=== PATIENT | male | born 1970 | race Caucasian/White ===

== ENCOUNTER 2017-08-11 11:25 | Day surgery (SDC) | payer MEDICAID, SELFPAY ==
--- NOTE | 2017-08-06 11:22 | EKG12_ITS ---
Test Reason : PREOP Blood Pressure : / mmHG Vent. Rate : 093 BPM Atrial Rate : 093 BPM P-R Int : 136 ms QRS Dur : 090 ms QT Int : 386 ms P-R-T Axes : 061 017 018 degrees QTc Int : 479 ms Normal sinus rhythm Nonspecific T wave abnormality Prolonged QT Abnormal ECG Confirmed by SHANNAN STALLWORTH, STEPHEN ([id number]), editor managing newspaper TRISTAN HERRERA ([id number]) on 08/10/2017 3:32:50 PM Referred By: Bahman May Confirmed By:STEPHEN CAMPBELL MD
[2017-08-06 12:19] LABS: Anion Gap 7 (5-15); BUN 8 mg/dL (7-18); BUN/Creat Ratio 7.5 RATIO (10-20); Calcium,Total 9.2 mg/dL (8.5-10.1); Chloride 97 mmol/L (98-107); Creatinine, Serum 1.06 mg/dL (0.70-1.30); EST Glomerular Filtration Rate 80 mL/min (>60); Est Glom Filt Rate - Afr Amer 97 mL/min (>60); Glucose 88 mg/dL (70-110); Sodium Level 137 mmol/L (136-145)
[2017-08-11] VITALS (15 sets, daily range): BP systolic 116–164; BP diastolic 65–94; PULSE 97–111; RESP 12–18; TEMP 36.7–37.6; O2SAT 80–99; BMI 39.4
[2017-08-11 12:12] LABS: Hematocrit 41.2 % (40-54); Hemoglobin 13.4 g/dl (13.0-16.5); Mean Corp Hgb Conc 32.5 g/gl (32-36); Mean Corpuscular Hgb 31.8 pg (27.0-32.0); Mean Corpuscular Volume 97.6 fL (80-94); Mean Platelet Vol. 10.1 fl (6.2-12.0); Platelet Count 241 K/mm3 (150-450); RBC Distribution Width CV 12.3 % (11.6-14.6); RBC Distribution Width SD 43.6 fl (35.1-43.9); Red Blood Count 4.22 M/mm3 (4.6-6.2); White Blood Count 7.3 K/mm3 (4.4-11.0)
[2017-08-11 12:16] LABS: Scan Indicated on CBC? Y/N NO
[2017-08-11 12:24] LABS: Prothrombin Time (Protime)PT. 12.9 SECONDS (11.7-14.9)
[2017-08-11] MEDS: Clindamycin 900 MG/50 ML BAG 75 MG IV (13:30)
[2017-08-11] MEDS: Mupirocin Ointment 22gm Tube 1 APPLIC (14:15)
--- NOTE | 2017-08-11 16:45 | DCINST_ITS ---
You will use the following diet at home:: No restrictions Discharge Activity: May not drive while taking narcotic pain medications. Return to work on:: 08/17/17 Additional Activity Instructions:: keep the bridge of your nose dry until next thursday morning. that day, get it very wet in the shower so it comes off easily in the office Call your doctor if your incision/area has: Increased Pain/ Swelling Additional Dressing/Incision Instructions:: mupirocin to nasal incisions twice daily. ice to under-eye area 20 mins on / 20 mins off for the first 48 hrs ( when awake). nasal saline spray to both nostrils 4 times daily. Allergies/Adverse Reactions: Allergies No Known Allergies Allergy (Verified 08/04/17 08:50) Medications to take at Discharge Benztropine [Cogentin] 0.5 mg PO BID 05/24/17 Cetirizine HCl [Allergy] 10 mg PO DAILY 05/24/17 Cyclobenzaprine [Flexeril] 10 mg PO PRN PRN 05/24/17 Divalproex Sodium [Depakote ER] 500 mg PO BID 05/24/17 Ibuprofen 800 mg PO TID 05/24/17 Omeprazole 20 mg PO DAILY 05/24/17 Pravastatin Sodium [Pravachol] 10 mg PO DAILY 05/24/17 Risperidone [Risperdal M-Tab] 0.5 mg PO BID 05/24/17 Sucralfate 1 gm PO TID 05/24/17 Sumatriptan Succinate [Imitrex] 50 mg PO PRN PRN 05/24/17 Ergocalciferol [Vitamin D] 50,000 unit PO TU 08/04/17 Iron Carbonyl [Feosol] 45 mg PO DAILYCM 08/04/17 Methylcellulose [Fiber Therapy] 1,000 mg PO BID 08/04/17 Multivitamin [Multiple Vitamins] 1 each PO DAILY 08/04/17 Hydrocodone/Acetaminophen [[place] 5-325 Tablet] 1 ea PO Q6H PRN #20 tab 08/11/17 Smz/Tmp Ds [Bactrim Ds] 1 tab PO BID #14 tab 08/11/17 The following prescriptions were given: Smz/Tmp Ds [Bactrim Ds] 1 tab PO BID #14 tab Hydrocodone/Acetaminophen [[place] 5-325 Tablet] 1 ea PO Q6H PRN #20 tab PRN Reason: Pain Primary Care Physician: Mari Loya,Ita James [Primary Care Provider] - Please Follow Up With: Bahman May MD When: next thursday - call to make appt
--- NOTE | 2017-08-11 17:03 | PCM.OPRPT ---
Problem List (1) Nasal congestion Status: Chronic Report of Operation Date of Procedure: 08/11/17 Pre-Operative Diagnosis: 1. nasal congestion. 2. nasal septal deviation. 3. nasal bone and septal fracture. 4. inferior turbinate hypertrophy, right and left. 5. internal nasal valve dysfunction, right and left Post-Operative Diagnosis: 1. nasal congestion. 2. nasal septal deviation. 3. nasal bone and septal fracture. 4. inferior turbinate hypertrophy, right and left. 5. internal nasal valve dysfunction, right and left Surgery/Procedure Performed:: 1. open septorhinoplasty. 2. open correction nasal bone and septal fractures. 3. correction internal nasal valve stenosis, right and left. 4. submucous resection inferior turbinates, right and left Type of Anesthesia:: General Description of Procedure: on the day of the procedure, after appropriate informed consent was obtained, the patient was brought to the operating room and placed in supine position on the operating room table. he was placed under general endotracheal anesthesia by the anesthesiologist. tegaderm was placed over the eyes. the bilateral nasal cavities were decongested with oxymetazoline soaked pledgets. an inverted v columellar incision was made with a tribal blade. this traversed into marginal incisions on the right and left with three point retraction and iris scizzors. the lower lateral cartilages were skeletonized. the scroll region was found and the left and right upper lateral cartilages were skeletonized with iris scizzors. the medial crura were lateralized with stephy brown forceps and the anterior septal angle was found. the patient had an incredibly deviated bony/cartilaginous junction to the left. his septum was in contact with his left nasal sidewall. his left upper lateral cartilage and keystone area were crushed to the left. sub mucoperichondrial planes were developed on the right then left using a almaz elevator. due to the fragmented cartilage of his septum, the entire septum was removed in fragments along previous fracture lines. severely deviated areas of the perpendicular plate of the ethmoid and vomer were removed with a vivien nolen. the left upper lateral cartilage was disarticulated with the nasal septum and keystone area with a almaz elevator. the head of the right and left inferior turbinates were injected with lidocaine/epinephrine. an incision was made in the head of the right inferior turbinate. this was dissected submucosally with a almaz elevator, reduced using suction electrocautery, and outfractured using a boies elevator. an incision was made in the head of the left inferior turbinate. this was dissected submucosally with a almaz elevator, reduced using suction electrocautery, and outfractured using a boies elevator. the junction of the nasal dorsum and bilateral lateral nasal sidewalls was injected with lidocaine/epinephrine. a 2mm incision in this area on the right and left was made with a tribal blade. a subperiosteal plane was developed endonasally with a almaz, the periosteum from the nasal bones. medial and lateral osteotomies on the patients right were made with a 2mm osteotome. the right nasal bone and piriform was lateralized to the right. medial and lateral osteotomies on the patients left were made with a 2mm osteotome. the left nasal bone and piriform was completely medialized, bringing the keystone area back to near midline. the fragmented septum was sutured in piecemeal fashion to a PDS plate and an anterior septal reconstruction was performed with this conglomerate placed as an internal liquified natural gas technician graft on the patient's left side. this was sutured into place using 4-0 PDS to the maxillary crest periosteum. bilateral flaring sutures were placed to stabilize his internal nasal valve collapse using 4/0 PDS. numerous quilting sutures were used to reapproximate the septum with 4-0 chromic; several incorporating the anterior septal reconstruction. the columellar incision was closed with 7-0 vicryl and the marginal incisions with 4-0 chromic. benson splints were sutured into place and a dorsal nasal splint was placed. the patient was awoken from anesthesia by the anesthesiologist and transferred to the PACU in stable condition. - Admit VTE Documentation VTE Present on Admission: No VTE Mechan Device Prophylaxis: SCD's Reason prophylaxis not ordered:: Treatment Not Indicated
[2017-08-11] MEDS: HYDROcodone Bitartrate/Apap 5/325 Tablet PO (18:35)
[2017-08-11] MEDS: Ipratropium/Albuterol Sulfate 3 ML AMPUL.NEB INHALATION (19:02)
== END 2017-08-11 19:58 | disposition home or self-care (01) ==
LOC: SDC 11:25 → AC 15:23
PROVIDERS: Visit Provider Otolaryngology
PROC: (CPT 30140; principal; 2017-08-11 13:30)
DX: J34.2 Deviated nasal septum (principal); R09.81 Nasal congestion; J34.3 Hypertrophy of nasal turbinates; H04.553 Acquired stenosis of bilateral nasolacrimal duct; F17.210 Nicotine dependence, cigarettes, uncomplicated; M95.0 Acquired deformity of nose
CPT/HCPCS: 00160; 30140; 30420; 68811; 36415; 80048; 85027; 85610; 85730; 93005; 94640; J7120; J2405

== ENCOUNTER 2017-11-12 18:53 | Observation (INO) | payer MEDICAID, SELFPAY ==
[2017-11-12 18:54] VITALS: BP 133/84; PULSE 137; RESP 16; TEMP 38.7; O2SAT 94; BMI 39.3
[2017-11-12 19:26] VITALS: BP 172/82; PULSE 133; RESP 24; O2SAT 90
--- NOTE | 2017-11-12 19:59 | RAD_ITS ---
STUDY: X-RAY CHEST REASON FOR EXAM: Male, 47 years old. Dizziness. TECHNIQUE: Frontal and lateral views of the chest. COMPARISON: 05/24/2017. FINDINGS: The lungs are clear and expanded. There is no demonstrated pleural abnormality. Normal size heart. Normal mediastinum and lake. Normal visualized pulmonary arteries. Normal visualized aortic arch and descending thoracic aorta. Normal visualized thoracic spine. Normal visualized ribs, clavicles, and shoulders. There is no demonstrated abnormality of the visualized soft tissue structures of the upper abdomen. RAD/Chest PA and Lateral IMPRESSION: Normal x-ray examination of the chest. Electronically Signed: Conrad Sky MD at 20:36 EDT , Service support ,
[2017-11-12] MEDS: 0.9% Normal Saline 1,000 ML 1000 ML IV (20:05)
[2017-11-12] MEDS: Acetaminophen 500 MG Tablet 1000 MG PO (20:08)
[2017-11-12 20:15] LABS: Absolute Neutrophil Count 12.1 X10^3/uL (2.0-7.7); Basophil# 0.02 X10^3/uL; Basophil% 0.1 % (0-1); Eosinophil# 0.03 X10^3/uL; Eosinophils% 0.2 % (0-5); Hematocrit 41.2 % (40-54); Hemoglobin 13.7 g/dl (13.0-16.5); Lymphocyte % 8.2 % (19-41); Mean Corp Hgb Conc 33.3 g/gl (32-36); Mean Corpuscular Hgb 32.2 pg (27.0-32.0); Mean Corpuscular Volume 96.7 fL (80-94); Mean Platelet Vol. 9.9 fl (6.2-12.0); Monocyte# 1.25 X10^3/uL; Monocyte% 8.5 % (0-10); Neutrophil % 82.7 % (47-70); Platelet Count 179 K/mm3 (150-450); RBC Distribution Width CV 12.8 % (11.6-14.6); RBC Distribution Width SD 44.7 fl (35.1-43.9); Red Blood Count 4.26 M/mm3 (4.6-6.2); White Blood Count 14.6 K/mm3 (4.4-11.0)
[2017-11-12 20:16] LABS: POSITIVE COUNT NO; POSITIVE DIFFERENTIAL NO; POSITIVE MORPHOLOGY NO
[2017-11-12 20:41] LABS: Anion Gap 7 (5-15); BUN 17 mg/dL (7-18); BUN/Creat Ratio 14.7 RATIO (10-20); Calcium,Total 9.1 mg/dL (8.5-10.1); Chloride 99 mmol/L (98-107); Creatinine, Serum 1.16 mg/dL (0.70-1.30); EST Glomerular Filtration Rate 72 mL/min (>60); Est Glom Filt Rate - Afr Amer 87 mL/min (>60); Estimated Creatinine Clearance 87.34 ml/min; Glucose 106 mg/dL (74-106); Potassium 4.1 mmol/L (3.5-5.1); Sodium Level 133 mmol/L (136-145)
--- NOTE | 2017-11-12 20:49 | EKG12_ITS ---
Test Reason : DIZZINESS Blood Pressure : / mmHG Vent. Rate : 130 BPM Atrial Rate : 357 BPM P-R Int : 000 ms QRS Dur : 086 ms QT Int : 408 ms P-R-T Axes : 000 003 -77 degrees QTc Int : [address] & T wave abnormality, consider inferior ischemia Abnormal ECG Confirmed by KRISTOPHER PETERS ([id number]), science editor TRISTAN HERRERA ([id number]) on 11/17/2017 2:41:10 PM Referred By: CEDRIC
[2017-11-12 22:11] VITALS: BP 154/72; PULSE 108; RESP 19; O2SAT 93
[2017-11-12 23:20] VITALS: TEMP 37.1
[2017-11-12] MEDS: MethylPREDNISolone 125 MG/2 ML Vial IV (23:44)
[2017-11-13] VITALS (12 sets, daily range): BP systolic 130–165; BP diastolic 55–95; PULSE 94–109; RESP 18–20; TEMP 36.6–37.4; O2SAT 91–96; BMI 39.4
--- NOTE | 2017-11-13 00:03 | ED.VISSUMM ---
- ER Visit Summary Date of Service: 11/13/17 Chief Complaint: Cough, fever and shortness of breath. History of Present Illness: The patient is a 47 M history of schizophrenia PTSD. States that he has had a cough for approximately 1 week with brown phlegm. Associated shortness of breath. Fever and chills. Denies vomiting or diarrhea no hemoptysis. No history of DVT or PE and no chest pain except with coughing. Physical Examination: Middle-aged male clinically looks ill. His vital signs he has a fever 1016 with a heart rate of 133. 90% on room air consistent with hypoxia. H EENT exam dry mucous membranes. Neck nontender no lymphadenopathy. No meningismus. Lungs wet cough. No wheezing. Coarse in the left base. Heart tachycardic rate of 130s no murmurs. Chest wall nontender. Abdomen soft nontender. Moving all 4 extremities. Calves nontender without edema or cords. Neurologically is awake and alert with no focal motor deficits. Back exam normal. Skin is diaphoretic. Test Results: CBC shows a white count of 14.7. H&H of 13 and 41. No bands electrolytes unremarkable sodium 133. Normal gap and creatinine. Lactic acid is 2.0. Blood culture sent. EKG sinus tachycardia rate of 130 no ischemia. Emergency Department Course and Treatment: Clinically the patient has a pneumonia. Chest x-ray is questionable in the left lower lung field but the radiologist read it is negative. Patient remains hypoxic he is being treated with Solu-Medrol and aerosols. His pulse ox drops into the high 80s while in bed off of O2. He will be started on Rocephin and Zithromax and treated as a community-acquired pneumonia. Treatment Plan: I have spoken to the hospitalist who is down to evaluate for admission. Disposition: Admission Impression: Clinical pneumonia Leukocytosis Hypoxia This note was generated with [employer]icky[employer] dictation software. It may contain incorrect words, spelling, and punctuation that were not noted in review of the chart prior to signing ED Disposition - Plan for ED Patient: Chief Complaint: Dizziness Referrals: Ita Agudelo [Primary Care Provider] -
[2017-11-13] MEDS: Ipratropium/Albuterol Sulfate 3 ML AMPUL.NEB INHALATION (00:04)
[2017-11-13] MEDS: Albuterol 2.5 MG/3 ML VIAL.NEB. INHALATION ×2 (00:04)
[2017-11-13 00:11] LABS: Reflex Lactate? Y
[2017-11-13] MEDS: Ceftriaxone 1 GM/50 ML BAG IV (00:22)
[2017-11-13 01:02] LABS: Lactic Acid 1.9 mmol/L (0.4-2.0)
--- NOTE | 2017-11-13 01:12 | HP.PCM_ITS ---
Problem List (1) Left lower lobe CAP Status: Acute (2) Morbid obesity Status: Chronic (3) Schizophrenia Status: Chronic (4) Dyslipidemia Status: Chronic History of Present Illness Date of Admission: 11/13/17 Chief Complaint: Cough with fever on and off for about 1 week The patient is a 47 year old M with history of schizophrenia, morbid obesity came to ER with cough along with brown phlegm, intermittent fever for about 1 week. In the ER he was found to have 101.6?F and 90% on room air. He denies chest pain, shortness of breath at rest or on exertion. Denies any chronic lung disease. Was scheduled for sleep study test. Chest x-ray shows infiltrate in the left lung base although reported normal. Laboratory Results 11/12/17 20:00: WBC 14.6 H, RBC 4.26 L, Hgb 13.7, Hct 41.2, MCV 96.7 H, MCH 32.2 H, MCHC 33.3, RDW 12.8, RDW Differential 44.7 H, Plt Count 179, MPV 9.9, Immature Gran % (Auto) 0.300, Neut % (Auto) 82.7 H, Lymph % (Auto) 8.2 L, Keith % (Auto) 8.5, Eos % (Auto) 0.2, Baso % (Auto) 0.1, Absolute Neuts (auto) 12.1 H , Absolute Lymphs (auto) 1.20, Total Counted Not Reportable 11/12/17 20:00: Sodium 133 L, Potassium 4.1, Chloride 99, Carbon Dioxide 27.0, Anion Gap 7, BUN 17, Creatinine 1.16, Estim Creat Clear Calc 87.34, Est GFR ( MDRD) Af Amer 87, Est GFR (MDRD) Non-Af 72, BUN/Creatinine Ratio 14.7, Glucose 106, Calcium 9.1 11/12/17 20:00: Lactic Acid 2.0 11/13/17 00:27: Lactic Acid 1.9 Past Medical History Past Medical History (Chronic Problems): Chronic Problems Morbid obesity (Chronic) Schizophrenia (Chronic) Dyslipidemia (Chronic) Nasal congestion (Chronic) Allergies No Known Allergies Allergy (Verified 08/04/17 08:50) Home Medications: Ambulatory Orders Medication Instructions Recorded Benztropine [Cogentin] 0.5 mg PO BID 05/24/17 Cetirizine HCl [Allergy] 10 mg PO DAILY 05/24/17 Divalproex Sodium [Depakote ER] 500 mg PO BID 05/24/17 Ibuprofen 800 mg PO TID 05/24/17 Omeprazole 20 mg PO DAILY 05/24/17 Pravastatin Sodium [Pravachol] 10 mg PO DAILY 05/24/17 Risperidone [Risperdal M-Tab] 0.5 mg PO BID 05/24/17 Sucralfate 1 gm PO TID 05/24/17 Sumatriptan Succinate [Imitrex] 50 mg PO PRN PRN 05/24/17 Ergocalciferol [Vitamin D] 50,000 unit PO TU 08/04/17 Smoking Status: Current every day smoker - *Family History Paternal History Items: No pertinent history Review of Systems Constitutional: Reports: Chills, Fever, Malaise. Denies: Weight Change HEENT: Denies: Head Aches, Sinus Congestion, Sinus Drainage Cardiovascular: Denies: Chest Pain, Palpitations Respiratory: Reports: Cough, Sputum production. Denies: Shortness of breath at rest Gastrointestinal: Denies: Abdominal Pain, Nausea, Vomiting Genitourinary: Denies: Dysuria Musculoskeletal: Denies: Joint Pain, Joint Tenderness Skin: Denies: Rash, Wounds Neurological: Reports: Tremor - Neurological problem including schizophrenia and possible due to antipsychotic medication. Denies: Focal weakness, Numbness , Tingling Psychiatric: Denies: Anxiety, Depression, Homicidal Ideations, Suicidal Ideations Hematologic/ Lymphatic: Denies: Easy Bruising, Easy Bleeding VTE Information - Inpt Only VTE Present on Admission: No VTE Mechan Device Prophylaxis: SCD's VTE Pharm Prophylaxis ordered?: Yes Patient Problems: Active and Suspected Problems Left lower lobe CAP (Acute) - Physical Exam General: Alert, Oriented x3, Cooperative HEENT: Atraumatic, PERRLA, EOMI, Normocephalic Neck: Supple, No JVD, Negative Carotid Bruits Lungs: Diminished, Rales - Coarse rales present in bilateral lung bases Cardiovascular: Regular rate, Regular Rhythm, Normal S1, Normal S2, No murmurs Abdomen: Bowel Sounds Present, Soft, Non Tender, Non-Distended Extremities: No edema, Capillary Refill Less than 3 Seconds Skin: No rashes, No breakdown Musculoskeletal: No Tenderness to Palpation of Joints or Extremities Neurological: Cranial nerves II-XII grossly intact, - - Tremor present on the left thumb Psych/Mental Status: Normal Affect, Appropriate Vital Signs Temp Pulse Resp BP Pulse Ox 98.7 F 102 H 20 H 165/74 H 94 11/13/17 00:12 11/13/17 01:00 11/13/17 01:00 11/13/17 01:00 11/13/17 01:00 Oxygen Flow Rate (L/min) 3 Oxygen Delivery Method Nasal Cannula Weight: 290 lb Body Mass Index (BMI) 39.3 Laboratory Tests Past 24 Hrs 11/12/17 11/12/17 11/12/17 20:00 20:00 20:00 WBC 14.6 H RBC 4.26 L Hgb 13.7 Hct 41.2 MCV 96.7 H MCH 32.2 H MCHC 33.3 RDW 12.8 RDW Differential 44.7 H Plt Count 179 MPV 9.9 Immature Gran % (Auto) 0.300 Neut % (Auto) 82.7 H Lymph % (Auto) 8.2 L Keith % (Auto) 8.5 Eos % (Auto) 0.2 Baso % (Auto) 0.1 Absolute Neuts (auto) 12.1 H Absolute Lymphs (auto) 1.20 Total Counted Not Reportable Sodium 133 L Potassium 4.1 Chloride 99 Carbon Dioxide 27.0 Anion Gap 7 BUN 17 Creatinine 1.16 Estim Creat Clear Calc 87.34 Est GFR (MDRD) Af Amer 87 Est GFR (MDRD) Non-Af 72 BUN/Creatinine Ratio 14.7 Glucose 106 Lactic Acid 2.0 Calcium 9.1 11/13/17 00:27 WBC RBC Hgb Hct MCV MCH MCHC RDW RDW Differential Plt Count MPV Immature Gran % (Auto) Neut % (Auto) Lymph % (Auto) Keith % (Auto) Eos % (Auto) Baso % (Auto) Absolute Neuts (auto) Absolute Lymphs (auto) Total Counted Sodium Potassium Chloride Carbon Dioxide Anion Gap BUN Creatinine Estim Creat Clear Calc Est GFR (MDRD) Af Amer Est GFR (MDRD) Non-Af BUN/Creatinine Ratio Glucose Lactic Acid 1.9 Calcium Assessment/Plan Active and Suspected Problems Left lower lobe CAP (Acute) The patient is a 47 year old M with history of schizophrenia, morbid obesity came to ER with cough along with brown phlegm, intermittent fever for about 1 week. In the ER he was found to have 101.6?F and 90% on room air. He denies chest pain, shortness of breath at rest or on exertion. Denies any chronic lung disease. Was scheduled for sleep study test. Chest x-ray shows infiltrate in the left lung base although reported normal. 1. Left lung base community-acquired pneumonia: Patient is being admitted on the regular [facility] floor. Started on IV ceftriaxone and Zithromax. Blood cultures ?2, sputum culture, influenza and urinary antigens ordered. Bronchodilator as needed for shortness of breath. 2. Dyslipidemia: On pravastatin. Fasting profile tomorrow a.m. 3. Other comorbidities include GERD, Schizophrenia, possible obstructive sleep apnea and morbid obesity: Home medication reconciliation done. Patient has a scheduled sleep study test as an outpatient. On multiple antipsychotic medications including Depakote, risperidone. Due to prophylaxis: Moderate risk: On Lovenox and bilateral SCDs. Laboratory Results 11/12/17 20:00: WBC 14.6 H, RBC 4.26 L, Hgb 13.7, Hct 41.2, MCV 96.7 H, MCH 32.2 H, MCHC 33.3, RDW 12.8, RDW Differential 44.7 H, Plt Count 179, MPV 9.9, Immature Gran % (Auto) 0.300, Neut % (Auto) 82.7 H, Lymph % (Auto) 8.2 L, Keith % (Auto) 8.5, Eos % (Auto) 0.2, Baso % (Auto) 0.1, Absolute Neuts (auto) 12.1 H , Absolute Lymphs (auto) 1.20, Total Counted Not Reportable 11/12/17 20:00: Sodium 133 L, Potassium 4.1, Chloride 99, Carbon Dioxide 27.0, Anion Gap 7, BUN 17, Creatinine 1.16, Estim Creat Clear Calc 87.34, Est GFR ( MDRD) Af Amer 87, Est GFR (MDRD) Non-Af 72, BUN/Creatinine Ratio 14.7, Glucose 106, Calcium 9.1 11/12/17 20:00: Lactic Acid 2.0 11/13/17 00:27: Lactic Acid 1.9 Clinical Impression(s) from Imaging Studies Chest X-Ray 11/12/17 19:59 IMPRESSION: Normal x-ray examination of the chest. Electronically Signed: Conrad Sky MD at 20:36 EDT , Service support , Code Visit Inpatient E&M: 12442 Init Hosp L3
[2017-11-13 02:51] LABS: Color, Urine Yellow (Yellow); Glucose, Dipstick Normal (Normal); Ketone-Dipstick 5 mg/dl (Negative); Leukocyte Esterase-Dipstick Negative /ul (Negative); Nitrite-Dipstick Negative (Negative); Occult Blood-Urine 150 /ul (Negative); Protein-Dipstick 15 mg/dl (Negative); Urine Bilirubin Dipstick Negative (Negative); Urine Clarity Clear (Clear); Urine Urobilinogen 1 mg/dl (Normal); Urine pH 6.5 (5.0 - 8.0)
[2017-11-13] MEDS: Enoxaparin 40 MG/0.4 ML Syringe SC (03:09)
[2017-11-13] MEDS: 0.9% Normal Saline 1,000 ML 100 ML IV (03:10)
[2017-11-13] MEDS: Acetaminophen 325 MG Tablet 650 MG PO (03:15)
[2017-11-13 06:16] LABS: Absolute Lymphocyte Count 0.78 X10^3/ul (0.83-4.51); Absolute Neutrophil Count 13.9 X10^3/uL (2.0-7.7); Basophil# 0.01 X10^3/uL; Basophil% 0.1 % (0-1); Hematocrit 38.3 % (40-54); Hemoglobin 12.7 g/dl (13.0-16.5); Lymphocyte # 0.78 X10^3/ul (4.0); Lymphocyte % 5.2 % (19-41); Mean Corp Hgb Conc 33.2 g/gl (32-36); Mean Corpuscular Hgb 32.5 pg (27.0-32.0); Mean Platelet Vol. 10.3 fl (6.2-12.0); Monocyte# 0.41 X10^3/uL; Monocyte% 2.7 % (0-10); Neutrophil # 13.85 X10^3/uL (2.7-7.7); Neutrophil % 91.9 % (47-70); Platelet Count 189 K/mm3 (150-450); RBC Distribution Width CV 12.8 % (11.6-14.6); RBC Distribution Width SD 44.9 fl (35.1-43.9); Red Blood Count 3.91 M/mm3 (4.6-6.2); White Blood Count 15.1 K/mm3 (4.4-11.0)
[2017-11-13 06:21] LABS: POSITIVE COUNT NO; POSITIVE DIFFERENTIAL NO; POSITIVE MORPHOLOGY NO
[2017-11-13] MEDS: Sucralfate 1 GM Tablet PO (06:21)
[2017-11-13] MEDS: oxyCODONE 5 MG Tablet PO (06:24)
[2017-11-13 06:45] LABS: Anion Gap 8 (5-15); BUN 15 mg/dL (7-18); BUN/Creat Ratio 12.4 RATIO (10-20); Calcium,Total 8.5 mg/dL (8.5-10.1); Chloride 100 mmol/L (98-107); Cholesterol 148 mg/dL (200); Creatinine, Serum 1.21 mg/dL (0.70-1.30); EST Glomerular Filtration Rate 68 mL/min (>60); Est Glom Filt Rate - Afr Amer 83 mL/min (>60); Estimated Creatinine Clearance 83.73 ml/min; Glucose 218 mg/dL (74-106); High Density Lipoprotein 41 mg/dL; Potassium 3.8 mmol/L (3.5-5.1); Sodium Level 136 mmol/L (136-145); Triglycerides 142 mg/dL; Very Low Density Lipoprotein 28 mg/dL (5-40)
--- NOTE | 2017-11-13 08:32 | RAD_ITS ---
STUDY: X-RAY CHEST REASON FOR EXAM: Male, 47 years old. Fever TECHNIQUE: Frontal and lateral views of the chest. COMPARISON: 11/12/2017. FINDINGS: The lungs are clear and expanded. There is no demonstrated pleural abnormality. Normal size heart. Normal mediastinum and lake. Normal visualized pulmonary arteries. Normal visualized aortic arch and descending thoracic aorta. Normal visualized thoracic spine. Normal visualized ribs, clavicles, and shoulders. There is no demonstrated abnormality of the visualized soft tissue structures of the upper abdomen. RAD/Chest PA and Lateral IMPRESSION: Normal x-ray examination of the chest. Electronically Signed: Conrad Sky MD at 14:45 EDT , Service support ,
[2017-11-13] MEDS: Polyethylene Glycol 3350 17 GM PACKET PO (12:17)
[2017-11-13] MEDS: Famotidine 20 MG Tablet PO (12:17)
[2017-11-13] MEDS: Pantoprazole Sodium 20 MG Tablet PO (12:17)
[2017-11-13] MEDS: Pramipexole Di-HCl 0.25 MG Tablet PO (12:17)
[2017-11-13] MEDS: Loratadine 10 MG Tablet PO (12:18)
[2017-11-13] MEDS: Divalproex (ER) 500 MG Tablet PO (12:18)
[2017-11-13] MEDS: guaiFENesin 1,200 MG Tablet 1200 MG PO (12:18)
[2017-11-13] MEDS: Benztropine 2 MG Tablet 0.5 MG PO (12:33)
--- NOTE | 2017-11-13 12:58 | CASEMGMT ---
See RN CM Assessment Link. DC PLAN: HOME -No DME use -Goes to [facility]-plans to f/u here on dc. -[facility] (does not use [facility]) Junior CHRISTINEN RN ACM
--- NOTE | 2017-11-13 14:49 | PN_ITS ---
Patient Problems: Active and Suspected Problems Left lower lobe CAP (Acute) Subjective: Seen and examined. He feels very tired. Been up the whole night. Remains on 2 L of oxygen. Not on oxygen at home. Denies any fever or chills. Admitting chest x-ray was negative for any infiltrate. Vitals have been stable. Vitals/I&O's: Vital Signs Temp Pulse Resp BP Pulse Ox 97.9 F 94 18 130/67 H 94 11/13/17 08:05 11/13/17 08:05 11/13/17 08:05 11/13/17 08:05 11/13/17 08:05 Oxygen Flow Rate (L/min) 3 Oxygen Delivery Method Nasal Cannula Weight: 131.7 kg Body Mass Index (BMI) 39.4 Intake and Output for Last 24 Hours 11/11/17 11/12/17 11/13/17 23:59 23:59 23:59 Intake Total 1509 / 1509 Balance 1509 / 1509 General: Alert, Oriented x3, Cooperative, No apparent distress, - HEENT: Atraumatic, PERRLA, EOMI, Normocephalic Oral: Moist Mucosa - 2 L of oxygen Neck: Supple Lungs: Clear to auscultation, Normal air movement Cardiovascular: Regular rate, Regular Rhythm, Normal S1, Normal S2, No murmurs Abdomen: Bowel Sounds Present, Soft, Non Tender, Non-Distended, No Hepato- splenomegaly Extremities: No edema Skin: No rashes, No breakdown Musculoskeletal: No Tenderness to Palpation of Joints or Extremities Lymphatic: No Cervical, Supraclavicular, or Inguinal Adenopathy Neurological: Cranial nerves II-XII grossly intact Psych/Mental Status: Normal Affect, Appropriate Microbiology Past 72 Hours 11/13/17 02:55 Sputum, Expectorated/Coughed Gram Stain - Final 11/13/17 04:05 Mucosa - Nose Influenza Types A,B Direct FA (JOSE CARLOS) - Final 11/13/17 02:42 Urine, Clean Catch Streptococcus pneumoniae Antigen (M - Final Streptococcus pneumonia Ag 11/13/17 02:42 Urine, Clean Catch Legionella Antigen - Final Laboratory Results 11/13/17 02:42: Urine Color Yellow, Urine Clarity Clear, Urine pH 6.5, Ur Specific [place] 1.010, Urine Protein 15 H, Urine Glucose (UA) Normal, Urine Ketones 5 H, Urine Occult Blood 150 H, Urine Nitrite Negative, Urine Bilirubin Negative, Urine Urobilinogen 1 H, Ur Leukocyte Esterase Negative 11/13/17 05:48: WBC 15.1 H, RBC 3.91 L, Hgb 12.7 L, Hct 38.3 L, MCV 98.0 H, MCH 32.5 H, MCHC 33.2, RDW 12.8, RDW Differential 44.9 H, Plt Count 189, MPV 10.3, Immature Gran % (Auto) 0.100, Neut % (Auto) 91.9 H, Lymph % (Auto) 5.2 L, [place] % (Auto) 2.7, Eos % (Auto) 0.0, Baso % (Auto) 0.1, Absolute Neuts (auto) 13.9 H , Absolute Lymphs (auto) 0.78 L, Total Counted Not Reportable 11/13/17 05:48: Sodium 136, Potassium 3.8, Chloride 100, Carbon Dioxide 28.0, Anion Gap 8, BUN 15, Creatinine 1.21, Estim Creat Clear Calc 83.73, Est GFR ( MDRD) Af Amer 83, Est GFR (MDRD) Non-Af 68, BUN/Creatinine Ratio 12.4, Glucose 218 H, Calcium 8.5, Triglycerides 142, Cholesterol 148, LDL Cholesterol 79, VLDL Cholesterol 28, HDL Cholesterol 41 Current Medications Acetaminophen (Tylenol) 650 mg PO Q4H PRN PRN PRN Reason: FEVER Last Admin: 11/13/17 03:15 Dose: 650 mg Al Hydroxide/Mg Hydroxide (Mylanta Ii) 30 ml PO Q6H PRN PRN PRN Reason: Gastric Burning Albuterol/Ipratropium (Duoneb) 3 ml INHALATION Q4H.RT PRN PRN Reason: sob Benztropine Mesylate (Cogentin) 0.5 mg PO BID [facility] Last Admin: 11/13/17 12:33 Dose: 0.5 mg Bisacodyl (Dulcolax) 10 mg RECTAL DAILY PRN PRN PRN Reason: Constipation Cyclobenzaprine HCl (Flexeril) 10 mg PO QHS [facility] Divalproex Sodium (Depakote Er) 500 mg PO BID [facility] Last Admin: 11/13/17 12:18 Dose: 500 mg Docusate Sodium (Colace) 200 mg PO BID PRN PRN PRN Reason: Constipation Enoxaparin Sodium (Lovenox) 40 mg SC DAILY@1000 [facility] Last Admin: 11/13/17 12:33 Dose: Not Given Ergocalciferol (Vitamin D) 50,000 unit PO Tu@1000 [facility] Famotidine (Pepcid) 20 mg PO BID [facility] Last Admin: 11/13/17 12:17 Dose: 20 mg Guaifenesin (Mucinex) 1,200 mg PO BID [facility] Last Admin: 11/13/17 12:18 Dose: 1,200 mg Azithromycin 500 mg/ Dextrose 255 mls @ 250 mls/hr IV Q24 [facility] Stop: 11/15/17 11:02 Last Admin: 11/13/17 07:53 Dose: Not Given Ceftriaxone Sodium (Rocephin) 1 gm in 50 mls @ 100 mls/hr IV Q24 [facility] Last Admin: 11/13/17 07:53 Dose: Not Given Loratadine (Claritin) 10 mg PO DAILY [facility] Last Admin: 11/13/17 12:18 Dose: 10 mg Magnesium Hydroxide (Milk Of Magnesia) 30 ml PO DAILY PRN PRN PRN Reason: Constipation Ondansetron HCl (Zofran) 4 mg IV Q8H PRN PRN PRN Reason: NAUSEA Oxycodone HCl (Oxyir) 5 mg PO Q4H PRN PRN PRN Reason: Moderate Pain (pain scale 4-5) Last Admin: 11/13/17 06:24 Dose: 5 mg Pantoprazole Sodium (Protonix) 20 mg PO DAILY [facility] Last Admin: 11/13/17 12:17 Dose: 20 mg Polyethylene Glycol (Miralax) 17 gm PO DAILY [facility] Last Admin: 11/13/17 12:17 Dose: 17 gm Pramipexole Dihydrochloride (Mirapex) 0.25 mg PO BID [facility] Last Admin: 11/13/17 12:17 Dose: 0.25 mg Pravastatin Sodium (Pravachol) 10 mg PO QHS [facility] Rizatriptan Benzoate (Maxalt) 10 mg PO PRN PRN PRN Reason: MIGRAINE SYMPTOMS Sodium Chloride () 5 - 30 ml IV UD PRN PRN Reason: SALINE FLUSH Sucralfate (Carafate) 1 gm PO TID@0700,1100,1600 [facility] Last Admin: 11/13/17 12:27 Dose: Not Given Zolpidem Tartrate (Ambien (Generic)) 5 mg PO QHS PRN PRN PRN Reason: SLEEP Medical Necessity - Tobacco Use Smoking Status: Former smoker Assessment/Plan Active and Suspected Problems Left lower lobe CAP (Acute) 47-year-old male with past medical history of schizophrenia admitted with cough and fever ongoing for about 1 week. Patient is being managed as pneumonia and is on IV antibiotics. 1. Acute streptococcal community-acquired pneumonia, in a patient with clinical pneumonia but radiologically chest x-ray ?2 have been negative. Urine streptococcal antigen has been positive. Leukocytosis slightly worse, on IV ceftriaxone and azithromycin, will continue with the same. 2. Hyperlipidemia, fasting lipid profile shows triglycerides 142, total cholesterol 148, LDL 79, HDL 41, pravastatin, will continue the same 3. GERD, on PPI 4. Schizo affective disorder, on valproic acid, risperidone 5. Morbid obesity, possible OMAR will need to follow-up in the outpatient 6. DVT PPx - Lovenox and bilateral SCDs. Code Visit Procedures: Other Procedure - See Report - Non-billable round
--- NOTE | 2017-11-13 15:55 | NURSING ---
This nurse was with Claudette [employer] [place] sales marketing coordinator when she did the walking oxygen qualification trial. Intervention documented in the computer by Claudette, and this nurse agrees with the results. Will page Dr. Mccray.
--- NOTE | 2017-11-13 16:09 | PCM.DC ---
- Discharge Diagnoses Current Active Problems: Current Active and Chronic Problems Left lower lobe CAP (Acute) Morbid obesity (Chronic) Schizophrenia (Chronic) Dyslipidemia (Chronic) Reason(s) for Visit for Discharge Instructions: Fever, SOB You will use the following diet at home:: Regular Your food should be the consistency of: Regular Your liquids should be the consistency of: Regular/Thin Discharge Activity: Return to Normal Activity Additional Instructions: You are advised to complete all your medications. Continue to use your incentive spirometer. Continue to hydrate yourself. Follow-up with your [facility] care doctor within 2 weeks Allergies/Adverse Reactions: Allergies No Known Allergies Allergy (Verified 08/04/17 08:50) Medications to take at Discharge Benztropine [Cogentin] 0.5 mg PO TID 05/24/17 Cetirizine HCl [Allergy] 10 mg PO DAILY 05/24/17 Divalproex Sodium [Depakote ER] 500 mg PO BID 05/24/17 Ibuprofen 800 mg PO TID 05/24/17 Omeprazole 40 mg PO DAILY 05/24/17 Pravastatin Sodium [Pravachol] 10 mg PO DAILY 05/24/17 Risperidone [Risperdal M-Tab] 0.5 mg PO BID 05/24/17 Sucralfate 1 gm PO TID 05/24/17 Sumatriptan Succinate [Imitrex] 50 mg PO PRN PRN 05/24/17 Ergocalciferol [Vitamin D] 50,000 unit PO TU 08/04/17 Amox/Clavulanate Tablet [Augmentin Tablet] 875 mg PO Q12H #14 tab 11/13/17 Cyclobenzaprine 10 mg PO QHS 11/13/17 Guaifenesin [Mucinex] 1,200 mg PO BID #14 tab 11/13/17 The following prescriptions were given: Amox/Clavulanate Tablet [Augmentin Tablet] 875 mg PO Q12H #14 tab Guaifenesin [Mucinex] 1,200 mg PO BID #14 tab Primary Care Physician: Ita Agudelo [Primary Care Provider] - Please follow up with your Primary Care Physician in: within 2 weeks Proposed Discharge Date: 11/13/17
--- NOTE | 2017-11-13 16:11 | PCM.DC.SUM ---
Discharge Date and Diagnosis - Problem List Patient Problems: Active and Suspected Problems Left lower lobe CAP (Acute) Date of Admission: 11/13/17 Date of Discharge: 11/13/17 - Primary Discharge Diagnosis Active and Suspected Problems Left lower lobe CAP (Acute) - Secondary Discharge Diagnosis Chronic Problems Morbid obesity (Chronic) Schizophrenia (Chronic) Dyslipidemia (Chronic) Nasal congestion (Chronic) Hospital Course and Treatment Imaging Results: 11/13/17 08:32 Chest PA and Lateral [RAD] Routine None Operations: None Summary of Care Provided: 47-year-old male with past medical history of schizophrenia admitted with cough and fever ongoing for about 1 week. Patient is being managed as pneumonia and is on IV antibiotics. 1. Acute streptococcal community-acquired pneumonia, in a patient with clinical pneumonia but radiologically chest x-ray ?2 have been negative. Urine streptococcal antigen has been positive. Leukocytosis slightly worse, on IV ceftriaxone and azithromycin, will discharge on augmentin. 2. Hyperlipidemia, fasting lipid profile shows triglycerides 142, total cholesterol 148, LDL 79, HDL 41, on pravastatin. 3. GERD, on PPI 4. Schizo affective disorder, on valproic acid, risperidone 5. Morbid obesity, possible OMAR will need to follow-up in the outpatient, will need a sleep study. Discharge Diet: No Restrictions Discharge Activity: Return to Normal Activity Home Medications: Medications to take at Discharge Benztropine [Cogentin] 0.5 mg PO TID 05/24/17 Cetirizine HCl [Allergy] 10 mg PO DAILY 05/24/17 Divalproex Sodium [Depakote ER] 500 mg PO BID 05/24/17 Ibuprofen 800 mg PO TID 05/24/17 Omeprazole 40 mg PO DAILY 05/24/17 Pravastatin Sodium [Pravachol] 10 mg PO DAILY 05/24/17 Risperidone [Risperdal M-Tab] 0.5 mg PO BID 05/24/17 Sucralfate 1 gm PO TID 05/24/17 Sumatriptan Succinate [Imitrex] 50 mg PO PRN PRN 05/24/17 Ergocalciferol [Vitamin D] 50,000 unit PO TU 08/04/17 Amox/Clavulanate Tablet [Augmentin Tablet] 875 mg PO Q12H #14 tab 11/13/17 Cyclobenzaprine 10 mg PO QHS 11/13/17 Guaifenesin [Mucinex] 1,200 mg PO BID #14 tab 11/13/17 Following Prescrptions Were Given to Patient: Amox/Clavulanate Tablet [Augmentin Tablet] 875 mg PO Q12H #14 tab Guaifenesin [Mucinex] 1,200 mg PO BID #14 tab Primary Care Physician: Ita Agudelo [Primary Care Provider] - Please follow up with your Primary Care Physician in: within 2 weeks Disposition: Home Minutes spent on discharge:: 45 Patient Condition:: Stable Medical Necessity - Tobacco Use Smoking Status: Former smoker Meaningful Use Info Meaningful Use Diagnoses (Choose all that apply): None applicable Code Visit Inpatient E&M: 44488 Disch Hosp
== END 2017-11-13 16:39 | disposition home or self-care (01) ==
LOC: ED 20:57 → MS3 11-13 01:26
PROVIDERS: Admitting Provider Internal Medicine; Emergency Provider Emergency Medicine; Visit Provider Internal Medicine
DX: J15.4 Pneumonia due to other streptococci (principal); E78.5 Hyperlipidemia, unspecified; K21.9 Gastro-esophageal reflux disease without esophagitis; F25.9 Schizoaffective disorder, unspecified; E66.01 Morbid (severe) obesity due to excess calories; Z68.39 Body mass index [BMI] 39.0-39.9, adult; Z71.3 Dietary counseling and surveillance; Z87.891 Personal history of nicotine dependence; F43.10 Post-traumatic stress disorder, unspecified; R09.02 Hypoxemia; Z79.899 Other long term (current) drug therapy
CPT/HCPCS: 36415; 71046; 80048; 80061; 81002; 83605; 85025; 87040; 87070; 87077; 87186; 87205; 87449; 87804; 93005; 94640; 94667; 96361; 96365; 96367; 96372; 96375; 97802; 99218; 99282; J7030; J7050; A4216; G0378

== ENCOUNTER 2017-12-01 18:47 | Emergency (ER) | payer MEDICAID, SELFPAY ==
[2017-12-01 18:48] VITALS: BP 148/86; PULSE 109; RESP 14; TEMP 36.9; O2SAT 95; BMI 39.3
--- NOTE | 2017-12-01 19:22 | ED.VISSUMM ---
- ER Visit Summary Date of Service: 12/01/17 Chief Complaint: Back pain History of Present Illness: The patient is a 47 M with low back pain. This started about 6 days ago. He thinks it started after bending and lifting but he is not sure. It has gradually gotten worse. It does not radiate. He denies any weakness or numbness. Denies any loss of bowel or bladder. Denies abdominal pain or GI complaints. Denies fevers or rashes. No history of back surgery, bony pathology, or IV drug abuse. Physical Examination: Vital signs unremarkable. Patient is alert and oriented. No acute distress. Moving without too much difficulty. Abdomen soft and nontender. Back is tender to palpation in the bilateral upper lumbar paraspinal muscles. No spinal tenderness. No CVA tenderness. Straight leg raise negative. Good strength and sensation. Test Results: None indicated Emergency Department Course and Treatment: Patient was treated for myofascial back pain with Toradol and Norflex. Patient had significant improvement on reevaluation. Will discharge. Will prescribe naproxen and Flexeril. Follow-up with primary care or return if worse. Treatment Plan: As above Disposition: Discharged Impression: 1. Acute lumbar back pain This note was generated with [employer] dictation software. It may contain incorrect words, spelling, and punctuation that were not noted in review of the chart prior to signing ED Disposition - Plan for ED Patient: Chief Complaint: Back Referrals: Ita Agudelo [NON-STAFF] -
[2017-12-01] MEDS: Orphenadrine 60 MG/2 ML Ampul IM (19:30)
[2017-12-01] MEDS: Ketorolac 60 MG/2 ML Vial IM (19:30)
--- NOTE | 2017-12-01 20:35 | ED.DEP ---
ED Disposition - Plan for ED Patient: Chief Complaint: Back Instructions: ED Low Back Pain Injury Prescriptions: Naproxen [Naprosyn] 500 mg PO BID PRN #20 tab Cyclobenzaprine [Flexeril] 10 mg PO TID PRN #20 tab PRN Reason: Muscle Spasm Referrals: [facility] [NON-STAFF] -
[2017-12-01 20:39] VITALS: BP 137/86; PULSE 78; RESP 18; O2SAT 96
== END 2017-12-01 20:40 | disposition home or self-care (01) ==
LOC: ED 19:36
PROVIDERS: Emergency Provider Emergency Medicine; Family Provider Nurse Practitioner Family; PCP Nurse Practitioner Family
DX: M54.5 Low back pain (principal); Z87.01 Personal history of pneumonia (recurrent); Z79.899 Other long term (current) drug therapy
CPT/HCPCS: 96372; 99282

== ENCOUNTER → 2017-12-07 11:53 | Outpatient (CLI) | payer MEDICAID, SELFPAY ==
--- NOTE | 2017-12-07 12:00 | RAD_ITS ---
STUDY: X-RAY CHEST REASON FOR EXAM: Male, 47 years old. Cough TECHNIQUE: Frontal and lateral views of the chest were obtained. COMPARISON: November 13, 2017 FINDINGS: The lungs are adequately aerated. There are no focal airspace opacities. There is no demonstrated pleural abnormality. The cardiac silhouette is normal in size. The mediastinum and hilar regions are unremarkable. Normal visualized pulmonary arteries. Normal visualized aortic arch and descending thoracic aorta. There are diffuse degenerative changes of the visualized spine. The visualized ribs, clavicles, and shoulders are unremarkable. There is no demonstrated abnormality of the visualized upper abdomen. RAD/Chest PA and Lateral IMPRESSION: There is no evidence of focal consolidation or pleural effusion. Electronically Signed: Hollie Merida MD at 2:01 EDT Tel Direct: [phone], Service support ,
== END ==
PROVIDERS: Family Provider Nurse Practitioner Family; PCP Nurse Practitioner Family
DX: J18.9 Pneumonia, unspecified organism (principal)
CPT/HCPCS: 71046

== ENCOUNTER 2017-12-21 12:10 | Emergency (ER) | payer MEDICAID, SELFPAY ==
--- NOTE | 2017-12-21 12:10 | DT_ITS ---
This patient was seen during an EMR downtime December 21, 2017 - December 28, 2017. This patient may have a combination of paper and electronic documentation or all paper documentation. All documentation is viewable within the e-chart portion of [employer] for each patient visit.
--- NOTE | 2017-12-21 13:30 | RAD_ITS ---
STUDY: X-RAY CHEST REASON FOR EXAM: Male, 47 years old. Chest pain. TECHNIQUE: PA and lateral views of the chest. COMPARISON: December 07, 2017. FINDINGS: The lungs are clear and expanded. There is no demonstrated pleural abnormality. Normal size heart. Normal mediastinum and lake. Normal visualized pulmonary arteries. Normal visualized aortic arch and descending thoracic aorta. There are diffuse degenerative changes of the visualized thoracic spine. Normal visualized ribs, clavicles, and shoulders. There is no demonstrated abnormality of the visualized soft tissue structures of the upper abdomen. RAD/Chest PA and Lateral IMPRESSION: No acute cardiopulmonary disease or interval change. Electronically Signed: Roldan Mathews DO at 15:00 EDT Tel [phone], Service support ,
[2017-12-24 11:03] LABS: Anion Gap 8 (5-15); BUN 12 mg/dL (7-18); BUN/Creat Ratio 11.4 RATIO (10-20); Calcium,Total 8.6 mg/dL (8.5-10.1); Chloride 104 mmol/L (98-107); Creatinine, Serum 1.05 mg/dL (0.70-1.30); EST Glomerular Filtration Rate 81 mL/min (>60); Est Glom Filt Rate - Afr Amer 98 mL/min (>60); Glucose 79 mg/dL (74-106); Potassium 3.6 mmol/L (3.5-5.1); Sodium Level 143 mmol/L (136-145)
[2017-12-24 15:52] LABS: Hematocrit 40.5 % (40-54); Hemoglobin 13.2 g/dl (13.0-16.5); Mean Corp Hgb Conc 32.6 g/gl (32-36); Mean Corpuscular Volume 98.1 fL (80-94); Platelet Count 214 K/mm3 (150-450); RBC Distribution Width CV 44.2 % (11.6-14.6); RBC Distribution Width SD 12.6 fl (35.1-43.9); White Blood Count 7.2 K/mm3 (4.4-11.0)
[2017-12-24 15:53] LABS: Absolute Lymphocyte Count 2.25 X10^3/ul (0.83-4.51); Absolute Neutrophil Count 4.2 X10^3/uL (2.0-7.7); Basophil# 0.01 X10^3/uL; Basophil% 0.1 % (0-1); Eosinophil# 0.14 X10^3/uL; Lymphocyte # 2.25 X10^3/ul (4.0); Lymphocyte % 31.4 % (19-41); Mean Platelet Vol. 10.7 fl (6.2-12.0); Monocyte# 0.62 X10^3/uL; Monocyte% 8.6 % (0-10); Neutrophil # 4.15 X10^3/uL (2.7-7.7); Neutrophil % 57.9 % (47-70); POSITIVE COUNT NO; POSITIVE DIFFERENTIAL NO; POSITIVE MORPHOLOGY NO
== END 2017-12-21 16:52 | disposition home or self-care (01) ==
PROVIDERS: Emergency Provider Emergency Medicine; Family Provider Nurse Practitioner Family; PCP Nurse Practitioner Family
DX: R07.89 Other chest pain (principal); F43.10 Post-traumatic stress disorder, unspecified; F20.9 Schizophrenia, unspecified; E78.00 Pure hypercholesterolemia, unspecified; Z87.891 Personal history of nicotine dependence; Z79.899 Other long term (current) drug therapy
CPT/HCPCS: 36415; 71046; 80048; 84484; 85025; 93005; 99285

== ENCOUNTER → 2018-03-31 17:35 | Outpatient (CLI) | payer MEDICAID, SELFPAY | DX: G47.10 Hypersomnia, unspecified (principal) | CPT/HCPCS: 95810; 95811 ==

== ENCOUNTER 2018-04-30 02:33 | Emergency (ER) | payer MEDICAID, SELFPAY ==
[2018-04-30 02:35] VITALS: BP 177/100; PULSE 98; RESP 17; TEMP 36.7; O2SAT 95; BMI 39.3
[2018-04-30 03:06] VITALS: BP 165/98; PULSE 92; RESP 19; O2SAT 98
--- NOTE | 2018-04-30 03:07 | ED.VISSUMM ---
- ER Visit Summary Date of Service: 04/30/18 Chief Complaint: Back pain History of Present Illness: The patient is a 48 M presenting for evaluation secondary to back pain. Patient reports that he works at [employer], and states that he frequently is lifting and twisting. He reports that over the course of the last 4 days he has had an onset of lower back pain. He states that this predominantly is on the left side, and is associated with a sharp burning pain that is better with sitting worse with movement and palpation. He reports that this radiates down his thigh, and occasionally he gets zingers the go all the way to his toes. Denies any numbness or weakness. He denies any bowel or bladder incontinence fevers or unintended weight loss. He denies any history of IV drug abuse, surgery, or recent injections. Patient states that he has been taking ibuprofen for this but has not really alleviated the symptoms. Physical Examination: Vitals: Within normal limits General: Well-nourished well-developed no acute distress Head: Normocephalic atraumatic ENT: Moist mucous membranes Neck: Supple no JVD Cardiovascular: Heart regular rate and rhythm no murmurs Respiratory: Respirations nondistressed, lung sounds clear to auscultation bilaterally Abdominal: Soft, nontender, nondistended, normal bowel sounds, no evidence of abdominal masses or pulsatile mass Back: Normal to inspection, no midline tenderness to palpation, straight leg raise negative bilaterally, left paraspinal tenderness noted Extremities: Nontender, nonedematous, 2+ radial and PT pulses bilaterally symmetric Skin: Normal color no rash Neuro: 5/5 strength hip flexion, knee flexion, knee extension, dorsiflexion, plantarflexion, EHL. Sensation intact over all dermatomes of the lower extremities bilaterally, 2+ patellar and Achilles reflexes bilaterally symmetric, negative clonus bilaterally Test Results: None indicated Emergency Department Course and Treatment: Patient presented with back pain. There is no red flag signs or symptoms that would indicate an necessity for neuroimaging. No indications for infection or abscess or hematoma. Patient likely has an element of musculoskeletal back pain with a slight element of sciatica. Patient will be treated with lidocaine patches and a Medrol pack. Disposition: Discharge Impression: 1. Lumbar radiculopathy This note was generated with [employer] software. It may contain incorrect words, spelling, and punctuation that were not noted in review of the chart prior to signing ED Disposition - Plan for ED Patient: Disposition: Home or Assisted Living Chief Complaint: Back Diagnosis: Lumbar radiculopathy, acute Instructions: ED Sciatica Prescriptions: Methyl Salicylate/Menthol [Salonpas Patch] 1 ea TP DAILY #14 adh..patch MethylPREDNISolone DosePak [Medrol DosePak] 4 mg PO UD #1 box Referrals: [facility] [Primary Care Provider] -
[2018-04-30] MEDS: Naproxen 500 MG Tablet PO (03:13)
--- NOTE | 2018-04-30 03:13 | ED.DCSUM_ITS ---
- ER Visit Summary Date of Service: 04/30/18 Chief Complaint: Back pain History of Present Illness: The patient is a 48 M presenting for evaluation secondary to back pain. Patient reports that he works at [employer], and states that he frequently is lifting and twisting. He reports that over the course of the last 4 days he has had an onset of lower back pain. He states that this predominantly is on the left side, and is associated with a sharp burning pain that is better with sitting worse with movement and palpation. He reports that this radiates down his thigh, and occasionally he gets zingers the go all the way to his toes. Denies any numbness or weakness. He denies any bowel or bladder incontinence fevers or unintended weight loss. He denies any history of IV drug abuse, surgery, or recent injections. Patient states that he has been taking ibuprofen for this but has not really alleviated the symptoms. Physical Examination: Vitals: Within normal limits General: Well-nourished well-developed no acute distress Head: Normocephalic atraumatic ENT: Moist mucous membranes Neck: Supple no JVD Cardiovascular: Heart regular rate and rhythm no murmurs Respiratory: Respirations nondistressed, lung sounds clear to auscultation bilaterally Abdominal: Soft, nontender, nondistended, normal bowel sounds, no evidence of abdominal masses or pulsatile mass Back: Normal to inspection, no midline tenderness to palpation, straight leg raise negative bilaterally, left paraspinal tenderness noted Extremities: Nontender, nonedematous, 2+ radial and PT pulses bilaterally symmetric Skin: Normal color no rash Neuro: 5/5 strength hip flexion, knee flexion, knee extension, dorsiflexion, plantarflexion, EHL. Sensation intact over all dermatomes of the lower extremities bilaterally, 2+ patellar and Achilles reflexes bilaterally symmetric, negative clonus bilaterally Test Results: None indicated Emergency Department Course and Treatment: Patient presented with back pain. There is no red flag signs or symptoms that would indicate an necessity for neuroimaging. No indications for infection or abscess or hematoma. Patient likely has an element of musculoskeletal back pain with a slight element of sci atica. Patient will be treated with lidocaine patches and a Medrol pack. Disposition: Discharge Impression: 1. Lumbar radiculopathy This note was generated with [employer] software. It may contain incorrect words, spelling, and punctuation that were not noted in review of the chart prior to signing ED Disposition - Plan for ED Patient: Disposition: Home or Assisted Living Chief Complaint: Back Diagnosis: Lumbar radiculopathy, acute Instructions: ED Sciatica Prescriptions: Methyl Salicylate/Menthol [Salonpas Patch] 1 ea TP DAILY #14 adh..patch MethylPREDNISolone DosePak [Medrol DosePak] 4 mg PO UD #1 box [facility]errals: [facility]ta James [Primary Care Provider] -
[2018-04-30] MEDS: Lidocaine 5% Patch 1 PATCH TOPICAL (03:15)
== END 2018-04-30 03:26 | disposition home or self-care (01) ==
LOC: ED 03:23
PROVIDERS: Emergency Provider Emergency Medicine
DX: M54.16 Radiculopathy, lumbar region (principal); E66.9 Obesity, unspecified; F20.9 Schizophrenia, unspecified; Z79.899 Other long term (current) drug therapy
CPT/HCPCS: 99285

== ENCOUNTER → 2018-05-07 19:47 | Outpatient (CLI) | payer MEDICAID, SELFPAY | PROVIDERS: Referring Provider Nurse Practitioner Family | DX: G47.33 Obstructive sleep apnea (adult) (pediatric) (principal) | CPT/HCPCS: 95811 ==

== ENCOUNTER → 2018-05-25 14:11 | Outpatient (CLI) | payer MEDICAID, SELFPAY ==
--- NOTE | 2018-05-25 14:13 | RAD_ITS ---
STUDY: X-RAY - LUMBAR SPINE REASON FOR EXAM: Male, 48 years old. Low back pain. TECHNIQUE: 3 view(s) of the lumbar spine were obtained. COMPARISON: None FINDINGS: Normal lumbar lordosis. There is no substantial scoliosis. There is a normal alignment of the vertebrae. Normal vertebral bodies and endplates. Normal disc space heights. There is no demonstrated fracture. The soft tissue structures are unremarkable. RAD/Lumbar Spine 2 or 3 Views IMPRESSION: Normal x-ray examination of the lumbar spine. Electronically Signed: Conrad Sky MD at 17:27 EST , Service support ,
--- NOTE | 2018-05-25 14:45 | RAD_ITS ---
STUDY: X-RAY - SACRUM/COCCYX REASON FOR EXAM: Male, 48 years old. Low back pain. TECHNIQUE: 5 view(s) of the sacrum and coccyx were obtained. COMPARISON: None. FINDINGS: Normal bilateral sacroiliac joints. Normal visualized sacral ala and fused sacral bodies. Normal sacrococcygeal junction with a normal angulation. Normal coccygeal segments. The presacral soft tissue structures are unremarkable. Minimal degenerative changes of the left hip. RAD/Sacrum-Coccyx min 2 Views IMPRESSION: Normal x-rays of the sacrum and coccyx. Electronically Signed: Oziel Crow MD at 0:46 EST , Service support ,
== END ==
DX: M54.5 Low back pain (principal)
CPT/HCPCS: 72100; 72220

== ENCOUNTER 2018-10-09 16:47 | Emergency (ER) | payer OTHER, MEDICAID, SELFPAY ==
[2018-10-09 16:47] VITALS: BP 156/91; PULSE 92; RESP 18; TEMP 36.9; O2SAT 98; BMI 40.6
--- NOTE | 2018-10-09 17:11 | RAD_ITS ---
STUDY: X-RAY - LEFT FOOT CLINICAL: Male, 48 years old. Fall. Left ankle and foot pain. TECHNIQUE: 3 view(s) of the foot. COMPARISON: None. FINDINGS: There is generalized osteopenia. There are post traumatic changes of the calcaneus with marked degenerative change and fusion at the subtalar joint. Normal visualized subtalar, talonavicular, calcaneocuboid, tarsal and tarsometatarsal articulations. Normal metatarsi. Normal metatarsophalangeal joint of the great toe. Normal tibial and fibular sesamoid bones. Normal interphalangeal joint of the great toe. Normal phalanges of the great toe. Normal second through fifth metatarsophalangeal joints. Normal interphalangeal joints and phalanges of the lesser toes. There are multiple metallic foreign bodies projected into the calcaneus. RAD/Foot min 3 Views IMPRESSION: Osteopenia with posttraumatic changes to the calcaneus, fusion of the subtalar joint and multiple metallic fragments within the calcaneus. Electronically Signed: Jeff Can MD at 17:39 EDT , Service support ,
--- NOTE | 2018-10-09 17:11 | RAD_ITS ---
STUDY: X-RAY - LEFT ANKLE CLINICAL: Male, 48 years old. Fall. Left ankle and foot pain. TECHNIQUE: 3 view(s) of the foot. COMPARISON: None. FINDINGS: There is generalized osteopenia. There are post traumatic changes of the calcaneus with marked degenerative change and fusion at the subtalar joint. Normal visualized subtalar, talonavicular, calcaneocuboid, tarsal and tarsometatarsal articulations. Normal metatarsi. Normal metatarsophalangeal joint of the great toe. Normal tibial and fibular sesamoid bones. Normal interphalangeal joint of the great toe. Normal phalanges of the great toe. Normal second through fifth metatarsophalangeal joints. Normal interphalangeal joints and phalanges of the lesser toes. There are multiple metallic foreign bodies projected into the calcaneus. RAD/Ankle min 3 Views IMPRESSION: Osteopenia with posttraumatic changes to the calcaneus, fusion of the subtalar joint and multiple metallic fragments within the calcaneus. No acute finding. Electronically Signed: Jeff Can MD at 17:40 EDT , Service support ,
--- NOTE | 2018-10-09 17:13 | ED.VISSUMM ---
- ER Visit Summary Date of Service: 10/09/18 Chief Complaint: Left foot and ankle injury History of Present Illness: The patient is a 48 M who tripped over an ice bucket at work injuring his left foot and ankle. He has been able to walk on it. Physical Examination: Vital signs significant for blood pressure of 156/91, otherwise unremarkable. Patient sitting in a bedside chair no acute distress. Left lower extremity examination reveals tenderness of the proximal lateral left foot and the lateral malleolus of the left foot. There is minimal edema at the ankle. Strong distal pulses are noted. He has good range of motion. No pain at the knee. Test Results: Left foot and left ankle x-rays are obtained. He has evidence of osteopenia and multiple metallic fragments in the calculus from prior injury. There is no acute findings noted. Emergency Department Course and Treatment: Test results discussed with patient. He already has a Velcro ankle wrap that he is using. He will continue to use this and is encouraged to take Tylenol or ibuprofen for pain. Treatment Plan: [] Disposition: Discharge Impression: Left ankle sprain This note was generated with [employer] dictation software. It may contain incorrect words, spelling, and punctuation that were not noted in review of the chart prior to signing ED Disposition - Plan for ED Patient: Referrals: Ita Agudelo [Primary Care Provider] -
--- NOTE | 2018-10-09 18:58 | ED.RN ---
SPOKE WITH [employer]DE[employer], [employer] [facility], NO DRUG TESTING REQUIRED.
--- NOTE | 2018-10-09 18:58 | ED.DEP ---
ED Disposition - Plan for ED Patient: Disposition: Home or Assisted Living Instructions: ED Sprain Ankle W X Ray Referrals: [facility] [GROUP OF PHYSICIANS] - 5-7 Days
== END 2018-10-09 19:05 | disposition home or self-care (01) ==
PROVIDERS: Emergency Provider Emergency Medicine
DX: S93.402A Sprain of unspecified ligament of left ankle, initial encounter (principal); F20.9 Schizophrenia, unspecified; Z72.0 Tobacco use; Z79.899 Other long term (current) drug therapy; W18.40XA Slipping, tripping and stumbling without falling, unspecified, initial encounter; Y93.01 Activity, walking, marching and hiking; Y92.89 Other specified places as the place of occurrence of the external cause; Y99.0 Civilian activity done for income or pay
CPT/HCPCS: 73610; 73630; 99282

== ENCOUNTER → 2019-01-12 | Outpatient (CLI) | payer MEDICAID, SELFPAY ==
[2018-12-28 13:45] VITALS: BMI 40.6
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
== END | disposition home or self-care (01) ==
PROVIDERS: Referring Provider Podiatrist; Visit Provider Podiatrist
DX: M72.2 Plantar fascial fibromatosis (principal); M19.072 Primary osteoarthritis, left ankle and foot
CPT/HCPCS: 73718

== ENCOUNTER 2019-06-08 13:49 | Emergency (ER) | payer OTHER, MEDICAID, SELFPAY ==
[2018-12-28 13:45] VITALS: BMI 40.6
[2019-06-08 13:51] VITALS: BP 197/88; PULSE 92; RESP 17; TEMP 36.5; O2SAT 96; BMI 40.2
--- NOTE | 2019-06-08 15:07 | RAD_ITS ---
STUDY: X-RAY - LEFT ELBOW REASON FOR EXAM: Male, 49 years old. Pain following a fall. TECHNIQUE: 3 view(s) of the elbow. COMPARISON: None. FINDINGS: Normal visualized humerus, radius and ulna. Normal radiocapitellar and ulnotrochlear articulations. The soft tissue structures are unremarkable. RAD/Elbow min 3 Views IMPRESSION: Normal x-ray examination of the elbow. Electronically Signed: Lalo Collins, at 15:45 EST , Service support ,
--- NOTE | 2019-06-08 15:07 | RAD_ITS ---
STUDY: X-RAY - LUMBAR SPINE REASON FOR EXAM: Male, 49 years old. Pain following a fall. TECHNIQUE: 3 view(s) of the lumbar spine were obtained. COMPARISON: Comparison is made with prior study dated May 25, 2018. FINDINGS: Normal lumbar lordosis. There is a minimal levoscoliosis of the lumbar spine. There is a normal alignment of the vertebrae. Minimal anterior spondylolisthesis at the L2-L3 and L3-L4 levels. Normal disc space heights. The soft tissue structures are unremarkable. RAD/Lumbar Spine 2 or 3 Views IMPRESSION: Degenerative changes of the spine, as detailed above. Electronically Signed: Lalo Collins, at 15:47 EST , Service support ,
--- NOTE | 2019-06-08 15:08 | ED.DCSUM_ITS ---
- ER Visit Summary Date of Service: 06/08/19 Chief Complaint: Fall History of Present Illness: The patient is a 49 M who fell at work. He was carrying something when he tripped over another object. He did not hit his head or neck. He did not lose consciousness. He complains of right lower back pain and left elbow pain. Denies associated symptoms like weakness or numbness. He does not take blood thinners. Physical Examination: Afebrile and vital signs unremarkable except for h ypertension. Patient is alert and oriented. No acute distress. Head and neck atraumatic. Heart regular. Lungs clear. Abdomen soft. Back shows right lower lumbar spine tenderness to palpation. Good strength and sensation. Left elbow is tender with an overlying abrasion distal to the elbow. There are also abrasions to his left wrist. Good range of motion. Neurovascular intact distally. Test Results: X-rays of the lumbar spine and left elbow were obtained. Emergency Department Course and Treatment: Patient declined pain medicine. He completed his [employer] paperwork and is undergoing urine testing. We will check x-rays. X-rays were unremarkable. Patient was treated with Motrin and Flexeril. F ollow-up with [facility]. Treatment Plan: As above Disposition: Discharge Impression: 1. Right lumbar strain 2. Left elbow contusion 3. Left wrist abrasion This note was generated with [employer] dictation software. It may contain incorrect words, spelling, and punctuation that were not noted in review of the chart prior to signing ED Disposition - Plan for ED Patient: Referrals: [facility] Shalini,Ita James [Primary Care Provider] -
--- NOTE | 2019-06-08 16:27 | ED.DEP ---
ED Disposition - Plan for ED Patient: Instructions: FALL, Mechanical Prescriptions: cycloBENZAPRine HCl [Flexeril] 10 mg PO TID PRN #20 tab PRN Reason: Muscle Spasm Prescription Printed Ibuprofen [Motrin] 800 mg PO TID PRN PRN #20 tab PRN Reason: Pain Or Fever Prescription Printed Referrals: [facility] [GROUP OF PHYSICIANS] -
== END 2019-06-08 17:01 | disposition home or self-care (01) ==
LOC: ED 15:58
PROVIDERS: Emergency Provider Emergency Medicine
DX: S39.012A Strain of muscle, fascia and tendon of lower back, initial encounter (principal); S50.02XA Contusion of left elbow, initial encounter; S60.812A Abrasion of left wrist, initial encounter; W18.09XA Striking against other object with subsequent fall, initial encounter; Y93.9 Activity, unspecified; Y92.9 Unspecified place or not applicable; K21.9 Gastro-esophageal reflux disease without esophagitis; E78.00 Pure hypercholesterolemia, unspecified; F43.10 Post-traumatic stress disorder, unspecified; F20.9 Schizophrenia, unspecified; Z79.899 Other long term (current) drug therapy; Z72.0 Tobacco use
CPT/HCPCS: 72100; 73080; 99282

== ENCOUNTER 2019-08-31 10:00 | Outpatient (RCR) | payer OTHER, SELFPAY ==
[2019-07-08 12:53] VITALS: BMI 40.2
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
--- NOTE | 2019-08-31 10:27 | HP.PTDCSUM_ITS ---
HP - PT D/C Summary It has been my pleasure to treat MARGRET LESTER under orders from ALYSA Rebollar, for the diagnosis of LUMBAR BACK STRAIN for a total of 12 visit(s). Discharge Date: 08/31/19 Please see the following information for a summary of their discharge status. - Subjective Subjective: I'M BETTER THAN I WAS WHEN I FIRST STARTED. I DON'T HAVE THE SPASMS. I CAN ACTUALLY TWIST AND TURN NOW. INTERMITTENT RIGHT TOE TINGLING. NOT DOING HEP BECAUSE BED IS TOO SOFT. FOLLOWED UP IN NOW CLINIC Aug AND THEY RELEASED HIM. - Pain right shoulder Pain Intensity (Out of 10): 0 Low back Pain Intensity (Out of 10): 0 - Overall Improvement % Improvement: 75 - Objective Objective/Function: PATIENT WAS SEEN TODAY FOR RE-ASSESSMENT OF PROGRESS TOWARD THE SET PT GOALS AND THE NEED FOR FURTHER PHYSICAL THERAPY VS READINESS FOR DISCHARGE. PATIENT IS INDEP WITH TB EX'S BELOW. PATIENT HAS RESPONDED VERY WELL TO PT AND IS APPROPRIATE FOR DISCHARGE TO [facility] AT THIS TIME. UPON EXAM TODAY: KINA LE LIGHT TOUCH SENSATION IS INTACT AND SYMMETRICAL (FEET NT). ROM deficit: MILDLY TIGHT KINA HS'S AND GASTROC SOLEUS COMPLEX'S. Reflexes: NT. Dural Signs: NEGATIVE KINA LE'S. Lumbar mvmt loss: flex - NIL - NE. ext - MOD - INCREASES LBP. R SG - MOD - NE. L SG - MOD - NE. Core strength: POOR - Goals Goal 1:: DECREASE C/O LBP Goal Progress: Goal Met Goal 2:: IMPROVE PERSONAL CARE, BENDING, LIFTING, STANDING AND WORK FUNCTION. Goal Progress: Goal Met Goal 3:: INSTRUCT IN PROPHYLAXIS Goal Progress: Goal Met - Plan Plan: D/C. PATIENT AGREEABLE. - D/C Information If there are questions or concerns regarding this patient's physical therapy, please feel free to call me at [phone]. Thank you for the referral of this patient. Sincerely, Sandie Garcia, PT, Cert MDT
== END 2019-08-31 19:00 | disposition home or self-care (01) ==
LOC: PT 10:00
PROVIDERS: Referring Provider Physician Assistant Surgical; Visit Provider Physician Assistant Surgical
DX: S39.012D Strain of muscle, fascia and tendon of lower back, subsequent encounter (principal)
CPT/HCPCS: 97110; 97162; 97164; 97530

== ENCOUNTER → 2019-09-30 08:54 | Outpatient (CLI) | payer MEDICAID, SELFPAY ==
[2019-08-29 10:24] VITALS: BMI 40.2
[2019-09-30 11:06] LABS: Cholesterol 159 mg/dL (200); High Density Lipoprotein 40 mg/dL; Triglycerides 197 mg/dL; Very Low Density Lipoprotein 39 mg/dL (5-40)
== END ==
PROVIDERS: Referring Provider Nurse Practitioner Family; Visit Provider Nurse Practitioner Family
DX: E78.2 Mixed hyperlipidemia (principal)
CPT/HCPCS: 36415; 80061

== ENCOUNTER 2020-02-17 11:14 | Emergency (ER) | payer MEDICAID, SELFPAY ==
[2019-08-29 10:24] VITALS: BMI 40.2
[2020-02-17 11:15] VITALS: BP 178/93; PULSE 96; RESP 18; TEMP 36.6; O2SAT 97; BMI 39.2
[2020-02-17 11:38] VITALS: RESP 16
[2020-02-17 12:06] LABS: Absolute Lymphocyte Count 1.86 X10^3/uL (0.83-4.51); Basophil# 0.02 X10^3/uL; Basophil% 0.3 % (0-1); Eosinophil# 0.09 X10^3/uL; Eosinophils% 1.4 % (0-5); Hematocrit 43.3 % (40-54); Hemoglobin 14.2 g/dL (13.0-16.5); Lymphocyte # 1.86 X10^3/ul (4.0); Lymphocyte % 28.7 % (19-41); Mean Corp Hgb Conc 32.8 g/dL (32-36); Mean Corpuscular Hgb 32.8 pg (27.0-32.0); Mean Platelet Vol. 10.6 fl (6.2-12.0); Monocyte# 0.45 X10^3/uL; Monocyte% 6.9 % (0-10); NRBC Flagged by Analyzer 0 % (0-5); Neutrophil # 4.04 X10^3/uL (2.7-7.7); Neutrophil % 62.4 % (47-70); Platelet Count 192 K/mm3 (150-450); RBC Distribution Width CV 11.8 % (11.6-14.6); RBC Distribution Width SD 43.1 fl (35.1-43.9); Red Blood Count 4.33 M/mm3 (4.6-6.2); White Blood Count 6.5 K/mm3 (4.4-11.0)
[2020-02-17 12:20] LABS: Anion Gap 2 (5-15); BUN 21 mg/dL (7-18); BUN/Creat Ratio 19.1 RATIO (10-20); Calcium,Total 8.6 mg/dL (8.5-10.1); Chloride 107 mmol/L (98-107); EST Glomerular Filtration Rate 76 mL/min (>60); Est Glom Filt Rate - Afr Amer 92 mL/min (>60); Estimated Creatinine Clearance 89.16 ml/min; Glucose 149 mg/dL (74-106); Sodium Level 140 mmol/L (136-145)
--- NOTE | 2020-02-17 12:34 | RAD_ITS ---
STUDY: X-RAY - ABDOMEN/PELVIS REASON FOR EXAM: Male, 50 years old. CONSTIPATION x1 WEEK, ABDOMINAL PAIN - WORSE TO LOWER RIGHT QUADRANT TECHNIQUE: Single AP view of the abdomen / pelvis. COMPARISON: None. FINDINGS: Normal visualized lung bases. There is an abundance of fecal material throughout the colon. There appears to be a thickening of the haustral pattern of the distal transverse colon. The visualized liver, spleen and kidneys are grossly normal in size and morphology. Normal soft tissue structures. Normal visualized osseous structures. RAD/Abdomen Single View IMPRESSION: Large amount of fecal material is seen in the colon. There is evidence of thickening of the haustral pattern of the transverse colon. Electronically Signed: Lalo Collins, at 12:49 EDT , Service support ,
--- NOTE | 2020-02-17 12:55 | ED.DCSUM_ITS ---
History of Present Illness Chief Complaint: Constipation Informant: Patient Narrative: Patient presents the emergency department with abdominal pain and constipation. Patient states that for the past week he has been unable to have a bowel movement. He has been passing gas. No vomiting or fevers. He states that yesterday he developed a right-sided abdominal pain. He states he contacted his primary care physician who brought him to the emergency department. He has a history of constipation and takes fiber regularly. Past Medical History - Allergies and Home Meds Allergies/Adverse Reactions: Allergies No Known Allergies Allergy (Verified 02/17/20 11:17) Primary Care Physician: Ita Agudelo [Primary Care Provider] - Smoking Status: Current some day smoker - Family History Paternal Family History: Family History (Last Reviewed 08/29/19 @ 10:24 by Mora Duval) Mother CVA (cerebral vascular accident) Malignant hyperthermia due to anesthesia Grandmother Cancer Myocardial infarction Family History: Reports: No pertinent history Review of Systems General: Denies: Chills, Fever, Sweats Eyes: Denies: Visual changes - bilaterally, Diplopia ENT: Denies: Rhinorrhea, Sore throat Cardiovascular: Denies: Chest pain, Palpitations Respiratory: Denies: Dyspnea, Cough, Dyspnea on exertion Gastrointestinal: Reports: Abdominal pain, Constipation. Denies: Nausea, Vomiting, Diarrhea, Melena, Hematochezia Genitourinary: Denies: Dysuria, Hematuria, Frequency Musculoskeletal: Denies: Back pain, Extremity Pain Skin: Denies: Rash, Wounds Neurological: Denies: Headache, Weakness, Numbness Physical Exam Vital Signs/Narrative: Vital Signs Temp Pulse Resp BP Pulse Ox 02/17/20 11:38 16 02/17/20 11:15 98 F 96 18 178/93 H 97 Inital Vital Signs reviewed: Yes General: Well nourished, Well developed, No Acute Distress Head: Normocephalic, Atraumatic Eyes: Perrl, EOMI ENT: Moist mucous membranes, No rhinorrhea Neck: Supple, Nontender Cardiovascular: Regular rate, Regular rhythm, No murmurs Respiratory: No distress, CTA bilaterally, Chest nontender Abdomen: Soft, Nondistended, Normal bowel sounds, Tender. Negative for: Guarding, Rebound tenderness Back: Nontender, Normal Inspection Extremities: Nontender, No edema Skin: Normal color, No rash Neurological: Alert, Oriented x3, Cranial nerves II-XII grossly intact, Normal S trength, Normal Sensation Psychological: Normal affect, Normal Mood Diagnostic/Tx/Re-eval Clinical Impression(s) from Imaging Studies KUB X-Ray 02/17/20 12:34 IMPRESSION: Large amount of fecal material is seen in the colon. There is evidence of thickening of the haustral pattern of the transverse colon. Electronically Signed: Lalo Collins, at 12:49 EDT , Service support , Laboratory Last Values WBC 6.5 K/mm3 (4.4-11.0) 02/17/20 11:55 RBC 4.33 M/mm3 (4.6-6.2) L 02/17/20 11:55 Hgb 14.2 g/dL (13.0-16.5) 02/17/20 11:55 Hct 43.3 % (40-54) 02/17/20 11:55 MCV 100.0 fL (80-94) H 02/17/20 11:55 MCH 32.8 pg (27.0-32.0) H 02/17/20 11:55 MCHC 32.8 g/dL (32-36) 02/17/20 11:55 RDW Std Deviation 43.1 fl (35.1-43.9) 02/17/20 11:55 RDW Coeff of Rigo 11.8 % (11.6-14.6) 02/17/20 11:55 Plt Count 192 K/mm3 (150-450) 02/17/20 11:55 MPV 10.6 fl (6.2-12.0) 02/17/20 11:55 Immature Gran % (Auto) 0.300 % (0.0-0.9) 02/17/20 11:55 Neut % (Auto) 62.4 % (47-70) 02/17/20 11:55 Lymph % (Auto) 28.7 % (19-41) 02/17/20 11:55 Karnes % (Auto) 6.9 % (0-10) 02/17/20 11:55 Eos % (Auto) 1.4 % (0-5) 02/17/20 11:55 Baso % (Auto) 0.3 % (0-1) 02/17/20 11:55 Absolute Neuts (auto) 4.0 X10^3/uL (2.0-7.7) 02/17/20 11:55 Absolute Lymphs (auto) 1.86 X10^3/uL (0.83-4.51) 02/17/20 11:55 Nucleated RBC % 0 % (0-5) 02/17/20 11:55 Sodium 140 mmol/L (136-145) 02/17/20 11:55 Potassium 4.0 mmol/L (3.5-5.1) 02/17/20 11:55 Chloride 107 mmol/L (98-107) 02/17/20 11:55 Carbon Dioxide 31.0 mmol/L (21.0-32.0) 02/17/20 11:55 Anion Gap 2 (5-15) L 02/17/20 11:55 BUN 21 mg/dL (7-18) H 02/17/20 11:55 Creatinine 1.10 mg/dL (0.70-1.30) 02/17/20 11:55 Estim Creat Clear Calc 89.16 ml/min 02/17/20 11:55 Est GFR (MDRD) Af Amer 92 mL/min (>60) 02/17/20 11:55 Est GFR (MDRD) Non-Af 76 mL/min (>60) 02/17/20 11:55 BUN/Creatinine Ratio 19.1 RATIO (10-20) 02/17/20 11:55 Glucose 149 mg/dL (74-106) H 02/17/20 11:55 Calcium 8.6 mg/dL (8.5-10.1) 02/17/20 11:55 - Medical Decision Making Patient's white count is normal with a normal differential. I think this makes appendicitis less likely. He has a large amount of stool in the colon I think that his pain is most likely due to constipation. Will use magnesium citrate. This point in the abdomen while tender it has no guarding or rebound. He has n ormal bowel sounds. I would not classify it as a surgical abdomen. He is to return if worsening or concerns ED Disposition - Plan for ED Patient: Disposition: Home or Assisted Living Diagnosis: Acute abdominal pain, Constipation Instructions: ED Constipation Prescriptions: Magnesium Citrate [Citrate Of Magnesia] 300 ml PO X1 #2 bottle Transmission Status: Pending to [facility] Referrals: [facility] Shalini,Ita James [Primary Care Provider] - 3-5 Days if not improving
== END 2020-02-17 13:14 | disposition home or self-care (01) ==
PROVIDERS: Emergency Provider Emergency Medicine
DX: K59.00 Constipation, unspecified (principal); F17.200 Nicotine dependence, unspecified, uncomplicated
CPT/HCPCS: 74018; 80048; 85025; 99283; A4216

== ENCOUNTER → 2020-03-10 10:18 | Outpatient (CLI) | payer MEDICAID, SELFPAY ==
[2020-02-17 11:15] VITALS: BMI 39.2
[2020-03-10 11:08] LABS: Absolute Lymphocyte Count 2.57 X10^3/uL (0.83-4.51); Basophil# 0.01 X10^3/uL; Basophil% 0.2 % (0-1); Eosinophil# 0.14 X10^3/uL; Eosinophils% 2.3 % (0-5); Hematocrit 40.5 % (40-54); Hemoglobin 13.3 g/dL (13.0-16.5); Lymphocyte # 2.57 X10^3/ul (4.0); Lymphocyte % 41.6 % (19-41); Mean Corp Hgb Conc 32.8 g/dL (32-36); Mean Corpuscular Hgb 32.8 pg (27.0-32.0); Mean Corpuscular Volume 99.8 fL (80-94); Mean Platelet Vol. 10.8 fl (6.2-12.0); Monocyte# 0.43 X10^3/uL; NRBC Flagged by Analyzer 0 % (0-5); Neutrophil # 3.02 X10^3/uL (2.7-7.7); Neutrophil % 48.7 % (47-70); Platelet Count 188 K/mm3 (150-450); RBC Distribution Width CV 11.9 % (11.6-14.6); RBC Distribution Width SD 43.4 fl (35.1-43.9); Red Blood Count 4.06 M/mm3 (4.6-6.2); White Blood Count 6.2 K/mm3 (4.4-11.0)
[2020-03-10 11:43] LABS: AST(SGOT) 17 U/L (15-37); Alanine Aminotransfer ALT/SGPT 32 U/L (16-61); Albumin, Serum 3.8 g/dL (3.2-5.0); Alkaline Phosphatase 85 U/L (45-117); Anion Gap 3 (5-15); BUN 24 mg/dL (7-18); BUN/Creat Ratio 24.4 RATIO (10-20); Calcium,Total 8.2 mg/dL (8.5-10.1); Chloride 108 mmol/L (98-107); Cholesterol 152 mg/dL (200); Creatinine, Serum 0.98 mg/dL (0.70-1.30); EST Glomerular Filtration Rate 86 mL/min (>60); Est Glom Filt Rate - Afr Amer 104 mL/min (>60); Globulin 3.7 g/dL (2.2-4.2); Glucose 92 mg/dL (74-106); High Density Lipoprotein 44 mg/dL; Protein, Total 7.5 g/dL (6.4-8.2); Sodium Level 140 mmol/L (136-145); Triglycerides 158 mg/dL; Very Low Density Lipoprotein 32 mg/dL (5-40)
[2020-03-10 11:46] LABS: Hemoglobin A1c 5.7 % (3.8-5.6)
== END ==
DX: E11.9 Type 2 diabetes mellitus without complications (principal); E78.2 Mixed hyperlipidemia
CPT/HCPCS: 36415; 80053; 80061; 83036; 85025

== ENCOUNTER 2020-04-10 11:10 | Emergency (ER) | payer MEDICAID, SELFPAY ==
[2020-04-10 11:11] VITALS: BP 171/95; PULSE 87; RESP 17; TEMP 36.1; O2SAT 98; BMI 38.0
--- NOTE | 2020-04-10 11:48 | ED.DCSUM_ITS ---
History of Present Illness Chief Complaint: Back Informant: Patient Narrative: Patient states that for the past month he has had pain of the right knee particular with ambulation. He denies any injuries. He denies any prior issue with the knee. He states he mentioned this to his doctor was felt that it was a knee strain. He states they did not do x-rays. He states that he decided to come to emergency today for follow-up from that doctors office visit. He states that while is here he would like to have his back looked at. He states that yesterday he twisted at work wrong and has pain on the right side of the back. He denies any radicular symptoms. He states that he has had herniated disc in the past. He denies any bowel or bladder dysfunction. No IV drug use. No prolonged steroids. No red flag symptoms or history. - Past Medical History (1) GERD (gastroesophageal reflux disease) Status: Acute (2) Dyslipidemia Status: Chronic (3) Morbid obesity Status: Chronic (4) Schizophrenia Status: Chronic Past Medical History - Allergies and Home Meds Allergies/Adverse Reactions: Allergies No Known Allergies Allergy (Verified 04/10/20 11:11) [facility] - 1 Week if not improving Smoking Status: Current some day smoker - Family History Paternal Family History: Family History (Last Reviewed 08/29/19 @ 10:24 by Mora Duval) Mother CVA (cerebral vascular accident) Malignant hyperthermia due to anesthesia Grandmother Cancer Myocardial infarction Family History: Reports: No pertinent history Review of Systems General: Denies: Chills, Fever, Sweats Eyes: Denies: Visual changes - bilaterally, Diplopia ENT: Denies: Rhinorrhea, Sore throat Cardiovascular: Denies: Chest pain, Palpitations Respiratory: Denies: Dyspnea, Cough, Dyspnea on exertion Gastrointestinal: Denies: Abdominal pain, Nausea, Vomiting, Diarrhea, Melena, Hematochezia Genitourinary: Denies: Dysuria, Hematuria, Frequency Musculoskeletal: Reports: Back pain, Extremity Pain Skin: Denies: Rash, Wounds Neurological: Denies: Headache, Weakness, Numbness Physical Exam Vital Signs/Narrative: Vital Signs Temp Pulse Resp BP Pulse Ox 04/10/20 11:11 97 F L 87 17 171/95 H 98 Inital Vital Signs reviewed: Yes General: Well nourished, Well developed, No Acute Distress Head: Normocephalic, Atraumatic Eyes: Perrl, EOMI ENT: Moist mucous membranes, No rhinorrhea Neck: Supple, Nontender Cardiovascular: Regular rate, Regular rhythm, No murmurs Respiratory: No distress, CTA bilaterally, Chest nontender Abdomen: Soft, Nontender, Nondistended, Normal bowel sounds Back: Normal Inspection, - - Patient complains of tenderness palpation over the right lumbar paraspinal musculature. Extremities: No edema, - - Patient complains of generalized knee tenderness. Ligaments appear stable. There is no effusion. There is no erythema. Extensor mechanism is intact. Skin: Normal color, No rash Neurological: Alert, Oriented x3, Cranial nerves II-XII grossly intact, Normal Strength, Normal Sensation Psychological: Normal affect, Normal Mood Diagnostic/Tx/Re-eval Clinical Impression(s) from Imaging Studies Knee X-Ray 04/10/20 11:55 IMPRESSION: Normal x-ray examination of the knee. Electronically Signed: Lalo Collins, at 12:12 EDT , Service support , - Medical Decision Making Series not reveal any fracture or significant joint effusion. I will place him on anti-inflammatories have him use an Don wrap. If he continues to have pain and recommend follow-up with primary care may require referral to orthopedics. However at this time I do not see any obvious cause to why his knee has been hurting for the past month. As far as his back we will treat this as a strain. Would recommend anti-inflammatories and I can write for some Flexeril. He has done well with this in the past. ED Disposition - Plan for ED Patient: Disposition: Home or Assisted Living Diagnosis: Lumbar strain, Right knee pain Instructions: ED LUMBAR SPRAIN/STRAIN, ED Knee Pain [facility] Prescriptions: cycloBENZAPRine HCl [Flexeril] 10 mg PO TID PRN #15 tab PRN Reason: Muscle Spasm Prescription Printed Naproxen 500 mg PO BID #14 tab Prescription Printed [facility]errals: [facility],Ita James [Primary Care Provider] - 1 Week if not improving
--- NOTE | 2020-04-10 11:55 | RAD_ITS ---
STUDY: X-RAY - RIGHT KNEE REASON FOR EXAM: Male, 50 years old. Right knee pain x 1 month, NKI TECHNIQUE: 4 view(s) of the knee. COMPARISON: None. FINDINGS: Normal visualized distal femur. Normal visualized proximal tibia and fibula. Normal proximal tibiofibular articulation. Normal medial femorotibial compartment. Normal lateral femorotibial compartment. Normal patellofemoral articulation. The soft tissue structures are unremarkable. RAD/Knee 4 or More Views IMPRESSION: Normal x-ray examination of the knee. Electronically Signed: Lalo Collins, at 12:12 EDT , Service support ,
== END 2020-04-10 13:11 | disposition home or self-care (01) ==
PROVIDERS: Emergency Provider Emergency Medicine
DX: M25.561 Pain in right knee (principal); S39.012A Strain of muscle, fascia and tendon of lower back, initial encounter; X50.1XXA Overexertion from prolonged static or awkward postures, initial encounter; Y93.9 Activity, unspecified; Y92.9 Unspecified place or not applicable; K21.9 Gastro-esophageal reflux disease without esophagitis; E78.5 Hyperlipidemia, unspecified; E66.01 Morbid (severe) obesity due to excess calories; F20.9 Schizophrenia, unspecified; Z79.899 Other long term (current) drug therapy; F17.200 Nicotine dependence, unspecified, uncomplicated
CPT/HCPCS: 73564; 99283

== ENCOUNTER → 2020-06-08 11:12 | Outpatient (CLI) | payer MEDICAID, SELFPAY ==
[2020-06-08 13:17] LABS: Absolute Lymphocyte Count 2.59 X10^3/uL (0.83-4.51); Absolute Neutrophil Count 4.1 X10^3/uL (2.0-7.7); Basophil# 0.03 X10^3/uL; Basophil% 0.4 % (0-1); Eosinophil# 0.11 X10^3/uL; Eosinophils% 1.5 % (0-5); Hematocrit 45.1 % (40-54); Hemoglobin 14.6 g/dL (13.0-16.5); Lymphocyte # 2.59 X10^3/ul (4.0); Lymphocyte % 35.7 % (19-41); Mean Corp Hgb Conc 32.4 g/dL (32-36); Mean Corpuscular Hgb 32.4 pg (27.0-32.0); Mean Platelet Vol. 11.3 fl (6.2-12.0); Monocyte# 0.44 X10^3/uL; Monocyte% 6.1 % (0-10); NRBC Flagged by Analyzer 0 % (0-5); Neutrophil # 4.08 X10^3/uL (2.7-7.7); Neutrophil % 56.2 % (47-70); Platelet Count 247 K/mm3 (150-450); RBC Distribution Width CV 11.6 % (11.6-14.6); RBC Distribution Width SD 42.3 fl (35.1-43.9); Red Blood Count 4.51 M/mm3 (4.6-6.2); White Blood Count 7.3 K/mm3 (4.4-11.0)
[2020-06-08 13:34] LABS: AST(SGOT) 14 U/L (15-37); Alanine Aminotransfer ALT/SGPT 33 U/L (16-61); Albumin, Serum 3.9 g/dL (3.2-5.0); Alkaline Phosphatase 98 U/L (45-117); Anion Gap 7 (5-15); BUN 13 mg/dL (7-18); BUN/Creat Ratio 12.7 RATIO (10-20); Chloride 103 mmol/L (98-107); Cholesterol 157 mg/dL (200); Creatinine, Serum 1.02 mg/dL (0.70-1.30); EST Glomerular Filtration Rate 82 mL/min (>60); Est Glom Filt Rate - Afr Amer 100 mL/min (>60); Glucose 89 mg/dL (74-106); High Density Lipoprotein 52 mg/dL; Protein, Total 7.9 g/dL (6.4-8.2); Sodium Level 139 mmol/L (136-145); Triglycerides 230 mg/dL; Very Low Density Lipoprotein 46 mg/dL (5-40)
[2020-06-08 13:38] LABS: Hemoglobin A1c 5.7 % (3.8-5.6); Vitamin D,25 Hydroxy 60.5 ng/mL
== END ==
DX: E11.9 Type 2 diabetes mellitus without complications (principal); F31.9 Bipolar disorder, unspecified; E55.9 Vitamin D deficiency, unspecified
CPT/HCPCS: 36415; 80053; 80061; 82306; 83036; 85025

== ENCOUNTER 2020-10-02 03:36 | Emergency (ER) | payer MEDICAID, SELFPAY ==
[2020-08-14 15:49] VITALS: BMI 37.8
[2020-10-02] VITALS (7 sets, daily range): BP systolic 130–154; BP diastolic 85–87; PULSE 73–89; RESP 13–15; TEMP 37.1; O2SAT 95–97; BMI 39.9
--- NOTE | 2020-10-02 03:44 | EKG12_ITS ---
Test Reason : CP Blood Pressure : / mmHG Vent. Rate : 083 BPM Atrial Rate : 083 BPM P-R Int : 144 ms QRS Dur : 096 ms QT Int : 416 ms P-R-T Axes : 037 006 018 degrees QTc Int : 488 ms Normal sinus rhythm Nonspecific T wave abnormality Prolonged QT Abnormal ECG Confirmed by CAROLYN STALLWORTH, CAITLIN ([id number]), fashion editor SHAINA WILLIAMSON ([id number]) on 10/03/2020 9:34:46 AM Referred By: Confirmed By:CAITLIN LEON MD
--- NOTE | 2020-10-02 03:44 | RAD_ITS ---
STUDY: X-RAY CHEST REASON FOR EXAM: Male, 50 years old. chest pain TECHNIQUE: Single AP portable view of the chest. COMPARISON: None. FINDINGS: The lungs are clear and expanded. There is no demonstrated pleural abnormality. Normal size heart. Normal mediastinum and lake. Normal visualized pulmonary arteries. Normal visualized aortic arch and descending thoracic aorta. Normal visualized thoracic spine. There is degenerative osteoarthritis of the bilateral shoulders. There is no demonstrated abnormality of the visualized soft tissue structures of the upper abdomen. RAD/Chest 1 View (Portable) IMPRESSION: Degenerative changes, as described above. No demonstrated acute cardiopulmonary process. Electronically Signed: Lucinda Brock MD at 4:14 EDT Tel , Service support ,
[2020-10-02 03:56] LABS: Absolute Lymphocyte Count 3.14 X10^3/uL (0.83-4.51); Absolute Neutrophil Count 4.3 X10^3/uL (2.0-7.7); Basophil# 0.05 X10^3/uL; Basophil% 0.6 % (0-1); Eosinophil# 0.47 X10^3/uL; Eosinophils% 5.5 % (0-5); Hematocrit 41.9 % (40-54); Lymphocyte # 3.14 X10^3/ul (4.0); Lymphocyte % 36.8 % (19-41); Mean Corp Hgb Conc 33.4 g/dL (32-36); Mean Corpuscular Hgb 33.6 pg (27.0-32.0); Mean Corpuscular Volume 100.5 fL (80-94); Mean Platelet Vol. 10.1 fl (6.2-12.0); Monocyte# 0.57 X10^3/uL; Monocyte% 6.7 % (0-10); NRBC Flagged by Analyzer 0 % (0-5); Neutrophil # 4.28 X10^3/uL (2.7-7.7); Neutrophil % 50.2 % (47-70); Platelet Count 204 K/mm3 (150-450); RBC Distribution Width CV 11.9 % (11.6-14.6); RBC Distribution Width SD 44.6 fl (35.1-43.9); Red Blood Count 4.17 M/mm3 (4.6-6.2); White Blood Count 8.5 K/mm3 (4.4-11.0)
[2020-10-02 04:07] LABS: Anion Gap 4 (5-15); BUN 17 mg/dL (7-18); BUN/Creat Ratio 15.9 RATIO (10-20); Calcium,Total 8.9 mg/dL (8.5-10.1); Chloride 103 mmol/L (98-107); Creatinine, Serum 1.07 mg/dL (0.70-1.30); EST Glomerular Filtration Rate 78 mL/min (>60); Est Glom Filt Rate - Afr Amer 94 mL/min (>60); Estimated Creatinine Clearance 91.66 ml/min; Glucose 116 mg/dL (74-106); Potassium 3.9 mmol/L (3.5-5.1); Sodium Level 139 mmol/L (136-145)
--- NOTE | 2020-10-02 04:26 | ED.DCSUM_ITS ---
History of Present Illness Chief Complaint: Chest Pain Informant: Patient Narrative: 50-year-old male presenting to the emergency department with midsternal chest pain. He describes it as a hand on his chest. He tells me that at 230 this morning his alarm clock went off. He got up and noticed the heaviness. He typically gets up this time to go to work. He is never had the symptoms before. No nausea vomiting diaphoresis or shortness of breath. Pain does not radiate. He has a history of hypertension, dyslipidemia, tobacco abuse, morbid obesity and schizophrenia. He has never had a stress test. No known familial early heart disease. - Past Medical History (1) GERD (gastroesophageal reflux disease) Status: Acute (2) Dyslipidemia Status: Chronic (3) Morbid obesity Status: Chronic (4) Schizophrenia Status: Chronic Past Medical History - Allergies and Home Meds Allergies/Adverse Reactions: Allergies No Known Allergies Allergy (Verified 08/14/20 15:53) [facility] - As soon as possible (to discuss stress testing) Past Medical History: - - Hypertension Surgical History: noncontributory Smoking Status: Current every day smoker Drugs: None - Family History Paternal Family History: Family History (Last Reviewed 08/14/20 @ 15:54 by Ang Aparicio) Mother CVA (cerebral vascular accident) Malignant hyperthermia due to anesthesia Grandmother Cancer Myocardial infarction Family History: Reports: No pertinent history Review of Systems General: Denies: Chills, Fever, Sweats Eyes: Denies: Visual changes - bilaterally, Diplopia ENT: Denies: Rhinorrhea, Sore throat Cardiovascular: Reports: Chest pain. Denies: Palpitations Respiratory: Denies: Dyspnea, Cough, Dyspnea on exertion Gastrointestinal: Denies: Abdominal pain, Nausea, Vomiting, Diarrhea, Melena, Hematochezia Genitourinary: Denies: Dysuria, Hematuria, Frequency Musculoskeletal: Denies: Back pain, Extremity Pain Skin: Denies: Rash, Wounds Neurological: Denies: Headache, Weakness, Numbness Physical Exam Vital Signs/Narrative: Vital Signs Temp Pulse Resp BP Pulse Ox 10/02/20 03:44 96 10/02/20 03:37 98.7 F 89 15 154/87 H 95 Inital Vital Signs reviewed: Yes General: Well nourished, Well developed, No Acute Distress Head: Normocephalic, Atraumatic Eyes: Perrl, EOMI ENT: Moist mucous membranes, No rhinorrhea Neck: Supple, Nontender Cardiovascular: Regular rate, Regular rhythm, No murmurs Respiratory: No distress, CTA bilaterally, Chest nontender Abdomen: Soft, Nontender, Nondistended, Normal bowel sounds Back: Nontender, Normal Inspection Extremities: Nontender, No edema Skin: Normal color, No rash Neurological: Alert, Oriented x3, Cranial nerves II-XII grossly intact, Normal Strength, Normal Sensation Psychological: - - Blunted affect Diagnostic/Tx/Re-eval Clinical Impression(s) from Imaging Studies Chest X-Ray 10/02/20 03:44 IMPRESSION: Degenerative changes, as described above. No demonstrated acute cardiopulmonary process. Electronically Signed: Lucinda Brock MD at 4:14 EDT Tel , Service support , Laboratory Last Values WBC 8.5 K/mm3 (4.4-11.0) 10/02/20 03:30 RBC 4.17 M/mm3 (4.6-6.2) L 10/02/20 03:30 Hgb 14.0 g/dL (13.0-16.5) 10/02/20 03:30 Hct 41.9 % (40-54) 10/02/20 03:30 MCV 100.5 fL (80-94) H 10/02/20 03:30 MCH 33.6 pg (27.0-32.0) H 10/02/20 03:30 MCHC 33.4 g/dL (32-36) 10/02/20 03:30 RDW Std Deviation 44.6 fl (35.1-43.9) H 10/02/20 03:30 RDW Coeff of Rigo 11.9 % (11.6-14.6) 10/02/20 03:30 Plt Count 204 K/mm3 (150-450) 10/02/20 03:30 MPV 10.1 fl (6.2-12.0) 10/02/20 03:30 Immature Gran % (Auto) 0.200 % (0.0-0.9) 10/02/20 03:30 Neut % (Auto) 50.2 % (47-70) 10/02/20 03:30 Lymph % (Auto) 36.8 % (19-41) 10/02/20 03:30 Early % (Auto) 6.7 % (0-10) 10/02/20 03:30 Eos % (Auto) 5.5 % (0-5) H 10/02/20 03:30 Baso % (Auto) 0.6 % (0-1) 10/02/20 03:30 Absolute Neuts (auto) 4.3 X10^3/uL (2.0-7.7) 10/02/20 03:30 Absolute Lymphs (auto) 3.14 X10^3/uL (0.83-4.51) 10/02/20 03:30 Nucleated RBC % 0 % (0-5) 10/02/20 03:30 Sodium 139 mmol/L (136-145) 10/02/20 03:30 Potassium 3.9 mmol/L (3.5-5.1) 10/02/20 03:30 Chloride 103 mmol/L (98-107) 10/02/20 03:30 Carbon Dioxide 32.0 mmol/L (21.0-32.0) 10/02/20 03:30 Anion Gap 4 (5-15) L 10/02/20 03:30 BUN 17 mg/dL (7-18) 10/02/20 03:30 Creatinine 1.07 mg/dL (0.70-1.30) 10/02/20 03:30 Estim Creat Clear Calc 91.66 ml/min 10/02/20 03:30 Est GFR (MDRD) Af Amer 94 mL/min (>60) 10/02/20 03:30 Est GFR (MDRD) Non-Af 78 mL/min (>60) 10/02/20 03:30 BUN/Creatinine Ratio 15.9 RATIO (10-20) 10/02/20 03:30 Glucose 116 mg/dL (74-106) H 10/02/20 03:30 Calcium 8.9 mg/dL (8.5-10.1) 10/02/20 03:30 Troponin I < 0.015 ng/mL (<0.045) 10/02/20 03:30 - EKG Initial EKG Interpretation: Sinus Rhythm - EKG demonstrates a normal sinus rhythm at a rate of 83 without ectopy or concerning features of ACS. - Medical Decision Making My interpretation of the portable chest radiograph is no acute process Patient received a GI cocktail. His pain is improved. Initial troponin is negative. His heart score at the end of the initial work-up is 3. Are going to do a delta troponin. If negative the patient will be discharged home with instructions to follow-up with primary care to arrange stress testing. ED Disposition - Plan for ED Patient: Disposition: Home or Assisted Living Diagnosis: Chest pain Instructions: ED Chest Pain, Uncertain Cause Referrals: [facility] [Primary Care Provider] - As soon as possible (to discuss stress testing)
[2020-10-02] MEDS: Mag Hydrox/Al Hydrox/Simeth 30 ML UDC PO (04:39)
--- NOTE | 2020-10-02 05:03 | EKG12_ITS ---
Test Reason : REPEAT FOR CP Blood Pressure : / mmHG Vent. Rate : 073 BPM Atrial Rate : 073 BPM P-R Int : 144 ms QRS Dur : 096 ms QT Int : 438 ms P-R-T Axes : 027 -01 001 degrees QTc Int : 482 ms Normal sinus rhythm Nonspecific T wave abnormality Prolonged QT Abnormal ECG Confirmed by CAROLYN STALLWORTH, CAITLIN ([id number]), advertising editor SHAINA WILLIAMSON ([id number]) on 10/04/2020 12:52:23 PM Referred By: Confirmed By:CAITLIN LEON MD
== END 2020-10-02 07:50 | disposition home or self-care (01) ==
PROVIDERS: Emergency Provider Emergency Medicine
DX: R07.89 Other chest pain (principal); I10 Essential (primary) hypertension; K21.9 Gastro-esophageal reflux disease without esophagitis; E78.5 Hyperlipidemia, unspecified; E66.01 Morbid (severe) obesity due to excess calories; F20.9 Schizophrenia, unspecified; Z79.899 Other long term (current) drug therapy; F17.200 Nicotine dependence, unspecified, uncomplicated
CPT/HCPCS: 71045; 80048; 84484; 85025; 93005; 99285; A4216

== ENCOUNTER → 2020-11-28 16:01 | Outpatient (CLI) | payer MEDICAID, SELFPAY ==
[2020-10-02 03:37] VITALS: BMI 39.9
[2020-11-28 17:15] LABS: Absolute Lymphocyte Count 3.07 X10^3/uL (0.83-4.51); Basophil# 0.03 X10^3/uL; Basophil% 0.4 % (0-1); Eosinophil# 0.11 X10^3/uL; Eosinophils% 1.4 % (0-5); Hematocrit 42.6 % (40-54); Hemoglobin 14.2 g/dL (13.0-16.5); Lymphocyte # 3.07 X10^3/ul (0.83-4.51); Lymphocyte % 38.9 % (19-41); Mean Corp Hgb Conc 33.3 g/dL (32-36); Mean Corpuscular Hgb 32.7 pg (27.0-32.0); Mean Corpuscular Volume 98.2 fL (80-94); Mean Platelet Vol. 11.3 fl (6.2-12.0); Monocyte# 0.63 X10^3/uL; NRBC Flagged by Analyzer 0 % (0-5); Neutrophil # 4.02 X10^3/uL (2.7-7.7); Neutrophil % 50.9 % (47-70); Platelet Count 233 K/mm3 (150-450); RBC Distribution Width CV 11.8 % (11.6-14.6); RBC Distribution Width SD 42.6 fl (35.1-43.9); Red Blood Count 4.34 M/mm3 (4.6-6.2); White Blood Count 7.9 K/mm3 (4.4-11.0)
[2020-11-28 17:30] LABS: Hemoglobin A1c 5.5 % (3.8-5.6)
[2020-11-28 18:18] LABS: AST(SGOT) 23 U/L (15-37); Alanine Aminotransfer ALT/SGPT 31 U/L (16-61); Albumin, Serum 3.8 g/dL (3.2-5.0); Alkaline Phosphatase 94 U/L (45-117); Anion Gap 7 (5-15); BUN 16 mg/dL (7-18); BUN/Creat Ratio 15.8 RATIO (10-20); Calcium,Total 8.7 mg/dL (8.5-10.1); Chloride 105 mmol/L (98-107); Creatinine, Serum 1.01 mg/dL (0.70-1.30); EST Glomerular Filtration Rate 83 mL/min (>60); Est Glom Filt Rate - Afr Amer 101 mL/min (>60); Globulin 3.8 g/dL (2.2-4.2); Glucose 88 mg/dL (74-106); Protein, Total 7.6 g/dL (6.4-8.2); Sodium Level 140 mmol/L (136-145)
== END ==
PROVIDERS: Referring Provider Nurse Practitioner Adult Health; Visit Provider Nurse Practitioner Adult Health
DX: I10 Essential (primary) hypertension (principal); R73.03 Prediabetes
CPT/HCPCS: 36415; 80053; 83036; 85025

== ENCOUNTER 2020-12-10 11:42 | Observation (INO) | payer MEDICAID, SELFPAY ==
[2020-10-02 03:37] VITALS: BMI 39.9
[2020-12-10] VITALS (14 sets, daily range): BP systolic 106–167; BP diastolic 65–90; PULSE 69–114; RESP 12–16; TEMP 36.3–36.7; O2SAT 91–98; BMI 38.6; BMI 37.5
--- NOTE | 2020-12-10 11:53 | CT_ITS ---
STUDY: CT ABDOMEN AND PELVIS WITHOUT CONTRAST REASON FOR EXAM: Male, 50 years old. Right lower quadrant pain. RADIATION DOSAGE (If Supplied By Facility): CTDIvol = ( 22.24 ) mGy, DLP = ( 1177.94 ) mGycm TECHNIQUE: Transaxial images were obtained from the dome of the diaphragm to the symphysis pubis without oral contrast, and without intravenous contrast. Sagittal and coronal images were reconstructed. Individualized dose optimization techniques were used for this CT. COMPARISON: None. FINDINGS: There is a 3.1 mm noncalcified nodule in the peripheral aspect of the right lower lobe. A 12 month follow-up CT scan is recommended. The visualized portions of the heart are within normal limits. Normal liver. Normal gallbladder and extrahepatic biliary system. Normal spleen. Normal pancreas. Normal bilateral adrenal glands. There is a 1.1 cm fat-containing nodule in the lateral peripheral aspect of the right kidney suggestive of a small angiomyolipoma. There is also evidence of a 2.6 cm x 3.6 cm hypodensity in the anterior medial portion of the mid right kidney suggestive of a cyst. Normal left kidney. There is a small hiatal hernia. Normal small intestine. Normal colon. There is a tubular, thick-walled appendix (>7mm), consistent with acute appendicitis. Small lymph nodes are seen in the periappendiceal mesenteric fat. There is scattered atherosclerotic calcification of the abdominal aorta, without a demonstrated aneurysm. Normal inferior vena cava. There is borderline retroperitoneal lymphadenopathy with enlarged nodes no greater than 10mm in the short axis diameter. Normal urinary bladder. There is a small umbilical hernia containing fat. There are mild degenerative changes of the visualized lumbar spine. CT/Abdomen/Pelvis without Cont IMPRESSION: Findings in keeping with noncomplicated acute appendicitis with increased markings in the right lower quadrant. Small incidental lymph nodes. 3 mm noncalcified nodule in the peripheral lateral aspect of the right lower lobe. A 12 month follow-up examination is recommended. Electronically Signed: Lalo Collins MD at 12:54 EDT , Service support ,
--- NOTE | 2020-12-10 11:53 | ED.VIS.GI ---
HPI HPI - GI History of Present Illness Chief Complaint: Abd Pain Informant: patient Narrative Narrative: Patient presents with right lower quadrant abdominal pain. Started last night. He describes a sharp pain in this area that does not radiate. He felt a little bit nauseous last night but not today. He denies any diarrhea or constipation. No dysuria or hematuria. He denies any history of abdominal surgeries in the past. He took nothing for this pain at home. He does have a history of GERD. He has not had any back pain. [facility] Medical History (Updated 12/10/20 @ 13:[address] Jesús Hamm MD) Arthritis Asthma Dyslipidemia GERD (gastroesophageal reflux disease) Hypercholesteremia Left lower lobe CAP Morbid obesity Nasal congestion Schizophrenia Severe headache Home Medications benztropine 0.5 mg PO TID 05/24/17 [History Last Taken 11/12/17 10:00] cetirizine 10 mg PO DAILY 05/24/17 [History Last Taken 11/12/17 10:00] divalproex 500 mg PO BID 05/24/17 [History Last Taken 11/12/17 10:00] omeprazole 20 mg PO DAILY 05/24/17 [History Last Taken 11/12/17 10:00] risperidone 0.5 mg PO BID 05/24/17 [History Last Taken 11/12/17 10:00] rosuvastatin 5 mg PO QHS 10/09/18 [History Last Taken Unknown] cyclobenzaprine 10 mg PO TID PRN #20 tab 06/08/19 [Rx Last Taken Unknown] gabapentin 300 mg PO BID 06/08/19 [History Last Taken Unknown] sumatriptan succinate 50 mg PO PRN PRN 02/17/20 [History Last Taken Unknown] Cholecalciferol (Vitamin D3) [Vitamin D3] 1 cap DAILY 10/02/20 [History Last Taken Unknown] lisinopril 10 mg PO DAILY 10/02/20 [History Last Taken Unknown] methylcellulose (laxative) 4 tab DAILY 10/02/20 [History Last Taken Unknown] multivitamin with minerals 1 tablet DAILY 10/02/20 [History Last Taken Unknown] naproxen 1 tab DAILY 10/02/20 [History Last Taken Unknown] Allergy/AdvReac Type Severity Reaction Status Date / Time No Known Allergies Allergy Verified 12/10/20 11:44 Family History Mother CVA (cerebral vascular accident) Malignant hyperthermia due to anesthesia Grandmother Cancer Myocardial infarction Surgical History History of nasal septoplasty Social History Smoking Status: Current every day smoker ROS ROS ED Constitutional Constitutional ED: Denies chills or fever(s) Eyes Eyes: Denies blurry vision, change in vision or diplopia ENT ENT ED: Denies ear pain, rhinorrhea or sore throat Cardiovascular Cardiovascular: Denies chest pain or palpitations Respiratory/Chest Respiratory/Chest: Denies cough, dyspnea or sputum Gastrointestinal Gastrointestinal: Reports abdominal pain and nausea Genitourinary Genitourinary ED: Denies dysuria, hematuria or urinary frequency Musculoskeletal Musculoskeletal: Denies back pain or neck pain Integumentary Denies change in pigmentation or rash Neurologic Neurologic: Denies headache(s), numbness or weakness Psychiatric Psychiatric: Denies anxiety or depression Endocrine Endocrinology: Denies polydipsia or polyuria EXAM Physical Exam Const Vital Signs: 12/10/20 11:42 Temperature 98.1 F Temperature Source Temporal Pulse Rate 114 H Respiratory Rate 16 Blood Pressure 167/90 H Blood Pressure Mean 115 Pulse Ox 95 Oxygen Delivery Method Room Air Positive well nourished and well developed General Appearance ED: well developed and NAD HEENT Reports moist mucous membranes normocephalic and atraumatic; Negative for tenderness Eyes PERRL and EOMs intact bilaterally Neck supple and no JVD Chest Wall Chest: Negative for tenderness Resp normal respiratory effort and clear to auscultation bilaterally Effort and Inspection: Negative for respiratory distress Cardio regular rate, regular rhythm and no murmurs Rate: regular rate Rhythm: regular rhythm GI soft to palpation and non-distended Palpation: soft and tender RLQ; Negative for guarding or rebound tenderness present Back/Spine no CVA tenderness and no thoracic nor lumbar tenderness Cervical Spine: Negative for cervical spine tenderness Extremity normal to inspection and full ROM General Extremety ED: Negative for tenderness Neuro oriented x3, CN's II-XII intact bilaterally and no sensory deficits noted Sensorium / Orientation: awake and alert Motor Exam: strength 5/5 throughout Psych mental status grossly normal Skin no rashes or lesions noted MDM MDM MDM Narrative Medical decision making narrative: The patient had laboratory studies which are fairly unremarkable except for slightly elevated glucose. CAT scan reveals acute appendicitis with increased markings in the right lower quadrant. Patient was made n.p.o. He was started on maintenance fluids and given a dose of Zosyn. His last oral intake was at 9 AM this morning. Patient was discussed with Dr. Ye and he will take the patient to the OR for appendectomy Lab Data Labs: Laboratory Results - last 24 hr 12/10/20 12/10/20 12:07 12:07 WBC 9.9 RBC 4.27 L Hgb 14.0 Hct 41.7 MCV 97.7 H MCH 32.8 H MCHC 33.6 RDW Std Deviation 42.0 RDW Coeff of Rigo 11.8 Plt Count 201 MPV 10.9 Immature Gran % (Auto) 0.300 Neut % (Auto) 68.3 Lymph % (Auto) 23.9 [place] % (Auto) 6.2 Eos % (Auto) 1.0 Baso % (Auto) 0.3 Absolute Neuts (auto) 6.8 Absolute Lymphs (auto) 2.37 Nucleated RBC % 0 Sodium 139 Potassium 4.0 Chloride 101 Carbon Dioxide 29.0 Anion Gap 9 BUN 19 H Creatinine 0.99 Estim Creat Clear Calc 99.07 Est GFR (MDRD) Af Amer 103 Est GFR (MDRD) Non-Af 85 BUN/Creatinine Ratio 19.1 Glucose 134 H Calcium 8.8 Total Bilirubin 0.60 AST 18 ALT 30 Alkaline Phosphatase 82 Total Protein 7.5 Albumin 3.8 Globulin 3.7 Albumin/Globulin Ratio 1.0 Radiography Diagnostic Testing: Radiology Impression Abdomen/Pelvis CT 12/10/20 11:53 IMPRESSION: Findings in keeping with noncomplicated acute appendicitis with increased markings in the right lower quadrant. Small incidental lymph nodes. 3 mm noncalcified nodule in the peripheral lateral aspect of the right lower lobe. A 12 month follow-up examination is recommended. Electronically Signed: Lalo Collins MD at 12:54 EDT , Service support , Discharge Plan Triage Chief Complaint: Abd Pain ED Provider: Jesús Hamm Dx/Rx/DC Orders Clinical Impression: Acute appendicitis Prescriptions: No Action divalproex 500 MG tablet extended release 24 hr 500 mg PO BID RF: 0 risperidone 0.5 MG tablet,disintegrating 0.5 mg PO BID RF: 0 cetirizine 10 MG tablet 10 mg PO DAILY RF: 0 benztropine 2 MG tablet 0.5 mg PO TID RF: 0 omeprazole 20 MG capsule,delayed release(DR/EC) 20 mg PO DAILY RF: 0 rosuvastatin 5 MG tablet 5 mg PO QHS RF: 0 gabapentin 300 MG capsule 300 mg PO BID RF: 0 cyclobenzaprine 10 MG tablet 10 mg PO TID PRN (Reason: Muscle Spasm) Qty: 20 RF: 0 sumatriptan succinate 50 MG tablet 50 mg PO PRN PRN (Reason: Migraine Symptoms) RF: 0 naproxen 500 MG tablet 1 tab DAILY RF: 0 Cholecalciferol (Vitamin D3) [Vitamin D3] 5,000 UNIT capsule 1 cap DAILY RF: 0 multivitamin with minerals 1 EACH tablet 1 tablet DAILY RF: 0 methylcellulose (laxative) 500 MG tablet 4 tab DAILY RF: 0 lisinopril 10 MG tablet 10 mg PO DAILY RF: 0 Primary Care Provider: [facility] Ita Resendiz [facility] - Disposition Disposition: Acute Care Hospital [facility]
[2020-12-10] MEDS: Morphine 4 MG/ML Syringe IV (12:17)
[2020-12-10 12:24] LABS: Absolute Lymphocyte Count 2.37 X10^3/uL (0.83-4.51); Absolute Neutrophil Count 6.8 X10^3/uL (2.0-7.7); Basophil# 0.03 X10^3/uL; Basophil% 0.3 % (0-1); Hematocrit 41.7 % (40-54); Lymphocyte # 2.37 X10^3/ul (0.83-4.51); Lymphocyte % 23.9 % (19-41); Mean Corp Hgb Conc 33.6 g/dL (32-36); Mean Corpuscular Hgb 32.8 pg (27.0-32.0); Mean Corpuscular Volume 97.7 fL (80-94); Mean Platelet Vol. 10.9 fl (6.2-12.0); Monocyte# 0.62 X10^3/uL; Monocyte% 6.2 % (0-10); NRBC Flagged by Analyzer 0 % (0-5); Neutrophil # 6.78 X10^3/uL (2.7-7.7); Neutrophil % 68.3 % (47-70); Platelet Count 201 K/mm3 (150-450); RBC Distribution Width CV 11.8 % (11.6-14.6); Red Blood Count 4.27 M/mm3 (4.6-6.2); White Blood Count 9.9 K/mm3 (4.4-11.0)
[2020-12-10 12:43] LABS: AST(SGOT) 18 U/L (15-37); Alanine Aminotransfer ALT/SGPT 30 U/L (16-61); Albumin, Serum 3.8 g/dL (3.2-5.0); Alkaline Phosphatase 82 U/L (45-117); Anion Gap 9 (5-15); BUN 19 mg/dL (7-18); BUN/Creat Ratio 19.1 RATIO (10-20); Calcium,Total 8.8 mg/dL (8.5-10.1); Chloride 101 mmol/L (98-107); Creatinine, Serum 0.99 mg/dL (0.70-1.30); EST Glomerular Filtration Rate 85 mL/min (>60); Est Glom Filt Rate - Afr Amer 103 mL/min (>60); Estimated Creatinine Clearance 99.07 ml/min; Globulin 3.7 g/dL (2.2-4.2); Glucose 134 mg/dL (74-106); Protein, Total 7.5 g/dL (6.4-8.2); Sodium Level 139 mmol/L (136-145)
[2020-12-10] MEDS: 0.9% Normal Saline 1,000 ML 150 ML IV (14:57)
--- NOTE | 2020-12-10 15:30 | APP_PTH ---
PATIENT: MARGRET LESTER LOC: MS3 U#:[id number] AGE/SX: 50/M ROOM: MI316 RE12/10/[address]: Dr. Erik Ye MD : 1970 BED: 1 DIS: 12/11/2020 SPEC #: [id number] RECD: 12/11/20 07:43 STATUS: DORIS REQ #: [id number] KAMERON: 12/10/20 15:[address]: Erik Ye DEPT: SURGICAL PATHOLOGY RECD BY: Kizzy Mcelroy ENTERED: 12/11/20 08:32 SP TYPE: APPENDIX OTHR DR: Ita [facility] Tissues: Appendix, NOS Procedures: Surgery Specimen Level III HEADER OPERATION: Laparoscopic appendectomy PRE-OP DIAGNOSIS: Acute appendicitis TISSUE SUBMITTED: Appendix MICROSCOPIC DIAGNOSIS Appendix, appendectomy: Acute necrotizing appendicitis. Acute serositis. AM:handy 12/12/2020 MICROSCOPIC DESCRIPTION Slides are reviewed. GROSS DESCRIPTION Received in fixative is one container labeled with the patient's name and designated appendix. The specimen consists of a small appendix measuring 2.5 cm in length and up to 0.7 cm in diameter. The attached periappendiceal adipose tissue measures 3 cm in width. Also present in the container are two detached pieces of adipose tissue measuring in aggregate 4 x 4 x 1 cm. No obvious perforation is identified. The appendix appears to be twisted upon itself. The serosal surface is covered with davis, purulent exudate. No obvious perforation is identified. The entire appendix is submitted in two cassettes. Cassette 1 contains the tip of the appendix. / MITCHEL:handy 12/11/20 TC:3 CPT: 82814
--- NOTE | 2020-12-10 15:57 | EX.PCM.CON.S ---
Assessment & Plan Assessment/Plan (1) Acute appendicitis: QUALIFIERS: Acute appendicitis type: with localized peritonitis Appendicitis gangrene presence: unspecified whether gangrene present Appendicitis perforation presence: unspecified whether perforation present Appendicitis abscess presence: unspecified whether abscess present Qualified Code(s): K35.30 - Acute appendicitis with localized peritonitis, without perforation or gangrene PLAN: Plan will be to perform a laparoscopic appendectomy. Risk benefits of the procedure were reviewed in great detail with the patient to include bleeding infection possible delayed infections he also understands blood clots heart attacks pneumonia strokes up to and including are a possibility. All questions asked were answered and he is willing to proceed. HPI Consult Data Date of Consult: 12/10/20 HPI Narrative HPI Narrative: MARGRET LESTER, is a 50 M who presents Patient presents with right lower quadrant abdominal pain.? Started last night.? He describes a sharp pain in this area that does not radiate.? He felt a little bit nauseous last night but not today.? He denies any diarrhea or constipation.? No dysuria or hematuria.? He denies any history of abdominal surgeries in the past.? He took nothing for this pain at home.? He does have a history of GERD.? He has not had any back pain. [facility] Medical History (Updated 12/10/20 @ 15:[address] Erik Ye MD) Arthritis Asthma Dyslipidemia GERD (gastroesophageal reflux disease) Hypercholesteremia Left lower lobe CAP Morbid obesity Nasal congestion Schizophrenia Severe headache Home Medications benztropine 0.5 mg PO DAILY 05/24/17 [History Last Taken 11/12/17 10:00] cetirizine 10 mg PO DAILY 05/24/17 [History Last Taken 11/12/17 10:00] divalproex 500 mg PO BID 05/24/17 [History Last Taken 11/12/17 10:00] omeprazole 5 mg PO DAILY 05/24/17 [History Last Taken 11/12/17 10:00] risperidone 0.5 mg PO BID 05/24/17 [History Last Taken 11/12/17 10:00] rosuvastatin 5 mg PO QHS 10/09/18 [History Last Taken Unknown] cyclobenzaprine 10 mg PO TID PRN #20 tab 06/08/19 [Rx Last Taken Unknown] gabapentin 300 mg PO DAILY 11/20/19 [History Last Taken Unknown] sumatriptan succinate 50 mg PO PRN PRN 02/17/20 [History Last Taken Unknown] Cholecalciferol (Vitamin D3) [Vitamin D3] 1 cap PO/SL DAILY 10/02/20 [History Last Taken Unknown] lisinopril 20 mg PO DAILY 10/02/20 [History Last Taken Unknown] methylcellulose (laxative) 6 tab PO BID 10/02/20 [History Last Taken Unknown] multivitamin with minerals 1 tablet DAILY 10/02/20 [History Last Taken Unknown] naproxen 1 tab PO DAILY 10/02/20 [History Last Taken Unknown] benztropine 1 mg PO QHS 12/10/20 [History Last Taken Unknown] gabapentin 600 mg PO QHS 12/10/20 [History Last Taken Unknown] Allergy/AdvReac Type Severity Reaction Status Date / Time No Known Allergies Allergy Verified 12/10/20 11:44 Family History Mother CVA (cerebral vascular accident) Malignant hyperthermia due to anesthesia Grandmother Cancer Myocardial infarction Surgical History History of nasal septoplasty Social History Smoking Status: Current every day smoker ROS ENT HEENT: Reports systems reviewed and no addt'l complaints, except as documented Cardiovascular Cardiovascular: Reports systems reviewed and no addt'l complaints, except as documented Respiratory/Chest Respiratory/Chest: Reports systems reviewed and no addt'l complaints, except as documented Gastrointestinal Gastrointestinal: Reports abdominal pain Physical Exam Const alert and oriented x3 General Appearance: cooperative HEENT normocephalic Eyes PERRL and EOMs intact bilaterally Resp normal respiratory effort and clear to auscultation bilaterally Cardio Rate: regular rate Rhythm: regular rhythm GI Inspection: abdominal distention Palpation: tender RLQ and McBurney's point and guarding Lab / Micro Data Result Diagrams: 12/10/20 12:07 12/10/20 12:07 Labs: Laboratory Results - last 24 hr 12/10/20 12/10/20 12:07 12:07 WBC 9.9 RBC 4.27 L Hgb 14.0 Hct 41.7 MCV 97.7 H MCH 32.8 H MCHC 33.6 RDW Std Deviation 42.0 RDW Coeff of Rigo 11.8 Plt Count 201 MPV 10.9 Immature Gran % (Auto) 0.300 Neut % (Auto) 68.3 Lymph % (Auto) 23.9 [place] % (Auto) 6.2 Eos % (Auto) 1.0 Baso % (Auto) 0.3 Absolute Neuts (auto) 6.8 Absolute Lymphs (auto) 2.37 Nucleated RBC % 0 Sodium 139 Potassium 4.0 Chloride 101 Carbon Dioxide 29.0 Anion Gap 9 BUN 19 H Creatinine 0.99 Estim Creat Clear Calc 99.07 Est GFR (MDRD) Af Amer 103 Est GFR (MDRD) Non-Af 85 BUN/Creatinine Ratio 19.1 Glucose 134 H Calcium 8.8 Total Bilirubin 0.60 AST 18 ALT 30 Alkaline Phosphatase 82 Total Protein 7.5 Albumin 3.8 Globulin 3.7 Albumin/Globulin Ratio 1.0 Micro: Microbiology 12/10/20 14:44 SARS-CoV-2 Antigen (Rapid) - Final Mucosa - Nose Radiology Impression Abdomen/Pelvis CT 12/10/20 11:53 IMPRESSION: Findings in keeping with noncomplicated acute appendicitis with increased markings in the right lower quadrant. Small incidental lymph nodes. 3 mm noncalcified nodule in the peripheral lateral aspect of the right lower lobe. A 12 month follow-up examination is recommended. Electronically Signed: Lalo Collins MD at 12:54 EDT , Service support ,
[2020-12-10] MEDS: Bupivacaine Mpf 0.5% 30 ML VIAL (16:42)
--- NOTE | 2020-12-10 16:43 | OP.PCM_ITS ---
Problems Associated Problem List Diagnoses (1) Acute appendicitis: Report of Operation Date of Procedure: 12/10/20 Pre-Operative Diagnosis: Acute appendicitis Post-Operative Diagnosis: Acute appendicitis retrocecal Surgery/Procedure Performed:: Laparoscopic appendectomy Surgeon: Erik Ye manager personal: Randy Herrera Type of Anesthesia: General Anesthesiologist: Tripp Zazueta Specimen's removed: Appendix Drains: None Estimated Blood Loss (mL): < 25 cc Description of Procedure: Patient was brought in the operating room. Placed in the supine position. Under excellent general endotracheal ovation Lopez cat heter was placed which drained almost a liter of urine. The abdomen was sterilely prepped and draped in usual fashion. Local was injected infraumbilically dissection was carried down to the fascia the fascia grasped with a [place] varies needle was placed inside the abdomen the abdomen was insufflated to 15 torr a 10/12 trocar was placed without difficulty. Suprapubic #5 trochars placed a left lower quadrant #5 trochars placed over these under direct visualization without injury to underlying structures. Patient was placed in the headdown and rotated to the left position. Patient was noted to have an acute retrocecal appendix it had not ruptured. I used the Enseal came all around the mesoappendix and it was plastered to the cecum it took quite a bit of dissecting but I had good epistasis and I was able to get around it completely. I transected the base of the appendix with a 45 linear cutter. I placed the specimen in a specimen bag and delivered through the umbilical port without difficulty. I had excellent hemostasis I irrigated the right lower quadrant. There was no pus identified. The base of the appendix looked viable and no bleeding was identified. Around the small bowel no Meckel's diverticulum was identified. Trochars were removed under direct visualization. Osborn stasis was noted. Fascia the umbilical port was closed with [id number] stitch of 0 Vicryl. Skin incisions were closed with subcuticular stitches of 4- 0 Monocryl. Steri-Strips were applied sterile dressings were applied and the patient tolerated the procedure well. Admit VTE Documentation VTE Present on Admission: No VTE Mechan Device Prophylaxis: SCD's VTE Pharm Prophylaxis ordered?: No Reason prophylaxis not ordered:: Treatment Not Indicated
[2020-12-10] MEDS: 0.9% Normal Saline 1,000 ML 75 ML IV (18:02)
--- NOTE | 2020-12-10 21:05 | CPS ---
Patient reported from sleep study 3 years ago to wear BiPAP /15 at home. When C[employer] GRAIN [employer]OWER tried to place patient on these pressures here he got very agitated. Since unable to tolerate higher BiPAP pressure here, CASH GRAIN GROWER will place patient on 02/03 for comfort. Will monitor patient overnight for increased symptoms of sleep apnea or pulse ox desaturations.
[2020-12-10] MEDS: RisperiDONE 0.5 MG Tablet PO (23:42)
[2020-12-10] MEDS: Divalproex (ER) 500 MG Tablet PO (23:43)
[2020-12-10] MEDS: Atorvastatin Calcium 10 MG Tablet PO (23:43)
[2020-12-10] MEDS: Benztropine Mesylate 0.5 MG TABLET 1 MG PO (23:44)
[2020-12-10] MEDS: Gabapentin 600 MG Tablet PO (23:45)
[2020-12-10] MEDS: oxyCODONE 5 MG Tablet 10 MG PO (23:52)
[2020-12-11 05:30] VITALS: BP 128/81; PULSE 73; RESP 18; TEMP 36.4; O2SAT 97
[2020-12-11 07:23] VITALS: BP 130/83; PULSE 78; RESP 16; TEMP 36.6; O2SAT 96
[2020-12-11] MEDS: oxyCODONE 5 MG Tablet 10 MG PO ×2 (07:31→14:29)
[2020-12-11 07:43] VITALS: O2SAT 92
[2020-12-11] MEDS: Loratadine 10 MG Tablet PO (09:42)
[2020-12-11] MEDS: RisperiDONE 0.5 MG Tablet PO (09:42)
[2020-12-11] MEDS: Divalproex (ER) 500 MG Tablet PO (09:42)
[2020-12-11] MEDS: Gabapentin 300 MG Capsule PO (09:42)
[2020-12-11] MEDS: Lisinopril 20 MG Tablet PO (09:42)
[2020-12-11] MEDS: Pantoprazole Sodium 20 MG Tablet PO (09:42)
[2020-12-11] MEDS: Benztropine Mesylate 0.5 MG TABLET PO (09:46)
--- NOTE | 2020-12-11 10:12 | DCINST_ITS ---
Discharge Instructions Procedure Appendectomy Diet Discharge Diet: Light diet - advance as tolerated (if you have questions about your diet instructions, please talk to you doctor.) Activity Discharge Activity: May Not Drive (for 3-5 days or while taking narcotic pain meds.) May shower in (days): 1 Dressing / Incision Call your doctor if your incision/area has: Continuous Slow Oozing, Sudden Increased Bleeding, Increased Pain/ Swelling, Increased Redness and Foul Smelling Discharge Call your doctor if you observe: Fever of 101 or Higher Suture Line Care: Avoid Pulling/Pushing and Avoid Pinching/Bending Additional Dressing/Incision Instructions:: Keep dressing clean and dry. Change or remove dressing in 2 days. Leave steri strips for 1 week. May protect with a gauze bandaid. Follow Up Care Please Follow Up With: Lili Robert PA-C When: Call office to schedule an appointment to be seen in 1 week. Test Results: Test results from this visit will be discussed in further detail at your follow-up appointment, if applicable. Discharge Plan Admission Admit Date/Time: 12/10/20 16:57 Attending Provider: Erik Ye [facility]/Prescriptions Prescriptions: New oxycodone-acetaminophen [Endocet] 5-325 mg tablet 1 tab PO Q6H PRN (Reason: pain) 5 Days Qty: 20 RF: 0 Continued divalproex 500 MG tablet extended release 24 hr 500 mg PO BID RF: 0 risperidone 0.5 MG tablet,disintegrating 0.5 mg PO BID RF: 0 cetirizine 10 MG tablet 10 mg PO QHS RF: 0 benztropine 2 MG tablet 0.5 mg PO DAILY RF: 0 omeprazole 20 MG capsule,delayed release(DR/EC) 5 mg PO DAILY RF: 0 rosuvastatin 5 MG tablet 5 mg PO QHS RF: 0 gabapentin 300 MG capsule 300 mg PO DAILY RF: 0 cyclobenzaprine 10 MG tablet 10 mg PO TID PRN (Reason: Muscle Spasm) Qty: 20 RF: 0 sumatriptan succinate 50 MG tablet 50 mg PO PRN PRN (Reason: Migraine Symptoms) RF: 0 naproxen 500 MG tablet 1 tab PO DAILY RF: 0 Cholecalciferol (Vitamin D3) [Vitamin D3] 5,000 UNIT capsule 1 cap PO/SL DAILY RF: 0 multivitamin with minerals 1 EACH tablet 1 tablet DAILY RF: 0 methylcellulose (laxative) 500 MG tablet 6 tab PO BID RF: 0 lisinopril 10 MG tablet 20 mg PO DAILY RF: 0 benztropine 0.5 mg Tablet 1 mg PO QHS RF: 0 gabapentin 300 mg Tablet 600 mg PO QHS RF: 0 [facility]errals / [facility]: [facility] [Primary [facility] Provider] -
[2020-12-11 14:14] VITALS: BP 144/84; PULSE 93; RESP 18; TEMP 36.8; O2SAT 94
== END 2020-12-11 14:41 | disposition home or self-care (01) ==
LOC: ED 13:17 → SDC 13:58 → MS3 18:10 → SDC 18:17 → MS3 18:17
PROVIDERS: Admitting Provider Surgery; Emergency Provider Emergency Medicine; Visit Provider Surgery
PROC: 0DTJ4ZZ Resection of Appendix, Percutaneous Endoscopic Approach (ICD-10-PCS; CPT 44970; principal; 2020-12-10 15:10)
DX: K35.30 Acute appendicitis with localized peritonitis, without perforation or gangrene (principal); K21.9 Gastro-esophageal reflux disease without esophagitis; E78.5 Hyperlipidemia, unspecified; M19.90 Unspecified osteoarthritis, unspecified site; J45.909 Unspecified asthma, uncomplicated; E66.01 Morbid (severe) obesity due to excess calories; Z68.37 Body mass index [BMI] 37.0-37.9, adult; F20.9 Schizophrenia, unspecified; G47.33 Obstructive sleep apnea (adult) (pediatric); Z79.899 Other long term (current) drug therapy; F17.210 Nicotine dependence, cigarettes, uncomplicated
CPT/HCPCS: 00840; 44970; 74176; 80053; 85025; 87426; 88304; 94002; 96361; 96365; 96366; 96375; 99218; 99251; 99282; J7030; A4216; C1760; G0378; G0463; J2405

== ENCOUNTER 2021-03-14 12:00 | Outpatient (RCR) | payer MEDICAID, SELFPAY ==
[2020-12-10 18:36] VITALS: BMI 37.5
--- NOTE | 2021-01-29 08:29 | HP.PTEVAL_ITS ---
Patient's Visit Information MARGRET LESTER is a 50 year old M referred to Physical Therapy by LUAREN Monaco with a diagnosis of Lumbago, L sided sciatica, lumbar DDD. Date of Evaluation: 01/28/21 Physical Therapist: Rober Dixon DPT - Visit Plan Frequency: 2x /Week Duration: 4 Weeks Plan: Start with core strengthening, deep water hand, gentle lumbar extension (if tolerating better). Complete in aquatic setting. - Subjective Pt. is here today for his initial evaluation with diagnosis of lumbago, DDD, with L sided sciatica. Pt. reports having chronic low back pain, he reports not remembering when it all started. He is also having L knee that started ~4 days ago. He did have PT previous with core stability exercises helping for a bit. He reports that is episode of care starting ~6-8 weeks ago. He reports no mechanism of injury. i woke up one morning and back back was bad. L sided back pain, It feels so tight in there. Denies N/T. He has reported increased LLE weakness, it has given out on me. Increases pain: rolling in bed, any quick movements, walking. Decreases pain: Nothing, steriod?? . He reports no relief with ice, heat, or massage pad. Sleeping is difficult due to pain. 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 Pt. reports mornings are rough as well. its very stiff. He is hopeful to reduce his symptoms in order to get back to work and recreational activities without limitations. - Pain Lumbar spine Pain Intensity (Out of 10): 5 Pain Intensity Range: 5, 10 Comment: L side L LE Pain Intensity (Out of 10): 6 Comment: achy, throbbing - Objective POSTURE: Pt. has general flexed posture, with difficulty getting more erect posture. Pt. has increased lumbar lordossis. No lateral wt. shift noted. PALAPTION: Pt. is tender at L PSIS and L lumbar erector spinea. Pt. had mild increase with PA testing to L4 and L5. Pt. also c/o increased L knee pain with palpation generally throughout knee. He reports marked edema in L knee, but not noticeable today. NEURO: Pt. has normal sensation throughout BLEs. Pt. has 2+ B achilles and patellar DTR. Pt. is able to rise on heels and toes without issues. ROM: LUMBAR SPINE: flexion- min loss increase NW (worse with return), extension- mod/max loss increase NW, SB R mod loss increase NW, SB L min loss increase NW, rotation R mod loss increase NW, rot L- min loss increase NW. Pt. has mild increase in pain with passive hip flexion, no pain with B hip ER or IR motions. He did have hypomobility at L4/L5 segments as well. MMT: Pt. has 5/5 strength throughout BLEs except with hip abd 4/5, hip ext 4/5, core strength- poor. GAIT: Pt. ambulates with methodical pattern. He has minimal trunk rotation or arm swing with gait. Pt. has B hip ER as well. Pt. has vaulting on her L side as well. He reports increased pain with increased ambulation as well. - Special Tests L/S Slump test left side: Negative L/S Slump test right side: Negative L/S Left Straight Leg Raise: Negative L/S Right Straight Leg Raise: Negative L/S Left Femoral Nerve Tension: Negative L/S Right Femoral Nerve Tension: Negative L/S Instability PA Test: Negative Lumbar Standing: Flexion - Mechanical Response: No effect Lumbar Standing: Flexion - Symptoms During Testing: Increases Lumbar Standing: Flexion - Symptoms After Testing: No worse Lumbar Standing: Extension - Mechanical Response: No effect Lumbar Standing: Extension - Symptoms During Testing: Increases Lumbar Standing: Extension - Symptoms After Testing: No worse Lumbar Standing: Right Side Glides - Mechanical Response: No effect Lumbar Standing: Right Side [place] - Symptoms During Testing: Increases Lumbar Standing: Right Side [place] - Symptoms After Testing: No worse Lumbar Standing: Left Side [place] - Mechanical Response: No effect Lumbar Standing: Left Side [place] - Symptoms During Testing: Increases Lumbar Standing: Left Side [place] - Symptoms After Testing: No worse Lumbar Lying: Flexion - Mechanical Response: No effect Lumbar Lying: Flexion - Symptoms During Testing: Increases Lumbar Lying: Flexion - Symptoms After Testing: No worse Lumbar Lying: Extension - Mechanical Response: No effect Lumbar Lying: Extension - Symptoms During Testing: Increases Lumbar Lying: Extension - Symptoms After Testing: Worse Lumbar Static: Slouched Sit - Mechanical Response: No effect Lumbar Static: Slouched Sit - Symptoms During Testing: No effect Lumbar Static: Slouched Sit - Symptoms After Testing: No effect Lumbar Static: Sitting Erect - Mechanical Response: No effect Lumbar Static: Sitting Erect - Symptoms During Testing: No effect Lumbar Static: Sitting Erect - Symptoms After Testing: No effect - Goals Goal 1:: LTG: pt. to be I with HEP. Goal Time Frame: 4-6 Weeks Goal 2:: STG: pt. to be able to sleep throughout the night without increase in symptoms. Goal Time Frame: 2 Weeks Goal 3:: LTG: Pt. to be able to walk unlimited distances with 0-2/10 pain in L side of Lumbar spine. Goal Time Frame: 4-6 Weeks Goal 4:: LTG: pt. to have increased lumbar ROM by 25% in all directions with 0- 2/10 pain in lumbar spine. Goal Time Frame: 4-6 Weeks Goal 5:: LTG: Pt. to have increased core strength to fair- in order to reduce stress applied to lumbar spine with all activities. Goal Time Frame: 4-6 Weeks Goal 6:: LTG: Pt. to complete all work related activities with 0-2/10 pain in lumbar spine. Goal Time Frame: 4-6 Weeks - Rehabilitation Potential Physical Therapy Diagnosis: Pt. has signs and symptoms consistent with lumbago. He has signs of acute on chronic LBP. Pt has some L knee pain which appears to be separate from his back injury. He did not have radicular signs today, but he reports that he often does. He has difficulty with any movements of his lumbar spine and has difficulty lying on his back. I would like him to slowly progress core stability and light back extension. Due to his irritability of his symptoms I would like him to start in the aquatic setting. Rehabilitation Potential: Good - Anticipated Interventions Patient/Client Instruction: Educate patient on: Condition, Plan of Care, Risk Factors, Benefits of Fitness Program For the Purpose of:: To foster healthy habits, To improve decision making, To facilitate caregiver knowledge, To improve self management, To prevent re- injury, To improve ability to perform tasks related to life management Therapeutic Exercise to Include: Strength training, Coordination, Postural training, Flexibilty training, Gait and locomotor training, In an aquatic setting, Passive ROM, Active ROM, Dynamic Lumbar Stabilization, Kaelyn Exercises For the Purpose of:: To decrease pain, To decrease swelling/inflammation, To increase ROM, To improve nutrient delivery to tissue, To increase oxygenation perfusion, To improve muscle performance and motor function, To improve ability to perform ADL's, To increase tolerance to activity/condition/position, To improve health of tissue, To decrease soft tissue restriction, To increase flexibility/ROM Thank you for the opportunity to evaluate your patient. For Medicare and Medicare HMO plans, please review the plan of care and approve it. It will need to be FAXED BACK to us at [phone] for Medicare purposes. For Medicare only, by signing this I certify the plan of care. Please let me know if there are questions or concerns regarding this plan of care. Physician Leo mckee: Date:
--- NOTE | 2021-03-14 12:30 | HP.PTDCSUM_ITS ---
It has been my pleasure to treat MARGRET LESTER referred by LAUREN Monaco, with the diagnosis of Lumbago, L sided sciatica, lumbar DDD for a total of 7 visit(s). Discharge Date: 03/14/21 Please see the following information for a summary of their discharge status. Subjective: Pt. reports overall having increased pain. He reports feeling like the pool therapy loosened him up but, is having more pain. He reported having increased pain since yesterday. it feels like it seized up again. Lumbar spine Pain Intensity (Out of 10): 8 L LE Pain Intensity (Out of 10): 0 Thoracic spine Pain Intensity (Out of 10): 8 % Improvement: 20 Objective/Function: Pt. reports sleeping a bit better after starting melatonin. Pt. is taking aleve, but not much change in symptoms. Pt. reports no tingling and reports that his LLE is doing better. ROM: Flexion mod loss increase NW, ext max loss increase NW, SB mod loss increase NW, rotation mod loss increase NW. Pt. has tight HS throughout BLEs. MMT: pt. has good 5/5 strength throughout distal LEs, 4+/5 in B hips. No sensation loss in BLEs, normal DTR bilaterally. No LE issues noted. It just feels like my back is locked up, spasming.. Pt. very guarded in his ROM of lumbar spine secondary to increased pain. Pt. reports overall doing about the same as previous. Goal 1:: LTG: pt. to be I with HEP. Goal Progress: Progressing Goal 2:: STG: pt. to be able to sleep throughout the night without increase in symptoms. Goal Progress: Progressing Goal 3:: LTG: Pt. to be able to walk unlimited distances with 0-2/10 pain in L side of Lumbar spine. Goal Progress: Not Progressing Goal 4:: LTG: pt. to have increased lumbar ROM by 25% in all directions with 0- 2/10 pain in lumbar spine. Goal Progress: Not Progressing Goal 5:: LTG: Pt. to have increased core strength to fair- in order to reduce stress applied to lumbar spine with all activities. Goal Progress: Not Progressing Goal 6:: LTG: Pt. to complete all work related activities with 0-2/10 pain in lumbar spine. Goal Progress: Not Progressing Plan: Pt. has not made huge changes with his symptoms. He reported initial changes for the better, but is not having increased overall pain throughout lumbar and thoracic musculature. Pt. to be DC from PT at this point in time and back to physician. Discharge Comments: Pt. reports overall feeling pain over a larger area now. He does not think the PT is helping at this point in time. I will DC him back to physician at this point in time for further evaluation. He was seen in aquatic setting working on flexibility and core stability. He is now reporting increased spasming in his back. If there are questions or concerns regarding this patient's physical therapy, please feel free to call me at [phone]. Thank you for the referral of this patient. Sincerely, Rober Dixon, DPT Balance/Gait/Functional tests - Balance/Special Test Scores Oswestry Low Back Score: 12
== END 2021-03-14 14:09 | disposition home or self-care (01) ==
LOC: PT 12:00
PROVIDERS: Referring Provider Nurse Practitioner Adult Health; Visit Provider Nurse Practitioner Adult Health
DX: M54.42 Lumbago with sciatica, left side (principal); M51.36 Other intervertebral disc degeneration, lumbar region
CPT/HCPCS: 97113; 97161; 97164

== ENCOUNTER 2021-05-28 10:00 | Outpatient (RCR) | payer MEDICAID, SELFPAY ==
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
--- NOTE | 2021-05-22 09:28 | HP.PTREVAL ---
Dr. Owen Burciaga MD, It has been my pleasure to treat MARGRET LESTER over the last 9 visits for LUMBAR STENOSIS, SPONDYLOSIS AND RADICULOPATHY. Please see the progress note below for an update on the physical therapy plan of care! Subjective: PATIENT REPORTS HE ISN'T HAVING ANY PAIN RIGHT NOW BUT HAD SOME PAIN GETTING OUT OF BED. PATIENT REPORTS HE IS GETTING BETTER AND THERAPY IS HELPING. WOULD LIKE TO CONTINUE. PATIENT REPORTS HE HAS FIGURED OUT HOW TO USE THE STRETCHY CORD AT HOME TO EX AND CAN DO SOME OF THE EX'S IN HIS BED EVEN THOUGH IT IS SOFT. HE STATES HE IS STARTING TO FEEL MORE READY TO GET BACK TO WORK. Objective/Function: PATIENT WAS SEEN TODAY FOR RE-ASSESSMENT OF PROGRESS TOWARD THE SET PT GOALS AND THE NEED FOR FURTHER PHYSICAL THERAPY VS READINESS FOR DISCHARGE. PATIENT IS MAKING GOOD PROGRESS TOWARD ALL PT GOALS AND IS A GOOD CANDIDATE TO CONTINUE PT BASED ON PROGRESS MADE AND ROOM FOR FURTHER IMPROVEMENT. UPON EXAM TODAY: Lumbar mvmt loss: flex - NIL. ext - MOD. R SG - MOD. L SG - MEKA. PATIENT DENIES INCREASED MID AND LOW BACK PAIN WITH LUMBAR ROM TESTING ALL PLANES BUT REPORTS SOME RIGHT LAT AREA SORENESS WITH REACHING DURING TESTING. STATES HE SLEPT ON IT WRONG A FEW DAYS AGO. Core strength: POOR Plan Plan: CONT PT 2X'S A WK X 3-4 MORE VISITS. FOCUS ON HEP. DLS STARTING WITH A NEUTRAL SPINE PROGRESSING ROM TOLERATED. KINA LE ROM, STRETCHING AND STRENGTHENING. HEP INSTRUCTION. Balance/Gait/Functional tests - Balance/Special Test Scores Oswestry Low Back Score: 7 Goals Goal 1:: DECREASE C/O BACK PAIN. Goal Time Frame: 4-6 Weeks Goal Progress: Progressing Goal 2:: IMPROVE PERSONAL CARE, LIFTING, WALKING, SITTING, STANDING, SLEEP, SOCIAL LIFE, TRAVEL AND HOMEMAKING FUNCTION. Goal Time Frame: 4-6 Weeks Goal Progress: Progressing Goal 3:: INSTRUCT IN PROPHYLAXIS Goal Time Frame: 4-6 Weeks Goal Progress: Progressing Anticipated Interventions Patient/Client Instruction: Educate patient on: Condition, Plan of Care, Risk Factors For the Purpose of:: To improve self management Therapeutic Exercise to Include: Strength training, Body mechanics, Postural training, Flexibilty training, Neuromotor development, In an aquatic setting, Dynamic Lumbar Stabilization For the Purpose of:: To decrease pain, To improve muscle performance and motor function, To increase tolerance to activity/condition/position, To improve ability of physical actions for home/community/work/leisure TENS: Yes IF ES: Yes Cryotherapy (ice pack, ice massage): Yes Thermo therapy (hot pack): Yes Ultrasound (thermal/non thermal): Yes For the Purpose of:: To decrease pain, To improve nutrient delivery to tissue Other: *CHECK INSURANCE COVERAGE* Please do not hesitate to contact me at [phone] by phone or if you have questions or concerns regarding this new plan of care! Sincerely, Sandie Garcia, PT, Cert MDT
--- NOTE | 2021-05-28 10:24 | HP.PTDCSUM ---
It has been my pleasure to treat MARGRET LESTER referred by Dr. Owen Burciaga MD, with the diagnosis of LUMBAR STENOSIS, SPONDYLOSIS AND RADICULOPATHY for a total of 10 visit(s). Discharge Date: 05/28/21 Please see the following information for a summary of their discharge status. Subjective: PATIENT PRESENTS TO PT REPORTING TODAY HAS TO BE HIS LAST SESSION BECAUSE HE IS PLANNING TO START WORK TOMORROW. 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 PATIENT REPORTS HIS BACK IS STILL A LITTLE TIGHT OFF AND ON BUT HE NEEDS TO GET BACK TO WORK. STATES HE IS DOING HIS HOME EX'S. HE REPORTS SOME OF THE EX'S FEEL BETTER THAN OTHERS. PATIENT REPORTS HIS BACK HAS CONTINUED TO GET BETTER OVER THE PAST WEEK. STATES SOME OF HIS HOME EX'S ARE PRETTY CHALLENGING BUT HE IS WORKING THROUGH IT. 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 low/mid back Pain Intensity (Out of 10): 0 % Improvement: 79 Objective/Function: PATIENT JUST HAD A RE-ASSESS LAST VISIT AND UNEXPECTEDLY HAS TO STOP PT NOW SO THIS SESSION FOCUSED ON HOME INSTRUCTIONS PER PATIENT REQUEST AND THIS PT AGREEABLE. ABLE TO ADD PTB LAE'S, HORIZONTAL SHLD ABD AND KINA MULTIFIDUS PUSH OUTS TO HEP. ALSO ADDED STANDING KINA HIP ABD, HEEL RAISES AND CHAIR SQUATS WITH WRITTEN INSTRUCTIONS GIVEN. PATIENT DEMONSTRATED AND COMMUNICATED A GOOD UNDERSTANDING OF ALL INSTRUCITONS AFTER GIVEN. PATIENT TOLERATED ALL ROWAN EX'S WELL. Goal 1:: DECREASE C/O BACK PAIN. Goal Progress: Goal Met Goal 2:: IMPROVE PERSONAL CARE, LIFTING, WALKING, SITTING, STANDING, SLEEP, SOCIAL LIFE, TRAVEL AND HOMEMAKING FUNCTION. Goal Progress: Goal Met Goal 3:: INSTRUCT IN PROPHYLAXIS Goal Progress: Goal Met Plan: D/C TO HEP. PATIENT AGREEABLE. If there are questions or concerns regarding this patient's physical therapy, please feel free to call me at [phone]. Thank you for the referral of this patient. Sincerely, Sandie Garcia, PT, Cert MDT Balance/Gait/Functional tests - Balance/Special Test Scores Oswestry Low Back Score: 1
== END 2021-05-28 19:00 | disposition home or self-care (01) ==
LOC: PT 10:00
PROVIDERS: Referring Provider Anesthesiology Pain Medicine; Visit Provider Anesthesiology Pain Medicine
DX: M48.061 Spinal stenosis, lumbar region without neurogenic claudication (principal); M54.16 Radiculopathy, lumbar region; M54.6 Pain in thoracic spine; G89.29 Other chronic pain
CPT/HCPCS: 97110; 97162; 97164; 97530

== ENCOUNTER → 2021-06-07 11:15 | Outpatient (CLI) | payer MEDICAID, SELFPAY ==
[2021-06-07 11:57] LABS: Absolute Lymphocyte Count 1.89 X10^3/uL (0.83-4.51); Absolute Neutrophil Count 3.2 X10^3/uL (2.0-7.7); Basophil# 0.02 X10^3/uL; Basophil% 0.4 % (0-1); Eosinophil# 0.06 X10^3/uL; Eosinophils% 1.1 % (0-5); Hematocrit 37.7 % (40-54); Hemoglobin 12.9 g/dL (13.0-16.5); Lymphocyte # 1.89 X10^3/ul (0.83-4.51); Lymphocyte % 33.2 % (19-41); Mean Corp Hgb Conc 34.2 g/dL (32-36); Mean Corpuscular Hgb 33.4 pg (27.0-32.0); Mean Corpuscular Volume 97.7 fL (80-94); Mean Platelet Vol. 10.5 fl (6.2-12.0); Monocyte# 0.48 X10^3/uL; Monocyte% 8.4 % (0-10); NRBC Flagged by Analyzer 0 % (0-5); Neutrophil # 3.23 X10^3/uL (2.7-7.7); Neutrophil % 56.7 % (47-70); Platelet Count 177 K/mm3 (150-450); RBC Distribution Width CV 12.2 % (11.6-14.6); RBC Distribution Width SD 42.7 fl (35.1-43.9); Red Blood Count 3.86 M/mm3 (4.6-6.2); White Blood Count 5.7 K/mm3 (4.4-11.0)
[2021-06-07 12:43] LABS: Valproic Acid (Depakene) Level 31 ug/mL (50-100)
[2021-06-07 12:47] LABS: AST(SGOT) 24 U/L (15-37); Alanine Aminotransfer ALT/SGPT 49 U/L (16-61); PSA,Total - Annual Screen 0.57 ng/mL (0.00-4.00); Prolactin 16.9 ng/mL
== END ==
PROVIDERS: Visit Provider Nurse Practitioner Adult Health
DX: I10 Essential (primary) hypertension (principal); Z79.899 Other long term (current) drug therapy; Z12.5 Encounter for screening for malignant neoplasm of prostate
CPT/HCPCS: 36415; 80164; 84146; 84153; 84450; 84460; 85025; G0103

== ENCOUNTER 2021-06-28 07:43 | Day surgery (SDC) | payer MEDICAID, SELFPAY ==
[2021-06-28 08:05] VITALS: BP 137/79; PULSE 89; RESP 16; TEMP 36.6; O2SAT 95; BMI 38.7
[2021-06-28] MEDS: Lactated Ringers 1,000 ML 15 ML IV (08:08)
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
[2021-06-28 08:35] VITALS: BP 137/79; BP 96/61; PULSE 69; RESP 14; TEMP 36.4; O2SAT 96
--- NOTE | 2021-06-28 08:35 | OP.CCLET_ITS ---
06/28/2021 Ita James [facility] Re : Colon[facility] This procedure was performed on Monday, June 28, 2021. My impressions and recommendations are as follows: Impressions : - Preparation of the colon was inadequate. - The entire examined colon is normal. - No specimens collected. Recommendations : - Discharge patient to home. - Resume previous diet. - Continue present medications. - Repeat colonoscopy at appointment to be scheduled because the bowel preparation was poor. My findings are described in the full procedure note, which is enclosed. If I can be of further assistance, please feel free to contact me at Doctor phone number(s): , Work: . Sincerely, Sunday Dugan MD 06/28/2021 8:35:09 AM This report has been signed electronically.
--- NOTE | 2021-06-28 08:35 | OP.COLON_ITS ---
Patient Name: Chava Treadwell Procedure Date: 06/28/2021 8:19 AM Date of : 1970 Age: 51 Procedure: Colonoscopy Indications: Screening for colorectal malignant neoplasm Providers: Sunday Dugan MD Medicines: Monitored Anesthesia Care Patient Profile: This is a 51 year old male. Refer to note in patient chart for documentation of history and physical. Last Colonoscopy: none. The patient's first colonoscopy is today. Complications: No immediate complications. Procedure: Pre-Anesthesia Assessment: - Prior to the procedure, a History and Physical was performed, and patient medications and allergies were reviewed. The patient's tolerance of previous anesthesia was also reviewed. The risks and benefits of the procedure and the sedation options and risks were discussed with the patient. All questions were answered, and informed consent was obtained. Prior Anticoagulants: The patient has taken no previous anticoagulant or antiplatelet agents. After reviewing the risks and benefits, the patient was deemed in satisfactory condition to undergo the procedure. After I obtained informed consent, the scope was passed under direct vision. Throughout the procedure, the patient's blood pressure, pulse, and oxygen saturations were monitored continuously. The Colonoscope was introduced through the anus and advanced to the ascending colon. The colonoscopy was performed without difficulty. The patient tolerated the procedure well. The quality of the bowel preparation was inadequate. Scope In: 8:25:11 AM Scope Out: 8:30:02 AM Total Procedure Duration Time 0 hours 4 minutes 51 seconds Findings: The colon (entire examined portion) appeared normal. Impression: - Preparation of the colon was inadequate. - The entire examined colon is normal. - No specimens collected. Recommendation: - Discharge patient to home. - Resume previous diet. - Continue present medications. - Repeat colonoscopy at appointment to be scheduled because the bowel preparation was poor. Procedure Code(s): --- Professional --- 80791, 53, Colonoscopy, flexible; diagnostic, including collection of specimen(s) by brushing or washing, when performed (separate procedure) Diagnosis Code(s): --- Professional --- Z12.11, Encounter for screening for malignant neoplasm of colon CPT copyright 2017 [employer]. All rights reserved. The codes documented in this report are preliminary and upon landfill grader review may be revised to meet current compliance requirements. Sunday Dugan MD 06/28/2021 8:35:09 AM This report has been signed electronically. Number of Addenda: 0 Note Initiated On: 06/28/2021 8:19 AM
[2021-06-28 08:40] VITALS: BP 100/58; BP 137/79; PULSE 77; RESP 16; O2SAT 95
[2021-06-28 08:45] VITALS: BP 103/57; BP 137/79; PULSE 77; RESP 16; O2SAT 95
[2021-06-28 08:50] VITALS: BP 120/68; BP 137/79; PULSE 77; RESP 16; TEMP 37; O2SAT 94
[2021-06-28 09:05] VITALS: BP 137/79
== END 2021-06-28 09:18 | disposition home or self-care (01) ==
LOC: EN 07:44 → AC 07:45
PROVIDERS: Visit Provider Surgery
PROC: 0DJD8ZZ Inspection of Lower Intestinal Tract, Via Natural or Artificial Opening Endoscopic (ICD-10-PCS; CPT 45378; principal; 2021-06-28 08:10)
DX: Z12.11 Encounter for screening for malignant neoplasm of colon (principal); Z53.8 Procedure and treatment not carried out for other reasons; I10 Essential (primary) hypertension; E78.00 Pure hypercholesterolemia, unspecified; E78.5 Hyperlipidemia, unspecified; F20.9 Schizophrenia, unspecified; F32.A Depression, unspecified; F41.9 Anxiety disorder, unspecified; G47.30 Sleep apnea, unspecified; K21.9 Gastro-esophageal reflux disease without esophagitis; M19.90 Unspecified osteoarthritis, unspecified site; E66.01 Morbid (severe) obesity due to excess calories; Z68.38 Body mass index [BMI] 38.0-38.9, adult; Z79.899 Other long term (current) drug therapy; F17.290 Nicotine dependence, other tobacco product, uncomplicated
CPT/HCPCS: 45378; J7120; J2405

== ENCOUNTER 2021-07-29 12:12 | Outpatient (CLI) | payer MEDICAID, SELFPAY ==
[2021-07-29 13:03] LABS: Absolute Lymphocyte Count 2.56 X10^3/uL (0.83-4.51); Absolute Neutrophil Count 2.9 X10^3/uL (2.0-7.7); Basophil# 0.01 X10^3/uL; Basophil% 0.2 % (0-1); Eosinophil# 0.06 X10^3/uL; Hematocrit 41.1 % (40-54); Hemoglobin 13.7 g/dL (13.0-16.5); Lymphocyte # 2.56 X10^3/ul (0.83-4.51); Lymphocyte % 42.4 % (19-41); Mean Corp Hgb Conc 33.3 g/dL (32-36); Mean Corpuscular Hgb 32.8 pg (27.0-32.0); Mean Corpuscular Volume 98.3 fL (80-94); Mean Platelet Vol. 10.4 fl (6.2-12.0); Monocyte# 0.54 X10^3/uL; Monocyte% 8.9 % (0-10); NRBC Flagged by Analyzer 0 % (0-5); Neutrophil # 2.86 X10^3/uL (2.7-7.7); Neutrophil % 47.3 % (47-70); Platelet Count 190 K/mm3 (150-450); RBC Distribution Width CV 12.1 % (11.6-14.6); RBC Distribution Width SD 43.8 fl (35.1-43.9); Red Blood Count 4.18 M/mm3 (4.6-6.2)
[2021-07-29 13:50] LABS: Vitamin B12 1378 pg/mL (211-911)
[2021-07-29 14:30] LABS: Ferritin 239 ng/mL (26-388); Iron 89 ug/dL (65-175); Iron Binding Capacity,Total 298 ug/dL (250-450)
== END 2021-07-29 23:59 | disposition short-term general hospital (02) ==
LOC: LAB 12:14
PROVIDERS: Referring Provider Nurse Practitioner Adult Health; Visit Provider Nurse Practitioner Adult Health
DX: D64.9 Anemia, unspecified (principal)
CPT/HCPCS: 36415; 82607; 82728; 82746; 83540; 83550; 85025

== ENCOUNTER 2021-10-04 09:09 | Outpatient (CLI) | payer MEDICAID, SELFPAY ==
--- NOTE | 2021-10-04 09:14 | ART_ITS ---
Reason For Study: PVD Procedure A bilateral lower extremity continuous wave Doppler with analog waveform analysis,segmental pressures,and ankle brachial indexes with exercise. Left Segmental Pressures Left brachial= 131mmHg. Left posterior tibial artery = 131mmHg. Left dorsalis pedis artery = 159mmHg. Left digit = 115 mmHg. The left dorsalis pedis waveforms are triphasic. The left posterior tibial artery waveforms are triphasic. Right Segmental Pressures Right brachial= 131mmHg. Right posterior tibial artery = 148mmHg. Right dorsalis pedis artery = 154mmHg. Right digit = 127 mmHg. The right dorsalis pedis waveforms are triphasic. The right posterior tibial artery waveforms are triphasic. Indices The right ankle brachial index by the dorsalis pedis is 1.18. The right ankle brachial index by the posterior tibial artery is 1.13. The right digital-brachial index is 0.97. The right post exercise ankle brachial index is 1.19. The left ankle brachial index by the dorsalis pedis is 1.21. The left ankle brachial index by the posterior tibial artery is 1.00. The left digital-brachial index is 0.88. The left post exercise ankle brachial index is 1.21. VL/Lower Ext Art Exam w/ Exercise Interpretation Summary Triphasic Doppler waveforms are noted at ankle level bilaterally. Pulse-volume recordings appear satisfactory at all levels bilaterally, including low thigh, calf, ankle, and d igital levels. Resting ankle-brachial indices are normal bilaterally. Digital-brachial indices are normal bilaterally. The patient was ambulated on a treadmill for 4.5 minutes at 1.4 MP H and a 5% grade, following which ankle pressures augmented bilaterally, a normal physiological r esponse. There is no evidence of significant arterial occlusive disease in the lower ext remities bilaterally. Ordering Physician: Erik Holloway Referring Physician: [facility] Performed By: Willinger, Melany, RVT
== END 2021-10-04 23:59 | disposition home or self-care (01) ==
LOC: CVS 09:10
PROVIDERS: Referring Provider Podiatrist; Visit Provider Podiatrist
DX: I73.9 Peripheral vascular disease, unspecified (principal)
CPT/HCPCS: 93924

== ENCOUNTER → 2021-12-27 | Outpatient (CLI) | payer MEDICAID, SELFPAY ==
[2021-12-27 12:05] LABS: Cholesterol 144 mg/dL (200); High Density Lipoprotein 38 mg/dL; Triglycerides 421 mg/dL
--- NOTE | 2021-12-27 13:03 | CT_ITS ---
STUDY: CT CHEST WITHOUT CONTRAST- LOW DOSE SCREENING PROTOCOL REASON FOR EXAM: Male, 51 years old. SOLITARY PULM NODULE pack per year history. No current symptoms of lung cancer or pulmonary infection. Shared decision-making with referring PCP documented in patient''s record. RADIATION DOSAGE (If Supplied By Facility): CTDIvol = ( 18.14 ) mGy, DLP = ( 698.94 ) mGycm TECHNIQUE: Low dose screening CT examination performed from the base of the neck to the upper abdomen. Sagittal and coronal reformatted images performed. Sagittal and coronal MIP images provided. The measurements provided are average, rounded measurements per ACR guidelines. Individualized dose optimization techniques were used for this CT. COMPARISON: CT 12/10/2020. FINDINGS: Stable 3 mm pulmonary nodule in the right lower lobe (image 80, series 4). No new pulmonary nodules. There is no demonstrated pleural abnormality. Normal heart and pericardium. There are calcifications of the coronary arteries. Normal mediastinum. Normal hilar regions. Normal unenhanced pulmonary arteries. There is atherosclerotic calcification of the aortic arch. There are multi-level degenerative changes of the thoracic spine. There is no demonstrated abnormality of the visualized upper abdomen. CT/Chest without Contrast IMPRESSION: Stable 3 mm pulmonary nodule in the right lower lobe. ASSESSMENT CATEGORY: LUNG-RADS 2: Benign Appearance or Behavior. Continue annual screening with LDCT in 12 months. Electronically Signed: Charles Arambula MD at 17:32 EDT ,
== END | disposition home or self-care (01) ==
LOC: CT 13:01
DX: E11.9 Type 2 diabetes mellitus without complications (principal); R91.1 Solitary pulmonary nodule
CPT/HCPCS: 36415; 71250; 80061

== ENCOUNTER 2022-04-02 11:25 | Emergency (ER) | payer MEDICAID, SELFPAY ==
[2022-04-02 11:26] VITALS: BP 141/89; PULSE 87; RESP 14; TEMP 36.7; O2SAT 95; BMI 36.6
--- NOTE | 2022-04-02 12:17 | ED.VIS.BACK ---
HPI History of Present Illness Chief Complaint: Back Informant: patient Narrative Narrative: Patient states he has chronic back pain and spinal stenosis. He is still working. He takes gabapentin for this. He has used Flexeril before. He was feeling normal until he had to bend down to clean out a lower shelf at work yesterday. When he went home he was having pain more on the right side. He put heat on it. He states it still sore today so he called off. No numbness tingling weakness. No pain down into the hips or legs. No bowel or bladder dysfunction. No fall or impact trauma. No recent fevers or infections. [facility] Medical History Alcohol use Anxiety Arthritis Back pain CPAP (continuous positive airway pressure) dependence Depression Dyslipidemia Gastric reflux GERD (gastroesophageal reflux disease) High cholesterol History of posttraumatic stress disorder (PTSD) Hx of tinnitus Hypercholesteremia Hypertension Injury of head and neck Left lower lobe CAP Low iron Migraine headache Morbid obesity Nasal congestion Rash Schizophrenia Schizophrenia Severe headache Smoker Wears glasses Home Medications benztropine 2 mg tablet 0.5 mg PO DAILY psych med 05/24/17 [History Last Taken 12/10/20 09:30] cetirizine 10 mg tablet 10 mg PO DAILY 05/24/17 [History Last Taken 12/09/20 18:30] divalproex 500 mg tablet,extended release 24 hr 500 mg PO BID PTSD 05/24/17 [History Last Taken 12/10/20 09:30] omeprazole 20 mg capsule,delayed release 40 mg PO DAILY GERD 05/24/17 [History Last Taken 06/28/21 06:00] risperidone 0.5 mg disintegrating tablet 1 mg PO BID PTSD 05/24/17 [History Last Taken 06/28/21 06:00] cyclobenzaprine 10 mg tablet 10 mg PO TID PRN Muscle Spasm #20 tabs 06/08/19 [Rx Last Taken Unknown] gabapentin 300 mg capsule 300 mg PO DAILY 06/08/19 [History Last Taken 06/28/21 06:00] sumatriptan succinate 50 mg tablet 50 mg PO PRN PRN Migraine Symptoms 02/17/20 [History Last Taken Unknown] Cholecalciferol (Vitamin D3) [Vitamin D3] 1 cap PO/SL DAILY vitamin 10/02/20 [History Last Taken 12/10/20 09:30] lisinopril 10 mg tablet 20 mg PO BID blood pressure 10/02/20 [History Last Taken 06/28/21 06:00] methylcellulose (laxative) 500 mg tablet 6 tab PO BID 10/02/20 [History Last Taken 12/10/20 09:30] multivitamin with minerals 1 tablet DAILY vitamin 10/02/20 [History Last Taken 12/10/20 09:30] benztropine 0.5 mg tablet 1 mg PO QHS 12/10/20 [History Last Taken 12/09/20 18:30] gabapentin 300 mg tablet 600 mg PO QHS 12/10/20 [History Last Taken 12/09/20] ferrous sulfate 325 mg (65 mg iron) tablet (Iron (ferrous sulfate)) 325 mg PO DAILY 06/26/21 [History Last Taken 06/24/21] cyclobenzaprine 10 mg tablet 10 mg PO BID PRN muscle spasm #10 tabs 04/02/22 [Rx Last Taken Unknown] hydrocodone-acetaminophen 5-325mg 5mg-325mg 1 tab PO Q6H PRN pain 3 days #10 tabs 04/02/22 [Rx Last Taken Unknown] Allergy/AdvReac Type Severity Reaction Status Date / Time No Known Allergies Allergy Verified 04/02/22 11:26 Family History Mother CVA (cerebral vascular accident) Malignant hyperthermia due to anesthesia Grandmother Cancer Myocardial infarction Surgical History History of nasal septoplasty Hx of appendectomy Social History Smoking Status: Current every day smoker tobacco type: cigars ROS ROS ED Constitutional Constitutional ED: Denies chills, fever(s) or subjective ENT ENT ED: Denies rhinorrhea or sore throat Cardiovascular Cardiovascular: Denies chest pain or palpitations Respiratory/Chest Respiratory/Chest: Denies dyspnea Gastrointestinal Gastrointestinal: Denies abdominal pain, constipation, diarrhea, melena, nausea or vomiting Genitourinary Genitourinary ED: Denies dysuria, hematuria or urinary frequency Musculoskeletal Musculoskeletal: Reports back pain Integumentary Denies rash Neurologic Neurologic: Denies headache(s), paresthesias or weakness Hematologic/Lymphatic Hematologic/Lymphatic: Denies easy bleeding or easy bruising Allergic/Immunologic Allergic/Immunologic ED: Denies urticaria EXAM Physical Exam Const Vital Signs: 04/02/22 11:26 Temperature 98.1 F Temperature Source Temporal Pulse Rate 87 Respiratory Rate 14 Blood Pressure 141/89 H Blood Pressure Mean 106 Pulse Ox 95 Oxygen Delivery Method Room Air Positive well nourished and well developed General Appearance ED: well developed and NAD HEENT Reports moist mucous membranes Eyes General Eye ED: Negative for scleral icterus Resp normal respiratory effort and clear to auscultation bilaterally Cardio regular rate and regular rhythm GI normal to inspection, nondistended, normoactive bowel sounds, soft to palpation and non-tender Back/Spine normal to inspection Back/Spine Narrative: Patient has a palpable spasm in the lower right lumbar area. No skin changes. No central tenderness. No buttock or sciatic notch tenderness. Extremity normal to inspection Extremity Narrative: Peripheral pulses. Normal strength. Neuro Neuro Narrative: Reflexes are 1+ bilateral patellar and 1+ bilateral ankle. No weakness. No symptoms or complaints consistent with radiculopathy. Sensorium / Orientation: alert Psych mental status grossly normal Skin no rashes or lesions noted MDM MDM MDM Narrative Medical decision making narrative: This is an exacerbation of his chronic back pain. He cannot take nonsteroidals due to some of the meds that he is on. He was told never to take these. But he states he is not allergic. I will write for a few Vicodin. He has had 1 prescription for narcotic in the last 2 years. I think he has pain but is not seeking meds. I will write for some Flexeril which has helped him and he has tolerated before. We discussed reasons to stop medicines cautions and reasons to return. Discharge Plan Triage Chief Complaint: Back ED Provider: Jose Luis Meneses Dx/Rx/DC Orders Clinical Impression: Lumbar paraspinal muscle spasm Instructions: ED Back Sprain/Strain Prescriptions: New cyclobenzaprine 10 mg tablet 10 mg PO BID PRN (Reason: muscle spasm) Qty: 10 0RF hydrocodone-acetaminophen 5-325 mg tablet 1 tab PO Q6H PRN (Reason: pain) 3 Days Qty: 10 0RF No Action divalproex 500 MG tablet extended release 24 hr 500 mg PO BID risperidone 0.5 MG tablet,disintegrating 1 mg PO BID cetirizine 10 MG tablet 10 mg PO DAILY benztropine 2 MG tablet 0.5 mg PO DAILY omeprazole 20 MG capsule,delayed release(DR/EC) 40 mg PO DAILY gabapentin 300 MG capsule 300 mg PO DAILY Label Comments: TAKE 1 CAPSULE BY MOUTH EACH MORNING AND 2 CAPSULES IN THE EVENING cyclobenzaprine 10 MG tablet 10 mg PO TID PRN (Reason: Muscle Spasm) Qty: 20 0RF sumatriptan succinate 50 MG tablet 50 mg PO PRN PRN (Reason: Migraine Symptoms) Cholecalciferol (Vitamin D3) [Vitamin D3] 5,000 UNIT capsule 1 cap PO/SL DAILY multivitamin with minerals 1 EACH tablet 1 tablet DAILY methylcellulose (laxative) 500 MG tablet 6 tab PO BID lisinopril 10 MG tablet 20 mg PO BID benztropine 0.5 mg Tablet 1 mg PO QHS gabapentin 300 mg Tablet 600 mg PO QHS ferrous sulfate [Iron (ferrous sulfate)] 325 mg (65 mg iron) Tablet 325 mg PO DAILY Primary Care Provider: [facility] Referrals: [facility] [Primary Care Provider] - 3-5 Days if not improving Disposition Disposition: Home, Self Care
== END 2022-04-02 12:40 | disposition home or self-care (01) ==
PROVIDERS: Emergency Provider Emergency Medicine; Visit Provider Emergency Medicine
DX: M62.830 Muscle spasm of back (principal); F20.9 Schizophrenia, unspecified; E66.01 Morbid (severe) obesity due to excess calories; F41.9 Anxiety disorder, unspecified; F32.A Depression, unspecified; E78.00 Pure hypercholesterolemia, unspecified; F43.10 Post-traumatic stress disorder, unspecified; I10 Essential (primary) hypertension; Z79.899 Other long term (current) drug therapy; K21.9 Gastro-esophageal reflux disease without esophagitis; F17.290 Nicotine dependence, other tobacco product, uncomplicated; M54.50 Low back pain, unspecified; G89.29 Other chronic pain; M48.00 Spinal stenosis, site unspecified
CPT/HCPCS: 99282

== ENCOUNTER 2022-05-22 13:16 | Emergency (ER) | payer MEDICAID, SELFPAY ==
[2022-05-22 13:17] VITALS: BP 144/74; PULSE 88; RESP 16; TEMP 36.6; O2SAT 96; BMI 36.6
--- NOTE | 2022-05-22 15:22 | ED.VIS.BACK ---
HPI History of Present Illness Chief Complaint: Back Informant: patient Onset/Context/Timing Onset: Today and - (Patient reports he always has mild lower back pain and this morning it acutely worsened. ) Context: Sudden Onset Injury: - (No injury precipitated back pain. ) Timing: Continuous Quality: Dull and Aching Location: Lumbar Current Severity: 8/10 Maximum Severity: Severe Worsened by: improves with Movement, Ambulation and Bending Relieved by: Remaining Still and - Associated Symptoms Associated Symptoms: Negative for Numbness, Tingling, Radiation to Right Leg, Radiation to Left Leg, Fever, Abdominal Pain, Dysuria, Unable to Ambulate, Unable to Transfer, Urinary Incontinence or Fecal Incontinence Narrative Narrative: Patient has a history of spinal stenosis. Prior similar symptoms: With Prior Back Pain Recent Illness/Hospitalization: No PFSH [facility] Medical History (Updated 05/22/22 @ 15:48 by ALYSA Vergara) Alcohol use Anxiety Arthritis Back pain CPAP (continuous positive airway pressure) dependence Diabetes Dyslipidemia Gastric reflux GERD (gastroesophageal reflux disease) High cholesterol History of posttraumatic stress disorder (PTSD) Hx of tinnitus Hypercholesteremia Hypertension Hypertension Injury of head and neck Left lower lobe CAP Low iron Migraine headache Morbid obesity Nasal congestion Rash Schizophrenia Schizophrenia Severe headache Smoker Wears glasses Home Medications benztropine 2 mg tablet 0.5 mg PO DAILY psych med 05/24/17 [History Last Taken 12/10/20 09:30] cetirizine 10 mg tablet 10 mg PO DAILY 05/24/17 [History Last Taken 12/09/20 18:30] divalproex 500 mg tablet,extended release 24 hr 500 mg PO BID PTSD 05/24/17 [History Last Taken 12/10/20 09:30] omeprazole 20 mg capsule,delayed release 40 mg PO DAILY GERD 05/24/17 [History Last Taken 06/28/21 06:00] risperidone 0.5 mg disintegrating tablet 1 mg PO BID PTSD 05/24/17 [History Last Taken 06/28/21 06:00] cyclobenzaprine 10 mg tablet 10 mg PO TID PRN Muscle Spasm #20 tabs 06/08/19 [Rx Last Taken Unknown] gabapentin 300 mg capsule 300 mg PO DAILY 06/08/19 [History Last Taken 06/28/21 06:00] sumatriptan succinate 50 mg tablet 50 mg PO PRN PRN Migraine Symptoms 02/17/20 [History Last Taken Unknown] Cholecalciferol (Vitamin D3) [Vitamin D3] 1 cap PO/SL DAILY vitamin 10/02/20 [History Last Taken 12/10/20 09:30] lisinopril 10 mg tablet 20 mg PO BID blood pressure 10/02/20 [History Last Taken 06/28/21 06:00] methylcellulose (laxative) 500 mg tablet 6 tab PO BID 10/02/20 [History Last Taken 12/10/20 09:30] multivitamin with minerals 1 tablet DAILY vitamin 10/02/20 [History Last Taken 12/10/20 09:30] benztropine 0.5 mg tablet 1 mg PO QHS 12/10/20 [History Last Taken 12/09/20 18:30] gabapentin 300 mg tablet 600 mg PO QHS 12/10/20 [History Last Taken 12/09/20] ferrous sulfate 325 mg (65 mg iron) tablet (Iron (ferrous sulfate)) 325 mg PO DAILY 06/26/21 [History Last Taken 06/24/21] cyclobenzaprine 10 mg tablet 10 mg PO BID PRN muscle spasm #10 tabs 04/02/22 [Rx Last Taken Unknown] hydrocodone-acetaminophen 5-325mg 5mg-325mg 1 tab PO Q6H PRN pain 3 days #10 tabs 04/02/22 [Rx Last Taken Unknown] ibuprofen 600 mg tablet 600 mg PO Q6H PRN PRN pain #20 tabs 05/22/22 [Rx Last Taken Unknown] Allergy/AdvReac Type Severity Reaction Status Date / Time No Known Allergies Allergy Verified 05/22/22 13:17 Family History Mother CVA (cerebral vascular accident) Malignant hyperthermia due to anesthesia Grandmother Cancer Myocardial infarction Surgical History (Updated 05/22/22 @ 13:34 by Susan Conway) History of appendectomy History of nasal septoplasty Hx of appendectomy Social History Smoking Status: Current every day smoker tobacco type: cigars ROS ROS ED Constitutional Constitutional ED: Denies chills or fever(s) Eyes Eyes: Denies change in vision ENT ENT ED: Denies rhinorrhea or sore throat Cardiovascular Cardiovascular: Denies chest pain Respiratory/Chest Respiratory/Chest: Denies dyspnea Gastrointestinal Gastrointestinal: Denies abdominal pain, constipation or diarrhea Genitourinary Genitourinary ED: Denies dysuria Musculoskeletal Musculoskeletal: Reports back pain and limited range of motion; Denies abnormal gait, difficulty walking, extremity pain, muscle weakness, numbness, radiating pain into limb or tingling Integumentary Denies abscess, Abrasions or rash Neurologic Neurologic: Reports other Details: Denies loss of bowel/bladder function. Denies saddle paresthesia. ; Denies paresthesias or weakness Psychiatric Psychiatric: Reports none EXAM Physical Exam Const Vital Signs: 05/22/22 13:17 Temperature 97.9 F Temperature Source Temporal Pulse Rate 88 Respiratory Rate 16 Blood Pressure 144/74 H Blood Pressure Mean 97 Pulse Ox 96 Oxygen Delivery Method Room Air Positive well nourished HEENT Reports normocephalic and head/scalp atraumatic normocephalic and atraumatic Face and Sinus: normal facial exam Nose: external nose normal External Ear: external ears normal External Auditory Canal: EAC's normal Mouth ED: Yes oral and palatal mucosa normal, Yes lips normal and Yes tongue normal Mouth: oral and palatal mucosa normal, lips normal and tongue normal Eyes PERRL and EOMs intact bilaterally Neck no lymphadenopathy Resp normal respiratory effort and clear to auscultation bilaterally Cardio regular rate and regular rhythm GI normal to inspection, nondistended, normoactive bowel sounds, non-tender and non-distended Back/Spine Lumbar Spine / Lower Back: ROM limited Neuro oriented x3 and no sensory deficits noted Sensorium / Orientation: alert Motor Exam: strength 5/5 throughout Psych mental status grossly normal Skin no rashes or lesions noted Discharge Plan Triage Chief Complaint: Back ED Midlevel Provider: Juany Lopez ED Provider: Oumar Dobbs Dx/Rx/DC Orders Clinical Impression: Spinal stenosis of lumbar region, Low back ache Instructions: ED Back and Neck Pain, General Prescriptions: New ibuprofen 600 mg tablet 600 mg PO Q6H PRN PRN (Reason: pain) Qty: 20 0RF No Action divalproex 500 MG tablet extended release 24 hr 500 mg PO BID risperidone 0.5 MG tablet,disintegrating 1 mg PO BID cetirizine 10 MG tablet 10 mg PO DAILY benztropine 2 MG tablet 0.5 mg PO DAILY omeprazole 20 MG capsule,delayed release(DR/EC) 40 mg PO DAILY gabapentin 300 MG capsule 300 mg PO DAILY Label Comments: TAKE 1 CAPSULE BY MOUTH EACH MORNING AND 2 CAPSULES IN THE EVENING cyclobenzaprine 10 MG tablet 10 mg PO TID PRN (Reason: Muscle Spasm) Qty: 20 0RF sumatriptan succinate 50 MG tablet 50 mg PO PRN PRN (Reason: Migraine Symptoms) Cholecalciferol (Vitamin D3) [Vitamin D3] 5,000 UNIT capsule 1 cap PO/SL DAILY multivitamin with minerals 1 EACH tablet 1 tablet DAILY methylcellulose (laxative) 500 MG tablet 6 tab PO BID lisinopril 10 MG tablet 20 mg PO BID benztropine 0.5 mg Tablet 1 mg PO QHS gabapentin 300 mg Tablet 600 mg PO QHS ferrous sulfate [Iron (ferrous sulfate)] 325 mg (65 mg iron) Tablet 325 mg PO DAILY cyclobenzaprine 10 mg tablet 10 mg PO BID PRN (Reason: muscle spasm) Qty: 10 0RF hydrocodone-acetaminophen 5-325 mg tablet 1 tab PO Q6H PRN (Reason: pain) 3 Days Qty: 10 0RF Primary Care Provider: [facility] Ita Resendiz [facility] - 3-5 Days if not improving Disposition Disposition: Home, Self Care
== END 2022-05-22 16:04 | disposition home or self-care (01) ==
PROVIDERS: Emergency Provider Emergency Medicine; Visit Provider Emergency Medicine
DX: M48.061 Spinal stenosis, lumbar region without neurogenic claudication (principal); E11.9 Type 2 diabetes mellitus without complications; R15.9 Full incontinence of feces; E78.5 Hyperlipidemia, unspecified; I10 Essential (primary) hypertension
CPT/HCPCS: 99282

== ENCOUNTER 2022-06-06 14:19 | Emergency (ER) | payer MEDICAID, SELFPAY ==
[2022-06-06 14:20] VITALS: BP 163/79; PULSE 88; RESP 90; TEMP 36.2; O2SAT 99; BMI 37.6
--- NOTE | 2022-06-06 14:32 | EKG12_ITS ---
Test Reason : DIZZY Blood Pressure : / mmHG Vent. Rate : 082 BPM Atrial Rate : 082 BPM P-R Int : 156 ms QRS Dur : 088 ms QT Int : 396 ms P-R-T Axes : 033 -01 023 degrees QTc Int : 462 ms Normal sinus rhythm Normal ECG Confirmed by CAROLYN STALLWORTH, CAITLIN ([id number]), sound editor SHAINA WILLIAMSON ([id number]) on 06/10/2022 7:27:12 AM Referred By: Confirmed By:CAITLIN LEON MD
[2022-06-06 14:34] VITALS: BP 138/88; BP 143/76; BP 154/89; PULSE 79; PULSE 83; PULSE 91
--- NOTE | 2022-06-06 14:34 | EDS_ITS ---
HPI History of Present Illness Chief Complaint: Dizziness Detail of Chief Complaint: Dizziness that started yesterday Informant: patient Narrative Narrative: Patient presents the emergency department complaint of dizziness that started yesterday. Patient states he also feels shaky. He has had symptoms since yesterday off and on but more frequent episodes today. Patient states he feels this way while seated and standing. He denies headache. He denies vertiginous symptoms. Patient denies falls or head injuries. Patient started on the new muscle relaxer about 3 weeks ago. Patient also had his gabapentin increased from 300 mg twice a day to 600 mg twice a day about 3 to 4 weeks ago. Patient denies recent illness. Denies vomiting or diarrhea. Has been eating and drinking normally. Patient is otherwise been compliant with his medications. Prior similar symptoms: No PFSH PFSH Medical History (Updated 06/06/22 @ 16:[address] Apple Barrios, DO) Alcohol use Anxiety Arthritis Back pain CPAP (continuous positive airway pressure) dependence Diabetes Dyslipidemia Gastric reflux GERD (gastroesophageal reflux disease) High cholesterol History of posttraumatic stress disorder (PTSD) Hx of tinnitus Hypercholesteremia Hypertension Hypertension Injury of head and neck Left lower lobe CAP Low iron Migraine headache Morbid obesity Nasal congestion Rash Schizophrenia Schizophrenia Severe headache Smoker Wears glasses Home Medications benztropine 2 mg tablet 0.5 mg PO DAILY psych med 05/24/17 [History Last Taken 12/10/20 09:30] cetirizine 10 mg tablet 10 mg PO DAILY 05/24/17 [History Last Taken 12/09/20 18:30] divalproex 500 mg tablet,extended release 24 hr 500 mg PO BID PTSD 05/24/17 [History Last Taken 12/10/20 09:30] omeprazole 20 mg capsule,delayed release 40 mg PO DAILY GERD 05/24/17 [History Last Taken 06/28/21 06:00] risperidone 0.5 mg disintegrating tablet 1 mg PO BID PTSD 05/24/17 [History Last Taken 06/28/21 06:00] gabapentin 300 mg capsule 300 mg PO DAILY 06/08/19 [History Last Taken 06/28/21 06:00] sumatriptan succinate 50 mg tablet 50 mg PO PRN PRN Migraine Symptoms 02/17/20 [History Last Taken Unknown] Cholecalciferol (Vitamin D3) [Vitamin D3] 1 cap PO/SL DAILY vitamin 10/02/20 [History Last Taken 12/10/20 09:30] methylcellulose (laxative) 500 mg tablet 6 tab PO BID 10/02/20 [History Last Taken 12/10/20 09:30] multivitamin with minerals 1 tablet DAILY vitamin 10/02/20 [History Last Taken 12/10/20 09:30] benztropine 0.5 mg tablet 5 mg PO QHS 12/10/20 [History Last Taken 12/09/20 18:30] gabapentin 300 mg tablet 600 mg PO BID 12/10/20 [History Last Taken 12/09/20] ferrous sulfate 325 mg (65 mg iron) tablet (Iron (ferrous sulfate)) 325 mg PO DAILY 06/26/21 [History Last Taken 06/24/21] ibuprofen 600 mg tablet 600 mg PO Q6H PRN PRN pain #20 tabs 05/22/22 [Rx Last Taken Unknown] baclofen 10 mg tablet 10 mg PO DAILY 06/06/22 [History Last Taken Unknown] losartan 50 mg tablet 50 mg PO DAILY 06/06/22 [History Last Taken Unknown] Allergy/AdvReac Type Severity Reaction Status Date / Time No Known Allergies Allergy Verified 06/06/22 14:20 Family History Mother CVA (cerebral vascular accident) Malignant hyperthermia due to anesthesia Grandmother Cancer Myocardial infarction Surgical History History of appendectomy History of nasal septoplasty Hx of appendectomy Social History Smoking Status: Current every day smoker tobacco type: cigars ROS ROS ED ROS Narrative Dizziness, feels shaky Review of Systems ROS Unobtainable: other Constitutional Constitutional ED: Reports lethargy; Denies chills, fever(s), sweats or weight loss Eyes Eyes: Denies blurry vision, change in vision or diplopia ENT ENT ED: Denies rhinorrhea or sore throat Cardiovascular Cardiovascular: Reports chest pain and racing heartbeat; Denies orthopnea Respiratory/Chest Respiratory/Chest: Reports dyspnea and dyspnea on exertion; Denies cough, orthopnea or sputum Gastrointestinal Gastrointestinal: Denies abdominal pain, diarrhea, nausea or vomiting Genitourinary Genitourinary ED: Denies dysuria, hematuria or urinary frequency Musculoskeletal Musculoskeletal: Denies arthralgias, back pain, myalgias or neck pain Integumentary Denies abscess, Abrasions or rash Neurologic Neurologic: Denies headache(s) or weakness Psychiatric Psychiatric: Denies anxiety, depression or suicidal thoughts Endocrine Endocrinology: Denies polydipsia, polyphagia or polyuria Hematologic/Lymphatic Hematologic/Lymphatic: Denies easy bleeding, easy bruising or lymphadenopathy Allergic/Immunologic Allergic/Immunologic ED: Denies mouth swelling, tongue swelling or urticaria EXAM Physical Exam Const Vital Signs: 06/06/22 14:20 06/06/22 14:34 06/06/22 14:46 Temperature 97.2 F L Temperature Source Temporal Pulse Rate 88 Pulse Rate [Lying] 79 Pulse Rate [Sitting (for 1 minute prior to obtaining)] 83 Pulse Rate [Standing (for 1 minute prior to obtaining)] 91 Respiratory Rate 90 H Respiratory Effort Normal Non-Labored Blood Pressure 163/79 H Blood Pressure [Lying] 143/76 H Blood Pressure [Sitting (for 1 minute prior to obtaining)] 138/88 H Blood Pressure [Standing (for 1 minute prior to obtaining)] 154/89 H Blood Pressure Mean 107 Blood Pressure Mean [Lying] 98 Blood Pressure Mean [Sitting (for 1 minute prior to obtaining)] 104 Blood Pressure Mean [Standing (for 1 minute prior to obtaining)] 110 Pulse Ox 99 Oxygen Delivery Method Room Air 06/06/22 16:19 Temperature Temperature Source Pulse Rate 81 Pulse Rate [Lying] Pulse Rate [Sitting (for 1 minute prior to obtaining)] Pulse Rate [Standing (for 1 minute prior to obtaining)] Respiratory Rate 17 Respiratory Effort Blood Pressure 152/72 H Blood Pressure [Lying] Blood Pressure [Sitting (for 1 minute prior to obtaining)] Blood Pressure [Standing (for 1 minute prior to obtaining)] Blood Pressure Mean 98 Blood Pressure Mean [Lying] Blood Pressure Mean [Sitting (for 1 minute prior to obtaining)] Blood Pressure Mean [Standing (for 1 minute prior to obtaining)] Pulse Ox 98 Oxygen Delivery Method Room Air Positive well nourished and well developed General Appearance ED: well developed and NAD HEENT Reports TM's clear and moist mucous membranes normocephalic and atraumatic; Negative for trauma or tenderness Tympanic Membrane ED: Yes TM's clear Eyes PERRL and EOMs intact bilaterally General Eye ED: Negative for pale conjunctiva or scleral icterus Neck no lymphadenopathy, supple and no JVD General: Negative for tenderness Chest Wall inspection of chest normal and palpation of chest normal Chest: Negative for tenderness Resp normal respiratory effort and clear to auscultation bilaterally Effort and Inspection: Negative for respiratory distress or pain with movement Auscultation: Negative for rhonchi, wheezes or diminished lung sounds Cardio regular rate, regular rhythm, S1 normal heart sound, S2 normal heart sound and no murmurs Peripheral Pulses: pulses 2+ throughout GI normal to inspection, nondistended, normoactive bowel sounds, soft to palpation, non-tender, non-distended and no masses Back/Spine no CVA tenderness and no thoracic nor lumbar tenderness Extremity normal to inspection General Extremety ED: Negative for edema General Extremity: Negative for edema Neuro oriented x3, CN's II-XII intact bilaterally, no sensory deficits noted and gait normal Neuro Narrative: Finger-nose and heel ramirez testing within normal limits, negative Romberg, negative for drift, fundi benign Sensorium / Orientation: awake, alert, oriented to person, oriented to place and oriented to time Motor Exam: strength 5/5 throughout and strength abnormal Psych mental status grossly normal Skin no rashes or lesions noted and no wounds MDM MDM MDM Narrative Medical decision making narrative: IV line established on arrival. Orthostatic vital signs performed were negative. EKG obtained showed a sinus rhythm with a rate of 82 bpm with no acute ST segment changes. Troponin was normal. Valproic acid level was 41. Urinalysis was normal. At this point etiology of his lightheadedness is unclear. He did have an increase in his gabapentin 3 weeks ago and its unclear if this may be potentially causing some of his symptoms and he is advised to talk to his neurologist about it tomorrow. I feel patient can be safely discharged to home. Patient advised not to drive if he is not feeling safe as far as lightheadedness or dizziness. Lab Data Attestation: I reviewed the patient's lab results. Labs: Laboratory Results - last 24 hr 06/06/22 06/06/22 06/06/22 14:45 14:45 14:45 WBC 8.5 RBC 4.33 L Hgb 14.3 Hct 42.8 MCV 98.8 H MCH 33.0 H MCHC 33.4 RDW Std Deviation 43.1 RDW Coeff of Rigo 11.8 Plt Count 176 MPV 10.5 Immature Gran % (Auto) 0.500 Neut % (Auto) 60.7 Lymph % (Auto) 28.6 [place] % (Auto) 9.2 Eos % (Auto) 0.8 Baso % (Auto) 0.2 Absolute Neuts (auto) 5.2 Absolute Lymphs (auto) 2.43 Nucleated RBC % 0 Sodium 140 Potassium 4.0 Chloride 106 Carbon Dioxide 28.0 Anion Gap 6 BUN 18 Creatinine 1.04 Estim Creat Clear Calc 92.23 Est GFR (MDRD) Af Amer 97 Est GFR (MDRD) Non-Af 80 BUN/Creatinine Ratio 17.3 Glucose 66 L Calcium 9.5 Troponin I High Sens 6 Urine Color Urine Clarity Urine pH Ur Specific [place] Urine Protein Urine Glucose (UA) Urine Ketones Urine Occult Blood Urine Nitrite Urine Bilirubin Urine Urobilinogen Ur Leukocyte Esterase Urine RBC Urine WBC Ur Squamous Epith Cells Urine Bacteria Urine Mucus Valproic Acid 41 L 06/06/22 15:35 WBC RBC Hgb Hct MCV MCH MCHC RDW Std Deviation RDW Coeff of Rigo Plt Count MPV Immature Gran % (Auto) Neut % (Auto) Lymph % (Auto) [place] % (Auto) Eos % (Auto) Baso % (Auto) Absolute Neuts (auto) Absolute Lymphs (auto) Nucleated RBC % Sodium Potassium Chloride Carbon Dioxide Anion Gap BUN Creatinine Estim Creat Clear Calc Est GFR (MDRD) Af Amer Est GFR (MDRD) Non-Af BUN/Creatinine Ratio Glucose Calcium Troponin I High Sens Urine Color Straw Urine Clarity Clear Urine pH 7.0 Ur Specific [place] 1.005 Urine Protein 15 H Urine Glucose (UA) Normal Urine Ketones Negative Urine Occult Blood 25 H Urine Nitrite Negative Urine Bilirubin Negative Urine Urobilinogen Normal Ur Leukocyte Esterase Negative Urine RBC 0-5 SEEN Urine WBC 0 SEEN Ur Squamous Epith Cells 0 SEEN Urine Bacteria 0 SEEN Urine Mucus 0 SEEN Valproic Acid EKG Initial EKG: Attestation: I personally reviewed and interpreted this EKG as follows: Comments: Sinus rhythm with a rate of 82 bpm with no acute ST segment changes Discharge Plan Triage Chief Complaint: Dizziness ED Provider: Apple Barriso Dx/Rx/DC Orders Clinical Impression: Dizziness Instructions: ED Dizziness, Uncertain Cause Prescriptions: No Action divalproex 500 MG tablet extended release 24 hr 500 mg PO BID risperidone 0.5 MG tablet,disintegrating 1 mg PO BID cetirizine 10 MG tablet 10 mg PO DAILY benztropine 2 MG tablet 0.5 mg PO DAILY omeprazole 20 MG capsule,delayed release(DR/EC) 40 mg PO DAILY gabapentin 300 MG capsule 300 mg PO DAILY Label Comments: TAKE 1 CAPSULE BY MOUTH EACH MORNING AND 2 CAPSULES IN THE EVENING sumatriptan succinate 50 MG tablet 50 mg PO PRN PRN (Reason: Migraine Symptoms) Cholecalciferol (Vitamin D3) [Vitamin D3] 5,000 UNIT capsule 1 cap PO/SL DAILY multivitamin with minerals 1 EACH tablet 1 tablet DAILY methylcellulose (laxative) 500 MG tablet 6 tab PO BID benztropine 0.5 mg Tablet 5 mg PO QHS gabapentin 300 mg Tablet 600 mg PO BID ferrous sulfate [Iron (ferrous sulfate)] 325 mg (65 mg iron) Tablet 325 mg PO DAILY ibuprofen 600 mg tablet 600 mg PO Q6H PRN PRN (Reason: pain) Qty: 20 0RF losartan 50 mg tablet 50 mg PO DAILY Label Comments: TAKE 1 TABLET BY MOUTH EVERY DAY baclofen 10 mg tablet 10 mg PO DAILY Label Comments: TAKE 1 TABLET BY MOUTH ONCE DAILY NEEDED [facility] - 3-5 Days Activity Restrictions/Additional Instructions: Talk to your neurologist about your gabapentin dosage if you continue to feel lightheaded. Disposition Disposition: Home, Self Care
[2022-06-06] MEDS: 0.9% Normal Saline 1,000 ML 1000 ML IV (14:47)
[2022-06-06 14:55] LABS: Absolute Lymphocyte Count 2.43 X10^3/uL (0.83-4.51); Absolute Neutrophil Count 5.2 X10^3/uL (2.0-7.7); Basophil# 0.02 X10^3/uL; Basophil% 0.2 % (0-1); Eosinophil# 0.07 X10^3/uL; Eosinophils% 0.8 % (0-5); Hematocrit 42.8 % (40-54); Hemoglobin 14.3 g/dL (13.0-16.5); Lymphocyte # 2.43 X10^3/ul (0.83-4.51); Lymphocyte % 28.6 % (19-41); Mean Corp Hgb Conc 33.4 g/dL (32-36); Mean Corpuscular Volume 98.8 fL (80-94); Mean Platelet Vol. 10.5 fl (6.2-12.0); Monocyte# 0.78 X10^3/uL; Monocyte% 9.2 % (0-10); NRBC Flagged by Analyzer 0 % (0-5); Neutrophil # 5.17 X10^3/uL (2.7-7.7); Neutrophil % 60.7 % (47-70); Platelet Count 176 K/mm3 (150-450); RBC Distribution Width CV 11.8 % (11.6-14.6); RBC Distribution Width SD 43.1 fl (35.1-43.9); Red Blood Count 4.33 M/mm3 (4.6-6.2); White Blood Count 8.5 K/mm3 (4.4-11.0)
[2022-06-06 15:22] LABS: Anion Gap 6 (5-15); BUN 18 mg/dL (7-18); BUN/Creat Ratio 17.3 RATIO (10-20); Calcium,Total 9.5 mg/dL (8.5-10.1); Chloride 106 mmol/L (98-107); Creatinine, Serum 1.04 mg/dL (0.70-1.30); EST Glomerular Filtration Rate 80 mL/min (>60); Est Glom Filt Rate - Afr Amer 97 mL/min (>60); Estimated Creatinine Clearance 92.23 ml/min; Glucose 66 mg/dL (74-106); Sodium Level 140 mmol/L (136-145); Troponin-I HS 6 pg/mL (3.0-78.0)
[2022-06-06 15:43] LABS: Valproic Acid (Depakene) Level 41 ug/mL (50-100)
[2022-06-06 15:47] LABS: Bacteria 0 SEEN /hpf (None Seen); Mucous, Urine 0 SEEN /hpf (<or=2+); Squamous Epithelial Cells - UA 0 SEEN /hpf (0-5); White Blood Cells 0 SEEN /hpf (0-5)
[2022-06-06 15:51] LABS: Color, Urine Straw (Yellow); Glucose, Dipstick Normal (Normal); Ketone-Dipstick Negative (Negative); Leukocyte Esterase-Dipstick Negative /ul (Negative); Nitrite-Dipstick Negative (Negative); Occult Blood-Urine 25 /ul (Negative); Protein-Dipstick 15 mg/dl (Negative); Specific Gravity, Urine 1.005 (1.002-1.030); Urine Bilirubin Dipstick Negative (Negative); Urine Clarity Clear (Clear); Urine Urobilinogen Normal (Normal)
[2022-06-06 16:19] VITALS: BP 152/72; PULSE 81; RESP 17; O2SAT 98
[2022-06-06 16:34] LABS: Red Blood Cells-Urine 0-5 SEEN /hpf (0-5)
[2022-06-06 17:00] VITALS: BP 152/63; RESP 16; O2SAT 97
== END 2022-06-06 17:03 | disposition home or self-care (01) ==
PROVIDERS: Emergency Provider Emergency Medicine; Visit Provider Emergency Medicine
DX: R42 Dizziness and giddiness (principal); I10 Essential (primary) hypertension; F17.290 Nicotine dependence, other tobacco product, uncomplicated; K21.9 Gastro-esophageal reflux disease without esophagitis; Z79.899 Other long term (current) drug therapy
CPT/HCPCS: 80048; 80164; 81001; 84484; 85025; 93005; 96360; 96361; 99283; J7030

== ENCOUNTER → 2022-08-12 | Outpatient (CLI) | payer MEDICAID, SELFPAY ==
--- NOTE | 2022-08-12 09:14 | MRI_ITS ---
STUDY: MRI LUMBAR SPINE WITHOUT CONTRAST REASON FOR EXAM: Male, 52 years old. Low back pain TECHNIQUE: Standardized fat and water weighted pulse sequences were obtained in the sagittal and axial planes. COMPARISON: Lumbar spine radiographs 06/23/2022. FINDINGS: T11-T12 and T12-L1: (Sagittal only). Normal endplates. Normal disc height, hydration and morphology. No ventral extradural defects. Normal central canal and bilateral intervertebral neural foramina. Normal lumbar lordosis. There is no substantial scoliosis. Normal conus medullaris that terminates at the upper L1 vertebral body level. L1-2: Normal endplates. Moderate disc space height narrowing. Prominent ventral extradural defect due to posterior bulging annulus. Normal facet joints. Prominent dorsal epidural lipomatosis. Mild flattening central canal stenosis with an AP canal diameter of 9 mm. Normal bilateral lateral recesses. Normal bilateral intervertebral neural foramina. L2-3: Mild Modic type I degenerative vertebral marrow edema underneath the posterior aspect of the vertebral endplates, increasing towards the left side. Mild disc space height narrowing. Prominent ventral extradural defect due to posterior bulging annulus. Normal facet joints. Prominent dorsal epidural lipomatosis. Moderate central canal stenosis with an AP canal diameter of 6.6 mm. Normal bilateral lateral recesses. Normal bilateral intervertebral neural foramina. L3-4: Normal endplates. Normal disc height and hydration. Minimal ventral extradural defect due to small posterior bulging annulus. Mild left degenerative facet arthropathy. Normal right facet joint. Mild central canal stenosis with an AP canal diameter of 9 mm. Normal bilateral lateral recesses. Normal bilateral intervertebral neural foramina. L4-5: Normal endplates. Normal disc height and hydration. Mild ventral extradural defect due to posterior bulging annulus. Mild bilateral degenerative facet arthropathy. Moderately pronounced central canal stenosis with an AP canal diameter of 5.6 mm. Normal bilateral lateral recesses. Normal bilateral intervertebral neural foramina L5-S1: Normal endplates. Normal disc height, hydration and morphology. Mild bilateral degenerative facet arthropathy. Mild central canal stenosis with an AP canal diameter of 10 mm surrounded by epidural lipomatosis. Normal bilateral lateral recesses. Normal bilateral intervertebral neural foramina. Normal visualized sacral ala. Normal visualized paraspinous soft tissue structures. MRI/Spine Lumbar (Routine) IMPRESSION: 1. No MRI evidence of lumbar extruded disc fragment, disc protrusion or nerve root displacement. 2. Moderately pronounced central canal stenosis at L4-L5 disc space level secondary to developmentally short pedicles and posterior bulging annulus. 3. Moderate central canal stenosis at L2-L3 disc space level with an AP canal diameter of 6.6 mm secondary to prominent dorsal epidural lipomatosis, developmentally short pedicles and posterior bulging annulus. Additionally, mild posterior intervertebral osteochondritis (Modic type I) increasing towards the left side. 4. Mild flattening central canal stenosis at L1-L2 disc space level with an AP canal diameter of 9 mm secondary to prominent dorsal epidural lipomatosis, posterior bulging annulus and developmentally short pedicles. 5. Mild central canal stenosis at L5-S1 disc space level with an AP canal diameter of 10 mm surrounded by epidural lipomatosis. Electronically Signed: David Barnes MD at 10:59 [facility] ,
== END | disposition home or self-care (01) ==
PROVIDERS: Referring Provider Orthopaedic Surgery; Visit Provider Orthopaedic Surgery
DX: M51.26 Other intervertebral disc displacement, lumbar region (principal)
CPT/HCPCS: 72148

== ENCOUNTER 2022-09-11 09:00 | Outpatient (RCR) | payer MEDICAID, SELFPAY ==
--- NOTE | 2022-06-30 12:52 | HP.PTEVAL ---
Patient's Visit Information MARGRET LESTER is a 52 year old M referred to Physical Therapy by ALYSA Barton with a diagnosis of M54.50 LOW BACK PAIN, UNSPECIFIED, G89.29 OTHER CHRONIC PAIN. Date of Evaluation: 06/27/22 Physical Therapist: Rober Dixon DPT - Visit Plan Frequency: 2x /Week Duration: 4 Weeks Plan: PROGRESS EXTENSION BASED EXERCISES AND IMPROVE LUMBAR STABILIZATION VIA HIP AND GLUTE EXERCISES. ATTEMPT MANUAL TRACTION TO SEE IF PT HAS IMPROVED PAIN RELIEF - Subjective Pt IS A 52 Y.O. MALE THAT REPORTS PAIN IN LOWER BACK FOR SEVERAL MONTHS AND STATED THEY HAVE STENOSIS THAT IS AFFECTING MY LIFE. Pt WORKS AT [employer] AND CONTINIOUSLY HAS PAIN AT WORK WHICH LIMITS Pt IN COMPLETING JOB RESPONSIBILITIES. PAIN IS CONSTANT IN LOWER BACK AND WILL GO DOWN L LEG TO L FOOT THAT FEELS LIKE ELECTRICAL CHARGES. CURRENTLY NO PAIN IN LLE BUT PAIN IN LOWER BACK AT 9/10. MASSAGING PAD HAS NOT PROVIDED MUCH ASST IN PAIN RELIEF. Pt HAS HAD PRIOR ROUND OF PT WITH LIMITED IMPROVEMENTS. PAIN MEDS PROVIDE LITTLE RELIEF. PAIN IS NOT WORSENED AT NIGHT AND DENIES ALL CONSTITUTIONAL SYMPTOMS. - Pain LOW BACK PAIN Pain Intensity (Out of 10): 9 Comment: LOWER BACK WITH LLE RADICULAR PAIN - Objective PALPATION: LUMBAR PARASPINALS TENDER BILAT, DEC TISSUE MOBILITY. MMT: BILAT HIP: FLEXION: 4+/5 ABDUCTION: 4+/5 KNEE: EXTENSION: 4+/5 FLEXION: 4+/5 DF/PF: 5/5. ROM: EXTENSION: 0 DEG (PAINFUL) FLEXION: 75% LATERAL SIDE BEND: 50% BILAT. VERTEBRAL MOBILITY: HYPOMOBILE, PAINFUL L1-L5. SPECIAL TESTS: SLUMP TEST: L POSITIVE. OUTCOME MEASURE: MANA 30. EXTENSION BIAS WITH IMPRROVED REPORTED PAIN LEVELS PSOT TREATMENT OF MOBS AND HEP. GAIT: DEC STEP LENGTH BILAT WITH FORWARDS FLEXED POSTURE - Goals Goal 1:: Pt WILL DEMO LUMBAR SPINE ROM TO 100% OF FULL ROM TO IMPROVE FUNCTIONAL MOBILITY. Goal Time Frame: 2-4 Weeks Goal 2:: Pt WILL IMPROVE PAIN AT WORK TO <4/10 IN ORDER TO SHOW IMPROVEMENTS IN OVERALL MOBILITY WITHOUT INCREASED PAIN. Goal Time Frame: 2-4 Weeks Goal 3:: Pt WILL BE INDEP AND COMPLIANT WITH HEP TO PROGRESS OVERALL CONDITIONING TO EXERCISE AND LUMBAR STABILITY TO DECREASE RADICULAR PAIN/DISCOMFORT. Goal Time Frame: 2-4 Weeks Goal 4:: Pt WILL IMPROVE GAIT EVIDENCED BY INCREASED STEP LENGTH OF >15 INCHES BILAT WITH UPRIGHT TRUNK POSITION IN RELATION TO HIPS DECREASING LUMBAR RADICULAR PAIN. Goal Time Frame: 2-4 Weeks Goal 5:: Pt WILL DEMO NEGATIVE LLE SLR TO SHOW IMPROVEMENTS IN LUMBAR STABILITY WITHOUT RADICULAR PAIN. Goal Time Frame: 2-4 Weeks Goal 6:: Pt WILL SCORE <16 ON MANA TO DEMO DECREASED PAIN WITH MOBILITY AND ADL'S Goal Time Frame: 2-4 Weeks - Rehabilitation Potential Physical Therapy Diagnosis: Pt PRESENTED WITH TENDERNESS OF LUMBAR PARASPINALS, HYPOMOBILITY OF LUMBAR VERTEBRAL SEGMENTS, DECREASED LUMBAR ROM, AND DEC STRENGTH. Pt ALSO PRESENTED WITH +SLR AND SLUMP TEST OF LLE. BASED OFF OBJECTIVE FINDINGS AND PERSONAL FACTORS Pt IS APPROPRIATE FOR A MODERATE COMPLEXITY LEVEL EVAL CODE. Rehabilitation Potential: Fair - Anticipated Interventions Thank you for the opportunity to evaluate your patient. For Medicare and Medicare HMO plans, please review the plan of care and approve it. It will need to be FAXED BACK to us at [phone] for Medicare purposes. For Medicare only, by signing this I certify the plan of care. Please let me know if there are questions or concerns regarding this plan of care. Physician Signature: Date:
--- NOTE | 2022-07-24 09:53 | HP.PTREVAL ---
ALYSA Barton, It has been my pleasure to treat MARGRET LESTER over the last 6 visits for M54.50 LOW BACK PAIN, UNSPECIFIED, G89.29 OTHER CHRONIC PAIN. Please see the progress note below for an update on the physical therapy plan of care! Subjective: Pt. states that he is stiff mostly on the right side. He rates his back pain at 7/10 currently and denies any pain down his leg currently. Pt. does not have a follow up with his doctor scheduled at this time. He reports that he is trying to do his exercises at home every day but he does not have a lot of time. Pt. reports about 45% improvement since starting physical therapy. Objective/Function: Moisés has come to 6 sessions of physical therapy focusing on lumbar extension based exercises, core, back, and hip strengthening. Reviewed pt. goals for therapy and he is progressing towards meeting his goals for therapy. Educated pt. on importance of completing his exercises daily at home which he was in agreement with. Pt. would continue to benefit from skilled physical therapy in order to meet his goals and improve mobility. Plan Plan: PROGRESS EXTENSION BASED EXERCISES AND IMPROVE LUMBAR STABILIZATION VIA HIP AND GLUTE EXERCISES. ATTEMPT MANUAL TRACTION TO SEE IF PT HAS IMPROVED PAIN RELIEF Balance/Gait/Functional tests - Balance/Special Test Scores Oswestry Low Back Score: 24 Goals Goal 1:: Pt WILL DEMO LUMBAR SPINE ROM TO 100% OF FULL ROM TO IMPROVE FUNCTIONAL MOBILITY. Goal Time Frame: 2-4 Weeks Goal Progress: Progressing Goal 2:: Pt WILL IMPROVE PAIN AT WORK TO <4/10 IN ORDER TO SHOW IMPROVEMENTS IN OVERALL MOBILITY WITHOUT INCREASED PAIN. Goal Time Frame: 2-4 Weeks Goal Progress: Progressing; 8/10 at wors Goal 3:: Pt WILL BE INDEP AND COMPLIANT WITH HEP TO PROGRESS OVERALL CONDITIONING TO EXERCISE AND LUMBAR STABILITY TO DECREASE RADICULAR PAIN/DISCOMFORT. Goal Time Frame: 2-4 Weeks Goal Progress: Progressing Goal 4:: Pt WILL IMPROVE GAIT EVIDENCED BY INCREASED STEP LENGTH OF >15 INCHES BILAT WITH UPRIGHT TRUNK POSITION IN RELATION TO HIPS DECREASING LUMBAR RADICULAR PAIN. Goal Time Frame: 2-4 Weeks Goal Progress: Goal Met Goal 5:: Pt WILL DEMO NEGATIVE LLE SLR TO SHOW IMPROVEMENTS IN LUMBAR STABILITY WITHOUT RADICULAR PAIN. Goal Time Frame: 2-4 Weeks Goal Progress: Goal Met Goal 6:: Pt WILL SCORE <16 ON MANA TO DEMO DECREASED PAIN WITH MOBILITY AND ADL'S Goal Time Frame: 2-4 Weeks Goal Progress: Progressing Anticipated Interventions Please do not hesitate to contact me at [phone] by phone or if you have questions or concerns regarding this new plan of care! Sincerely, Fercho Contreras
--- NOTE | 2022-08-14 10:01 | HP.PTREVAL ---
ALYSA Barton, It has been my pleasure to treat MARGRET LESTER over the last 12 visits for M54.50 LOW BACK PAIN, UNSPECIFIED, G89.29 OTHER CHRONIC PAIN. Please see the progress note below for an update on the physical therapy plan of care! Subjective: Pt. states that he was showing improvement but last week he lifted a thing of soda at work and everything stiffened up on him. He reports that he is about 50% better since starting physical therapy. He had a MRI this past Thursday but has not heard the results from this yet. Pt. rates neck and lower back pain at 6/10 currently and denies any radicular pain. Objective/Function: Moisés has come to 12 sessions of physical therapy focusing on trial of lumbar extension based exercises, core, back, and hip strengthening. Reviewed pt. goals for therapy and he has met, partially met, and not met various goals for therapy. Discussed with pt. at this time about trying aquatic physical therapy to see if this would help reduce his back pain which he was in agreement with. Pt. will continue to benefit from skilled physical therapy to meet all of his goals for therapy. Plan Plan: Will try aquatic therapy at this time to see if this helps with his back pain. Balance/Gait/Functional tests - Balance/Special Test Scores Oswestry Low Back Score: 19 Goals Goal 1:: Pt WILL DEMO LUMBAR SPINE ROM TO 100% OF FULL ROM TO IMPROVE FUNCTIONAL MOBILITY. Goal Time Frame: 2-4 Weeks Goal Progress: Progressing Goal 2:: Pt WILL IMPROVE PAIN AT WORK TO <4/10 IN ORDER TO SHOW IMPROVEMENTS IN OVERALL MOBILITY WITHOUT INCREASED PAIN. Goal Time Frame: 2-4 Weeks Goal Progress: Progressing; 8/10 at wors Goal 3:: Pt WILL BE INDEP AND COMPLIANT WITH HEP TO PROGRESS OVERALL CONDITIONING TO EXERCISE AND LUMBAR STABILITY TO DECREASE RADICULAR PAIN/DISCOMFORT. Goal Time Frame: 2-4 Weeks Goal Progress: Goal Met Goal 4:: Pt WILL IMPROVE GAIT EVIDENCED BY INCREASED STEP LENGTH OF >15 INCHES BILAT WITH UPRIGHT TRUNK POSITION IN RELATION TO HIPS DECREASING LUMBAR RADICULAR PAIN. Goal Time Frame: 2-4 Weeks Goal Progress: Goal Met Goal 5:: Pt WILL DEMO NEGATIVE LLE SLR TO SHOW IMPROVEMENTS IN LUMBAR STABILITY WITHOUT RADICULAR PAIN. Goal Time Frame: 2-4 Weeks Goal Progress: Goal Met Goal 6:: Pt WILL SCORE <16 ON MANA TO DEMO DECREASED PAIN WITH MOBILITY AND ADL'S Goal Time Frame: 2-4 Weeks Goal Progress: Progressing Anticipated Interventions Please do not hesitate to contact me at [phone] by phone or if you have questions or concerns regarding this new plan of care! Sincerely, Fercho Contreras
--- NOTE | 2022-09-11 09:25 | HP.PTDCSUM ---
It has been my pleasure to treat MARGRET LESTER referred by ALYSA Barton, with the diagnosis of M54.50 LOW BACK PAIN, UNSPECIFIED, G89.29 OTHER CHRONIC PAIN for a total of 16 visit(s). Discharge Date: Please see the following information for a summary of their discharge status. Subjective: Pt. states that he just feels stiff today. He reports that he doesn't have a follow up with his doctor at this time. He reports that he is about 55% better since starting physical therapy. He is watching how he is lifting things and what he is lifting. LOW BACK PAIN Pain Intensity (Out of 10): 5 % Improvement: 55 Objective/Function: Moisés has come to 16 sessions of physical therapy focusing on core, back, hip strengthening, and aquatic therapy. Reviewed pt. goals for therapy and he has met several goals and not met other goals for therapy. Educated pt. to continue with his current HEP. Pt. has been discharged from physical therapy at this time due to plateau in progress. Goal 1:: Pt WILL DEMO LUMBAR SPINE ROM TO 100% OF FULL ROM TO IMPROVE FUNCTIONAL MOBILITY. Goal Progress: Progressing Goal 2:: Pt WILL IMPROVE PAIN AT WORK TO <4/10 IN ORDER TO SHOW IMPROVEMENTS IN OVERALL MOBILITY WITHOUT INCREASED PAIN. Goal Progress: Not Progressing Goal 3:: Pt WILL BE INDEP AND COMPLIANT WITH HEP TO PROGRESS OVERALL CONDITIONING TO EXERCISE AND LUMBAR STABILITY TO DECREASE RADICULAR PAIN/DISCOMFORT. Goal Progress: Goal Met Goal 4:: Pt WILL IMPROVE GAIT EVIDENCED BY INCREASED STEP LENGTH OF >15 INCHES BILAT WITH UPRIGHT TRUNK POSITION IN RELATION TO HIPS DECREASING LUMBAR RADICULAR PAIN. Goal Progress: Goal Met Goal 5:: Pt WILL DEMO NEGATIVE LLE SLR TO SHOW IMPROVEMENTS IN LUMBAR STABILITY WITHOUT RADICULAR PAIN. Goal Progress: Goal Met Goal 6:: Pt WILL SCORE <16 ON MANA TO DEMO DECREASED PAIN WITH MOBILITY AND ADL'S Goal Progress: Goal Met Plan: Pt. has been discharged from physical therapy due to plateau in progress and will continue with his exercises at home. If there are questions or concerns regarding this patient's physical therapy, please feel free to call me at [phone]. Thank you for the referral of this patient. Sincerely, Fercho Contreras Balance/Gait/Functional tests - Balance/Special Test Scores Oswestry Low Back Score: 6
== END 2022-09-11 10:16 | disposition home or self-care (01) ==
LOC: PT 09:00
DX: M54.50 Low back pain, unspecified (principal)
CPT/HCPCS: 97012; 97110; 97113; 97162; 97164

== ENCOUNTER → 2022-10-28 | Outpatient (CLI) | payer MEDICAID, SELFPAY ==
[2022-10-28 10:00] LABS: Hemoglobin 13.4 g/dL (13.0-16.5); Mean Corp Hgb Conc 33.5 g/dL (32-36); Mean Corpuscular Hgb 33.6 pg (27.0-32.0); Mean Corpuscular Volume 100.3 fL (80-94); Mean Platelet Vol. 9.8 fl (6.2-12.0); Platelet Count 159 K/mm3 (150-450); RBC Distribution Width CV 11.8 % (11.6-14.6); RBC Distribution Width SD 43.6 fl (35.1-43.9); Red Blood Count 3.99 M/mm3 (4.6-6.2); White Blood Count 5.7 K/mm3 (4.4-11.0)
[2022-10-28 10:22] LABS: ALB/GLOB Ratio 1.2 RATIO (0.9-2.4); AST(SGOT) 22 U/L (15-37); Alanine Aminotransfer ALT/SGPT 32 U/L (16-61); Albumin, Serum 3.7 g/dL (3.2-5.0); Alkaline Phosphatase 55 U/L (45-117); Anion Gap 2 (5-15); BUN 15 mg/dL (7-18); BUN/Creat Ratio 15.2 RATIO (10-20); Calcium,Total 8.5 mg/dL (8.5-10.1); Chloride 109 mmol/L (98-107); Cholesterol 139 mg/dL (200); Creatinine, Serum 0.99 mg/dL (0.70-1.30); EST Glomerular Filtration Rate 85 mL/min (>60); Est Glom Filt Rate - Afr Amer 103 mL/min (>60); Globulin 3.1 g/dL (2.2-4.2); Glucose 99 mg/dL (74-106); High Density Lipoprotein 47 mg/dL; Protein, Total 6.8 g/dL (6.4-8.2); Sodium Level 139 mmol/L (136-145); Triglycerides 171 mg/dL; Very Low Density Lipoprotein 34 mg/dL (5-40)
[2022-10-28 10:33] LABS: Hemoglobin A1c 5.2 % (3.8-5.6)
[2022-10-28 11:27] LABS: Microalbumin,Random Urine 43.2 mg/L (NO RANGE EST.)
== END | disposition home or self-care (01) ==
LOC: LAB 09:20
PROVIDERS: Nurse Practitioner Family
DX: E11.9 Type 2 diabetes mellitus without complications (principal); E78.2 Mixed hyperlipidemia
CPT/HCPCS: 36415; 80053; 80061; 82043; 83036; 85027

== ENCOUNTER → 2023-01-28 | Outpatient (CLI) | payer MEDICAID, SELFPAY ==
--- NOTE | 2023-01-28 07:28 | CT_ITS ---
STUDY: LOW DOSE CT LUNG CANCER SCREENING REASON FOR EXAM: Male, 52 years old. NICOTINE DEPENDENCE. 1/2 pack of cigars daily for 30 years RADIATION DOSAGE (If Supplied By Facility): CTDIvol = ( 4.02 ) mGy, DLP = ( 150.49 ) mGycm TECHNIQUE: No contrast was administered. Low dose technique was utilized (average mAS-38 and kVp 120). 1.25 mm axial source images with a slice interval of 1.25-mm were reconstructed in lung windows with coronal and sagittal reformats. COMPARISON: December 27, 2021 NODULES: 2 mm calcified granuloma anterior superior right middle lobe, axial image 150 and posterior left upper lobe, axial image 148. Nodule #: 1 Density: Solid Lung location: Inferior right middle lobe along the pleura Location in series: Series Number: 2 Image: 173 Size - D1 x D2 mm: 4 x 2 mm: 3 average diameter Margin: Circumscribed Shape: [place] Calcification: None Fat: None Temporal comparison: Unchanged from December 27, 2021 Nodule #: 2 and 3 Density: Solid Lung location: Lateral right lowe, 0.6 cm from pleura and bordering pleura Location in series: Series Number: 2 Image: 168 Size - D1 x D2 mm: 3 x 2 mm and 3 x 2 mm: 3 average diameter Margin: Circumscribed Shape: Oval Calcification: None Fat: None Temporal comparison: Unchanged from December 27, 2021 Nodule #: 4 Density: Solid Lung location: Inferior right upper lobe bordering pleura Location in series: Series Number: 2 Image: 155 Size - D1 x D2 mm: 3 x 3 mm: 3 average diameter Margin: Circumscribed Shape: Round Calcification: None Fat: None Temporal comparison: Unchanged from December 27, 2021 Parenchyma: No airspace consolidation, effusion, or pneumothorax. Endobronchial lesion: No endobronchial lesion. Aorta: Mild atherosclerosis without ectasia or dissection. CORONARY ARTERIES: There is minimal left anterior descending calcified atherosclerosis. . Heart: No cardiomegaly or pericardial effusion. Pulmonary artery: No main pulmonary arterial enlargement Mediastinal nodes: No mediastinal or bulky hilar adenopathy. Other chest and abdominal findings: Unremarkable thyroid. Unremarkable esophagus. No acute upper abdominal findings. CT/Low Dose CT Lung Screening IMPRESSION: Multiple calcified granulomas and stable noncalcified 2 to 3 mm nodules suggestive of additional granulomas. Small unchanged triangular nodule along the right major fissure suggestive of pulmonary lymph node. Lung-RADS category 2 - Continue annual screening with LDCT in 12 months. IMPORTANT NOTES FOR USE: ACR Lung-RADS Version 1.1 Assessment Categories Release Date: 2018 Category: Coded 0-4 bases on nodule(s) with highest degree of suspicion. Negative screen is defined as categories 1 and 2; a positive screen is defined as categories 3 and 4. Category 3 and 4A nodules that are unchanged on interval CT should be coded as category 2, and individuals returned to screening in 12 months. Category 4X: Category 3 or 4 nodules with additional imaging findings that increase the suspicion of lung cancer, such as spiculation, GGN that doubles in size in 1 year, enlarged lymph notes, etc. Category Modifiers: S (significant finding unrelated to lung cancer) Electronically Signed: Abilio Hernandez MD at 21:55 EDT ,
== END | disposition home or self-care (01) ==
LOC: CT 07:27
PROVIDERS: Referring Provider Nurse Practitioner Family; Visit Provider Nurse Practitioner Family
DX: F17.200 Nicotine dependence, unspecified, uncomplicated (principal); R91.8 Other nonspecific abnormal finding of lung field
CPT/HCPCS: 71271

== ENCOUNTER → 2023-04-10 | Outpatient (CLI) | payer MEDICAID, SELFPAY ==
[2023-04-10 10:05] LABS: Hemoglobin 14.4 g/dL (13.0-16.5); Mean Corp Hgb Conc 34.3 g/dL (32-36); Mean Corpuscular Hgb 34.3 pg (27.0-32.0); Mean Platelet Vol. 10.8 fl (6.2-12.0); Platelet Count 161 K/mm3 (150-450); RBC Distribution Width CV 11.8 % (11.6-14.6); RBC Distribution Width SD 43.2 fl (35.1-43.9); White Blood Count 6.1 K/mm3 (4.4-11.0)
[2023-04-10 10:45] LABS: ALB/GLOB Ratio 1.1 RATIO (0.9-2.4); AST(SGOT) 20 U/L (15-37); Alanine Aminotransfer ALT/SGPT 34 U/L (16-61); Albumin, Serum 3.8 g/dL (3.2-5.0); Alkaline Phosphatase 69 U/L (45-117); Anion Gap 3 (5-15); BUN 18 mg/dL (7-18); BUN/Creat Ratio 18.4 RATIO (10-20); Calcium,Total 8.6 mg/dL (8.5-10.1); Chloride 109 mmol/L (98-107); Cholesterol 121 mg/dL (200); Creatinine, Serum 0.98 mg/dL (0.70-1.30); EST Glomerular Filtration Rate 86 mL/min (>60); Est Glom Filt Rate - Afr Amer 104 mL/min (>60); Globulin 3.5 g/dL (2.2-4.2); Glucose 125 mg/dL (74-106); High Density Lipoprotein 37 mg/dL; PSA,Total - Annual Screen 0.54 ng/mL (0.00-4.00); Potassium 3.8 mmol/L (3.5-5.1); Prolactin 16.4 ng/mL; Protein, Total 7.3 g/dL (6.4-8.2); Sodium Level 139 mmol/L (136-145); Triglycerides 260 mg/dL; Very Low Density Lipoprotein 52 mg/dL (5-40)
[2023-04-10 10:52] LABS: Microalbumin,Random Urine 85.1 mg/L (NO RANGE EST.)
[2023-04-10 11:07] LABS: Hemoglobin A1c 5.4 % (3.8-5.6)
[2023-04-10 11:08] LABS: Valproic Acid (Depakene) Level 35 ug/mL (50-100)
== END | disposition home or self-care (01) ==
LOC: LAB 09:34
PROVIDERS: Referring Provider Psychiatry & Neurology Psychiatry; Visit Provider Psychiatry & Neurology Psychiatry
DX: E11.9 Type 2 diabetes mellitus without complications (principal); Z12.5 Encounter for screening for malignant neoplasm of prostate; E78.2 Mixed hyperlipidemia; Z79.899 Other long term (current) drug therapy
CPT/HCPCS: 84153; 36415; 80053; 80061; 80164; 82043; 82140; 83036; 84146; 85027; G0103

== ENCOUNTER 2023-07-08 15:32 | Emergency (ER) | payer MEDICAID, SELFPAY ==
[2023-07-08 15:33] VITALS: BP 139/82; PULSE 83; RESP 15; TEMP 36.5; O2SAT 98; BMI 36.3
--- NOTE | 2023-07-08 15:41 | EKG12_ITS ---
Test Reason : CP Blood Pressure : / mmHG Vent. Rate : 076 BPM Atrial Rate : 076 BPM P-R Int : 148 ms QRS Dur : 090 ms QT Int : 410 ms P-R-T Axes : 059 007 025 degrees QTc Int : 461 ms Normal sinus rhythm Normal ECG Confirmed by CAROLYN STALLWORTH, CAITLIN ([id number]), assistant film editor SHAINA WILLIAMSON ([id number]) on 07/10/2023 1:24:13 PM Referred By: [place] Confirmed By:CAITLIN LEON MD
--- NOTE | 2023-07-08 15:50 | RAD_ITS ---
INDICATION: chest pain EXAMINATION/TECHNIQUE: X-RAY - XR Chest 1 View COMPARISON: October 02, 2020 FINDINGS: LINES/DEVICES: None. LUNGS: No consolidation, edema or effusion. No pneumothorax. MEDIASTINUM AND CARDIOVASCULAR STRUCTURES: Cardiac silhouette not enlarged. Central airways and mediastinal contour are unremarkable. BONES AND SOFT TISSUES: Degenerative vertebral changes. RAD/Chest 1 View (Portable) IMPRESSION: No radiographic evidence of acute cardiopulmonary disease. Electronically Signed: Rodrick Mast DO at 16:14 EST ,
--- NOTE | 2023-07-08 15:54 | ED.VIS.CHEST ---
HPI <ALYSA Vergara - Last Filed: 07/08/23 18:09> History of Present Illness Chief Complaint: Chest Pain Narrative Narrative: Patient presenting with midsternal and constant chest pressure that started about 45 minutes prior to arrival that started while patient was on his way to work. He reports that he has felt lightheaded today as well. He denies any personal cardiac history. He denies any fever, chills, and shortness of breath. He reports a PMH of schizophrenia, hyperlipidemia, diabetes mellitus, PTSD, hypertension, and tobacco use. PE Risk Factors: Negative for Recent Travel/Surgery, Recent Immobilization or Prior DVT or PE PFSH <ALYSA Vergara - Last Filed: 07/08/23 18:09> PFSH Medical History Alcohol use Anxiety Arthritis Back pain CPAP (continuous positive airway pressure) dependence Diabetes Dyslipidemia Gastric reflux GERD (gastroesophageal reflux disease) High cholesterol History of posttraumatic stress disorder (PTSD) Hx of tinnitus Hypercholesteremia Hypertension Hypertension Influenza A Injury of head and neck Left lower lobe CAP Low iron Migraine headache Morbid obesity Nasal congestion Rash Schizophrenia Schizophrenia Severe headache Smoker Wears glasses Home Medications benztropine 2 mg tablet 0.5 mg PO DAILY psych med 05/24/17 [History Last Taken 12/10/20 09:30] cetirizine 10 mg tablet 10 mg PO DAILY 05/24/17 [History Last Taken 12/09/20 18:30] divalproex 500 mg tablet,extended release 24 hr 500 mg PO BID PTSD 05/24/17 [History Last Taken 12/10/20 09:30] omeprazole 20 mg capsule,delayed release 40 mg PO DAILY GERD 05/24/17 [History Last Taken 06/28/21 06:00] risperidone 0.5 mg disintegrating tablet 1 mg PO BID PTSD 05/24/17 [History Last Taken 06/28/21 06:00] sumatriptan succinate 50 mg tablet 50 mg PO PRN PRN Migraine Symptoms 02/17/20 [History Last Taken Unknown] Cholecalciferol (Vitamin D3) [Vitamin D3] 1 cap PO/SL DAILY vitamin 10/02/20 [History Last Taken 12/10/20 09:30] methylcellulose (laxative) 500 mg tablet 6 tab PO BID 10/02/20 [History Last Taken 12/10/20 09:30] multivitamin with minerals 1 tab DAILY vitamin 10/02/20 [History Last Taken 12/10/20 09:30] baclofen 10 mg tablet 10 mg PO DAILY 06/06/22 [History Last Taken Unknown] losartan 50 mg tablet 50 mg PO DAILY 06/06/22 [History Last Taken Unknown] glipizide 5 mg tablet 5 mg PO 06/23/22 [History Last Taken Unknown] rosuvastatin 10 mg tablet 10 mg PO 06/23/22 [History Last Taken Unknown] Allergy/AdvReac Type Severity Reaction Status Date / Time No Known Allergies Allergy Verified 07/08/23 15:33 Family History Mother CVA (cerebral vascular accident) Malignant hyperthermia due to anesthesia Grandmother Cancer Myocardial infarction Surgical History History of appendectomy History of nasal septoplasty Hx of appendectomy Social History Smoking Status: Current every day smoker tobacco type: cigars ROS <ALYSA Vergara - Last Filed: 07/08/23 18:09> ROS ED Constitutional Constitutional ED: Denies chills or fever(s) Cardiovascular Cardiovascular: Reports other Details: chest pressure ; Denies palpitations or racing heartbeat Respiratory/Chest Respiratory/Chest: Denies cough or dyspnea Gastrointestinal Gastrointestinal: Denies abdominal pain, nausea or vomiting Musculoskeletal Musculoskeletal: Denies arthralgias or myalgias Integumentary Denies rash Neurologic Neurologic: Denies dizziness, headache(s) or weakness EXAM <ALYSA Vergara - Last Filed: 07/08/23 18:09> Physical Exam Const Vital Signs: 07/08/23 15:33 07/08/23 16:00 07/08/23 17:00 Temperature 97.7 F L Temperature Source Oral Pulse Rate 83 72 Respiratory Rate 15 13 Blood Pressure 139/82 H 132/77 H 123/80 H Blood Pressure Mean 101 91 92 Pulse Ox 98 95 95 Oxygen Delivery Method Room Air 07/08/23 18:00 07/08/23 18:10 Temperature Temperature Source Pulse Rate Respiratory Rate Blood Pressure 129/78 H Blood Pressure Mean 93 Pulse Ox 95 91 Oxygen Delivery Method Positive well nourished, well developed and no apparent distress General Appearance ED: well developed HEENT Reports normocephalic and head/scalp atraumatic Mouth ED: Yes moist mucous membranes normal Eyes PERRL and EOMs intact bilaterally Neck full ROM and supple Chest Wall inspection of chest normal Resp normal respiratory effort and clear to auscultation bilaterally Cardio regular rate and regular rhythm GI soft to palpation, non-tender, non-distended and no masses Back/Spine normal ROM and normal to inspection Extremity normal to inspection and full ROM Neuro oriented x3, CN's II-XII intact bilaterally, moves all extremities, no focal motor deficits and no sensory deficits noted Sensorium / Orientation: awake and alert Psych mental status grossly normal and thought process normal Skin no rashes or lesions noted and no wounds <Dr. Rashid Eldridge, - Last Filed: 07/08/23 18:29> Physical Exam Const Vital Signs: 07/08/23 15:33 07/08/23 16:00 07/08/23 17:00 Temperature 97.7 F L Temperature Source Oral Pulse Rate 83 72 Respiratory Rate 15 13 Blood Pressure 139/82 H 132/77 H 123/80 H Blood Pressure Mean 101 91 92 Pulse Ox 98 95 95 Oxygen Delivery Method Room Air 07/08/23 18:00 07/08/23 18:10 Temperature Temperature Source Pulse Rate Respiratory Rate Blood Pressure 129/78 H Blood Pressure Mean 93 Pulse Ox 95 91 Oxygen Delivery Method <ALYSA Vergara - Last Filed: 07/08/23 18:09> Heart Score Score: 2 <Dr. Rashid Eldridge DO - Last Filed: 07/08/23 18:29> Heart Score History: Slightly/Non-Suspicious ECG: Normal Age: >45 - <65 years Risk Factors: 1 or 2 Risk Factors Troponin: </= Normal Limit Score: 2 MDM <ALYSA Vergara Last Filed: 07/08/23 18:09> [facility] Narrative Medical decision making narrative: Patient presenting with midsternal chest pressure that started 45 minutes prior to arrival. No history of cardiac conditions. He is well-appearing and in no acute distress. He is slightly hypertensive but otherwise vitals are unremarkable. Labs will be obtained to rule out leukocytosis, anemia, electrolyte abnormality, and ACS. Chest x-ray will be obtained to rule out cardiopulmonary abnormality. He will be given aspirin. Patient has a Wells score of 0, low suspicion for PE. His workup is essentially unremarkable. Initial troponin is 6, 2-hour repeat troponin 6. Chest x-ray negative for any acute findings. He is to follow-up with his PCP and will be discharged home in stable condition. He is comfortable with plan. Lab Data Attestation: I reviewed the patient's lab results. Labs: Laboratory Results - last 24 hr 07/08/23 07/08/23 15:35 17:30 WBC 6.4 RBC 4.28 L Hgb 14.6 Hct 43.5 MCV 101.6 H MCH 34.1 H MCHC 33.6 RDW Std Deviation 44.2 H RDW Coeff of [place] 11.9 Plt Count 150 MPV 10.7 Immature Gran % (Auto) 0.300 Neut % (Auto) 51.1 Lymph % (Auto) 39.0 Grand % (Auto) 7.4 Eos % (Auto) 1.6 Baso % (Auto) 0.6 Absolute Neuts (auto) 3.3 Absolute Lymphs (auto) 2.48 Nucleated RBC % 0 Sodium 138 Potassium 4.1 Chloride 106 Carbon Dioxide 28.0 Anion Gap 4 L BUN 14 Creatinine 1.04 Estim Creat Clear Calc 91.20 Est GFR (MDRD) Af Amer 96 Est GFR (MDRD) Non-Af 80 BUN/Creatinine Ratio 13.5 Glucose 181 H Calcium 8.9 Troponin I High Sens 6 6 Radiography X-Ray: Read by ED Physician and Read by Radiologist Diagnostic Testing: Clinical Impression(s) from Imaging Studies Chest X-Ray 07/08/23 15:50 IMPRESSION: No radiographic evidence of acute cardiopulmonary disease. Electronically Signed: Rodrick Mast DO at 16:14 EST Reading Location ID and State: [facility] / [place] Tel [phone], Service support , EKG Initial EKG: Comments: 76 bpm, normal sinus rhythm, no ST elevation, reviewed and interpreted by attending ED physician. <Dr. Rashid Eldridge DO - Last Filed: 07/08/23 18:29> [facility] Lab Data Labs: Laboratory Results - last 24 hr 07/08/23 07/08/23 15:35 17:30 WBC 6.4 RBC 4.28 L Hgb 14.6 Hct 43.5 MCV 101.6 H MCH 34.1 H MCHC 33.6 RDW Std Deviation 44.2 H RDW Coeff of [place] 11.9 Plt Count 150 MPV 10.7 Immature Gran % (Auto) 0.300 Neut % (Auto) 51.1 Lymph % (Auto) 39.0 Grand % (Auto) 7.4 Eos % (Auto) 1.6 Baso % (Auto) 0.6 Absolute Neuts (auto) 3.3 Absolute Lymphs (auto) 2.48 Nucleated RBC % 0 Sodium 138 Potassium 4.1 Chloride 106 Carbon Dioxide 28.0 Anion Gap 4 L BUN 14 Creatinine 1.04 Estim Creat Clear Calc 91.20 Est GFR (MDRD) Af Amer 96 Est GFR (MDRD) Non-Af 80 BUN/Creatinine Ratio 13.5 Glucose 181 H Calcium 8.9 Troponin I High Sens 6 6 Radiography Diagnostic Testing: Clinical Impression(s) from Imaging Studies Chest X-Ray 07/08/23 15:50 IMPRESSION: No radiographic evidence of acute cardiopulmonary disease. Electronically Signed: Rodrick Mast DO at 16:14 EST Reading Location ID and State: [facility] / [place] Tel [phone], Service support , Treatment and Re-Evaluation :: I have personally performed a face to face assessment of the patient and have reviewed the ALYSA Note. I performed a substantive portion of the visit including all aspects of the following. My olivo findings include: History: Patient presents with chest pain and dizziness that began today. Patient states it has been constant throughout the day. Patient describes his pain as pressure. Patient states it is mainly over the substernal area. Patient states nothing makes it better nothing makes it worse. Patient admits to some lightheadedness. Patient states it feels like I am floating. Patient states he saw his PCP today and was told he had vertigo. Patient also admits to some tenderness to his left ear. Exam: Vital signs are stable. Patient is afebrile. Patient is in no acute distress. Oral mucosa is pink and moist. Neck is supple. Trachea is midline. There is no JVD. Heart was regular rate and rhythm. Lungs are clear and equal bilaterally. Abdomen is soft. Bowel sounds are normal. There is no tenderness. Cranial nerves II through XII are intact. There are no focal motor or sensory deficits noted. Medical Decision Making: Differential diagnosis includes cardiac dysrhythmia, cardiac ischemia, electrolyte abnormality, anxiety, pneumonia, and vertigo. Chest x-ray will be obtained to assess for pneumonia and pneumothorax. EKG will be obtained to assess for cardiac dysrhythmia and cardiac ischemia. CBC will be obtained to assess for leukocytosis and anemia. Basic metabolic profile will be obtained to assess for electrolyte abnormality and renal function. High-sensitivity troponin will be obtained to assess for cardiac ischemia. 2-hour repeat high-sensitivity troponin will be obtained to assess for ongoing cardiac ischemia. EKG was obtained. On my independent interpretation, it showed a normal sinus rhythm with a rate of 76. VA interval, QRS interval, and QTc intervals were all normal. [place] was normal. There are no acute ST or T wave changes. Portable 1 view chest x-ray was obtained. On my independent interpretation, lung shay are clear. There is normal cardiac silhouette. Bony thorax is normal. There is no acute process noted. Radiologist also interpreted the x-ray and agrees. CBC was reviewed and was within normal limits. Basic metabolic profile was reviewed. Glucose was slightly elevated at 181. Anion gap was normal. High-sensitivity troponin was reviewed and was normal at 6. 2-hour repeat high-sensitivity troponin was reviewed and was normal at 6. Patient was advised of his findings. Patient has a HEART score of 2. Patient was advised that this is low risk for acute cardiac event. Patient was instructed to follow-up with his primary care physician in 5 to 7 days. Patient understood and was agreeable with the plan. All questions were answered. Discharge Plan Triage Chief Complaint: Chest Pain ED Midlevel Provider: Juany Lopez ED Provider: Rashid Eldridge Dx/Rx/DC Orders Clinical Impression: Light-headedness, Chest pressure Instructions: ED Chest Pain, Uncertain Cause Prescriptions: No Action glipizide 5 mg tablet 5 mg PO Patient Comments: TAKE 1 TABLET BY MOUTH DAILY rosuvastatin 10 mg tablet 10 mg PO Patient Comments: TAKE 1 TABLET BY MOUTH EVERY DAY AT BEDTIME divalproex 500 MG tablet extended release 24 hr 500 mg PO BID risperidone 0.5 MG tablet,disintegrating 1 mg PO BID cetirizine 10 MG tablet 10 mg PO DAILY benztropine 2 MG tablet 0.5 mg PO DAILY omeprazole 20 MG capsule,delayed release(DR/EC) 40 mg PO DAILY sumatriptan succinate 50 MG tablet 50 mg PO PRN PRN (Reason: Migraine Symptoms) Cholecalciferol (Vitamin D3) [Vitamin D3] 5,000 UNIT capsule 1 cap PO/SL DAILY multivitamin with minerals 1 EACH tablet 1 tab DAILY methylcellulose (laxative) 500 MG tablet 6 tab PO BID losartan 50 mg tablet 50 mg PO DAILY Patient Comments: TAKE 1 TABLET BY MOUTH EVERY DAY baclofen 10 mg tablet 10 mg PO DAILY Patient Comments: TAKE 1 TABLET BY MOUTH ONCE DAILY NEEDED Primary Care Provider: [facility] Ita Resendiz Referrals: [facility] Ita Resendiz [Primary Care Provider] - 5-7 Days Activity Restrictions/Additional Instructions: Follow-up with your PCP and return for any worsening of your symptoms. Disposition Disposition: Home, Self Care Discharge Date/Time: 07/08/23 18:20
[2023-07-08 15:58] LABS: Absolute Lymphocyte Count 2.48 X10^3/uL (0.83-4.51); Absolute Neutrophil Count 3.3 X10^3/uL (2.0-7.7); Basophil# 0.04 X10^3/uL; Basophil% 0.6 % (0-1); Eosinophils% 1.6 % (0-5); Hematocrit 43.5 % (40-54); Hemoglobin 14.6 g/dL (13.0-16.5); Lymphocyte # 2.48 X10^3/ul (0.83-4.51); Mean Corp Hgb Conc 33.6 g/dL (32-36); Mean Corpuscular Hgb 34.1 pg (27.0-32.0); Mean Corpuscular Volume 101.6 fL (80-94); Mean Platelet Vol. 10.7 fl (6.2-12.0); Monocyte# 0.47 X10^3/uL; Monocyte% 7.4 % (0-10); NRBC Flagged by Analyzer 0 % (0-5); Neutrophil # 3.25 X10^3/uL (2.7-7.7); Neutrophil % 51.1 % (47-70); Platelet Count 150 K/mm3 (150-450); RBC Distribution Width CV 11.9 % (11.6-14.6); RBC Distribution Width SD 44.2 fl (35.1-43.9); Red Blood Count 4.28 M/mm3 (4.6-6.2); White Blood Count 6.4 K/mm3 (4.4-11.0)
[2023-07-08 16:00] VITALS: BP 132/77; PULSE 72; RESP 13; O2SAT 95
[2023-07-08] MEDS: Aspirin 325 MG Tablet PO (16:00)
[2023-07-08 16:21] LABS: Anion Gap 4 (5-15); BUN 14 mg/dL (7-18); BUN/Creat Ratio 13.5 RATIO (10-20); Calcium,Total 8.9 mg/dL (8.5-10.1); Chloride 106 mmol/L (98-107); Creatinine, Serum 1.04 mg/dL (0.70-1.30); EST Glomerular Filtration Rate 80 mL/min (>60); Est Glom Filt Rate - Afr Amer 96 mL/min (>60); Glucose 181 mg/dL (74-106); Potassium 4.1 mmol/L (3.5-5.1); Sodium Level 138 mmol/L (136-145); Troponin-I HS (w/2H Reflex) 6 pg/mL (3.0-78.0)
[2023-07-08 17:00] VITALS: BP 123/80; O2SAT 95
[2023-07-08 17:48] LABS: Reflex Troponin-HS? (from REC) Y
[2023-07-08 18:00] VITALS: BP 129/78; O2SAT 95
[2023-07-08 18:00] LABS: Troponin-I HS 6 pg/mL (3.0-78.0)
[2023-07-08 18:10] VITALS: O2SAT 91
== END 2023-07-08 18:20 | disposition home or self-care (01) ==
PROVIDERS: Physician Assistant; Emergency Provider Emergency Medicine; Visit Provider Emergency Medicine
DX: R07.89 Other chest pain (principal); E11.9 Type 2 diabetes mellitus without complications; R42 Dizziness and giddiness; I10 Essential (primary) hypertension; E78.00 Pure hypercholesterolemia, unspecified; K21.9 Gastro-esophageal reflux disease without esophagitis; Z90.49 Acquired absence of other specified parts of digestive tract; F17.290 Nicotine dependence, other tobacco product, uncomplicated
CPT/HCPCS: 71045; 80048; 84484; 85025; 93005; 99283; A4216

== ENCOUNTER → 2023-11-05 | Outpatient (CLI) | payer MEDICAID, SELFPAY ==
--- NOTE | 2023-11-05 11:10 | RAD_ITS ---
STUDY: X-RAY - CERVICAL SPINE REASON FOR EXAM: Male, 53 years old. CERVICALGIA TECHNIQUE: 5 view(s) of the cervical spine were obtained. COMPARISON: None FINDINGS: Normal anterior atlantoaxial articulation. Normal odontoid process. Normal cervical lordosis. Normal vertebral bodies and endplates. Focal disc space narrowing at C5/C6. There is multi-level osseous foraminal stenosis. The soft tissue structures are unremarkable. RAD/Cerv Spine 4 or 5 Views IMPRESSION: Degenerative disc disease particularly at C5/C6. MRI may be useful. Electronically Signed: Peyman Hernandez MD at 19:41 EDT ,
== END | disposition home or self-care (01) ==
LOC: RAD 10:40
PROVIDERS: Visit Provider Clinical Nurse Specialist Adult Health
DX: M54.2 Cervicalgia (principal)
CPT/HCPCS: 72050

== ENCOUNTER → 2024-01-11 | Outpatient (CLI) | payer MEDICAID, SELFPAY ==
[2024-01-11 11:07] LABS: Absolute Lymphocyte Count 2.24 X10^3/uL (0.83-4.51); Absolute Neutrophil Count 3.5 X10^3/uL (2.0-7.7); Basophil# 0.03 X10^3/uL; Basophil% 0.5 % (0-1); Eosinophil# 0.13 X10^3/uL; Hematocrit 41.9 % (40-54); Hemoglobin 13.9 g/dL (13.0-16.5); Lymphocyte # 2.24 X10^3/ul (0.83-4.51); Lymphocyte % 35.2 % (19-41); Mean Corp Hgb Conc 33.2 g/dL (32-36); Mean Corpuscular Hgb 32.9 pg (27.0-32.0); Mean Corpuscular Volume 99.1 fL (80-94); Mean Platelet Vol. 10.8 fl (6.2-12.0); Monocyte# 0.48 X10^3/uL; Monocyte% 7.5 % (0-10); NRBC Flagged by Analyzer 0 % (0-5); Neutrophil # 3.46 X10^3/uL (2.7-7.7); Neutrophil % 54.5 % (47-70); Platelet Count 155 K/mm3 (150-450); RBC Distribution Width CV 11.3 % (11.6-14.6); RBC Distribution Width SD 41.1 fl (35.1-43.9); Red Blood Count 4.23 M/mm3 (4.6-6.2); White Blood Count 6.4 K/mm3 (4.4-11.0)
[2024-01-11 11:46] LABS: Valproic Acid (Depakene) Level 33 ug/mL (50-100)
[2024-01-11 11:55] LABS: ALB/GLOB Ratio 1.2 RATIO (0.9-2.4); AST(SGOT) 18 U/L (15-37); Alanine Aminotransfer ALT/SGPT 28 U/L (16-61); Albumin, Serum 3.8 g/dL (3.2-5.0); Alkaline Phosphatase 61 U/L (45-117); Anion Gap 5 (5-15); BUN 15 mg/dL (7-18); Calcium,Total 8.5 mg/dL (8.5-10.1); Chloride 106 mmol/L (98-107); Cholesterol 147 mg/dL (200); Creatinine, Serum 0.88 mg/dL (0.70-1.30); EST Glomerular Filtration Rate 96 mL/min (>60); Est Glom Filt Rate - Afr Amer 116 mL/min (>60); Globulin 3.3 g/dL (2.2-4.2); Glucose 89 mg/dL (74-106); High Density Lipoprotein 48 mg/dL; Protein, Total 7.1 g/dL (6.4-8.2); Sodium Level 138 mmol/L (136-145); Thyroid Stim Hormone (TSH) 3.59 uIU/mL (0.358-3.74); Triglycerides 124 mg/dL; Very Low Density Lipoprotein 25 mg/dL (5-40)
== END | disposition home or self-care (01) ==
PROVIDERS: Referring Provider Nurse Practitioner Family; Visit Provider Nurse Practitioner Family
DX: E11.9 Type 2 diabetes mellitus without complications (principal); E78.2 Mixed hyperlipidemia
CPT/HCPCS: 36415; 80053; 80061; 80164; 82140; 84443; 85025

== ENCOUNTER → 2024-05-10 | Outpatient (CLI) | payer MEDICAID, SELFPAY ==
--- NOTE | 2024-05-10 13:40 | RAD_ITS ---
STUDY: X-RAY - PELVIS AND RIGHT HIP REASON FOR EXAM: Male, 54 years old. RIGHT HIP PAIN TECHNIQUE: 4 views of the pelvis and hip. COMPARISON: None. FINDINGS: There is a non-specific bowel gas pattern. Normal visualized soft tissue structures. Normal bilateral iliac wings, sacroiliac joints and visualized sacrum. Normal bilateral superior and inferior pubic rami. Normal pubic symphysis. Normal bilateral ischial tuberosities. Normal visualized femoral head. There is minimal osteoarthritic spur formation of the right acetabular rim. Intact right hip joint. There is no demonstrated acute fracture. RAD/HIP, UNI W/ Pelvis 2-3 Views IMPRESSION: Minimal degenerative arthrosis of the right hip joint. No demonstrated acute fracture. Electronically Signed: Vamsi Freedman MD at 16:08 EDT ,
--- OUTSIDE RECORDS SUMMARY | 2024-05-10 14:12 | XMS RPT_ITS | CCD ---
Author Organization [facility] Care Team Providers Care Program Instructor Name Role Phone Leader Sallie WALLACE (Historical) Unavailable Unavailable Leader Sallie WALLACE (Historical) Unavailable Unavailable Clinic, Ita James Primary Care Provider Un available Clinic, Ita James Primary Care Provider Un available Zonia Beck CNP Primary Care Provider [phone] YOMI MITCHELL Referring Unavailable Medications Current Medications Medication Drug Class(es) Dates Sig (Normalized) Sig (Original) acetaminophen 500 mg oral tablet (11 sources) Start: 05-14-2021 take 1 tablet by mouth every six hours as needed acetaminophen (TYLENOL EXTRA STRENGTH) 500 mg tablet Take 1 tablet by mouth every 6 hours as needed for pain. 20 tablet 05/14/2021 Active Comment on above: Take 1 tablet by omero th every 6 hours as needed for pain. baclofen 10 mg oral tablet (9 sources) gamma-Aminobutyric Acid-ergic Agonist Start: 10-08-2022 take 1 tablet by mouth once daily as needed baclofen (LIORESAL) 10 mg tablet Take 10 mg by mouth once daily as needed. 10/08/2022 Active Comment on above: Take 10 mg by mouth once daily as needed. benztropine mesylate 0.5 mg oral tablet (13 sources) Anticholinergic, Antihistamine Start: 12-02-2016 take 1 tablet by mouth twice daily benztropine (COGENTIN) 0.5 mg tablet Take 1 tablet by mouth twice daily. 0 12/02/2016 Active Comment on above: Take 1 tablet by omero th twice daily. lnhw-upo-fas-dominga-psyl -kelp-pec (FIBER 6) 1,000 mg tab (13 sources) Start: 12-02-2016 take 1 tablet by mouth once daily bpmb-bxi-noi-dominga-p qzo-xpdr-axi (FIBER 6) 1,000 mg tab Take 1 tablet by mouth once daily. 0 12/02/2016 Active Comment on above: Take 1 tablet by omero th once daily. cholecalciferol 0.125 mg oral capsule (13 sources) Vitamin D Start: 06-18-2020 Cholecalciferol, Vitamin D3, 125 mcg (5,000 unit) cap 06/18/2020 Active gabapentin 300 mg oral capsule (13 sources) Anti-epileptic Agent Start: 05-24-2020 take 1 capsule by mouth in the morning, then take 2 capsules by mouth in the evening gabapentin (NEURONTIN) 300 mg capsule TAKE 1 CAPSULE BY MOUTH IN THE MORNING, TAKE 2 CAPSULES IN THE EVENING 05/24/2020 Active Comment on above: TAKE 1 CAPSULE BY MO UT IN THE MORNING, TAKE 2 CAPSULES IN THE EVENING glipiZIDE 5 mg oral tablet (11 sources) Sulfonylurea Start: 07-30-2021 take 1 tablet by mouth once daily glipiZIDE (GLUCOTROL) 5 mg tablet Take 5 mg by mouth once daily. 07/30/2021 Active Comment on above: Take 5 mg by mouth o nce daily. losartan potassium 50 mg oral tablet (11 sources) Angiotensin 2 Receptor Joy Start: 07-30-2021 losartan (COZAAR) 50 mg tablet Take 25 mg by mouth once daily. 07/30/2021 Active Start: 07-30-2021 take 1 tablet by omero once daily losartan (COZAAR) 50 mg tablet Take 50 mg by mouth once daily. 0 07/30/2021 Active Comment on above: Take 50 mg by mouth once daily. meclizine hydrochloride 12.5 mg oral tablet (2 sources) Antiemetic Start: 04-25-20 24 take 1 tablet by mouth twice daily as needed for dizziness meclizine (ANTIVERT) 12.5 mg tab TAKE 1 TABLET BY MOUTH TWICE DAILY NEEDED FOR DIZZINESS/ VERTIGO SYMPTOMS 04/25/2024 Active meloxicam 15 mg oral tablet (2 sources) Nonsteroidal Anti-inflammatory Drug Start: 05-03-20 24 take 1 tablet by mouth once meloxicam (MOBIC) 15 mg tablet Take 1 tablet by mouth every afternoon. 05/03/2024 Active omeprazole 20 mg delayed release oral tablet (6 sources) Proton Pump Inhibitor Start: 05-24-20 17 take 40 mg by mouth once daily Omeprazole 20 mg TbEC Take 40 mg by mouth once daily. 05/24/2017 Active Start: 02-26-2017 End: 11-04-2021 take 1 capsule by mouth once daily before breakfast omeprazole (PRILOSEC) 20 mg capsule Take 1 capsule by mouth daily before breakfast. 1/2 hr before meal. 30 capsule 1 02/26/2017 11/04/2021 Discontinued (Discontinued by Patient) predniSONE 10 mg oral tablet (5 sources) Start: 04-27-2024 End: 05-02-2024 take 4 tablets by mouth once daily predniSONE (DELTASONE) 10 mg tablet Take 4 tablets by mouth once daily for 5 days. 20 tablet 04/27/2024 05/02/2024 Active Start: 01-14-2024 End: 01-19-2024 take 2 tablets by mouth once daily at mealtime predniSONE (DELTASONE) 20 mg tablet Take 2 tablets by mouth once daily for 5 days. Take daily with food. 10 tablet 0 01/14/2024 01/19/2024 Active Start: 10-01-2023 End: 10-10-2023 predniSONE (DELTASONE) 10 mg tablet Indications: Chronic midline low back pain without sciatica Take 4 tabs daily for 3 days, then 2 tabs daily for 3 days, then 1 tab daily for 3 days with food. 21 tablet 0 10/01/2023 10/10/2023 Active Start: 06-26-2023 End: 07-01-2023 take 4 tablets by mouth once daily predniSONE (DELTASONE) 10 mg tablet Take 4 tablets by mouth once daily for 5 days. 20 tablet 0 06/26/2023 07/01/2023 Active Start: 01-28-2023 End: 2023 predniSONE (DELTASONE) 10 mg tablet Indications: Acute midline low back pain without sciatica Take 4 tabs daily for 3 days, then 2 tabs daily for 3 days, then 1 tab daily for 3 days with food. 21 tablet 0 01/28/2023 2023 Active Comment on above: Take 4 tabs daily fo r 3 days, then 2 tabs daily for 3 days, then 1 tab daily for 3 days with food. Take 4 tablets by mo ut once daily for 5 days. rosuvastatin calcium 5 mg oral tablet (13 sources) HMG-CoA Reductase Inhibitor Start: 0 take 1 tablet by mouth once daily at bedtime rosuvastatin (CRESTOR) 5 mg tablet Take 5 mg by mouth daily at bedtime. 06/17/2020 Active Comment on above: Take 5 mg by mouth d aily at bedtime. SUMAtriptan 50 mg oral tablet (13 sources) Serotonin-1b and Serotonin-1d Receptor Agonist Start: 0 take 1 tablet by mouth once daily as needed, then take 1 tablet by mouth every hour as needed SUMAtriptan (IMITREX) 50 mg tablet take 1 tablet by mouth every day as needed, repeat dose in one hour if headache persist 06/05/2020 Active Comment on above: take 1 tablet by omero th every day as needed, repeat dose in one hour if headache persist therapeutic multivitamin (THERA VITAMIN) tablet (13 sources) Start: 7 take 1 tablet by mouth once daily therapeutic multivitamin (THERA VITAMIN) tablet Take 1 tablet by mouth once daily. 0 12/02/2016 Active Comment on above: Take 1 tablet by omero th once daily. divalproex sodium 500 mg delayed release oral tablet (13 sources) Mood Stabilizer, Anti-epileptic Agent Start: 7 take 1 tablet by mouth once daily divalproex DR (DEPAKOTE) 500 mg EC tablet Take 1 tablet by mouth once daily. 0 12/02/2016 Active Comment on above: Take 1 tablet by omero th once daily. Completed/Discontinued Medications Medication Drug Class(es) Dates Sig (Normalized) Sig (Original) cetirizine hydrochloride 10 mg oral tablet (2 sources) Histamine-1 Receptor Antagonist Start: 06-02-2020 End: 11-04-2021 take 1 tablet by mouth once daily cetirizine (ZYRTEC) 10 mg tablet Take 10 mg by mouth once daily. 06/02/2020 11/04/2021 Discontinued (Discontinued by Patient) cyclobenzaprine hydrochloride 10 mg oral tablet (13 sources) Muscle Relaxant Start: 06-01-2017 End: 03-20-2021 take 1 tablet by mouth at bedtime as needed for muscle spasms cyclobenzaprine (FLEXERIL) 10 mg tablet TAKE 1 TABLET BY MOUTH AT BEDTIME NEEDED FOR MUSCLE SPASMS 30 tablet 2 06/01/2017 03/20/2021 Discontinued (Discontinued by Patient) Comment on above: Take by mouth three times daily. ferrous sulfate 325 mg oral tablet (12 sources) Start: 12-02-2016 End: 12-28-2020 take 1 tablet by mouth twice daily at mealtime ferrous sulfate 325 mg (65 mg iron) tablet Take 1 tablet by mouth twice daily with meals. 0 12/02/2016 12/28/2020 Discontinued (Course of therapy completed) ferrous sulfate (IRON ORAL) Take by mouth. Active ferrous sulfate (IRON ORAL) Take by mouth. 0 Active Comment on above: Take by mouth. ibuprofen 800 mg oral tablet (1 source) Nonsteroidal Anti-inflammatory Drug Start: 7 End: 1 take 1 tablet by mouth every eight hours as needed ibuprofen (MOTRIN) 800 mg tablet Take 1 tablet by mouth every 8 hours as needed for Pain. Take with food. 90 tablet 1 02/26/2017 12/28/2020 Discontinued (Course of therapy completed) lisinopril 20 mg oral tablet (1 source) Angiotensin Converting Enzyme Inhibitor Start: 1 End: 2 take 1 tablet by mouth twice daily lisinopril (ZESTRIL, PRINIVIL) 20 mg tablet Take 20 mg by mouth twice daily. 12/12/2020 08/13/2021 Discontinued naproxen 500 mg oral tablet (2 sources) Nonsteroidal Anti-inflammatory Drug Start: 7 End: 1 take 1 tablet by mouth every twelve hours as needed naproxen (NAPROSYN) 500 mg tablet Take 500 mg by mouth twice daily as needed. 0 02/18/2017 03/20/2021 Discontinued risperiDONE 0.5 mg oral tablet (12 sources) Atypical Antipsychotic Start: 7 End: 1 take 1 tablet by mouth twice daily risperiDONE (RISPERDAL) 0.5 mg tablet Take 1 tablet by mouth twice daily. 0 12/02/2016 12/28/2020 Discontinued (Discontinued by another Health Care Provider) take 1 tablet by mouth twice carlotta ly risperiDONE (RISPERDAL) 1 mg tablet Take 1 mg by mouth twice daily. Active Comment on above: Take 1 mg by mouth t wice daily. sucralfate 1000 mg oral tablet (1 source) Aluminum Complex Start: 05-04-2017 End: 12-28-2020 take 1 tablet by mouth three times daily sucralfate (CARAFATE) 1 gram tablet TAKE 1 TABLET BY MOUTH THREE TIMES DAILY 90 tablet 1 05/04/2017 12/28/2020 Discontinued (Course of therapy completed) Problems Problem Classification Problem Date Documented Date Episodic/Chronic Anxiety disorders (13 sources) Posttraumatic stress disorder; Translations: [Post-traumatic stress disorder, unspecified] 02-26-2017 Chronic Esophageal disorders (13 sources) Gastroesophageal reflux disease; Translations: [Gastro-esophageal reflux disease without esophagitis] 02-26-2017 Chronic Other lower respiratory disease (1 source) Cough; Translations: [Cough] Episodic Other non-traumatic joint disorders (2 sources) Acute ankle pain; Translations: [Pain in right ankle and joints of right foot] Episodic Other non-traumatic joint disorders (1 source) Pain in right knee; Translations: [Pain in joint, lower leg] 06-21-2020 Episodic Schizophrenia and other psychotic disorders (13 sources) Schizophrenia; Translations: [Schizophrenia, unspecified] 02-26-2017 Chronic Spondylosis; intervertebral disc disorders; other back problems (20 sources) Chronic back pain ; Translations: [Dorsalgia, unspecified] 02-26-2017 Episodic Unclassified (1 source) Lumbar pain; Translations: [Lumbar pain] Onset: 05-05-2024 Results Test Name Value Interpretation Reference Range Facility [facility] 05-05-2024 [facility] Office Visit (UCWSTR ) CHAVA LESTER ([id number]) 1970 M Date Time Provider Department 05/05/24 11:45 AM YOMI MITCHELL [facility] During your visit today, we recorded the following information about you: Temperature Pulse Respiration Blood pressure 97.5 degrees 86/minute 18/minute 150/77 Weight 133.6 kg Yomi Mitchell APRN.CNP 05/05/2024 2:46 PM Signed This note was created using NoteWriter. Subjective Chava Lester is a 54 year old male. Relevant PMH and allergies reviewed: spinal stenosis Pt is a 54 year old male who is presenting today with lower back pain x1 day. Pt was here 04/27 and was given prednisone pt states the prednisone worked and his pain improved until this morning. Pt states his pain returned this morning and it is now going down his right thigh and across both sides of his back. He took naproxen to try to help with his symptoms without any significant relief. Pt states his PCP gave him some medication to help with his back pain but he can't take it during the day because it make him drowsy. Pt states he is having difficulty with ambulation because of his back pain. Denies any numbness and tingling, incontinence, unilateral weakness, inability to ambulate, fever, chills, nausea, vomiting. The history is provided by the patient. No school speech language pathologist was used. Back Pain This is a chronic problem. The current episode started yesterday. The problem occurs constantly. The problem has been gradually worsening. The pain is associated with no known injury. The pain is present in the lumbar spine. The quality of the pain is described as aching and shooting. The pain radiates to the right thigh. The pain is moderate. The symptoms are aggravated by certain positions. The pain is The same all the time. Associated symptoms include headaches. Pertinent negatives include no chest pain, no fever, no numbness, no abdominal pain, no bowel incontinence, no bladder incontinence, no pelvic pain, no tingling and no weakness. He has tried NSAIDs for the symptoms. The treatment provided no relief. Risk factors include a history of steroid use. PAST MEDICAL HISTORY Diagnosis Date Chronic back pain GERD (gastroesophageal reflux disease) Obesity (BMI 35.0-39.9 without comorbidity) PTSD (post-traumatic stress disorder) Schizophrenia (HCC) PAST SURGICAL HISTORY Procedure Laterality Date ANKLE LEFT OP SURGERY LAPAROSCOPIC APPENDECTOMY 12/10/2020 ALLERGIES Patient has no known allergies. MEDICATIONS meloxicam (MOBIC) 15 mg tablet Take 1 tablet by mouth every afternoon. meclizine (ANTIVERT) 12.5 mg tab TAKE 1 TABLET BY MOUTH TWICE DAILY NEEDED FOR DIZZINESS/ VERTIGO SYMPTOMS Omeprazole 20 mg TbEC Take 40 mg by mouth once daily. baclofen (LIORESAL) 10 mg tablet Take 10 mg by mouth once daily as needed. losartan (COZAAR) 50 mg tablet Take 25 mg by mouth once daily. glipiZIDE (GLUCOTROL) 5 mg tablet Take 5 mg by mouth once daily. acetaminophen (TYLENOL EXTRA STRENGTH) 500 mg tablet Take 1 tablet by mouth every 6 hours as needed for pain. risperiDONE (RISPERDAL) 1 mg tablet Take 1 mg by mouth twice daily. ferrous sulfate (IRON ORAL) Take by mouth. rosuvastatin (CRESTOR) 5 mg tablet Take 5 mg by mouth daily at bedtime. SUMAtriptan (IMITREX) 50 mg tablet take 1 tablet by mouth every day as needed, repeat dose in one hour if headache persist Cholecalciferol, Vitamin D3, 125 mcg (5,000 unit) cap benztropine (COGENTIN) 0.5 mg tablet Take 1 tablet by mouth twice daily. divalproex DR (DEPAKOTE) 500 mg EC tablet Take 1 tablet by mouth once daily. (Patient taking differently: Take 500 mg by mouth two times a day.) therapeutic multivitamin (THERA VITAMIN) tablet Take 1 tablet by mouth once daily. cyclobenzaprine (FLEXERIL) 10 mg tablet Take by mouth three times daily. (Patient not taking: Reported on 01/28/2023) gabapentin (NEURONTIN) 300 mg capsule TAKE 1 CAPSULE BY MOUTH IN THE MORNING, TAKE 2 CAPSULES IN THE EVENING (Patient not taking: Reported on 01/28/2023) rhne-zlt-nqq-dominga-psyl -kelp-pec (FIBER 6) 1,000 mg tab Take 1 tablet by mouth once daily. (Patient not taking: Reported on 01/14/2024) FAMILY HISTORY Problem Relation Age of Onset Cancer Mother Heart Father Social History Tobacco Use Smoking status: Every Day Current packs/day: 0.50 Types: Cigars, Cigarettes Smokeless tobacco: Never Vaping Use Vaping status: Never Used Substance Use Topics Alcohol use: No Drug use: No Review of Systems Constitutional: Positive for activity change. Negative for appetite change, chills, fatigue and fever. HENT: Negative for congestion, ear discharge, ear pain, sinus pressure, sinus pain and sore throat. Eyes: Negative for pain, discharge and itching. Respiratory: Negative for cough, chest tightness and shortness of breath. Cardiovascular: Negative for chest pain and (more content not included)... Normal [facility] XR LUMBAR 3V AP/LAT/L5-S1on 05-05-2024 XR LUMBAR 3V AP/LAT/L5-S1 * * *Final Report* * * DATE OF EXAM: May 05 2024 12:30PM [id number] - XR LUMBAR 3V AP/LAT/L5-S1 / PROCEDURE REASON: Lumbar pain * * * * Physician Interpretation * * * * EXAM TITLE: XR LUMBAR 3V AP/LAT/L5-S1 EXAM DATE/TIME: 05/05/2024 12:30 PM COMPARISON: X-ray lumbar spine on 12/28/2020 CLINICAL INDICATION/HISTORY: Low back pain TECHNIQUE: AP, lateral and cone down lateral views of the lumbar spine are presented. FINDINGS: There are five pqh-dwl-nvpraqc lumbar vertebrae. No acute fracture seen. There is grade 1 L2 on L3 retrolisthesis. There is probably L1-2 and L2-3 mild disc space narrowing. Mild osteophyte formation is noted.. Kissing spine seen on lateral view. IMPRESSION: Lumbar spine degenerative changes as described above.. Act Tutor: [facility] Transcribe Date/Time: May 05 2024 12:34P Dictated by : NADJA BARAHONA MD This examination was interpreted and the report reviewed and electronically signed by: NADJA BARAHONA MD on May 05 2024 12:53PM EST [id number] Normal [facility] XR Lumbar spine 3 Viewson IMPRESSION: Lumbar spine degenerative changes as described above.. Act Tutor: [facility] Transcribe Date/Time: May 05 2024 12:34P Dictated by : NADJA BARAHONA MD This examination was interpreted and the report reviewed and electronically signed by: NADJA BARAHONA MD on May 05 2024 12:53PM EST DIVISION OF RADIOLOGY * * *Final Report* * * DATE OF EXAM: May 05 2024 12:30PM [id number] - XR LUMBAR 3V AP/LAT/L5-S1 / PROCEDURE REASON: Lumbar pain * * * * Physician Interpretation * * * * EXAM TITLE: XR LUMBAR 3V AP/LAT/L5-S1 EXAM DATE/TIME: 05/05/2024 12:30 PM COMPARISON: X-ray lumbar spine on 12/28/2020 CLINICAL INDICATION/HISTORY: Low back pain TECHNIQUE: AP, lateral and cone down lateral views of the lumbar spine are presented. FINDINGS: There are five gxl-cyh-xbbmcfy lumbar vertebrae. No acute fracture seen. There is grade 1 L2 on L3 retrolisthesis. There is probably L1-2 and L2-3 mild disc space narrowing. Mild osteophyte formation is noted.. Kissing spine seen on lateral view. DIVISION OF RADIOLOGY Provider, Tristen Ramos - 05/05/2024 * * *Final Report* * * DATE OF EXAM: May 05 2024 12:30PM [id number] - XR LUMBAR 3V AP/LAT/L5-S1 / PROCEDURE REASON: Lumbar pain * * * * Physician Interpretation * * * * EXAM TITLE: XR LUMBAR 3V AP/LAT/L5-S1 EXAM DATE/TIME: 05/05/2024 12:30 PM COMPARISON: X-ray lumbar spine on 12/28/2020 CLINICAL INDICATION/HISTORY: Low back pain TECHNIQUE: AP, lateral and cone down lateral views of the lumbar spine are presented. FINDINGS: There are five gqi-qjx-zskkonm lumbar vertebrae. No acute fracture seen. There is grade 1 L2 on L3 retrolisthesis. There is probably L1-2 and L2-3 mild disc space narrowing. Mild osteophyte formation is noted.. Kissing spine seen on lateral view. IMPRESSION IMPRESSION: Lumbar spine degenerative changes as described above.. Act Tutor: MINERV[facility] Transcribe Date/Time: May 05 2024 12:34P Dictated by : NADJA BARAHONA MD This examination was interpreted and the report reviewed and electronically signed by: NADJA BARAHONA MD on May 05 2024 12:53PM [facility] Radiology Study observation (narrative) [facility] XR Lumbar spine 3 ViewsOrder ed By: [facility] Provider on 05-05-2024 [facility] CNOVon 04-27-2024 CNOV Office Visit (UCWSTR ) CHAVA LESTER ([id number]) 1970 M Date Time Provider Department 04/27/24 7:00 PM NATIVIDADBLAINEKAYA WSTR During your visit today, we recorded the following information about you: Temperature Pulse Respiration Blood pressure 97.7 degrees 80/minute 20/minute 148/78 Weight 133.7 kg Kaya Guerrier APRN.SPEECH ASSISTANT 04/27/2024 7:19 PM Signed Subjective HPI Nontoxic-appearing male presents urgent care chief complaint of right sided back pain. Duration of symptoms today. Associated symptoms right sided back pain radiating into his hip. History of lower back pain with stenosis this is similar. Has used Tylenol this is helped some. No trauma. No night sweats. No weakness in the legs. No numbness or tingling. No saddle anesthesia. No incontinence. Rates pain as 6-8 out of 10 sharp pain. It is worse with movements. Improved by rest. Past medical history prescription medications allergies reviewed. .Patient presents with: Back Pain: Right side hip to knee pain started today PAST MEDICAL HISTORY Diagnosis Date Chronic back pain GERD (gastroesophageal reflux disease) Obesity (BMI 35.0-39.9 without comorbidity) PTSD (post-traumatic stress disorder) Schizophrenia (HCC) PAST SURGICAL HISTORY Procedure Laterality Date ANKLE LEFT OP SURGERY LAPAROSCOPIC APPENDECTOMY 12/10/2020 ALLERGIES Patient has no known allergies. MEDICATIONS Omeprazole 20 mg TbEC Take 40 mg by mouth once daily. baclofen (LIORESAL) 10 mg tablet Take 10 mg by mouth once daily as needed. losartan (COZAAR) 50 mg tablet Take 25 mg by mouth once daily. glipiZIDE (GLUCOTROL) 5 mg tablet Take 5 mg by mouth once daily. acetaminophen (TYLENOL EXTRA STRENGTH) 500 mg tablet Take 1 tablet by mouth every 6 hours as needed for pain. risperiDONE (RISPERDAL) 1 mg tablet Take 1 mg by mouth twice daily. ferrous sulfate (IRON ORAL) Take by mouth. rosuvastatin (CRESTOR) 5 mg tablet Take 5 mg by mouth daily at bedtime. SUMAtriptan (IMITREX) 50 mg tablet take 1 tablet by mouth every day as needed, repeat dose in one hour if headache persist Cholecalciferol, Vitamin D3, 125 mcg (5,000 unit) cap benztropine (COGENTIN) 0.5 mg tablet Take 1 tablet by mouth twice daily. divalproex DR (DEPAKOTE) 500 mg EC tablet Take 1 tablet by mouth once daily. (Patient taking differently: Take 500 mg by mouth two times a day.) therapeutic multivitamin (THERA VITAMIN) tablet Take 1 tablet by mouth once daily. cyclobenzaprine (FLEXERIL) 10 mg tablet Take by mouth three times daily. (Patient not taking: Reported on 01/28/2023) gabapentin (NEURONTIN) 300 mg capsule TAKE 1 CAPSULE BY MOUTH IN THE MORNING, TAKE 2 CAPSULES IN THE EVENING (Patient not taking: Reported on 01/28/2023) nvgp-gbf-gsz-dominga-psyl -kelp-pec (FIBER 6) 1,000 mg tab Take 1 tablet by mouth once daily. (Patient not taking: Reported on 01/14/2024) FAMILY HISTORY Problem Relation Age of Onset Cancer Mother Heart Father Social History Tobacco Use Smoking status: Every Day Current packs/day: 0.50 Types: Cigars, Cigarettes Smokeless tobacco: Never Vaping Use Vaping status: Never Used Substance Use Topics Alcohol use: No Drug use: No BP 148/78 Pulse 80 Temp 36.5 ?C (97.7 ?F) Resp 20 Wt 133.7 kg (294 lb 12.1 oz) SpO2 96% BMI 39.98 kg/m? Review of Systems Constitutional: Negative for chills, fever and malaise/fatigue. Respiratory: Negative for cough and shortness of breath. Cardiovascular: Negative for chest pain and palpitations. Genitourinary: Negative. Musculoskeletal: Positive for back pain. Negative for falls, joint pain, myalgias and neck pain. Neurological: Negative for dizziness, loss of consciousness, weakness and headaches. Objective Physical Exam Constitutional: General: He is not in acute distress. Appearance: He is not toxic-appearing. HENT: Head: Normocephalic. Nose: Nose normal. Eyes: Pupils: Pupils are equal, round, and reactive to light. Cardiovascular: Rate and Rhythm: Normal rate. Pulmonary: Effort: Pulmonary effort is normal. No respiratory distress. Musculoskeletal: Cervical back: Normal range of motion. Thoracic back: No tenderness or bony tenderness. Normal range of motion. Lumbar back: Tenderness present. No swelling, edema, signs of trauma or bony tenderness. Decreased range of motion. Negative right straight leg raise test and negative left straight leg raise test. Back: Comments: Tenderness to palpation the highlighted area. No spinal tenderness. Able to walk on heels. Negative straight leg test. No erythema edema noted. Pain reproducible with movements. Skin: General: Skin is warm and dry. Neurological: General: No focal deficit present. Mental Status: He is alert. ASSESSMENT/PLAN: 1. Lumbar pain - ICD9: 724.2, ICD10: M54.50 Diagnosed with lower lumbar pain. No red flag symp (more content not included)... Normal [facility] CNOVon 01-14-2024 CNOV Office Visit (WSTR ) CHAVA LESTER ([id number]) 1970 M Date Time Provider Department 01/14/24 12:15 PM MELANIA CARDENAS [facility] During your visit today, we recorded the following information about you: Temperature Pulse Respiration Blood pressure 97.3 degrees 88/minute 18/minute 144/85 Weight 128 kg Melania Cardenas PA 01/14/2024 12:24 PM Signed Take prednisone 2 tabs daily for 5 days as prescribed. Do not take Aleve, Motrin, ibuprofen or other NSAIDs while taking this medication. You may take Tylenol with it. Ice the back 3 times daily for no more than 20 minutes at a time. Follow-up with PCP next week if symptoms are not improved. Go to the ER if you develop new/worsening or severe pain, fever, inability to ambulate, numbness of the legs, numbness in the groin/buttocks region, loss of bowel or bladder function, inability to urinate. Melania Cardenas PA 01/14/2024 12:27 PM Signed This note was created using NoteWriter. Subjective Chava Lester is a 53 year old male. HPI 53-year-old male presents for low back pain. Patient states that he has history of spinal stenosis. He states that this morning when he got up he was having mid low back pain. He sees a specialist wound care and has injections intermittently. States he has not had a low back injection for several months. He states that usually when he has these flareups prednisone helps some with the pain. He is already prescribed baclofen. Patient denies any fevers. No loss of bowel or bladder function. No pain radiating into the legs. No numbness or tingling in the legs. No saddle anesthesia. He denies any fall or injury. No other complaint. PAST MEDICAL HISTORY Diagnosis Date Chronic back pain GERD (gastroesophageal reflux disease) Obesity (BMI 35.0-39.9 without comorbidity) PTSD (post-traumatic stress disorder) Schizophrenia (HCC) PAST SURGICAL HISTORY Procedure Laterality Date ANKLE LEFT OP SURGERY LAPAROSCOPIC APPENDECTOMY 12/10/2020 ALLERGIES Patient has no known allergies. MEDICATIONS Omeprazole 20 mg TbEC Take 40 mg by mouth once daily. baclofen (LIORESAL) 10 mg tablet Take 10 mg by mouth once daily as needed. losartan (COZAAR) 50 mg tablet Take 25 mg by mouth once daily. glipiZIDE (GLUCOTROL) 5 mg tablet Take 5 mg by mouth once daily. acetaminophen (TYLENOL EXTRA STRENGTH) 500 mg tablet Take 1 tablet by mouth every 6 hours as needed for pain. risperiDONE (RISPERDAL) 1 mg tablet Take 1 mg by mouth twice daily. ferrous sulfate (IRON ORAL) Take by mouth. rosuvastatin (CRESTOR) 5 mg tablet Take 5 mg by mouth daily at bedtime. SUMAtriptan (IMITREX) 50 mg tablet take 1 tablet by mouth every day as needed, repeat dose in one hour if headache persist Cholecalciferol, Vitamin D3, 125 mcg (5,000 unit) cap benztropine (COGENTIN) 0.5 mg tablet Take 1 tablet by mouth twice daily. therapeutic multivitamin (THERA VITAMIN) tablet Take 1 tablet by mouth once daily. predniSONE (DELTASONE) 20 mg tablet Take 2 tablets by mouth once daily for 5 days. Take daily with food. cyclobenzaprine (FLEXERIL) 10 mg tablet Take by mouth three times daily. (Patient not taking: Reported on 01/28/2023) gabapentin (NEURONTIN) 300 mg capsule TAKE 1 CAPSULE BY MOUTH IN THE MORNING, TAKE 2 CAPSULES IN THE EVENING (Patient not taking: Reported on 01/28/2023) divalproex DR (DEPAKOTE) 500 mg EC tablet Take 1 tablet by mouth once daily. (Patient taking differently: Take 500 mg by mouth two times a day.) ojpi-jxg-zjn-dominga-psyl -kelp-pec (FIBER 6) 1,000 mg tab Take 1 tablet by mouth once daily. (Patient not taking: Reported on 01/14/2024) FAMILY HISTORY Problem Relation Age of Onset Cancer Mother Heart Father Social History Tobacco Use Smoking status: Every Day Packs/day: .5 Types: Cigars, Cigarettes Smokeless tobacco: Never Vaping Use Vaping Use: Never used Substance Use Topics Alcohol use: No Drug use: No Review of Systems Constitutional: Negative for chills and fever. HENT: Negative for congestion and sore throat. Respiratory: Negative for cough and shortness of breath. Gastrointestinal: Negative for diarrhea and vomiting. Musculoskeletal: Positive for back pain. Objective BP 144/85 Pulse 88 Temp 36.3 ?C (97.3 ?F) Resp 18 Wt 128 kg (282 lb 3 oz) SpO2 95% BMI 38.27 kg/m? Physical Exam Vitals and nursing note reviewed. Constitutional: General: He is not in acute distress. Appearance: Normal appearance. He is not toxic-appearing. HENT: Nose: Nose normal. Mouth/Throat: Mouth: Mucous membranes are moist. Eyes: Conjunctiva/sclera: Conjunctivae normal. Cardiovascular: Rate and Rhythm: Normal rate and regular rhythm. Pulmonary: Effort: Pulmonary effort is normal. Breath sounds: Normal breath sounds. Musculoskeletal: Lumbar back: No bony tenderness. Decreased range of motion. Negative (more content not included)... Normal [facility] CNOVon 10-01-2023 CNOV Office Visit (UCTR ) CHAVA LESTER ([id number]) 1970 M Date Time Provider Department 10/01/23 12:15 PM JESSICA GARZA [facility] During your visit today, we recorded the following information about you: Temperature Pulse Respiration Blood pressure 97.6 degrees 79/minute 20/minute 138/75 Weight 124 kg Jessica Garza APRN.CNP 10/01/2023 12:41 PM Signed This note was created using Paper.liriter. Subjective Chava Lester is a 53 year old male. Patient believes he aggrevated his back last night at work. Reports when he woke up this morning he could barely get out of bed due to pain. Patient has history of spinal stenosis. Sees spine doctor next month. Denies saddle paresthesia or urinary problems. Reports he has had similar symptoms before and feels the same. Symptoms have been relieved previously by steroids. Back Pain Pertinent negatives include no numbness and no weakness. Review of Systems Musculoskeletal: Positive for back pain. Neurological: Negative for weakness and numbness. Objective BP 138/75 Pulse 79 Temp 36.4 ?C (97.6 ?F) Resp 20 Wt 124 kg (273 lb 5.9 oz) SpO2 95% BMI 37.08 kg/m? Physical Exam Musculoskeletal: Lumbar back: No deformity or signs of trauma. Decreased range of motion. Back: Comments: Patient denies increased pain with palpation, reports pain is worse with movement. Denies pain radiates down his legs.Denies weakness or paresthesias. PAST MEDICAL HISTORY Diagnosis Date Chronic back pain GERD (gastroesophageal reflux disease) Obesity (BMI 35.0-39.9 without comorbidity) PTSD (post-traumatic stress disorder) Schizophrenia (HCC) PAST SURGICAL HISTORY Procedure Laterality Date ANKLE LEFT OP SURGERY LAPAROSCOPIC APPENDECTOMY 12/10/2020 ALLERGIES Patient has no known allergies. MEDICATIONS baclofen (LIORESAL) 10 mg tablet Take 10 mg by mouth once daily as needed. losartan (COZAAR) 50 mg tablet Take 50 mg by mouth once daily. glipiZIDE (GLUCOTROL) 5 mg tablet Take 5 mg by mouth once daily. acetaminophen (TYLENOL EXTRA STRENGTH) 500 mg tablet Take 1 tablet by mouth every 6 hours as needed for pain. risperiDONE (RISPERDAL) 1 mg tablet Take 1 mg by mouth twice daily. ferrous sulfate (IRON ORAL) Take by mouth. SUMAtriptan (IMITREX) 50 mg tablet take 1 tablet by mouth every day as needed, repeat dose in one hour if headache persist Cholecalciferol, Vitamin D3, 125 mcg (5,000 unit) cap benztropine (COGENTIN) 0.5 mg tablet Take 1 tablet by mouth twice daily. divalproex DR (DEPAKOTE) 500 mg EC tablet Take 1 tablet by mouth once daily. (Patient taking differently: Take 500 mg by mouth two times a day.) therapeutic multivitamin (THERA VITAMIN) tablet Take 1 tablet by mouth once daily. homo-emg-mng-dominga-psyl -kelp-pec (FIBER 6) 1,000 mg tab Take 1 tablet by mouth once daily. predniSONE (DELTASONE) 10 mg tablet Take 4 tabs daily for 3 days, then 2 tabs daily for 3 days, then 1 tab daily for 3 days with food. cyclobenzaprine (FLEXERIL) 10 mg tablet Take by mouth three times daily. (Patient not taking: Reported on 01/28/2023) rosuvastatin (CRESTOR) 5 mg tablet Take 5 mg by mouth daily at bedtime. gabapentin (NEURONTIN) 300 mg capsule TAKE 1 CAPSULE BY MOUTH IN THE MORNING, TAKE 2 CAPSULES IN THE EVENING (Patient not taking: Reported on 01/28/2023) FAMILY HISTORY Problem Relation Age of Onset Cancer Mother Heart Father Social History Tobacco Use Smoking status: Every Day Packs/day: .5 Types: Cigars, Cigarettes Smokeless tobacco: Never Vaping Use Vaping Use: Never used Substance Use Topics Alcohol use: No Drug use: No ASSESSMENT/PLAN: 1. Chronic midline low back pain without sciatica - ICD9: 724.2, 338.29, ICD10: M54.50, G89.29 - Instructed on use of prednisone taper - Keep follow up appointment with specialist wound care - PREDNISONE 10 MG TABLET Prescription instructions reviewed with patient. Potential red flag symptoms discussed with the patient. Reviewed appropriate action plan to take if red flag symptoms occur. Patient agreeable to treatment plan. Flory Jones Supervising provider was present and guided the care of the patient for the entire session on this date. All documentation was reviewed and agreed upon. Jessica Garza APRN.SPEECH ASSISTANT Allergies As of Date: 10/01/2023 (No Known Allergies) Date Reviewed: 10/01/2023 Reviewed by: Claudette Pastor LPN - Fully Assessed Reason for Visit: Back Pain [12] Cmt: Lower back increased today Primary Visit Diagnosis:Chronic midline low back pain without sciatica [M54.50, G89.29] Order(s):predniSONE (DELTASONE) 10 mg tabletTake 4 tabs daily for 3 days, then 2 tabs daily for 3 days, then 1 tab daily for 3 days with food.Disp: 21 tabletRfl: 0 Prescriptions as of 10/01/2023 - predniSONE (DELTASONE) 10 mg tablet Take 4 tabs daily for 3 days, then 2 tabs daily for 3 (more content not included)... Normal [facility] Basic metabolic 2000 panelon 07-08-2023 Anion gap [Moles/Vol] 12 mmol/L Normal 9-18 [facility] Comment on above: Order Comment: Speci men Type: BLOOD SPECIMEN Ordering Facility: [facility] Address: [address] [place] [address], [place] [address] Performed By: #### 2 4321-2 #### [facility] CLIA [id number] [address] [place] [address] [place] Calcium [Mass/Vol] 9.5 mg/dL Normal 8.5-10.2 [facility] Comment on above: Order Comment: Speci men Type: BLOOD SPECIMEN Ordering Facility: [facility] Address: [address] [place] [address], [place] [address] Performed By: #### 2 4321-2 #### [facility] CLIA [id number] [address] [place] [address] [place] Chloride [Moles/Vol] 104 mmol/L Normal 97-105 [facility] Comment on above: Order Comment: Speci men Type: BLOOD SPECIMEN Ordering Facility: [facility] Address: [address] [place] [address], [place] [id number] Performed By: #### 2 4321-2 #### [facility] CLIA [id number] [address] [place] [address] [place] CO2 [Moles/Vol] 23 mmol/L Normal 22-30 [facility] Comment on above: Order Comment: Speci men Type: BLOOD SPECIMEN Ordering Facility: [facility] Address: [address] [place] [address], [place] [id number] Performed By: #### 2 4321-2 #### [facility] CLIA [id number] [address] [place] [address] [place] [facility] Creatinine [Mass/Vol] 0.97 mg/dL Normal 0.73-1.22 [facility] Comment on above: Order Comment: Speckandi men Type: BLOOD SPECIMEN Ordering Facility: [facility] Address: [address] [place] [address], [place] [id number] Performed By: #### 2 4321-2 #### [facility] CLIA [id number] [address] [place] [address] [place] Creatinine and Glomerular filtration rate.predicted panel (S/P/Bld) 94 mL/min/1.73m??? Normal >=60 [facility] Comment on above: Order Comment: Barbara voss Type: BLOOD SPECIMEN Ordering Facility: [facility] Address: [address] [place] [address], [place] [address] Result Comment: Bety mated Glomerular Filtration Rate (eGFR) is calculated using the 2020 CKD-EPI creatinine equation. This equation utilizes serum creatinine, sex, and age as parameters. The creatinine assay has traceable calibration to isotope dilution-mass spectrometry. Refer to KDIGO guidelines for clinical interpretation. In patients with unstable renal function, e.g. those with acute kidney injury, the eGFR may not accurately reflect actual GFR. Performed By: #### 2 4321-2 #### [facility] CLIA [id number] [facility] [place] [address] [place] Glucose [Mass/Vol] 83 mg/dL Normal 74-99 [facility] Comment on above: Order Comment: Poloi men Type: BLOOD SPECIMEN Ordering Facility: [facility] Address: [address] [place] [address], [place] [address] Result Comment: The [place] Diabetes Association (ADA) provides guidance for cutoff values for fasting glucose and random glucose. The ADA defines fasting as no caloric intake for at least 8 hours. Fasting plasma glucose results between 100 to 125 mg/dL indicate increased risk for diabetes (prediabetes). Fasting plasma glucose results greater than or equal to 126 mg/dL meet the criteria for diagnosis of diabetes. In the absence of unequivocal hyperglycemia, results should be confirmed by repeat testing. In a patient with classic symptoms of hyperglycemia or hyperglycemic crisis, random plasma glucose results greater than or equal to 200 mg/dL meet the criteria for diagnosis of diabetes. Reference: Standards of Medical Care in Diabetes 2016, [place] [employer]. Diabetes Care. 2016.39(Suppl 1). Performed By: #### 2 4321-2 #### [facility] CLIA [id number] [facility] [place] [address] [place] Potassium [Moles/Vol] 4.2 mmol/L Normal 3.7-5.1 [facility] Comment on above: Order Comment: Barbara voss Type: BLOOD SPECIMEN Ordering Facility: [facility] Address: [address] [place] [address] Performed By: #### 2 4321-2 #### [facility] CLIA [id number] [address] [place] [place] [address] [place] Sodium [Moles/Vol] 139 mmol/L Normal 136-144 [facility] Comment on above: Order Comment: Barbara voss Type: BLOOD SPECIMEN Ordering Facility: [facility] Address: [address] [place] [address] Performed By: #### 2 4321-2 #### [facility] CLIA [id number] [address] [place] [place] [address] [place] Urea nitrogen [Mass/Vol] 14 mg/dL Normal 9-24 [facility] Comment on above: Order Comment: Barbara voss Type: BLOOD SPECIMEN Ordering Facility: [facility] Address: [address] [place] [address] Performed By: #### 2 4321-2 #### [facility] CLIA [id number] [address] [place] [id number] [place] CBC panel Auto (Bld)on 07-08 Erythrocyte distribution width (RBC) [Ratio] 11.9 % Normal 11.5-15.0 [facility] Comment on above: Order Comment: Speci men Type: BLOOD SPECIMENOrdering Facility: [facility] Address: [address] [place] [address] Performed By: #### 5 8410-2 ####[facility] [id number] [address] [place] [facility] Hematocrit (Bld) [Volume fraction] 43.9 % Normal 39.0-51.0 [facility] Comment on above: Order Comment: Speci men Type: BLOOD SPECIMENOrdering Facility: [facility] Address: [address] [place] [address] Performed By: #### 5 8410-2 ####[facility] [id number] [place] [address] [place] Hemoglobin (Bld) [Mass/Vol] 14.4 g/dL Normal 13.0-17.0 [facility] Comment on above: Order Comment: Speci men Type: BLOOD SPECIMENOrdering Facility: [facility] Address: [address] [place] [address] Performed By: #### 5 8410-2 ####[facility] [id number] [address] [place] MCH (RBC) [Entitic mass] 33.9 pg Normal 26.0-34.0 [facility] Comment on above: Order Comment: Speci men Type: BLOOD SPECIMENOrdering Facility: [facility] Address: [address] [place] [address] Performed By: #### 5 8410-2 ####[facility] [id number] [address] [place] MCHC (RBC) [Mass/Vol] 32.8 g/dL Normal 30.5-36.0 [facility] Comment on above: Order Comment: Speci men Type: BLOOD SPECIMENOrdering Facility: [facility] Address: [address] [place] [address] Performed By: #### 5 8410-2 ####[facility] [id number] [address] [place] MCV (RBC) [Entitic vol] 103.3 fL High 80.0-100.0 [facility] Comment on above: Order Comment: Speci men Type: BLOOD SPECIMENOrdering Facility: [facility] Address: [address] [place] [address] Performed By: #### 5 8410-2 ####[facility] [id number] [place] [address] [place] Nucleated RBC (Bld) [#/Vol] 10*3/uL Normal <0.01 [facility] Comment on above: Order Comment: Speci men Type: BLOOD SPECIMENOrdering Facility: [facility] Address: [address] [place] [address] Performed By: #### 5 8410-2 ####[facility] [id number] [place] [address] [place] Platelet mean volume (Bld) [Entitic vol] 12.6 fL Normal 9.0-12.7 [facility] Comment on above: Order Comment: Speci men Type: BLOOD SPECIMENOrdering Facility: [facility] Address: [address] [place] [address] Performed By: #### 5 8410-2 ####[facility] [id number] [place] [id number] [place] Platelets (Bld) [#/Vol] 142 10*3/uL Low 150-400 [facility] Comment on above: Order Comment: Speci men Type: BLOOD SPECIMENOrdering Facility: [facility] Address: [address] [place] [address] Performed By: #### 5 8410-2 ####[facility] [id number] [place] [id number] [place] RBC (Bld) [#/Vol] 4.25 10*6/uL Normal 4.20-6.00 [facility] Comment on above: Order Comment: Speci men Type: BLOOD SPECIMENOrdering Facility: [facility] Address: [address] [place] [address] Performed By: #### 5 8410-2 ####[facility] [id number] [place] [id number] [place] WBC (Bld) [#/Vol] 6.18 10*3/uL Normal 3.70-11.00 [facility] Comment on above: Order Comment: Speci men Type: BLOOD SPECIMENOrdering Facility: [facility] Address: [address] [place] [address] Performed By: #### 5 8410-2 ####[facility] [id number] [place] [address] [place] CNOVon 06-26-2023 CNOV Office Visit (UCTR ) CHAVA LESTER ([id number]) 1970 M Date Time Provider Department 06/26/23 11:45 AM KAYA GUERRIER [facility] During your visit today, we recorded the following information about you: Temperature Pulse Respiration Blood pressure 97.4 degrees 92/minute 16/minute 118/74 Weight 122.4 kg Kaya Guerrier APRN.CNP 06/26/2023 12:06 PM Signed Subjective HPI Nontoxic-appearing male presents urgent care chief complaint back pain. History of spinal stenosis and herniated disc. Duration of symptoms 2 days. Associated symptoms exacerbation of lower back discomfort. 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 History of chronic back pain this feels similar to exacerbations. Has not used any OTC medications today. Tried to reach out to his spine doctor was unable to reach their office. Presents today for evaluation. History of lower back pain use of prednisone with good pain management. Denies any traumatic injuries. No fever night sweats radiculopathy saddle anesthesia or incontinence. Past medical history prescription medications allergies reviewed. .Patient presents with: Pain, Back: Lower back pain x 2 days PAST MEDICAL HISTORY Diagnosis Date Chronic back pain GERD (gastroesophageal reflux disease) Obesity (BMI 35.0-39.9 without comorbidity) PTSD (post-traumatic stress disorder) Schizophrenia (HCC) PAST SURGICAL HISTORY Procedure Laterality Date ANKLE LEFT OP SURGERY LAPAROSCOPIC APPENDECTOMY 12/10/2020 ALLERGIES Patient has no known allergies. MEDICATIONS baclofen (LIORESAL) 10 mg tablet Take 10 mg by mouth once daily as needed. losartan (COZAAR) 50 mg tablet Take 50 mg by mouth once daily. glipiZIDE (GLUCOTROL) 5 mg tablet Take 5 mg by mouth once daily. acetaminophen (TYLENOL EXTRA STRENGTH) 500 mg tablet Take 1 tablet by mouth every 6 hours as needed for pain. risperiDONE (RISPERDAL) 1 mg tablet Take 1 mg by mouth twice daily. ferrous sulfate (IRON ORAL) Take by mouth. rosuvastatin (CRESTOR) 5 mg tablet Take 5 mg by mouth daily at bedtime. SUMAtriptan (IMITREX) 50 mg tablet take 1 tablet by mouth every day as needed, repeat dose in one hour if headache persist Cholecalciferol, Vitamin D3, 125 mcg (5,000 unit) cap benztropine (COGENTIN) 0.5 mg tablet Take 1 tablet by mouth twice daily. divalproex DR (DEPAKOTE) 500 mg EC tablet Take 1 tablet by mouth once daily. (Patient taking differently: Take 500 mg by mouth two times a day.) therapeutic multivitamin (THERA VITAMIN) tablet Take 1 tablet by mouth once daily. liyu-qfk-chy-dominga-psyl -kelp-pec (FIBER 6) 1,000 mg tab Take 1 tablet by mouth once daily. cyclobenzaprine (FLEXERIL) 10 mg tablet Take by mouth three times daily. (Patient not taking: Reported on 01/28/2023) gabapentin (NEURONTIN) 300 mg capsule TAKE 1 CAPSULE BY MOUTH IN THE MORNING, TAKE 2 CAPSULES IN THE EVENING (Patient not taking: Reported on 01/28/2023) FAMILY HISTORY Problem Relation Age of Onset Cancer Mother Heart Father Social History Tobacco Use Smoking status: Every Day Packs/day: .5 Types: Cigars, Cigarettes Smokeless tobacco: Never Vaping Use Vaping Use: Never used Substance Use Topics Alcohol use: No Drug use: No BP 118/74 Pulse 92 Temp 36.3 ?C (97.4 ?F) (Tympanic) Resp 16 Wt 122.4 kg (269 lb 12.8 oz) SpO2 96% BMI 36.59 kg/m? Review of Systems Constitutional: Negative for chills, fever and malaise/fatigue. HENT: Negative for congestion, ear discharge, ear pain, sinus pain and sore throat. Eyes: Negative for blurred vision, pain, discharge and redness. Respiratory: Negative for cough, hemoptysis, sputum production, shortness of breath, wheezing and stridor. Cardiovascular: Negative for chest pain. Gastrointestinal: Negative for abdominal pain, diarrhea, nausea and vomiting. Musculoskeletal: Positive for back pain. Negative for falls, joint pain, myalgias and neck pain. Skin: Negative for itching and rash. Neurological: Negative for dizziness and headaches. Objective Physical Exam Constitutional: General: He is not in acute distress. Appearance: He is not toxic-appearing. HENT: Head: Normocephalic. Nose: Nose normal. Eyes: Pupils: Pupils are equal, round, and reactive to light. Cardiovascular: Rate and Rhythm: Normal rate. Pulmonary: Effort: Pulmonary effort is normal. No respiratory distress. Musculoskeletal: Cervical back: Normal range of motion. Thoracic back: No deformity, signs of trauma, tenderness or bony tenderness. Lumbar back: Tenderness present. No swelling, edema, deformity, signs of trauma or bony tenderness. Decreased range of motion. Negative right straight leg raise test and negative left straight leg raise test. Back: Comments: Pain with palpation the highlighted area. No spinal tenderness. Tenderness w (more content not included)... Normal [facility] XR ANKLE GENERAL 3V AP/LAT/O BL RIGHTon 10-28-2022 [facility] XR Ankle - right AP and Late ral and obliqueon 10-28-2022 IMPRESSION: No radiographic evidence of acute osseous injury. Act Tutor: MINERVA Transcribe Date/Time: Oct 28 2022 12:00P Dictated by : VINI RYDER MD This examination was interpreted and the report reviewed and electronically signed by: VINI RYDER MD on Oct 28 2022 12:03PM [facility] DIVISION OF RADIOLOGY * * *Final Report* * * DATE OF EXAM: Oct 28 2022 12:00PM WOX [id number] - XR ANKLE 3V AP/LAT/OBL RT / PROCEDURE REASON: Acute right ankle pain * * * * Physician Interpretation * * * * TITLE: XR ANKLE 3V AP/LAT/OBL RT CLINICAL INDICATION: Ankle pain TECHNIQUE: 3 view radiographic study of the right ankle COMPARISON: None FINDINGS: No acute fracture or dislocation identified. Dorsal and plantar calcaneal enthesophytes. Mild tarsal degenerative changes with dorsal hypertrophic spur formation. DIVISION OF RADIOLOGY Provider, [facility] - 10/28/2022 * * *Final Report* * * DATE OF EXAM: Oct 28 2022 12:00PM WOX [id number] - XR ANKLE 3V AP/LAT/OBL RT / PROCEDURE REASON: Acute right ankle pain * * * * Physician Interpretation * * * * TITLE: XR ANKLE 3V AP/LAT/OBL RT CLINICAL INDICATION: Ankle pain TECHNIQUE: 3 view radiographic study of the right ankle COMPARISON: None FINDINGS: No acute fracture or dislocation identified. Dorsal and plantar calcaneal enthesophytes. Mild tarsal degenerative changes with dorsal hypertrophic spur formation. IMPRESSION IMPRESSION: No radiographic evidence of acute osseous injury. Act Tutor: [facility] Transcribe Date/Time: Oct 28 2022 12:00P Dictated by : VINI RYDER MD This examination was interpreted and the report reviewed and electronically signed by: VINI RYDER MD on Oct 28 2022 12:03PM EST [facility] Radiology Study observation (narrative) [facility] XR Ankle - right AP and Late ral and obliqueOrdered By: [facility] Provider on 10-28-2022 [facility] HISTORY PHYSICALon HISTORY PHYSICAL HNO ID: [id number] Author: Owen Burciaga MD Service: Pain Management Author Type: Physician Type: HANDP Filed: 09/24/2021 7:42 AM Note Text: HISTORY AND PHYSICAL EXAMINATION PATIENT NAME: Chava Lester DATE of SERVICE: 09/24/2021 PAST ANESTHESIA HISTORY: No history of adverse event PAST MEDICAL HISTORY Diagnosis Date - Chronic back pain - GERD (gastroesophageal reflux disease) - Obesity (BMI 35.0-39.9 without comorbidity) - PTSD (post-traumatic stress disorder) - Schizophrenia (HCC) PAST SURGICAL HISTORY Procedure Laterality Date - ANKLE LEFT OP SURGERY - LAPAROSCOPIC APPENDECTOMY 12/10/2020 Prior to Admission medications as of 09/24/21 0643 Medication Sig Last Dose Taking losartan (COZAAR) 50 mg tablet Take 50 mg by mouth once daily. 09/23/2021 at 2200 Yes glipiZIDE (GLUCOTROL) 5 mg tablet Take 5 mg by mouth once daily. 09/23/2021 at 1000 Yes tiZANidine (ZANAFLEX) 4 mg tablet Take 1 tablet by mouth three times daily. 09/23/2021 at 2200 Yes risperiDONE (RISPERDAL) 1 mg tablet Take 1 mg by mouth twice daily. 09/23/2021 at 2200 Yes ferrous sulfate (IRON ORAL) Take by mouth. 09/23/2021 at 1000 Yes rosuvastatin (CRESTOR) 5 mg tablet Take 5 mg by mouth daily at bedtime. 09/23/2021 at 2200 Yes gabapentin (NEURONTIN) 300 mg capsule TAKE 1 CAPSULE BY MOUTH IN THE MORNING, TAKE 2 CAPSULES IN THE EVENING 09/23/2021 at 2200 Yes Cholecalciferol, Vitamin D3, 125 mcg (5,000 unit) cap 09/23/2021 at 1000 Yes cetirizine (ZYRTEC) 10 mg tablet Take 10 mg by mouth once daily. 09/23/2021 at 1000 Yes omeprazole (PRILOSEC) 20 mg capsule Take 1 capsule by mouth daily before breakfast. 1/2 hr before meal. Patient taking differently: Take 40 mg by mouth daily before breakfast. 1/2 hr before meal. 09/23/2021 at 1000 Yes benztropine (COGENTIN) 0.5 mg tablet Take 1 tablet by mouth twice daily. 09/23/2021 at [address] (DEPAKOTE) 500 mg EC tablet Take 1 tablet by mouth once daily. Patient taking differently: Take 500 mg by mouth twice daily. 09/23/2021 at 2200 Yes therapeutic multivitamin (THERA VITAMIN) tablet Take 1 tablet by mouth once daily. 09/23/2021 at 1000 Yes pxjq-kaj-aop-dominga-psyl -kelp-pec (FIBER 6) 1,000 mg tab Take 1 tablet by mouth once daily. 09/23/2021 at 2200 Yes acetaminophen (TYLENOL EXTRA STRENGTH) 500 mg tablet Take 1 tablet by mouth every 6 hours as needed for pain. Unknown at Unknown time benzonatate (TESSALON PERLES) 100 mg capsule Take 2 capsules by mouth three times daily as needed. Unknown at Unknown time fluticasone (FLONASE) 50 mcg/actuation nasal spray Use 2 Sprays in each nostril once daily. Rinse mouth after use. Unknown at Unknown time SUMAtriptan (IMITREX) 50 mg tablet take 1 tablet by mouth every day as needed, repeat dose in one hour if headache persist Unknown at Unknown time ALLERGIES No Known Allergies Objective Subjective HPI: Chava Ashley Lester is here for the pain mangement procedure. The patient presents with persistent pain complaints. Chava Lester denies any interval changes or new pain complaints or focal neurologic deficits. PAST MEDICAL HISTORY Diagnosis Date - Chronic back pain - GERD (gastroesophageal reflux disease) - Obesity (BMI 35.0-39.9 without comorbidity) - PTSD (post-traumatic stress disorder) - Schizophrenia (HCC) PAST SURGICAL HISTORY Procedure Laterality Date - ANKLE LEFT OP SURGERY - LAPAROSCOPIC APPENDECTOMY 12/10/2020 Social History Tobacco Use - Smoking status: Current Every Day Smoker Packs/day: 0.50 Types: Cigars - Smokeless tobacco: Never Used Vaping Use - Vaping Use: Never used Substance Use Topics - Alcohol use: No - Drug use: No FAMILY HISTORY Problem Relation Age of Onset - Cancer Mother - Heart Father ALLERGIES No Known Allergies Current Facility-Administered Medications Medication Dose Route Frequency - NaCl 0.9% iv infusion 30 mL/hr INTRAVENOUS CONTINUOUS PHYSICAL EXAM: The remainder of the physical exam is noncontributory. Performed in conjunction with observation. The patient is alert and oriented x3. The patient is in no acute distress. Neck: Supple. The range of motion is intact. AIRWAY: Airway Visualization of Uvula: Yes Mouth opening greater than 2 fingerbreadths: Yes Neck Full Range of Motion: Yes LUNGS: Lungs clear to auscultation CARDIAC: Regular rhythm,Regular rate Extremities: no reported edema or erythema. Examination indicates no changes Assessment/Plan ASA Class: ASA Class:: Patient with mild systemic disease Active Problems: * No active hospital problems. * Resolved Problems: * No resolved hospital problems. * Medication and Non-Pharmacologic VTE Prophylaxis/Anticoagu lants VTE Prophylaxis: N/A for outpatient interventional pain procedure. Provisional Diagnosis/Treatment Plan: SEDATION GOAL: Moderate Impression: Lumbar spondylosis Plan: The informed consent has been obtained. The plan is to proceed wit (more content not included)... [facility] NURSING PROGon 09-24-2021 NURSING PROG O ID: [id number] Author: Bebe De Anda RN Service: Nursing Author Type: Registered Nurse Type: Nursing Progress Note Filed: 09/24/2021 8:36 AM Note Text: Nursing Progress Note Patient Name: Chava Lester Patient Location: [place] Surgery/[place] Surgery Daily Note: 0800- Pt has to remain in PACU for 1 hour due to no responsible adult at home. This note was completed by: Bebe De Anda [facility] NURSING PROG O ID: [id number] Author: Yomi Chow RN Service: Nursing Author Type: Registered Nurse Type: Nursing Progress Note Filed: 09/24/2021 7:05 AM Note Text: Nursing Progress Note Patient Name: Chava Lester Patient Location: [place] Surgery/[place] Surgery pt ready for OR, call light in reach, no one with pt, pt was brought by taxi with no one with him, aware and ok to proceed. Pt made aware that a taxi is not a responsible person for transport home. Discussed that he can do local procedure and drive self home in the future if he needs more procedures. This note was completed by: Yomi Chow [facility] NURSING PROG HNO ID: [id number] Author: Jame Herrera RN Service: ? Author Type: Registered Nurse Type: Nursing Progress Note Filed: 09/24/2021 6:45 AM Note Text: Discussed with Dr Burciaga that the patient plans to take cab service home with no other responsible green party present. My Chart instructions specifically states uber/taxi is prohibited in accordance to policy. Dr Burciaga states it is ok to proceed if it is his only means of transportation home. [facility] OPERATIVE NOon 09-24-2021 OPERATIVE NO HNO ID: [id number] Author: Owen Burciaga MD Service: Pain Management Author Type: Physician Type: Operative Report Filed: 09/24/2021 7:54 AM Note Text: PATIENT NAME: Chava Lester SERVICE DATE: 09/24/2021 PROCEDURE NOTE PREOPERATIVE DIAGNOSIS(ES): Lumbar degenerative disc disease. Lumbar spondylosis. Lumbar facet arthropathy POSTOPERATIVE DIAGNOSIS(ES): Same PROCEDURE: Bilateral L4-5, L5-S1 facet Lumbar Facet Medial Branch Nerve Blockunder fluoroscopy. ? ANESTHESIA: Conscious sedation with Versed 3 mg IV ? INDICATIONS: Chava Lester presents for facet joint injection. The pain is persistent. Chava Lester denies any new neurological or pain complaints. The patient has spondylosis at lower lumbar segments with predominant changes at L4-5 and L5-S1 levels. As discussed in the office and confirmed today, the plan is to proceed with lumbar facet joint injection. The risks and benefits of the procedure were discussed. Specifically, the risks of bleeding, infection, inadvertent dural puncture, spinal heaches, vasovagal reaction, epidural hematoma, partial or permanent nerve injury were covered. The potential side effects of medications used in procedures including increase in lumbar pain, headaches, facial redness or warmth (flushing), anxiety or mood swings, sleeplessness, fever, high blood sugar, brief reduction in immunity were discussed. The patient expressed understanding of potential risks and wishes to proceed with the procedure. ? OPERATIVE PROCEDURE: The patient was brought to the OR. The patient was placed in the prone position with pressure points protected. Continuous hemodynamic monitoring was initiated including blood pressure, EKG, and pulse oximetry. Supplemental oxygen per nasal canula was started. The intravenous medication was administered incrementally to provide conscious sedation and to allow the patient to remain comfortable and conversant throughout the procedure. The area of the lumbar spine was prepped povidone-iodine three times and draped into a sterile field. Fluoroscopy was rotated to right oblique projection to identify the location of the L4-5 and L5-S1 medial branch nerves at the junctions of the superior articular process and the transverse processes of L4, L5, and the sacral ala respectively. Skin anesthesia was achieved using 10 cc of marcaine 0.25% over the injection sites. A 22 gauge, 5 spinal needle was slowly inserted at each level using AP, lateral and oblique fluoroscopic imaging. Negative aspiration for blood or CSF was confirmed. The fluoroscopy was then rotated to the contralateral side and the needle placement sites were identified. Same technique was used to place the needles on the contralateral side. There were total of 6 needle placements. A total of 6ml of a medication mixture of 5mg of Kenalog per 1ml of Marcaine 0.25% was injected. A total of 6 sites were injected in equal and divided doses. The needles were removed and bleeding was nil. A sterile dressing was applied. The patient tolerated the procedure well. The patient was taken to the recovery room in stable condition. ? EBL: nil Start time: 7:42 AM End time: 7:52 AM I was present the entire time and personally performed the procedure. SIGNATURE: Owen Burciaga MD DATE: September 24, 2021 TIME: 7:54 AM [facility] XR FLUOROSCOPYon 09-24-2021 XR FLUOROSCOPY * * *Final Report* * * DATE OF EXAM: Sep 24 2021 7:58AM [facility] [id number] - XR FLUOROSCOPY / PROCEDURE REASON: pain * * * * Physician Interpretation * * * * TECHNIQUE: XR FLUOROSCOPY COMPARISON: No prior study for comparison. TECHNIQUE: Limited fluoroscopic imaging of the lumbar spine for pain injection CLINICAL INDICATION: pain Fluoroscopic Radiation Summary: Plane A, Air Kerma: 25.4 mGy Dose Area Product (DAP): 0.0 mGy*cm^2 Fluoro time: 0:37 min:sec IMAGE NUMBER: 5 RESULT: [place] directed into the paraspinous soft tissues in the lower lumbar spine. IMPRESSION: 1. As above. Act Tutor: [facility] Transcribe Date/Time: Sep 24 2021 8:05A Dictated by : SHAW LORENZ MD This examination was interpreted and the report reviewed and electronically signed by: SHAW LORENZ MD on Sep 24 2021 8:06AM EST [id number] [facility] HISTORY PHYSICALon 2 HISTORY PHYSICAL HNO ID: [id number] Author: Owen Burciaga MD Service: Pain Management Author Type: Physician Type: HANDP Filed: 08/13/2021 10:32 AM Note Text: HISTORY AND PHYSICAL EXAMINATION PATIENT NAME: Chava Lester DATE of SERVICE: 08/13/2021 PAST ANESTHESIA HISTORY: No history of adverse event PAST MEDICAL HISTORY Diagnosis Date - Chronic back pain - GERD (gastroesophageal reflux disease) - Obesity (BMI 35.0-39.9 without comorbidity) - PTSD (post-traumatic stress disorder) - Schizophrenia (HCC) PAST SURGICAL HISTORY Procedure Laterality Date - ANKLE LEFT OP SURGERY - LAPAROSCOPIC APPENDECTOMY 12/10/2020 Prior to Admission medications as of 08/13/21 0955 Medication Sig Last Dose Taking losartan (COZAAR) 50 mg tablet Take 50 mg by mouth once daily. 08/12/2021 at Unknown time Yes glipiZIDE (GLUCOTROL) 5 mg tablet Take 5 mg by mouth once daily. 08/12/2021 at Unknown time Yes tiZANidine (ZANAFLEX) 4 mg tablet Take 1 tablet by mouth three times daily. 08/12/2021 at Unknown time Yes risperiDONE (RISPERDAL) 1 mg tablet Take 1 mg by mouth twice daily. 08/12/2021 at Unknown time Yes ferrous sulfate (IRON ORAL) Take by mouth. 08/12/2021 at Unknown time Yes rosuvastatin (CRESTOR) 5 mg tablet Take 5 mg by mouth daily at bedtime. 08/12/2021 at Unknown time Yes SUMAtriptan (IMITREX) 50 mg tablet take 1 tablet by mouth every day as needed, repeat dose in one hour if headache persist 08/12/2021 at Unknown time Yes gabapentin (NEURONTIN) 300 mg capsule TAKE 1 CAPSULE BY MOUTH IN THE MORNING, TAKE 2 CAPSULES IN THE EVENING 08/12/2021 at Unknown time Yes cetirizine (ZYRTEC) 10 mg tablet Take 10 mg by mouth once daily. 08/12/2021 at Unknown time Yes omeprazole (PRILOSEC) 20 mg capsule Take 1 capsule by mouth daily before breakfast. 1/2 hr before meal. Patient taking differently: Take 40 mg by mouth daily before breakfast. 1/2 hr before meal. 08/12/2021 at Unknown time Yes divalproex DR (DEPAKOTE) 500 mg EC tablet Take 1 tablet by mouth once daily. Patient taking differently: Take 500 mg by mouth twice daily. 08/12/2021 at Unknown time Yes therapeutic multivitamin (THERA VITAMIN) tablet Take 1 tablet by mouth once daily. 08/12/2021 at Unknown time Yes acetaminophen (TYLENOL EXTRA STRENGTH) 500 mg tablet Take 1 tablet by mouth every 6 hours as needed for pain. benzonatate (TESSALON PERLES) 100 mg capsule Take 2 capsules by mouth three times daily as needed. fluticasone (FLONASE) 50 mcg/actuation nasal spray Use 2 Sprays in each nostril once daily. Rinse mouth after use. Cholecalciferol, Vitamin D3, 125 mcg (5,000 unit) cap benztropine (COGENTIN) 0.5 mg tablet Take 1 tablet by mouth twice daily. zypu-myn-pcq-dominga-psyl -kelp-pec (FIBER 6) 1,000 mg tab Take 1 tablet by mouth once daily. ALLERGIES No Known Allergies Objective Subjective HPI: Chava Lester is here for the pain mangement procedure. The patient presents with persistent pain complaints. Chava Lester denies any interval changes or new pain complaints or focal neurologic deficits. PAST MEDICAL HISTORY Diagnosis Date - Chronic back pain - GERD (gastroesophageal reflux disease) - Obesity (BMI 35.0-39.9 without comorbidity) - PTSD (post-traumatic stress disorder) - Schizophrenia (HCC) PAST SURGICAL HISTORY Procedure Laterality Date - ANKLE LEFT OP SURGERY - LAPAROSCOPIC APPENDECTOMY 12/10/2020 Social History Tobacco Use - Smoking status: Current Every Day Smoker Packs/day: 0.50 Types: Cigars - Smokeless tobacco: Never Used Vaping Use - Vaping Use: Never used Substance Use Topics - Alcohol use: No - Drug use: No FAMILY HISTORY Problem Relation Age of Onset - Cancer Mother - Heart Father ALLERGIES No Known Allergies Current Facility-Administered Medications Medication Dose Route Frequency - NaCl 0.9% iv infusion 30 mL/hr INTRAVENOUS CONTINUOUS PHYSICAL EXAM: The remainder of the physical exam is noncontributory. Performed in conjunction with observation. The patient is alert and oriented x3. The patient is in no acute distress. Neck: Supple. The range of motion is intact. AIRWAY: Airway Visualization of Uvula: Yes Mouth opening greater than 2 fingerbreadths: Yes Neck Full Range of Motion: Yes LUNGS: Lungs clear to auscultation CARDIAC: Regular rhythm,Regular rate Extremities: no reported edema or erythema. Examination indicates no changes Assessment/Plan ASA Class: ASA Class:: Patient with mild systemic disease Active Problems: * No active hospital problems. * Resolved Problems: * No resolved hospital problems. * Medication and Non-Pharmacologic VTE Prophylaxis/Anticoagu lants VTE Prophylaxis: N/A for outpatient interventional pain procedure. Provisional Diagnosis/Treatment Plan: SEDATION GOAL: Moderate Impression: Lumbar spondylosis Plan: The informed consent has been obtained. The plan is to proceed with the procedure as planned. (more content not included)... [facility] OPERATIVE NOon 08-13-2021 OPERATIVE NO HNO ID: [id number] Author: Owen Burciaga MD Service: Pain Management Author Type: Physician Type: Operative Report Filed: 08/13/2021 11:17 AM Note Text: PATIENT NAME: Chava Lester SERVICE DATE: 08/13/2021 PROCEDURE NOTE PREOPERATIVE DIAGNOSIS(ES): Lumbar degenerative disc disease. Lumbar spondylosis. Lumbar facet arthropathy POSTOPERATIVE DIAGNOSIS(ES): Same PROCEDURE: Bilateral L4-5, L5-S1 facet Lumbar Facet Medial Branch Nerve Blockunder fluoroscopy. ANESTHESIA: Conscious sedation with Versed 3 mg, fentanyl 50mcg. IV INDICATIONS: Chava Lester presents for facet joint injection. The pain is persistent. Chava Lester denies any new neurological or pain complaints. The patient has spondylosis at lower lumbar segments with predominant changes at L4-5 and L5-S1 levels. As discussed in the office and confirmed today, the plan is to proceed with lumbar facet joint injection. The risks and benefits of the procedure were discussed. Specifically, the risks of bleeding, infection, inadvertent dural puncture, spinal heaches, vasovagal reaction, epidural hematoma, partial or permanent nerve injury were covered. The potential side effects of medications used in procedures including increase in lumbar pain, headaches, facial redness or warmth (flushing), anxiety or mood swings, sleeplessness, fever, high blood sugar, brief reduction in immunity were discussed. The patient expressed understanding of potential risks and wishes to proceed with the procedure. OPERATIVE PROCEDURE: The patient was brought to the OR. The patient was placed in the prone position with pressure points protected. Continuous hemodynamic monitoring was initiated including blood pressure, EKG, and pulse oximetry. Supplemental oxygen per nasal canula was started. The intravenous medication was administered incrementally to provide conscious sedation and to allow the patient to remain comfortable and conversant throughout the procedure. The area of the lumbar spine was prepped povidone-iodine three times and draped into a sterile field. Fluoroscopy was rotated to right oblique projection to identify the location of the L4-5 and L5-S1 medial branch nerves at the junctions of the superior articular process and the transverse processes of L4, L5, and the sacral ala respectively. Skin anesthesia was achieved using 10 cc of marcaine 0.25% over the injection sites. A 22 gauge, 5 spinal needle was slowly inserted at each level using AP, lateral and oblique fluoroscopic imaging. Negative aspiration for blood or CSF was confirmed. The fluoroscopy was then rotated to the contralateral side and the needle placement sites were identified. Same technique was used to place the needles on the contralateral side. There were total of 6 needle placements. A total of 6ml of a medication mixture of 5mg of Kenalog per 1ml of Marcaine 0.25% was injected. A total of 6 sites were injected in equal and divided doses. The needles were removed and bleeding was nil. A sterile dressing was applied. The patient tolerated the procedure well. The patient was taken to the recovery room in stable condition. EBL: nil Start time: 11:02 AM End time: 11:13 AM I was present the entire time and personally performed the procedure. SIGNATURE: Owen Burciaga MD DATE: August 13, 2021 TIME: 11:16 AM [facility] XR FLUOROSCOPYon 08-13-2021 XR FLUOROSCOPY * * *Final Report* * * DATE OF EXAM: Aug 13 2021 11:18AM [id number] - XR FLUOROSCOPY / PROCEDURE REASON: pain * * * * Physician Interpretation * * * * INDICATION: pain TECHNIQUE: Fluoroscopy with 5 views of the lower lumbar spine Fluoroscopic Radiation Summary: Plane A, Air Kerma: 18.6 mGy Dose Area Product (DAP): 2509.8 mGy*cm^2 Fluoro time: 0:35 min:sec FINDINGS/ IMPRESSION: [place] project toward the lowest 3 facet joints bilaterally. Please refer to the performing LIP's report. Act Tutor: [facility] Transcribe Date/Time: Aug 13 2021 11:22A Dictated by : GREG SCHREIBER MD This examination was interpreted and the report reviewed and electronically signed by: GREG SCHREIBER MD on Aug 13 2021 11:23AM EST [id number] N [facility] 01-08-2021 [facility] ([facility] CHAVA LESTER ([id number]) 1970 M Date Time Provider Department 01/08/21 [facility] PRUETT [facility] During your visit today, we recorded the following information about you: Nia Pruett RN 01/08/2021 1:13 PM Signed Left message regarding reminder for stress test tomorrow and given instructions. Allergies As of Date: 01/08/2021 (No Known Allergies) Date Reviewed: 12/28/2020 Reviewed by: Shobha Jamison APRN.[facility] - Fully Assessed Reason for Visit: Reminder Call [[id number]] Prescriptions as of 01/08/2021 Sig: LISINOPRIL 20 MG TABLET Take 20 mg by mouth twice carlotta* ROSUVASTATIN 5 MG TABLET Take 5 mg by mouth daily at b* SUMATRIPTAN 50 MG TABLET take 1 tablet by mouth every * GABAPENTIN 300 MG CAPSULE TAKE 1 CAPSULE BY MOUTH IN TH* CHOLECALCIFEROL (VITAMIN D3) * CETIRIZINE 10 MG TABLET Take 10 mg by mouth once leiceo* CYCLOBENZAPRINE 10 MG TABLET TAKE 1 TABLET BY MOUTH AT BED* NAPROXEN 500 MG TABLET Take 500 mg by mouth twice da* OMEPRAZOLE 20 MG CAPSULE,CARISSA* Take 1 capsule by mouth daily* Patient taking differently: Take 40 mg by mouth daily bef* BENZTROPINE 0.5 MG TABLET Take 1 tablet by mouth twice * DIVALPROEX 500 MG TABLET,CARISSA* Take 1 tablet by mouth once d* Patient taking differently: Take 500 mg by mouth twice da* THERAPEUTIC MULTIVITAMIN TABL* Take 1 tablet by mouth once d* TNVS-VBZ-RUNXQ-CELLUL OSE-PSYL* Take 1 tablet by mouth once d* Problem List As Of Date 01/08/2021 Noted Resolved GERD (gastroesophageal reflux disease) [K21.9] PTSD (post-traumatic stress disorder) [F43.10] Schizophrenia (HCC) [F20.9] Chronic back pain [M54.9, G89.29] Encounter Status:Closed by NIA PRUETT on 01/08/21 [facility] XR Lumbar spine 3 Viewson IMPRESSION: Lumbar spine degenerative changes as described above. Act Tutor: [facility] Transcribe Date/Time: Dec 28 2020 1:06P Dictated by : NADJA BARAHONA MD This examination was interpreted and the report reviewed and electronically signed by: NADJA BARAHONA MD on Dec 28 2020 1:09PM [facility] DIVISION OF RADIOLOGY * * *Final Report* * * DATE OF EXAM: Dec 28 2020 12:58PM [id number] - XR LUMBAR 3V AP/LAT/L5-S1 / PROCEDURE REASON: Acute bilateral low back pain without sciatica * * * * Physician Interpretation * * * * EXAM TITLE: XR LUMBAR 3V AP/LAT/L5-S1 EXAM DATE/TIME: 12/28/2020 12:58 PM COMPARISON: None. CLINICAL INDICATION/HISTORY: Low back pain. TECHNIQUE: AP, lateral and cone down lateral views of the lumbar spine are presented. FINDINGS: There are five tdj-gpy-ptlgfzx lumbar vertebrae. No acute fractures demonstrated. There appears be minimal L1 on L2 and L2 on L3 retrolisthesis. L1-2 disc space narrowing seen. There is mild to moderate osteophyte formation. Kissing spine seen on lateral view. DIVISION OF RADIOLOGY Provider, Tristen Ramos - 12/28/2020 * * *Final Report* * * DATE OF EXAM: Dec 28 2020 12:58PM [id number] - XR LUMBAR 3V AP/LAT/L5-S1 / PROCEDURE REASON: Acute bilateral low back pain without sciatica * * * * Physician Interpretation * * * * EXAM TITLE: XR LUMBAR 3V AP/LAT/L5-S1 EXAM DATE/TIME: 12/28/2020 12:58 PM COMPARISON: None. CLINICAL INDICATION/HISTORY: Low back pain. TECHNIQUE: AP, lateral and cone down lateral views of the lumbar spine are presented. FINDINGS: There are five yjb-ajp-rycgica lumbar vertebrae. No acute fractures demonstrated. There appears be minimal L1 on L2 and L2 on L3 retrolisthesis. L1-2 disc space narrowing seen. There is mild to moderate osteophyte formation. Kissing spine seen on lateral view. IMPRESSION IMPRESSION: Lumbar spine degenerative changes as described above. Act Tutor: MINERVA Transcribe Date/Time: Dec 28 2020 1:06P Dictated by : NADJA BARAHONA MD This examination was interpreted and the report reviewed and electronically signed by: NADJA BARAHONA MD on Dec 28 2020 1:09PM EST [facility] Radiology Study observation (narrative) [facility] XR Lumbar spine 3 ViewsOrder ed By: Ccf Provider on 12-28-2020 [facility] XR Knee - right 4 Viewson IMPRESSION: Mild arthrosis, lateral patellar tilt and shift bilaterally. No acute bony abnormality. Act Tutor: [facility] Transcribe Date/Time: Jun 21 2020 12:30P Dictated by : Ashley CASTRO MD This examination was interpreted and the report reviewed and electronically signed by: Ashley CASTRO MD on Jun 21 2020 12:34PM [facility] DIVISION OF RADIOLOGY * * *Final Report* * * DATE OF EXAM: Jun 21 2020 12:24PM WOX [id number] - XR KNEE 4V AP/PA BOTH+LAT/ROMINA RT / PROCEDURE REASON: Acute pain of right knee * * * * Physician Interpretation * * * * EXAM: XR KNEE 4V AP/PA BOTH+LAT/ROMINA RT HISTORY: Acute pain of right knee. VIEWS: Bilateral weightbearing AP and PA flexion, bilateral merchant and right lateral. COMPARISON: No relevant comparison. FINDINGS: Small patellofemoral osteophytes and mild lateral patellar tilt and shift bilaterally. Subtle femorotibial spurring without significant joint space narrowing at either knee. Small right knee ossified bodies posteromedially. No right knee joint effusion. DIVISION OF RADIOLOGY Provider, [facility] - 06/21/2020 * * *Final Report* * * DATE OF EXAM: Jun 21 2020 12:24PM WOX [id number] - XR KNEE 4V AP/PA BOTH+LAT/ROMINA RT / PROCEDURE REASON: Acute pain of right knee * * * * Physician Interpretation * * * * EXAM: XR KNEE 4V AP/PA BOTH+LAT/ROMINA RT HISTORY: Acute pain of right knee. VIEWS: Bilateral weightbearing AP and PA flexion, bilateral merchant and right lateral. COMPARISON: No relevant comparison. FINDINGS: Small patellofemoral osteophytes and mild lateral patellar tilt and shift bilaterally. Subtle femorotibial spurring without significant joint space narrowing at either knee. Small right knee ossified bodies posteromedially. No right knee joint effusion. IMPRESSION IMPRESSION: Mild arthrosis, lateral patellar tilt and shift bilaterally. No acute bony abnormality. Act Tutor: [facility] Transcribe Date/Time: Jun 21 2020 12:30P Dictated by : Ashley CASTRO MD This examination was interpreted and the report reviewed and electronically signed by: Ashley CASTRO MD on Jun 21 2020 12:34PM EST [facility] Radiology Study observation (narrative) [facility] XR Knee - right 4 ViewsOrder ed By: Ccf Provider on 06-21-2020 [facility] XR SPINE THORACIC 3 VIEWSon 03-16-2019 XR SPINE THORACIC 3 VIEWS ORIGINAL XR SPINE THORACIC 3 VIEWS CLINICAL STATEMENT: pain. COMPARISON: None FINDINGS: No acute fracture or traumatic malalignment. The vertebral body heights are maintained. Mild degenerative changes seen throughout the spine. IMPRESSION: No compression deformity or significant listhesis. Interpreted By: Yanique Lacy MD Preliminary Report By: Yanique Lacy MD Electronically Signed By: Yanique Lacy MD Dictated Date: 03/16/2019 2:44:20 PM Prelim Date: 03/16/2019 2:44:20 PM Sign Date: 03/16/2019 2:45:51 PM Normal [facility] ([place] XR SPINE CERVICAL W/ FLEXT/E XT 6 + VIEWSon 03-04-2019 XR SPINE CERVICAL W/ FLEXT/EXT 6 + VIEWS ORIGINAL XR SPINE CERVICAL W/ FLEXT/EXT and obliques, 7 VIEWS CLINICAL STATEMENT: pain , pain throughout the spine COMPARISON: None FINDINGS: There is normal cervical body height and alignment. Mild disc space narrowing at C5-C6. Multilevel moderate facet arthropathy. Alignment is maintained with flexion and extension. Normal atlantoaxial relationship and prevertebral soft tissue space. Oblique views show no significant foraminal stenosis on either side. IMPRESSION: Degenerative changes as described. No instability. Interpreted By: aTurus Stark MD Preliminary Report By: Taurus Stark MD Electronically Signed By: Taurus Stark MD Dictated Date: 03/04/2019 9:49:36 AM Prelim Date: 03/04/2019 9:49:36 AM Sign Date: 03/04/2019 9:50:40 AM Normal [facility] ([place] XR SPINE LUMBAR AP/LAT/FLEX/ EXTon 03-04-2019 XR SPINE LUMBAR AP/LAT/FLEX/EXT ORIGINAL XR SPINE LUMBAR AP/LAT/FLEX/EXT CLINICAL STATEMENT: pain COMPARISON: None FINDINGS: Study is moderately compromised and suboptimal due to body habitus. 5 lumbar type vertebral bodies show normal height and alignment in the neutral position which is maintained with flexion and extension. There is no significant disc space narrowing or spondylosis. Moderate lower lumbar spine facet arthropathy. Symmetric SI joints. IMPRESSION: Lower lumbar spine facet arthropathy. No acute findings or instability. Interpreted By: Taurus Stark MD Preliminary Report By: Taurus Stark MD Electronically Signed By: Taurus Stark MD Dictated Date: 03/04/2019 11:22:17 AM Prelim Date: 03/04/2019 11:22:17 AM Sign Date: 03/04/2019 11:23:16 AM Normal [facility] ([place] Vital Signs Date Time Vital Sign Value Performing Clinician Faci lity 05-05-2024 11:44-0400 Body mass index (BMI) [Ratio] 39.95 kg/m2 Yomi Mitchell HAMPER MAKER.SPEECH ASSISTANT Work Phone: [facility] 05-05-2024 11:44-0400 Body temperature 97.5 [degF] Yomi Mitchell HAMPER MAKER.SPEECH ASSISTANT Work Phone: [facility] 05-05-2024 11:44-0400 Body weight 133.6 kg Yomi Mitchell HAMPER MAKER.SPEECH ASSISTANT Work Phone: [facility] 05-05-2024 11:44-0400 Diastolic blood pressure 77 mm[Hg] Yomi Mitchell HAMPER MAKER.SPEECH ASSISTANT Work Phone: [facility] 05-05-2024 11:44-0400 Heart rate 86 /min Yomi Mitchell HAMPER MAKER.SPEECH ASSISTANT Work Phone: [facility] 05-05-2024 11:44-0400 Respiratory rate 18 /min Yomi Mitchell HAMPER MAKER.SPEECH ASSISTANT Work Phone: [facility] 05-05-2024 11:44-0400 SaO2% (BldA) [Mass fraction] 95 % Yomi Mitchell HAMPER MAKER.SPEECH ASSISTANT Work Phone: [facility] 05-05-2024 11:44-0400 Systolic blood pressure 150 mm[Hg] Yomi Mitchell HAMPER MAKER.SPEECH ASSISTANT Work Phone: [facility] 04-27-2024 19:02-0400 Body mass index (BMI) [Ratio] 39.98 kg/m2 Kaya Kaelconi HAMPER MAKER.SPEECH ASSISTANT Work Phone: [facility] 04-27-2024 19:02-0400 Body temperature 97.7 [degF] [facility] HAMPER MAKER.SPEECH ASSISTANT Work Phone: [facility] 04-27-2024 19:02-0400 Body weight 133.7 kg [facility] HAMPER MAKER.SPEECH ASSISTANT Work Phone: [facility] 04-27-2024 19:02-0400 Diastolic blood pressure 78 mm[Hg] [facility] HAMPER MAKER.SPEECH ASSISTANT Work Phone: [facility] 04-27-2024 19:02-0400 Heart rate 80 /min [facility] HAMPER MAKER.SPEECH ASSISTANT Work Phone: [facility] 04-27-2024 19:02-0400 Respiratory rate 20 /min [facility] HAMPER MAKER.SPEECH ASSISTANT Work Phone: [facility] 04-27-2024 19:02-0400 SaO2% (BldA) [Mass fraction] 96 % Kaya Guerrier APRN.SPEECH ASSISTANT Work Phone: [facility] 04-27-2024 19:02-0400 Systolic blood pressure 148 mm[Hg] Kaya Guerrier APRN.SPEECH ASSISTANT Work Phone: [facility] 01-14-2024 12:17-0400 Body mass index (BMI) [Ratio] 38.27 kg/m2 Krislyn Aberegg PA Work Phone: [facility] 01-14-2024 12:17-0400 Body temperature 97.3 [degF] Krislyn Aberegg PA Work Phone: [facility] 01-14-2024 12:17-0400 Body weight 128 kg Krislyn Aberegg PA Work Phone: [facility] 01-14-2024 12:17-0400 Diastolic blood pressure 85 mm[Hg] Krislyn Aberegg PA Work Phone: [facility] 01-14-2024 12:17-0400 Heart rate 88 /min Krislyn Aberegg PA Work Phone: [facility] 01-14-2024 12:17-0400 Respiratory rate 18 /min Krislyn Aberegg PA Work Phone: [facility] 01-14-2024 12:17-0400 SaO2% (BldA) [Mass fraction] 95 % Krislyn Aberegg PA Work Phone: [facility] 01-14-2024 12:17-0400 Systolic blood pressure 144 mm[Hg] Krislyn Aberegg PA Work Phone: [facility] 10-01-2023 12:01-0400 Body temperature 97.59 [degF] Jessica Garza APRN.SPEECH ASSISTANT Work Phone: [facility] 10-01-2023 12:01-0400 Body weight 124 kg Jessica Garza APRN.SPEECH ASSISTANT Work Phone: [facility] 10-01-2023 12:01-0400 Diastolic blood pressure 75 mm[Hg] Jessica Garza HAMPER MAKER.SPEECH ASSISTANT Work Phone: [facility] 10-01-2023 12:01-0400 Heart rate 79 /min Jessica Garza HAMPER MAKER.SPEECH ASSISTANT Work Phone: [facility] 10-01-2023 12:01-0400 Respiratory rate 20 /min Jessica Garza HAMPER MAKER.SPEECH ASSISTANT Work Phone: [facility] 10-01-2023 12:01-0400 SaO2% (BldA) [Mass fraction] 95 % Jessica Garza HAMPER MAKER.SPEECH ASSISTANT Work Phone: [facility] 10-01-2023 12:01-0400 Systolic blood pressure 138 mm[Hg] Jessica Garza HAMPER MAKER.SPEECH ASSISTANT Work Phone: [facility] 06-26-2023 11:42-0500 Body temperature 97.39 [degF] Kaya Guerrier HAMPER MAKER.SPEECH ASSISTANT Work Phone: [facility] 06-26-2023 11:42-0500 Body weight 122.38 kg Kaya Guerrier HAMPER MAKER.SPEECH ASSISTANT Work Phone: [facility] 06-26-2023 11:42-0500 Diastolic blood pressure 74 mm[Hg] Kaya Guerrier HAMPER MAKER.SPEECH ASSISTANT Work Phone: [facility] 06-26-2023 11:42-0500 Heart rate 92 /min Kaya Guerrier HAMPER MAKER.SPEECH ASSISTANT Work Phone: [facility] 06-26-2023 11:42-0500 Respiratory rate 16 /min Kaya Guerrier HAMPER MAKER.SPEECH ASSISTANT Work Phone: [facility] 06-26-2023 11:42-0500 SaO2% (BldA) [Mass fraction] 96 % Kaya Guerrier HAMPER MAKER.SPEECH ASSISTANT Work Phone: [facility] 06-26-2023 11:42-0500 Systolic blood pressure 118 mm[Hg] Kaya Scruggsleconi HAMPER MAKER.SPEECH ASSISTANT Work Phone: [facility] 01-28-2023 10:53-0400 Body temperature 98.01 [degF] Jessica Garza APRN.SPEECH ASSISTANT Work Phone: [facility] 01-28-2023 10:53-0400 Body weight 126.55 kg Jessica Garza APRN.SPEECH ASSISTANT Work Phone: [facility] 01-28-2023 10:53-0400 Diastolic blood pressure 70 mm[Hg] Jessica Garza APRN.SPEECH ASSISTANT Work Phone: [facility] 01-28-2023 10:53-0400 Heart rate 85 /min Jessica Garza APRN.SPEECH ASSISTANT Work Phone: [facility] 01-28-2023 10:53-0400 Respiratory rate 21 /min Jessica Garza APRN.SPEECH ASSISTANT Work Phone: [facility] 01-28-2023 10:53-0400 SaO2% (BldA) [Mass fraction] 97 % Jessica Garza APRN.SPEECH ASSISTANT Work Phone: [facility] 01-28-2023 10:53-0400 Systolic blood pressure 120 mm[Hg] Jessica Garza APRN.SPEECH ASSISTANT Work Phone: [facility] 10-28-2022 11:05-0400 Body temperature 97.39 [degF] Krislyn Aberegg PA Work Phone: [facility] 10-28-2022 11:05-0400 Body weight 127.01 kg Krislyn Aberegg PA Work Phone: [facility] 10-28-2022 11:05-0400 Diastolic blood pressure 70 mm[Hg] Krislyn Aberegg PA Work Phone: [facility] 10-28-2022 11:05-0400 Heart rate 78 /min Krislyn Aberegg PA Work Phone: [facility] 10-28-2022 11:05-0400 Respiratory rate 16 /min Krislyn Aberegg PA Work Phone: [facility] 10-28-2022 11:05-0400 SaO2% (BldA) [Mass fraction] 96 % Melania WATT Work Phone: [facility] 10-28-2022 11:05-0400 Systolic blood pressure 122 mm[Hg] Melania WATT Work Phone: [facility] 12-11-2021 13:25-0400 Body temperature 98.29 [degF] Jessica Garza APRN.SPEECH ASSISTANT Work Phone: [facility] 12-11-2021 13:25-0400 Body weight 125.65 kg Jessica Garza APRN.SPEECH ASSISTANT Work Phone: [facility] 12-11-2021 13:25-0400 Diastolic blood pressure 72 mm[Hg] Jessica Garza APRN.SPEECH ASSISTANT Work Phone: [facility] 12-11-2021 13:25-0400 Heart rate 94 /min Jessica Garza APRN.SPEECH ASSISTANT Work Phone: [facility] 12-11-2021 13:25-0400 Respiratory rate 16 /min Jessica Garza APRN.SPEECH ASSISTANT Work Phone: [facility] 12-11-2021 13:25-0400 SaO2% (BldA) [Mass fraction] 95 % Jessica Garza APRN.SPEECH ASSISTANT Work Phone: [facility] 12-11-2021 13:25-0400 Systolic blood pressure 122 mm[Hg] Jessica Garza APRN.SPEECH ASSISTANT Work Phone: [facility] Encounters Encounter Date Encounter Type Care Provider Facility Start: 05-05-2024 End: 05-05-2024 Subsequent hospital visit by physician [facility] Work Phone: Radiology Comment on above: Lumbar pain [M54.50] Start: 05-05-2024 End: 05-05-2024 ambulatory YOMI MITCHELL Facility:[facility] Start: 05-05-2024 End: 05-05-2024 Patient encounter procedure Yomi Mitchell HAMPER MAKER.SPEECH ASSISTANT Work Phone: [facility] Comment on above: Lumbar pain (Primary Dx) Start: 04-27-2024 End: 04-27-2024 [facility] Facility:[facility] Start: 04-27-2024 End: 04-27-2024 Office outpatient visit 25 minutes Kaya Guerrier APRN.SPEECH ASSISTANT Work Phone: [facility] Comment on above: Lumbar pain (Primary Dx) Start: 01-14-2024 End: 01-14-2024 [facility] Facility:[facility] Start: 01-14-2024 End: 01-14-2024 Patient encounter procedure Melania WATT Work Phone: [facility] Comment on above: Lumbar pain (Primary Dx) Start: 10-01-2023 End: 10-01-2023 [facility] Facility:[facility] Start: 10-01-2023 End: 10-01-2023 Patient encounter procedure Jessica Garza APRN.SPEECH ASSISTANT Work Phone: [facility] Comment on above: Chronic midline low back pain without sciatica (Primary Dx) Start: 06-26-2023 End: 06-26-2023 [facility] Facility:[facility] Start: 06-26-2023 End: 06-26-2023 Office outpatient visit 25 minutes Kaya Guerrier HAMPER MAKER.SPEECH ASSISTANT Work Phone: [facility] Comment on above: Acute midline low ba ck pain without sciatica (Primary Dx) Start: 01-28-2023 End: 01-28-2023 Patient encounter procedure Jessica Garza APRN.SPEECH ASSISTANT Work Phone: [facility] Comment on above: Acute midline low ba ck pain without sciatica (Primary Dx) Start: 10-28-2022 End: 10-28-2022 Subsequent hospital visit by physician [facility] Work Phone: Radiology Comment on above: Acute right ankle pa in [M25.571] Start: 10-28-2022 End: 10-28-2022 Patient encounter procedure Melania WATT Work Phone: [facility] Comment on above: Acute right ankle pa in (Primary Dx) Start: 12-12-2021 Telephone encounter No Pcp Int quincy Fox Comment on above: Results Start: 12-11-2021 End: 12-11-2021 Patient encounter procedure Jessica Garza APRN.SPEECH ASSISTANT Work Phone: [facility] Comment on above: Cough (Primary Dx) Start: 12-28-2020 End: 12-28-2020 Subsequent hospital visit by physician [facility] Work Phone: Radiology Comment on above: Acute bilateral low back pain without sciatica [M54.5] Start: 06-21-2020 End: 06-21-2020 Subsequent hospital visit by physician [facility] Work Phone: Radiology Comment on above: Acute pain of right knee [M25.561] Procedures Date Procedure Procedure Detail Performing Clinician Start: 05-05-2024 Radex spine lumbosac ral 2/3 views Yomi Mitchell HAMPER MAKER.SPEECH ASSISTANT Work Phone: Start: 10-28-2022 Radex ankle complete minimum 3 views Melania Cardenas PA Work Phone: Start: 12-28-2020 Radex spine lumbosac ral 2/3 views Shobha Jamison HAMPER MAKER.SPEECH ASSISTANT Work Phone: Start: 06-21-2020 Radiologic exam knee complete 4/more views Yomi Mitchell HAMPER MAKER.SPEECH ASSISTANT Work Phone: Start: 12-02-2016 Adult depression scr eening assessment Jessica Garza HAMPER MAKER.SPEECH ASSISTANT Work Phone: Start: 07-16-2016 Lipid 1996 panel - S brodie or Plasma Kaya Guerrier HAMPER MAKER.SPEECH ASSISTANT Work Phone: Plan of Treatment Date Care Activity Detail Author Start: 07-08-2026 Diabetes Screening Diabetes Screenin g [facility] Start: 03-20-2024 Covid-19 Vaccine () Covid-19 Vaccine () [facility] Start: 03-20-2024 Influenza vaccination [facility] Start: 07-20-2023 Behavioral Health Screening Behavioral Health Screening [facility] Start: 07-20-2023 [facility] Start: 03-20-2023 Covid-19 Vaccine ( season) Covid-19 Vaccine ( season) [facility] Start: 03-20-2023 Influenza vaccination C [facility] Start: 07-20-[address] [facility] Start: 03-20-2022 Influenza vaccination INFLUENZ A (Season Ended) [facility] Start: 12-11-2021 End: 12-25-2021 Influenza virus A and B RNA and SARS-CoV-2 (COVID-19) N gene panel - Respiratory specimen by ROSALIND with probe detection COVID WITH FLUA+B, ROUTINE Microbiology Routine Cough Expected: 12/11/2021, Expires: 12/25/2021 [facility] Work Phone: Comment on above: Expected: 12/11/2021 , Expires: 12/25/2021 Start: 07-16-2021 Lipid 1996 panel - S brodie or Plasma Lipid Screening [facility] Start: 07-16-2021 Lipid panel Lipid Screening [facility] Start: 07-16-2021 LIPID SCREEN LIPID SCREEN [facility] Start: 2021 SHINGRIX VACCINE (1 of 2) SHINGRIX VACCINE (1 of 2) [facility] Start: 11-02-2018 DIABETES SCREEN DIABETES SCREEN [facility] Start: 11-02-2018 Diabetes Screening Diabetes Screenin g [facility] Start: 12-02-2017 Adult depression screening assessment DEPRESSION SCREENING [facility] Start: 02-07-2016 COLOGUARD (FIT-DNA) COLOGUARD (FIT-D NA) [facility] Start: 02-07-2016 Colonoscopy COLONOSCOPY [facility] Start: 02-07-2016 COLORECTAL CANCER SCREENING COLORECTAL CANCER SCREENING [facility] Start: 02-07-[address] COLONOGRAPHY [facility] Start: 02-07-2016 FECAL OCCULT BLOOD FECAL OCCULT BLOO D [facility] Start: 02-07-2016 Screening for malign ant neoplasm of colon [facility] Start: 02-07-2016 SIGMOIDOSCOPY SIGMOIDOSCOPY [facility] Start: 1990 Hepatitis B Vaccine (1 of 3 - 19+ 3-dose series) Hepatitis B Vaccine (1 of 3 - 19+ 3-dose series) [facility] Start: 1990 Urine microalbumin profile [facility] Start: 1989 Depression Screening Depression Scre ening [facility] Start: 1989 HEPATITIS C SCREENING HEPATITIS C [facility] Start: 1989 Hepatitis C screening Hepatitis C [facility] Start: 1989 HIV SCREENING HIV SCREENING [facility] Start: 1989 HIV screening HIV Screening [facility] Start: 1977 PNEUMOCOCCAL (1 - PCV) PNEUMOCOCCAL (1 - PCV) [facility] Start: 1977 Pneumococcal vaccination [facility] Start: 02-07-1976 COVID-19 VACCINE (#1) COVID-19 VACCI NE (#1) [facility] Start: 1971 COVID-19 VACCINE (#1) COVID-19 VACCI NE (#1) [facility] Start: 1971 HEPATITIS B (1 of 3 - 3-dose series) HEPATITIS B (1 of 3 - 3-dose series) [facility] Start: 1971 Hepatitis B Vaccine (1 of 3 - 3-dose series) Hepatitis B Vaccine (1 of 3 - 3-dose series) [facility] Payers Date Payer Category Payer Medicaid [id number] 2016 Medicaid [employer] [id number] 2016-Present [phone] [address] [place] [address] Medicaid [id number] 2016 Medicaid [id number] Social History Date Type Detail Facility Start: 06-21-2020 End: 04-27-2024 Tobacco smoking status NHIS Smokes tobacco daily [facility] Work Phone: History of tobacco use Cigar Smoker [facility] Work Phone: Start: 06-21-2020 End: 06-24-2020 Cigarettes smoked current (pack per day) - Reported 0.5 [facility] Start: 06-21-2020 End: 04-27-2024 Tobacco use and exposure Smokeless tobacco non-user [facility] Work Phone: Start: 12-11-2021 End: 05-05-2024 Alcohol intake Current non-drinker of alcohol (finding) [facility] Start: 1970 Sex Assigned At Not on file [facility] History of tobacco use Cigarette Smoker [facility] Work Phone: Start: 06-24-2020 End: 01-28-2023 Tobacco use panel [facility] National Score (1-10 0), lower number is lower risk Not on file [facility] Start: 05-22-2020 End: 12-28-2020 Exposure to SARS-CoV-2 (event) Not sure [facility] Clinical Notes 06-21-2020 to 05-05-2024 Yomi Mitchell APRN.SPEECH ASSISTANT - 05/05/2024 12:25 PM Viet Dennison RT(R) - 05/05/2024 12:20 PM Kaya Sadler APRN.SPEECH ASSISTANT - 04/27/2024 7:03 PM EDTPatient InstructionsPatient Instructions Note Date & Type Note Facility 05-05-2024 Note HNO ID: [id number] Author: YOMI MITCHELL APRN.SPEECH ASSISTANT Service: ? Author Type: Nurse Practitioner Type: Progress Notes Filed: 05/05/2024 14:46 Note Text: This note was created using [email or web address]. Subjective Chava Lester is a 54 year old male. Relevant PMH and allergies reviewed: spinal stenosis Pt is a 54 year old male who is presenting today with lower back pain x1 day. Pt was here 04/27 and was given prednisone pt states the prednisone worked and his pain improved until this morning. Pt states his pain returned this morning and it is now going down his right thigh and across both sides of his back. He took naproxen to try to help with his symptoms without any significant relief. Pt states his PCP gave him some medication to help with his back pain but he can't take it during the day because it make him drowsy. Pt states he is having difficulty with ambulation because of his back pain. Denies any numbness and tingling, incontinence, unilateral weakness, inability to ambulate, fever, chills, nausea, vomiting. The history is provided by the patient. No school speech language pathologist was used. Back Pain This is a chronic problem. The current episode started yesterday. The problem occurs constantly. The problem has been gradually worsening. The pain is associated with no known injury. The pain is present in the lumbar spine. The quality of the pain is described as aching and shooting. The pain radiates to the right thigh. The pain is moderate. The symptoms are aggravated by certain positions. The pain is The same all the time. Associated symptoms include headaches. Pertinent negatives include no chest pain, no fever, no numbness, no abdominal pain, no bowel incontinence, no bladder incontinence, no pelvic pain, no tingling and no weakness. He has tried NSAIDs for the symptoms. The treatment provided no relief. Risk factors include a history of steroid use. PAST MEDICAL HISTORY Diagnosis Date Chronic back pain GERD (gastroesophageal reflux disease) Obesity (BMI 35.0-39.9 without comorbidity) PTSD (post-traumatic stress disorder) Schizophrenia (HCC) PAST SURGICAL HISTORY Procedure Laterality Date ANKLE LEFT OP SURGERY LAPAROSCOPIC APPENDECTOMY 12/10/2020 ALLERGIES Patient has no known allergies. MEDICATIONS meloxicam (MOBIC) 15 mg tablet Take 1 tablet by mouth every afternoon. meclizine (ANTIVERT) 12.5 mg tab TAKE 1 TABLET BY MOUTH TWICE DAILY NEEDED FOR DIZZINESS/ VERTIGO SYMPTOMS Omeprazole 20 mg TbEC Take 40 mg by mouth once daily. baclofen (LIORESAL) 10 mg tablet Take 10 mg by mouth once daily as needed. losartan (COZAAR) 50 mg tablet Take 25 mg by mouth once daily. glipiZIDE (GLUCOTROL) 5 mg tablet Take 5 mg by mouth once daily. acetaminophen (TYLENOL EXTRA STRENGTH) 500 mg tablet Take 1 tablet by mouth every 6 hours as needed for pain. risperiDONE (RISPERDAL) 1 mg tablet Take 1 mg by mouth twice daily. ferrous sulfate (IRON ORAL) Take by mouth. rosuvastatin (CRESTOR) 5 mg tablet Take 5 mg by mouth daily at bedtime. SUMAtriptan (IMITREX) 50 mg tablet take 1 tablet by mouth every day as needed, repeat dose in one hour if headache persist Cholecalciferol, Vitamin D3, 125 mcg (5,000 unit) cap benztropine (COGENTIN) 0.5 mg tablet Take 1 tablet by mouth twice daily. divalproex DR (DEPAKOTE) 500 mg EC tablet Take 1 tablet by mouth once daily. (Patient taking differently: Take 500 mg by mouth two times a day.) therapeutic multivitamin (THERA VITAMIN) tablet Take 1 tablet by mouth once daily. cyclobenzaprine (FLEXERIL) 10 mg tablet Take by mouth three times daily. (Patient not taking: Reported on 01/28/2023) gabapentin (NEURONTIN) 300 mg capsule TAKE 1 CAPSULE BY MOUTH IN THE MORNING, TAKE 2 CAPSULES IN THE EVENING (Patient not taking: Reported on 01/28/2023) zcyb-uwe-nmc-okx-lhrh-hlkj-pec (FIBER 6) 1,000 mg tab Take 1 tablet by mouth once daily. (Patient not taking: Reported on 01/14/2024) FAMILY HISTORY Problem Relation Age of Onset Cancer Mother Heart Father Social History Tobacco Use Smoking status: Every Day Current packs/day: 0.50 Types: Cigars, Cigarettes Smokeless tobacco: Never Vaping Use Vaping status: Never Used Substance Use Topics Alcohol use: No Drug use: No Review of Systems Constitutional: Positive for activity change. Negative for appetite change, chills, fatigue and fever. HENT: Negative for congestion, ear discharge, ear pain, sinus pressure, sinus pain and sore throat. Eyes: Negative for pain, discharge and itching. Respiratory: Negative for cough, chest tightness and shortness of breath. Cardiovascular: Negative for chest pain and palpitations. Gastrointestinal: Negative for abdominal distention, abdominal pain, bowel incontinence, constipation, diarrhea, nausea and vomiting. Genitourinary: Negative for bladder incontinence, difficulty urinating and pelvic pain. Musculoskeletal: Positive for back pain. Negative (more content not included)... [facility] 05-05-2024 History of Presen t illness Narrative Images from the original note were not included. This note was created using [email or web address]. Subjective Chava Lester is a 54 year old male. Relevant PMH and allergies reviewed: spinal stenosis Pt is a 54 year old male who is presenting today with lower back pain x1 day. Pt was here 04/27 and was given prednisone pt states the prednisone worked and his pain improved until this morning. Pt states his pain returned this morning and it is now going down his right thigh and across both sides of his back. He took naproxen to try to help with his symptoms without any significant relief. Pt states his PCP gave him some medication to help with his back pain but he can't take it during the day because it make him drowsy. Pt states he is having difficulty with ambulation because of his back pain. Denies any numbness and tingling, incontinence, unilateral weakness, inability to ambulate, fever, chills, nausea, vomiting. The history is provided by the patient. No school speech language pathologist was used. Back Pain This is a chronic problem. The current episode started yesterday. The problem occurs constantly. The problem has been gradually worsening. The pain is associated with no known injury. The pain is present in the lumbar spine. The quality of the pain is described as aching and shooting. The pain radiates to the right thigh. The pain is moderate. The symptoms are aggravated by certain positions. The pain is The same all the time. Associated symptoms include headaches. Pertinent negatives include no chest pain, no fever, no numbness, no abdominal pain, no bowel incontinence, no bladder incontinence, no pelvic pain, no tingling and no weakness. He has tried NSAIDs for the symptoms. The treatment provided no relief. Risk factors include a history of steroid use. PAST MEDICAL HISTORY Diagnosis Date Chronic back pain GERD (gastroesophageal reflux disease) Obesity (BMI 35.0-39.9 without comorbidity) PTSD (post-traumatic stress disorder) Schizophrenia (HCC) PAST SURGICAL HISTORY Procedure Laterality Date ANKLE LEFT OP SURGERY LAPAROSCOPIC APPENDECTOMY 12/10/2020 ALLERGIES Patient has no known allergies. MEDICATIONS meloxicam (MOBIC) 15 mg tablet Take 1 tablet by mouth every afternoon. meclizine (ANTIVERT) 12.5 mg tab TAKE 1 TABLET BY MOUTH TWICE DAILY NEEDED FOR DIZZINESS/ VERTIGO SYMPTOMS Omeprazole 20 mg TbEC Take 40 mg by mouth once daily. baclofen (LIORESAL) 10 mg tablet Take 10 mg by mouth once daily as needed. losartan (COZAAR) 50 mg tablet Take 25 mg by mouth once daily. glipiZIDE (GLUCOTROL) 5 mg tablet Take 5 mg by mouth once daily. acetaminophen (TYLENOL EXTRA STRENGTH) 500 mg tablet Take 1 tablet by mouth every 6 hours as needed for pain. risperiDONE (RISPERDAL) 1 mg tablet Take 1 mg by mouth twice daily. ferrous sulfate (IRON ORAL) Take by mouth. rosuvastatin (CRESTOR) 5 mg tablet Take 5 mg by mouth daily at bedtime. SUMAtriptan (IMITREX) 50 mg tablet take 1 tablet by mouth every day as needed, repeat dose in one hour if headache persist Cholecalciferol, Vitamin D3, 125 mcg (5,000 unit) cap benztropine (COGENTIN) 0.5 mg tablet Take 1 tablet by mouth twice daily. divalproex DR (DEPAKOTE) 500 mg EC tablet Take 1 tablet by mouth once daily. (Patient taking differently: Take 500 mg by mouth two times a day.) therapeutic multivitamin (THERA VITAMIN) tablet Take 1 tablet by mouth once daily. cyclobenzaprine (FLEXERIL) 10 mg tablet Take by mouth three times daily. (Patient not taking: Reported on 01/28/2023) gabapentin (NEURONTIN) 300 mg capsule TAKE 1 CAPSULE BY MOUTH IN THE MORNING, TAKE 2 CAPSULES IN THE EVENING (Patient not taking: Reported on 01/28/2023) jits-rwd-flh-ttz-dbmt-wvpr-pec (FIBER 6) 1,000 mg tab Take 1 tablet by mouth once daily. (Patient not taking: Reported on 01/14/2024) FAMILY HISTORY Problem Relation Age of Onset Cancer Mother Heart Father Social History Tobacco Use Smoking status: Every Day Current packs/day: 0.50 Types: Cigars, Cigarettes Smokeless tobacco: Never Vaping Use Vaping status: Never Used Substance Use Topics Alcohol use: No Drug use: No Review of Systems Constitutional: Positive for activity change. Negative for appetite change, chills, fatigue and fever. HENT: Negative for congestion, ear discharge, ear pain, sinus pressure, sinus pain and sore throat. Eyes: Negative for pain, discharge and itching. Respiratory: Negative for cough, chest tightness and shortness of breath. Cardiovascular: Negative for chest pain and palpitations. Gastrointestinal: Negative for abdominal distention, abdominal pain, bowel incontinence, constipation, diarrhea, nausea and vomiting. Genitourinary: Negative for bladder incontinence, difficulty urinating and pelvic pain. Musculoskeletal: Positive for back pain. Negative for neck pain and neck stiffness. Skin: Negative for rash. Allergic/Immunologic: Negative for environmental allergies and food allergies. Neurological: Positive for headaches. Negative for dizziness, tingling, syncope, facial asymmetry, speech difficulty, weakness, light-headedness and numbness. Objective BP 150/77 Pulse 86 Temp 36.4 C (97.5 F) Resp 18 Wt 133.6 kg (294 lb 8.6 oz) SpO2 95% BMI 39.95 kg/m Physical Exam Vitals and nursing note reviewed. Constitutional: General: He is not in acute distress. Appearance: Normal appearance. He is not ill-appearing. HENT: Head: Normocephalic and atraumatic. Eyes: General: Right eye: No discharge. Left eye: No discharge. Extraocular Movements: Extraocular movements intact. Pupils: Pupils are equal, round, and reactive to light. Cardiovascular: Rate and Rhythm: Normal rate. Pulmonary: Effort: Pulmonary effort is normal. Abdominal: General: Abdomen is flat. Palpations: Abdomen is soft. Musculoskeletal: General: Tenderness present. No swelling, deformity or signs of injury. Cervical back: Normal range of motion and neck supple. Back: Comments: Diffuse midline tenderness along lumbar region No paraspinal muscle TTP No step off. No crepitus No erythema No rash Ambulatory in exam room Skin: General: Skin is warm and dry. Capillary Refill: Capillary refill takes less than 2 seconds. Neurological: General: No focal deficit present. Mental Status: He is alert. Psychiatric: Mood and Affect: Mood normal. Behavior: Behavior normal. Assessment and Plan ASSESSMENT/PLAN: 1. Lumbar pain - ICD9: 724.2, ICD10: M54.50 -lower back pain x1 day, however acute on chronic -history of spinal stenosis -seen here 04/27 given prednisone with improvement -diffuse tenderness to palpation of lumbar spine with pain radiating to right thigh - XR LUMBAR GENERAL 3V AP/LAT/L5-S1 -lumbar spine degenerative changes. Mild disc space narrowing -Pt called and updated agreeable to scheduling physical therapy follow up - [facility] - CONSULT TO PHYSICAL THERAPY -advised patient to consult physical therapy for further management of pain Toshia Jeffery Student TEACHING PROVIDER (Physician/PA/HAMPER MAKER) NOTE OF PERSONAL INVOLVEMENT IN CARE: I have personally seen and examined the patient and performed the medical decision-making components. I have reviewed the Advanced Practice Registered Nurse (HAMPER MAKER) Student's documentation and verified the findings in the note as written. Any additions or changes are noted in bold/italics. Signature: Yomi Mitchell Date: 05/05/2024 Time: 2:44 PM documented in this encounter [facility] 05-05-2024 History of Presen t illness Narrative Radiology Service Progress Note PATIENT NAME: Chava Lester DATE OF SERVICE: May 05, 2024 TIME: 12:14 PM PATIENT IDENTITY VERIFICATION COMPLETED USING TWO (2) IDENTIFIERS: Name and Date of confirmed by patient verbally. FALL SCREENING: Has the patient had 2 falls in the last year or 1 fall with injury or currently using an Ambulatory Assistive Device (Walker, Cane, Wheelchair, Crutches, etc.)? No PATIENT GENDER DATA: Male PATIENT RELEVANT IMPLANT DATA REVIEWED: Yes PATIENT PRESENTS WITH AN IMPLANTABLE OR ATTACHED GLUE SPECIALTY SUPERVISOR: No RADIOLOGY DEPARTMENT: General X-ray: Exam(s) Completed: Spine X-Ray(s): Lumbar AP / LAT / L5-S1 PERIPHERAL IV DATA: Not applicable SIGNED BY: RT Reji(Sky) May 05, 2024 12:14 PM documented in this encounter [facility] 05-05-2024 Note HNO ID: [id number] Author: VIET COLLINS RT(Sky) Service: ? Author Type: Warehouse Incentive Selector Type: Progress Notes Filed: 05/05/2024 12:29 Note Text: Radiology Service Progress Note PATIENT NAME: Chava Lester DATE OF SERVICE: May 05, 2024 TIME: 12:14 PM PATIENT IDENTITY VERIFICATION COMPLETED USING TWO (2) IDENTIFIERS: Name and Date of confirmed by patient verbally. FALL SCREENING: Has the patient had 2 falls in the last year or 1 fall with injury or currently using an Ambulatory Assistive Device (Walker, Cane, Wheelchair, Crutches, etc.)? No PATIENT GENDER DATA: Male PATIENT RELEVANT IMPLANT DATA REVIEWED: Yes PATIENT PRESENTS WITH AN IMPLANTABLE OR ATTACHED GLUE SPECIALTY SUPERVISOR: No RADIOLOGY DEPARTMENT: General X-ray: Exam(s) Completed: Spine X-Ray(s): Lumbar AP / LAT / L5-S1 PERIPHERAL IV DATA: Not applicable SIGNED BY: RT Reji(R) May 05, 2024 12:14 PM [facility] 04-27-2024 Note HNO ID: [id number] Author: KAYA GUERRIER APRN.SPEECH ASSISTANT Service: ? Author Type: Nurse Practitioner Type: Progress Notes Filed: 04/27/2024 19:19 Note Text: Subjective HPI Nontoxic-appearing male presents urgent care chief complaint of right sided back pain. Duration of symptoms today. Associated symptoms right sided back pain radiating into his hip. History of lower back pain with stenosis this is similar. Has used Tylenol this is helped some. No trauma. No night sweats. No weakness in the legs. No numbness or tingling. No saddle anesthesia. No incontinence. Rates pain as 6-8 out of 10 sharp pain. It is worse with movements. Improved by rest. Past medical history prescription medications allergies reviewed. .Patient presents with: Back Pain: Right side hip to knee pain started today PAST MEDICAL HISTORY Diagnosis Date Chronic back pain GERD (gastroesophageal reflux disease) Obesity (BMI 35.0-39.9 without comorbidity) PTSD (post-traumatic stress disorder) Schizophrenia (HCC) PAST SURGICAL HISTORY Procedure Laterality Date ANKLE LEFT OP SURGERY LAPAROSCOPIC APPENDECTOMY 12/10/2020 ALLERGIES Patient has no known allergies. MEDICATIONS Omeprazole 20 mg TbEC Take 40 mg by mouth once daily. baclofen (LIORESAL) 10 mg tablet Take 10 mg by mouth once daily as needed. losartan (COZAAR) 50 mg tablet Take 25 mg by mouth once daily. glipiZIDE (GLUCOTROL) 5 mg tablet Take 5 mg by mouth once daily. acetaminophen (TYLENOL EXTRA STRENGTH) 500 mg tablet Take 1 tablet by mouth every 6 hours as needed for pain. risperiDONE (RISPERDAL) 1 mg tablet Take 1 mg by mouth twice daily. ferrous sulfate (IRON ORAL) Take by mouth. rosuvastatin (CRESTOR) 5 mg tablet Take 5 mg by mouth daily at bedtime. SUMAtriptan (IMITREX) 50 mg tablet take 1 tablet by mouth every day as needed, repeat dose in one hour if headache persist Cholecalciferol, Vitamin D3, 125 mcg (5,000 unit) cap benztropine (COGENTIN) 0.5 mg tablet Take 1 tablet by mouth twice daily. divalproex DR (DEPAKOTE) 500 mg EC tablet Take 1 tablet by mouth once daily. (Patient taking differently: Take 500 mg by mouth two times a day.) therapeutic multivitamin (THERA VITAMIN) tablet Take 1 tablet by mouth once daily. cyclobenzaprine (FLEXERIL) 10 mg tablet Take by mouth three times daily. (Patient not taking: Reported on 01/28/2023) gabapentin (NEURONTIN) 300 mg capsule TAKE 1 CAPSULE BY MOUTH IN THE MORNING, TAKE 2 CAPSULES IN THE EVENING (Patient not taking: Reported on 01/28/2023) lsqm-seh-rtz-yjf-uapz-qkgt-pec (FIBER 6) 1,000 mg tab Take 1 tablet by mouth once daily. (Patient not taking: Reported on 01/14/2024) FAMILY HISTORY Problem Relation Age of Onset Cancer Mother Heart Father Social History Tobacco Use Smoking status: Every Day Current packs/day: 0.50 Types: Cigars, Cigarettes Smokeless tobacco: Never Vaping Use Vaping status: Never Used Substance Use Topics Alcohol use: No Drug use: No BP 148/78 Pulse 80 Temp 36.5 ?C (97.7 ?F) Resp 20 Wt 133.7 kg (294 lb 12.1 oz) SpO2 96% BMI 39.98 kg/m? Review of Systems Constitutional: Negative for chills, fever and malaise/fatigue. Respiratory: Negative for cough and shortness of breath. Cardiovascular: Negative for chest pain and palpitations. Genitourinary: Negative. Musculoskeletal: Positive for back pain. Negative for falls, joint pain, myalgias and neck pain. Neurological: Negative for dizziness, loss of consciousness, weakness and headaches. Objective Physical Exam Constitutional: General: He is not in acute distress. Appearance: He is not toxic-appearing. HENT: Head: Normocephalic. Nose: Nose normal. Eyes: Pupils: Pupils are equal, round, and reactive to light. Cardiovascular: Rate and Rhythm: Normal rate. Pulmonary: Effort: Pulmonary effort is normal. No respiratory distress. Musculoskeletal: Cervical back: Normal range of motion. Thoracic back: No tenderness or bony tenderness. Normal range of motion. Lumbar back: Tenderness present. No swelling, edema, signs of trauma or bony tenderness. Decreased range of motion. Negative right straight leg raise test and negative left straight leg raise test. Back: Comments: Tenderness to palpation the highlighted area. No spinal tenderness. Able to walk on heels. Negative straight leg test. No erythema edema noted. Pain reproducible with movements. Skin: General: Skin is warm and dry. Neurological: General: No focal deficit present. Mental Status: He is alert. ASSESSMENT/PLAN: 1. Lumbar pain - ICD9: 724.2, ICD10: M54.50 Diagnosed with lower lumbar pain. No red flag symptoms. Prednisone burst. Do not take with NSAIDs. Red flags reevaluation discussed. Patient was educated on supportive therapies. Patient will follow up with primary care provider as needed. Patient was instructed to immediately proceed to emergency room for any new, worsening, or symptoms (more content not included)... [facility] 04-27-2024 History of Presen t illness Narrative Images from the original note were not included. Subjective HPI Nontoxic-appearing male presents urgent care chief complaint of right sided back pain. Duration of symptoms today. Associated symptoms right sided back pain radiating into his hip. History of lower back pain with stenosis this is similar. Has used Tylenol this is helped some. No trauma. No night sweats. No weakness in the legs. No numbness or tingling. No saddle anesthesia. No incontinence. Rates pain as 6-8 out of 10 sharp pain. It is worse with movements. Improved by rest. Past medical history prescription medications allergies reviewed. .Patient presents with: Back Pain: Right side hip to knee pain started today PAST MEDICAL HISTORY Diagnosis Date Chronic back pain GERD (gastroesophageal reflux disease) Obesity (BMI 35.0-39.9 without comorbidity) PTSD (post-traumatic stress disorder) Schizophrenia (HCC) PAST SURGICAL HISTORY Procedure Laterality Date ANKLE LEFT OP SURGERY LAPAROSCOPIC APPENDECTOMY 12/10/2020 ALLERGIES Patient has no known allergies. MEDICATIONS Omeprazole 20 mg TbEC Take 40 mg by mouth once daily. baclofen (LIORESAL) 10 mg tablet Take 10 mg by mouth once daily as needed. losartan (COZAAR) 50 mg tablet Take 25 mg by mouth once daily. glipiZIDE (GLUCOTROL) 5 mg tablet Take 5 mg by mouth once daily. acetaminophen (TYLENOL EXTRA STRENGTH) 500 mg tablet Take 1 tablet by mouth every 6 hours as needed for pain. risperiDONE (RISPERDAL) 1 mg tablet Take 1 mg by mouth twice daily. ferrous sulfate (IRON ORAL) Take by mouth. rosuvastatin (CRESTOR) 5 mg tablet Take 5 mg by mouth daily at bedtime. SUMAtriptan (IMITREX) 50 mg tablet take 1 tablet by mouth every day as needed, repeat dose in one hour if headache persist Cholecalciferol, Vitamin D3, 125 mcg (5,000 unit) cap benztropine (COGENTIN) 0.5 mg tablet Take 1 tablet by mouth twice daily. divalproex DR (DEPAKOTE) 500 mg EC tablet Take 1 tablet by mouth once daily. (Patient taking differently: Take 500 mg by mouth two times a day.) therapeutic multivitamin (THERA VITAMIN) tablet Take 1 tablet by mouth once daily. cyclobenzaprine (FLEXERIL) 10 mg tablet Take by mouth three times daily. (Patient not taking: Reported on 01/28/2023) gabapentin (NEURONTIN) 300 mg capsule TAKE 1 CAPSULE BY MOUTH IN THE MORNING, TAKE 2 CAPSULES IN THE EVENING (Patient not taking: Reported on 01/28/2023) yhjl-cxo-ohm-brv-qoxw-fmec-pec (FIBER 6) 1,000 mg tab Take 1 tablet by mouth once daily. (Patient not taking: Reported on 01/14/2024) FAMILY HISTORY Problem Relation Age of Onset Cancer Mother Heart Father Social History Tobacco Use Smoking status: Every Day Current packs/day: 0.50 Types: Cigars, Cigarettes Smokeless tobacco: Never Vaping Use Vaping status: Never Used Substance Use Topics Alcohol use: No Drug use: No BP 148/78 Pulse 80 Temp 36.5 C (97.7 F) Resp 20 Wt 133.7 kg (294 lb 12.1 oz) SpO2 96% BMI 39.98 kg/m Review of Systems Constitutional: Negative for chills, fever and malaise/fatigue. Respiratory: Negative for cough and shortness of breath. Cardiovascular: Negative for chest pain and palpitations. Genitourinary: Negative. Musculoskeletal: Positive for back pain. Negative for falls, joint pain, myalgias and neck pain. Neurological: Negative for dizziness, loss of consciousness, weakness and headaches. Objective Physical Exam Constitutional: General: He is not in acute distress. Appearance: He is not toxic-appearing. HENT: Head: Normocephalic. Nose: Nose normal. Eyes: Pupils: Pupils are equal, round, and reactive to light. Cardiovascular: Rate and Rhythm: Normal rate. Pulmonary: Effort: Pulmonary effort is normal. No respiratory distress. Musculoskeletal: Cervical back: Normal range of motion. Thoracic back: No tenderness or bony tenderness. Normal range of motion. Lumbar back: Tenderness present. No swelling, edema, signs of trauma or bony tenderness. Decreased range of motion. Negative right straight leg raise test and negative left straight leg raise test. Back: Comments: Tenderness to palpation the highlighted area. No spinal tenderness. Able to walk on heels. Negative straight leg test. No erythema edema noted. Pain reproducible with movements. Skin: General: Skin is warm and dry. Neurological: General: No focal deficit present. Mental Status: He is alert. ASSESSMENT/PLAN: 1. Lumbar pain - ICD9: 724.2, ICD10: M54.50 Diagnosed with lower lumbar pain. No red flag symptoms. Prednisone burst. Do not take with NSAIDs. Red flags reevaluation discussed. Patient was educated on supportive therapies. Patient will follow up with primary care provider as needed. Patient was instructed to immediately proceed to emergency room for any new, worsening, or symptoms lasting longer than anticipated. The patient's clinical presentation is otherwise unremarkable at this time. Based on exam and clinical finding, the patient is stable for discharge. Plan of care was discussed with patient. Patient verbalizes understanding and agrees to plan of care. This note was generated using [employer] software. It may contain errors in wording, punctuation, or spelling. Kaya Guerrier APRN.RENETTA documented in this encounter [facility] 01-14-2024 Note HNO ID: [id number] Author: MELANIA CARDENAS PA Service: ? Author Type: Physician Career Services Officer Type: Progress Notes Filed: 01/14/2024 12:27 Note Text: This note was created using [email or web address]. Subjective Chava Lester is a 53 year old male. HPI 53-year-old male presents for low back pain. Patient states that he has history of spinal stenosis. He states that this morning when he got up he was having mid low back pain. He sees a specialist wound care and has injections intermittently. States he has not had a low back injection for several months. He states that usually when he has these flareups prednisone helps some with the pain. He is already prescribed baclofen. Patient denies any fevers. No loss of bowel or bladder function. No pain radiating into the legs. No numbness or tingling in the legs. No saddle anesthesia. He denies any fall or injury. No other complaint. PAST MEDICAL HISTORY Diagnosis Date Chronic back pain GERD (gastroesophageal reflux disease) Obesity (BMI 35.0-39.9 without comorbidity) PTSD (post-traumatic stress disorder) Schizophrenia (HCC) PAST SURGICAL HISTORY Procedure Laterality Date ANKLE LEFT OP SURGERY LAPAROSCOPIC APPENDECTOMY 12/10/2020 ALLERGIES Patient has no known allergies. MEDICATIONS Omeprazole 20 mg TbEC Take 40 mg by mouth once daily. baclofen (LIORESAL) 10 mg tablet Take 10 mg by mouth once daily as needed. losartan (COZAAR) 50 mg tablet Take 25 mg by mouth once daily. glipiZIDE (GLUCOTROL) 5 mg tablet Take 5 mg by mouth once daily. acetaminophen (TYLENOL EXTRA STRENGTH) 500 mg tablet Take 1 tablet by mouth every 6 hours as needed for pain. risperiDONE (RISPERDAL) 1 mg tablet Take 1 mg by mouth twice daily. ferrous sulfate (IRON ORAL) Take by mouth. rosuvastatin (CRESTOR) 5 mg tablet Take 5 mg by mouth daily at bedtime. SUMAtriptan (IMITREX) 50 mg tablet take 1 tablet by mouth every day as needed, repeat dose in one hour if headache persist Cholecalciferol, Vitamin D3, 125 mcg (5,000 unit) cap benztropine (COGENTIN) 0.5 mg tablet Take 1 tablet by mouth twice daily. therapeutic multivitamin (THERA VITAMIN) tablet Take 1 tablet by mouth once daily. predniSONE (DELTASONE) 20 mg tablet Take 2 tablets by mouth once daily for 5 days. Take daily with food. cyclobenzaprine (FLEXERIL) 10 mg tablet Take by mouth three times daily. (Patient not taking: Reported on 01/28/2023) gabapentin (NEURONTIN) 300 mg capsule TAKE 1 CAPSULE BY MOUTH IN THE MORNING, TAKE 2 CAPSULES IN THE EVENING (Patient not taking: Reported on 01/28/2023) divalproex DR (DEPAKOTE) 500 mg EC tablet Take 1 tablet by mouth once daily. (Patient taking differently: Take 500 mg by mouth two times a day.) ibob-pnv-ckp-orw-bqfg-ewre-pec (FIBER 6) 1,000 mg tab Take 1 tablet by mouth once daily. (Patient not taking: Reported on 01/14/2024) FAMILY HISTORY Problem Relation Age of Onset Cancer Mother Heart Father Social History Tobacco Use Smoking status: Every Day Packs/day: .5 Types: Cigars, Cigarettes Smokeless tobacco: Never Vaping Use Vaping Use: Never used Substance Use Topics Alcohol use: No Drug use: No Review of Systems Constitutional: Negative for chills and fever. HENT: Negative for congestion and sore throat. Respiratory: Negative for cough and shortness of breath. Gastrointestinal: Negative for diarrhea and vomiting. Musculoskeletal: Positive for back pain. Objective BP 144/85 Pulse 88 Temp 36.3 ?C (97.3 ?F) Resp 18 Wt 128 kg (282 lb 3 oz) SpO2 95% BMI 38.27 kg/m? Physical Exam Vitals and nursing note reviewed. Constitutional: General: He is not in acute distress. Appearance: Normal appearance. He is not toxic-appearing. HENT: Nose: Nose normal. Mouth/Throat: Mouth: Mucous membranes are moist. Eyes: Conjunctiva/sclera: Conjunctivae normal. Cardiovascular: Rate and Rhythm: Normal rate and regular rhythm. Pulmonary: Effort: Pulmonary effort is normal. Breath sounds: Normal breath sounds. Musculoskeletal: Lumbar back: No bony tenderness. Decreased range of motion. Negative right straight leg raise test and negative left straight leg raise test. Comments: Decreased ROM due to pain. Pain worse with movement. No midline tenderness. Mild left-sided paraspinal muscle tenderness. Negative seated straight leg raise. Able to ambulate. Normal sensation lower extremities. No ankle clonus. Skin: General: Skin is warm and dry. Neurological: Mental Status: He is alert. Assessment and Plan ASSESSMENT/PLAN: 1. Lumbar pain - ICD9: 724.2, ICD10: M54.50 -Acute on chronic lumbar pain. History of spinal stenosis. No fall or injury. -Rx for prednisone -Follow-up with spine doctor. -May use Tylenol, ice, rest. Diagnosis and treatment plan were discussed and questions were answered to the patient's satisfaction. Pt acknowledged understanding of concepts and follow up plan. Specific signs and symptoms that (more content not included)... [facility] 01-14-2024 History of Presen t illness Narrative This note was created using [email or web address]. Subjective Chava Lester is a 53 year old male. HPI 53-year-old male presents for low back pain. Patient states that he has history of spinal stenosis. He states that this morning when he got up he was having mid low back pain. He sees a specialist wound care and has injections intermittently. States he has not had a low back injection for several months. He states that usually when he has these flareups prednisone helps some with the pain. He is already prescribed baclofen. Patient denies any fevers. No loss of bowel or bladder function. No pain radiating into the legs. No numbness or tingling in the legs. No saddle anesthesia. He denies any fall or injury. No other complaint. PAST MEDICAL HISTORY Diagnosis Date Chronic back pain GERD (gastroesophageal reflux disease) Obesity (BMI 35.0-39.9 without comorbidity) PTSD (post-traumatic stress disorder) Schizophrenia (HCC) PAST SURGICAL HISTORY Procedure Laterality Date ANKLE LEFT OP SURGERY LAPAROSCOPIC APPENDECTOMY 12/10/2020 ALLERGIES Patient has no known allergies. MEDICATIONS Omeprazole 20 mg TbEC Take 40 mg by mouth once daily. baclofen (LIORESAL) 10 mg tablet Take 10 mg by mouth once daily as needed. losartan (COZAAR) 50 mg tablet Take 25 mg by mouth once daily. glipiZIDE (GLUCOTROL) 5 mg tablet Take 5 mg by mouth once daily. acetaminophen (TYLENOL EXTRA STRENGTH) 500 mg tablet Take 1 tablet by mouth every 6 hours as needed for pain. risperiDONE (RISPERDAL) 1 mg tablet Take 1 mg by mouth twice daily. ferrous sulfate (IRON ORAL) Take by mouth. rosuvastatin (CRESTOR) 5 mg tablet Take 5 mg by mouth daily at bedtime. SUMAtriptan (IMITREX) 50 mg tablet take 1 tablet by mouth every day as needed, repeat dose in one hour if headache persist Cholecalciferol, Vitamin D3, 125 mcg (5,000 unit) cap benztropine (COGENTIN) 0.5 mg tablet Take 1 tablet by mouth twice daily. therapeutic multivitamin (THERA VITAMIN) tablet Take 1 tablet by mouth once daily. predniSONE (DELTASONE) 20 mg tablet Take 2 tablets by mouth once daily for 5 days. Take daily with food. cyclobenzaprine (FLEXERIL) 10 mg tablet Take by mouth three times daily. (Patient not taking: Reported on 01/28/2023) gabapentin (NEURONTIN) 300 mg capsule TAKE 1 CAPSULE BY MOUTH IN THE MORNING, TAKE 2 CAPSULES IN THE EVENING (Patient not taking: Reported on 01/28/2023) divalproex DR (DEPAKOTE) 500 mg EC tablet Take 1 tablet by mouth once daily. (Patient taking differently: Take 500 mg by mouth two times a day.) rnta-xgt-ksn-fos-cavn-ndfi-pec (FIBER 6) 1,000 mg tab Take 1 tablet by mouth once daily. (Patient not taking: Reported on 01/14/2024) FAMILY HISTORY Problem Relation Age of Onset Cancer Mother Heart Father Social History Tobacco Use Smoking status: Every Day Packs/day: .5 Types: Cigars, Cigarettes Smokeless tobacco: Never Vaping Use Vaping Use: Never used Substance Use Topics Alcohol use: No Drug use: No Review of Systems Constitutional: Negative for chills and fever. HENT: Negative for congestion and sore throat. Respiratory: Negative for cough and shortness of breath. Gastrointestinal: Negative for diarrhea and vomiting. Musculoskeletal: Positive for back pain. Objective BP 144/85 Pulse 88 Temp 36.3 C (97.3 F) Resp 18 Wt 128 kg (282 lb 3 oz) SpO2 95% BMI 38.27 kg/m Physical Exam Vitals and nursing note reviewed. Constitutional: General: He is not in acute distress. Appearance: Normal appearance. He is not toxic-appearing. HENT: Nose: Nose normal. Mouth/Throat: Mouth: Mucous membranes are moist. Eyes: Conjunctiva/sclera: Conjunctivae normal. Cardiovascular: Rate and Rhythm: Normal rate and regular rhythm. Pulmonary: Effort: Pulmonary effort is normal. Breath sounds: Normal breath sounds. Musculoskeletal: Lumbar back: No bony tenderness. Decreased range of motion. Negative right straight leg raise test and negative left straight leg raise test. Comments: Decreased ROM due to pain. Pain worse with movement. No midline tenderness. Mild left-sided paraspinal muscle tenderness. Negative seated straight leg raise. Able to ambulate. Normal sensation lower extremities. No ankle clonus. Skin: General: Skin is warm and dry. Neurological: Mental Status: He is alert. Assessment and Plan ASSESSMENT/PLAN: 1. Lumbar pain - ICD9: 724.2, ICD10: M54.50 -Acute on chronic lumbar pain. History of spinal stenosis. No fall or injury. -Rx for prednisone -Follow-up with spine doctor. -May use Tylenol, ice, rest. Diagnosis and treatment plan were discussed and questions were answered to the patient's satisfaction. Pt acknowledged understanding of concepts and follow up plan. Specific signs and symptoms that would indicate the need for higher level of care were discussed in detail warranting prompt ER evaluation. ALYSA Mcclain documented in this encounter [facility] 01-14-2024 Instructions Melania Cardenas PA - 01/14/2024 12:24 PM EDT Take prednisone 2 tabs daily for 5 days as prescribed. Do not take Aleve, Motrin, ibuprofen or other NSAIDs while taking this medication. You may take Tylenol with it. Ice the back 3 times daily for no more than 20 minutes at a time. Follow-up with PCP next week if symptoms are not improved. Go to the ER if you develop new/worsening or severe pain, fever, inability to ambulate, numbness of the legs, numbness in the groin/buttocks region, loss of bowel or bladder function, inability to urinate. documented in this encounter [facility] 10-01-2023 Note HNO ID: [id number] Author: JESSICA GARZA APRN.RENETTA Service: ? Author Type: Nurse Practitioner Type: Progress Notes Filed: 10/01/2023 12:41 Note Text: This note was created using [email or web address]. Subjective Chava Lester is a 53 year old male. Patient believes he aggrevated his back last night at work. Reports when he woke up this morning he could barely get out of bed due to pain. Patient has history of spinal stenosis. Sees spine doctor next month. Denies saddle paresthesia or urinary problems. Reports he has had similar symptoms before and feels the same. Symptoms have been relieved previously by steroids. Back Pain Pertinent negatives include no numbness and no weakness. Review of Systems Musculoskeletal: Positive for back pain. Neurological: Negative for weakness and numbness. Objective BP 138/75 Pulse 79 Temp 36.4 ?C (97.6 ?F) Resp 20 Wt 124 kg (273 lb 5.9 oz) SpO2 95% BMI 37.08 kg/m? Physical Exam Musculoskeletal: Lumbar back: No deformity or signs of trauma. Decreased range of motion. Back: Comments: Patient denies increased pain with palpation, reports pain is worse with movement. Denies pain radiates down his legs.Denies weakness or paresthesias. PAST MEDICAL HISTORY Diagnosis Date Chronic back pain GERD (gastroesophageal reflux disease) Obesity (BMI 35.0-39.9 without comorbidity) PTSD (post-traumatic stress disorder) Schizophrenia (HCC) PAST SURGICAL HISTORY Procedure Laterality Date ANKLE LEFT OP SURGERY LAPAROSCOPIC APPENDECTOMY 12/10/2020 ALLERGIES Patient has no known allergies. MEDICATIONS baclofen (LIORESAL) 10 mg tablet Take 10 mg by mouth once daily as needed. losartan (COZAAR) 50 mg tablet Take 50 mg by mouth once daily. glipiZIDE (GLUCOTROL) 5 mg tablet Take 5 mg by mouth once daily. acetaminophen (TYLENOL EXTRA STRENGTH) 500 mg tablet Take 1 tablet by mouth every 6 hours as needed for pain. risperiDONE (RISPERDAL) 1 mg tablet Take 1 mg by mouth twice daily. ferrous sulfate (IRON ORAL) Take by mouth. SUMAtriptan (IMITREX) 50 mg tablet take 1 tablet by mouth every day as needed, repeat dose in one hour if headache persist Cholecalciferol, Vitamin D3, 125 mcg (5,000 unit) cap benztropine (COGENTIN) 0.5 mg tablet Take 1 tablet by mouth twice daily. divalproex DR (DEPAKOTE) 500 mg EC tablet Take 1 tablet by mouth once daily. (Patient taking differently: Take 500 mg by mouth two times a day.) therapeutic multivitamin (THERA VITAMIN) tablet Take 1 tablet by mouth once daily. dxup-bbn-qgi-cky-thxs-pubb-pec (FIBER 6) 1,000 mg tab Take 1 tablet by mouth once daily. predniSONE (DELTASONE) 10 mg tablet Take 4 tabs daily for 3 days, then 2 tabs daily for 3 days, then 1 tab daily for 3 days with food. cyclobenzaprine (FLEXERIL) 10 mg tablet Take by mouth three times daily. (Patient not taking: Reported on 01/28/2023) rosuvastatin (CRESTOR) 5 mg tablet Take 5 mg by mouth daily at bedtime. gabapentin (NEURONTIN) 300 mg capsule TAKE 1 CAPSULE BY MOUTH IN THE MORNING, TAKE 2 CAPSULES IN THE EVENING (Patient not taking: Reported on 01/28/2023) FAMILY HISTORY Problem Relation Age of Onset Cancer Mother Heart Father Social History Tobacco Use Smoking status: Every Day Packs/day: .5 Types: Cigars, Cigarettes Smokeless tobacco: Never Vaping Use Vaping Use: Never used Substance Use Topics Alcohol use: No Drug use: No ASSESSMENT/PLAN: 1. Chronic midline low back pain without sciatica - ICD9: 724.2, 338.29, ICD10: M54.50, G89.29 - Instructed on use of prednisone taper - Keep follow up appointment with specialist wound care - PREDNISONE 10 MG TABLET Prescription instructions reviewed with patient. Potential red flag symptoms discussed with the patient. Reviewed appropriate action plan to take if red flag symptoms occur. Patient agreeable to treatment plan. Flory Jones Supervising provider was present and guided the care of the patient for the entire session on this date. All documentation was reviewed and agreed upon. Jessica Garza APRN.[facility] 10-01-2023 History of Presen t illness Narrative Images from the original note were not included. This note was created using [email or web address]. Subjective Chava Lester is a 53 year old male. Patient believes he aggrevated his back last night at work. Reports when he woke up this morning he could barely get out of bed due to pain. Patient has history of spinal stenosis. Sees spine doctor next month. Denies saddle paresthesia or urinary problems. Reports he has had similar symptoms before and feels the same. Symptoms have been relieved previously by steroids. Back Pain Pertinent negatives include no numbness and no weakness. Review of Systems Musculoskeletal: Positive for back pain. Neurological: Negative for weakness and numbness. Objective BP 138/75 Pulse 79 Temp 36.4 C (97.6 F) Resp 20 Wt 124 kg (273 lb 5.9 oz) SpO2 95% BMI 37.08 kg/m Physical Exam Musculoskeletal: Lumbar back: No deformity or signs of trauma. Decreased range of motion. Back: Comments: Patient denies increased pain with palpation, reports pain is worse with movement. Denies pain radiates down his legs.Denies weakness or paresthesias. PAST MEDICAL HISTORY Diagnosis Date Chronic back pain GERD (gastroesophageal reflux disease) Obesity (BMI 35.0-39.9 without comorbidity) PTSD (post-traumatic stress disorder) Schizophrenia (HCC) PAST SURGICAL HISTORY Procedure Laterality Date ANKLE LEFT OP SURGERY LAPAROSCOPIC APPENDECTOMY 12/10/2020 ALLERGIES Patient has no known allergies. MEDICATIONS baclofen (LIORESAL) 10 mg tablet Take 10 mg by mouth once daily as needed. losartan (COZAAR) 50 mg tablet Take 50 mg by mouth once daily. glipiZIDE (GLUCOTROL) 5 mg tablet Take 5 mg by mouth once daily. acetaminophen (TYLENOL EXTRA STRENGTH) 500 mg tablet Take 1 tablet by mouth every 6 hours as needed for pain. risperiDONE (RISPERDAL) 1 mg tablet Take 1 mg by mouth twice daily. ferrous sulfate (IRON ORAL) Take by mouth. SUMAtriptan (IMITREX) 50 mg tablet take 1 tablet by mouth every day as needed, repeat dose in one hour if headache persist Cholecalciferol, Vitamin D3, 125 mcg (5,000 unit) cap benztropine (COGENTIN) 0.5 mg tablet Take 1 tablet by mouth twice daily. divalproex DR (DEPAKOTE) 500 mg EC tablet Take 1 tablet by mouth once daily. (Patient taking differently: Take 500 mg by mouth two times a day.) therapeutic multivitamin (THERA VITAMIN) tablet Take 1 tablet by mouth once daily. tajh-ssj-zvj-hfy-tozr-jigl-pec (FIBER 6) 1,000 mg tab Take 1 tablet by mouth once daily. predniSONE (DELTASONE) 10 mg tablet Take 4 tabs daily for 3 days, then 2 tabs daily for 3 days, then 1 tab daily for 3 days with food. cyclobenzaprine (FLEXERIL) 10 mg tablet Take by mouth three times daily. (Patient not taking: Reported on 01/28/2023) rosuvastatin (CRESTOR) 5 mg tablet Take 5 mg by mouth daily at bedtime. gabapentin (NEURONTIN) 300 mg capsule TAKE 1 CAPSULE BY MOUTH IN THE MORNING, TAKE 2 CAPSULES IN THE EVENING (Patient not taking: Reported on 01/28/2023) FAMILY HISTORY Problem Relation Age of Onset Cancer Mother Heart Father Social History Tobacco Use Smoking status: Every Day Packs/day: .5 Types: Cigars, Cigarettes Smokeless tobacco: Never Vaping Use Vaping Use: Never used Substance Use Topics Alcohol use: No Drug use: No ASSESSMENT/PLAN: 1. Chronic midline low back pain without sciatica - ICD9: 724.2, 338.29, ICD10: M54.50, G89.29 - Instructed on use of prednisone taper - Keep follow up appointment with specialist wound care - PREDNISONE 10 MG TABLET Prescription instructions reviewed with patient. Potential red flag symptoms discussed with the patient. Reviewed appropriate action plan to take if red flag symptoms occur. Patient agreeable to treatment plan. Flory Jones Supervising provider was present and guided the care of the patient for the entire session on this date. All documentation was reviewed and agreed upon. Jessica Garza APRN.RENETTA documented in this encounter [facility] 06-26-2023 Note HNO ID: [id number] Author: Kaya Guerrier APRN.RENETTA Service: ? Author Type: Nurse Practitioner Type: Progress Notes Filed: 06/26/2023 12:06 PM Note Text: Subjective HPI Nontoxic-appearing male presents urgent care chief complaint back pain. History of spinal stenosis and herniated disc. Duration of symptoms 2 days. Associated symptoms exacerbation of lower back discomfort. 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 History of chronic back pain this feels similar to exacerbations. Has not used any OTC medications today. Tried to reach out to his spine doctor was unable to reach their office. Presents today for evaluation. History of lower back pain use of prednisone with good pain management. Denies any traumatic injuries. No fever night sweats radiculopathy saddle anesthesia or incontinence. Past medical history prescription medications allergies reviewed. .Patient presents with: Pain, Back: Lower back pain x 2 days PAST MEDICAL HISTORY Diagnosis Date Chronic back pain GERD (gastroesophageal reflux disease) Obesity (BMI 35.0-39.9 without comorbidity) PTSD (post-traumatic stress disorder) Schizophrenia (HCC) PAST SURGICAL HISTORY Procedure Laterality Date ANKLE LEFT OP SURGERY LAPAROSCOPIC APPENDECTOMY 12/10/2020 ALLERGIES Patient has no known allergies. MEDICATIONS baclofen (LIORESAL) 10 mg tablet Take 10 mg by mouth once daily as needed. losartan (COZAAR) 50 mg tablet Take 50 mg by mouth once daily. glipiZIDE (GLUCOTROL) 5 mg tablet Take 5 mg by mouth once daily. acetaminophen (TYLENOL EXTRA STRENGTH) 500 mg tablet Take 1 tablet by mouth every 6 hours as needed for pain. risperiDONE (RISPERDAL) 1 mg tablet Take 1 mg by mouth twice daily. ferrous sulfate (IRON ORAL) Take by mouth. rosuvastatin (CRESTOR) 5 mg tablet Take 5 mg by mouth daily at bedtime. SUMAtriptan (IMITREX) 50 mg tablet take 1 tablet by mouth every day as needed, repeat dose in one hour if headache persist Cholecalciferol, Vitamin D3, 125 mcg (5,000 unit) cap benztropine (COGENTIN) 0.5 mg tablet Take 1 tablet by mouth twice daily. divalproex DR (DEPAKOTE) 500 mg EC tablet Take 1 tablet by mouth once daily. (Patient taking differently: Take 500 mg by mouth two times a day.) therapeutic multivitamin (THERA VITAMIN) tablet Take 1 tablet by mouth once daily. iiqo-egm-fws-kkt-peam-bojr-pec (FIBER 6) 1,000 mg tab Take 1 tablet by mouth once daily. cyclobenzaprine (FLEXERIL) 10 mg tablet Take by mouth three times daily. (Patient not taking: Reported on 01/28/2023) gabapentin (NEURONTIN) 300 mg capsule TAKE 1 CAPSULE BY MOUTH IN THE MORNING, TAKE 2 CAPSULES IN THE EVENING (Patient not taking: Reported on 01/28/2023) FAMILY HISTORY Problem Relation Age of Onset Cancer Mother Heart Father Social History Tobacco Use Smoking status: Every Day Packs/day: .5 Types: Cigars, Cigarettes Smokeless tobacco: Never Vaping Use Vaping Use: Never used Substance Use Topics Alcohol use: No Drug use: No BP 118/74 Pulse 92 Temp 36.3 ?C (97.4 ?F) (Tympanic) Resp 16 Wt 122.4 kg (269 lb 12.8 oz) SpO2 96% BMI 36.59 kg/m? Review of Systems Constitutional: Negative for chills, fever and malaise/fatigue. HENT: Negative for congestion, ear discharge, ear pain, sinus pain and sore throat. Eyes: Negative for blurred vision, pain, discharge and redness. Respiratory: Negative for cough, hemoptysis, sputum production, shortness of breath, wheezing and stridor. Cardiovascular: Negative for chest pain. Gastrointestinal: Negative for abdominal pain, diarrhea, nausea and vomiting. Musculoskeletal: Positive for back pain. Negative for falls, joint pain, myalgias and neck pain. Skin: Negative for itching and rash. Neurological: Negative for dizziness and headaches. Objective Physical Exam Constitutional: General: He is not in acute distress. Appearance: He is not toxic-appearing. HENT: Head: Normocephalic. Nose: Nose normal. Eyes: Pupils: Pupils are equal, round, and reactive to light. Cardiovascular: Rate and Rhythm: Normal rate. Pulmonary: Effort: Pulmonary effort is normal. No respiratory distress. Musculoskeletal: Cervical back: Normal range of motion. Thoracic back: No deformity, signs of trauma, tenderness or bony tenderness. Lumbar back: Tenderness present. No swelling, edema, deformity, signs of trauma or bony tenderness. Decreased range of motion. Negative right straight leg raise test and negative left straight leg raise test. Back: Comments: Pain with palpation the highlighted area. No spinal tenderness. Tenderness with palpation of the paraspinal muscles. No erythema edema. Negative straight leg test. Able to stand on toes walk on heels. Skin: General: Skin is warm and dry. Neurological: General: No focal deficit present. Mental Status: He is alert. ASSESSMENT/PLAN: 1. Acute midli (more content not included)... [facility] 06-26-2023 History of Presen t illness Narrative Images from the original note were not included. Subjective HPI Nontoxic-appearing male presents urgent care chief complaint back pain. History of spinal stenosis and herniated disc. Duration of symptoms 2 days. Associated symptoms exacerbation of lower back discomfort. 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 History of chronic back pain this feels similar to exacerbations. Has not used any OTC medications today. Tried to reach out to his spine doctor was unable to reach their office. Presents today for evaluation. History of lower back pain use of prednisone with good pain management. Denies any traumatic injuries. No fever night sweats radiculopathy saddle anesthesia or incontinence. Past medical history prescription medications allergies reviewed. .Patient presents with: Pain, Back: Lower back pain x 2 days PAST MEDICAL HISTORY Diagnosis Date Chronic back pain GERD (gastroesophageal reflux disease) Obesity (BMI 35.0-39.9 without comorbidity) PTSD (post-traumatic stress disorder) Schizophrenia (HCC) PAST SURGICAL HISTORY Procedure Laterality Date ANKLE LEFT OP SURGERY LAPAROSCOPIC APPENDECTOMY 12/10/2020 ALLERGIES Patient has no known allergies. MEDICATIONS baclofen (LIORESAL) 10 mg tablet Take 10 mg by mouth once daily as needed. losartan (COZAAR) 50 mg tablet Take 50 mg by mouth once daily. glipiZIDE (GLUCOTROL) 5 mg tablet Take 5 mg by mouth once daily. acetaminophen (TYLENOL EXTRA STRENGTH) 500 mg tablet Take 1 tablet by mouth every 6 hours as needed for pain. risperiDONE (RISPERDAL) 1 mg tablet Take 1 mg by mouth twice daily. ferrous sulfate (IRON ORAL) Take by mouth. rosuvastatin (CRESTOR) 5 mg tablet Take 5 mg by mouth daily at bedtime. SUMAtriptan (IMITREX) 50 mg tablet take 1 tablet by mouth every day as needed, repeat dose in one hour if headache persist Cholecalciferol, Vitamin D3, 125 mcg (5,000 unit) cap benztropine (COGENTIN) 0.5 mg tablet Take 1 tablet by mouth twice daily. divalproex DR (DEPAKOTE) 500 mg EC tablet Take 1 tablet by mouth once daily. (Patient taking differently: Take 500 mg by mouth two times a day.) therapeutic multivitamin (THERA VITAMIN) tablet Take 1 tablet by mouth once daily. wbhn-akw-ztj-oda-yvns-euzy-pec (FIBER 6) 1,000 mg tab Take 1 tablet by mouth once daily. cyclobenzaprine (FLEXERIL) 10 mg tablet Take by mouth three times daily. (Patient not taking: Reported on 01/28/2023) gabapentin (NEURONTIN) 300 mg capsule TAKE 1 CAPSULE BY MOUTH IN THE MORNING, TAKE 2 CAPSULES IN THE EVENING (Patient not taking: Reported on 01/28/2023) FAMILY HISTORY Problem Relation Age of Onset Cancer Mother Heart Father Social History Tobacco Use Smoking status: Every Day Packs/day: .5 Types: Cigars, Cigarettes Smokeless tobacco: Never Vaping Use Vaping Use: Never used Substance Use Topics Alcohol use: No Drug use: No BP 118/74 Pulse 92 Temp 36.3 C (97.4 F) (Tympanic) Resp 16 Wt 122.4 kg (269 lb 12.8 oz) SpO2 96% BMI 36.59 kg/m Review of Systems Constitutional: Negative for chills, fever and malaise/fatigue. HENT: Negative for congestion, ear discharge, ear pain, sinus pain and sore throat. Eyes: Negative for blurred vision, pain, discharge and redness. Respiratory: Negative for cough, hemoptysis, sputum production, shortness of breath, wheezing and stridor. Cardiovascular: Negative for chest pain. Gastrointestinal: Negative for abdominal pain, diarrhea, nausea and vomiting. Musculoskeletal: Positive for back pain. Negative for falls, joint pain, myalgias and neck pain. Skin: Negative for itching and rash. Neurological: Negative for dizziness and headaches. Objective Physical Exam Constitutional: General: He is not in acute distress. Appearance: He is not toxic-appearing. HENT: Head: Normocephalic. Nose: Nose normal. Eyes: Pupils: Pupils are equal, round, and reactive to light. Cardiovascular: Rate and Rhythm: Normal rate. Pulmonary: Effort: Pulmonary effort is normal. No respiratory distress. Musculoskeletal: Cervical back: Normal range of motion. Thoracic back: No deformity, signs of trauma, tenderness or bony tenderness. Lumbar back: Tenderness present. No swelling, edema, deformity, signs of trauma or bony tenderness. Decreased range of motion. Negative right straight leg raise test and negative left straight leg raise test. Back: Comments: Pain with palpation the highlighted area. No spinal tenderness. Tenderness with palpation of the paraspinal muscles. No erythema edema. Negative straight leg test. Able to stand on toes walk on heels. Skin: General: Skin is warm and dry. Neurological: General: No focal deficit present. Mental Status: He is alert. ASSESSMENT/PLAN: 1. Acute midline low back pain without sciatica - ICD9: 724.2, ICD10: M54.50 Diagnosed with acute lower back pain. Placed on prednisone burst. Has tolerated this in the past. Do not take prednisone with NSAIDs. Reach out to orthopedic doctor as discussed. Patient was educated on supportive therapies. Patient will follow up with primary care provider as needed. Patient was instructed to immediately proceed to emergency room for any new, worsening, or symptoms lasting longer than anticipated. The patient's clinical presentation is otherwise unremarkable at this time. Based on exam and clinical finding, the patient is stable for discharge. Plan of care was discussed with patient. Patient verbalizes understanding and agrees to plan of care. This note was generated using [employer] software. It may contain errors in wording, punctuation, or spelling. Kaya Guerrier APRN.RENETTA documented in this encounter [facility] 01-28-2023 History of Presen t illness Narrative Images from the original note were not included. Subjective Patient came in with complaints of lower right back pain. Patient says he has a history of spinal stenosis and herniated disks. Patient says he is not sure if he aggravated it at work. Patient denies any numbness tingling going down his legs. Patient denies any difficulty urinating. Patient denies any other symptoms. Patient said it started yesterday. The history is provided by the patient. No school speech language pathologist was used. Back Pain Review of Systems Constitutional: Negative. Musculoskeletal: Positive for back pain. Skin: Negative. Objective Physical Exam Constitutional: Appearance: Normal appearance. Pulmonary: Effort: Pulmonary effort is normal. Musculoskeletal: Arms: Comments: Patient is experiencing the pain in the area marked above. It is tender upon palpation. No bruising swelling noted. Neurological: Mental Status: He is alert. PAST MEDICAL HISTORY Diagnosis Date Chronic back pain GERD (gastroesophageal reflux disease) Obesity (BMI 35.0-39.9 without comorbidity) PTSD (post-traumatic stress disorder) Schizophrenia (HCC) PAST SURGICAL HISTORY Procedure Laterality Date ANKLE LEFT OP SURGERY LAPAROSCOPIC APPENDECTOMY 12/10/2020 ALLERGIES Patient has no known allergies. MEDICATIONS baclofen (LIORESAL) 10 mg tablet Take 10 mg by mouth once daily as needed. losartan (COZAAR) 50 mg tablet Take 50 mg by mouth once daily. glipiZIDE (GLUCOTROL) 5 mg tablet Take 5 mg by mouth once daily. acetaminophen (TYLENOL EXTRA STRENGTH) 500 mg tablet Take 1 tablet by mouth every 6 hours as needed for pain. risperiDONE (RISPERDAL) 1 mg tablet Take 1 mg by mouth twice daily. ferrous sulfate (IRON ORAL) Take by mouth. rosuvastatin (CRESTOR) 5 mg tablet Take 5 mg by mouth daily at bedtime. SUMAtriptan (IMITREX) 50 mg tablet take 1 tablet by mouth every day as needed, repeat dose in one hour if headache persist Cholecalciferol, Vitamin D3, 125 mcg (5,000 unit) cap benztropine (COGENTIN) 0.5 mg tablet Take 1 tablet by mouth twice daily. divalproex DR (DEPAKOTE) 500 mg EC tablet Take 1 tablet by mouth once daily. (Patient taking differently: Take 500 mg by mouth twice daily.) therapeutic multivitamin (THERA VITAMIN) tablet Take 1 tablet by mouth once daily. cxhw-zik-puy-cxc-trbi-yybr-pec (FIBER 6) 1,000 mg tab Take 1 tablet by mouth once daily. predniSONE (DELTASONE) 10 mg tablet Take 4 tabs daily for 3 days, then 2 tabs daily for 3 days, then 1 tab daily for 3 days with food. cyclobenzaprine (FLEXERIL) 10 mg tablet Take by mouth three times daily. (Patient not taking: Reported on 01/28/2023) gabapentin (NEURONTIN) 300 mg capsule TAKE 1 CAPSULE BY MOUTH IN THE MORNING, TAKE 2 CAPSULES IN THE EVENING (Patient not taking: Reported on 01/28/2023) FAMILY HISTORY Problem Relation Age of Onset Cancer Mother Heart Father Social History Tobacco Use Smoking status: Every Day Packs/day: 0.50 Types: Cigars, Cigarettes Smokeless tobacco: Never Vaping Use Vaping Use: Never used Substance Use Topics Alcohol use: No Drug use: No ASSESSMENT/PLAN: 1. Acute midline low back pain without sciatica - ICD9: 724.2, ICD10: M54.50 - PREDNISONE 10 MG TABLET Patient states he is a well-controlled diabetic and will monitor blood sugars while on medication. Patient was educated about proper use of medication and supportive therapies. Patient will follow-up if signs and symptoms seem to be getting worse not better. Patient was okay with this care plan. Jessica Garza APRN.RENETTA documented in this encounter [facility] 10-28-2022 Instructions ALYSA Mcclain - 10/28/2022 12:10 PM EDT R.I.C.E. The general care of your injury includes the following: Resting, Icing, Compressing and Elevating the injured area. Remember this as RICE. REST: Limit the use of the injured body part. ICE: By applying ice to the affected area, swelling and pain can be reduced. Place some ice cubes in a re-sealable (Ziploc) bag and add some water. Put a thin washcloth between the bag and your skin. Apply the ice bag to the area for at least 20 minutes. Do this at least 4 times per day. Using the ice for longer times and more frequently is OK. NEVER APPLY ICE DIRECTLY TO THE SKIN. COMPRESS: Compression means to apply pressure around the injured area such as with a splint, cast or an papito bandage. Compression decreases swelling and improves comfort. Compression should be tight enough to relieve swelling but not so tight as to decrease circulation. Increasing pain, numbness, tingling, or change in skin color, are all signs of decreased circulation. ELEVATE: Elevate the injured part. For example, elevate your foot by placing it on a chair while sitting, or propping it up on pillows when lying down. documented in this encounter [facility] 10-28-2022 History of Presen t illness Narrative Radiology Service Progress Note PATIENT NAME: Chava Lester DATE OF SERVICE: October 28, 2022 TIME: 11:46 AM PATIENT IDENTITY VERIFICATION COMPLETED USING TWO (2) IDENTIFIERS: Name and Date of confirmed by patient verbally. FALL SCREENING: Has the patient had 2 falls in the last year or 1 fall with injury or currently using an Ambulatory Assistive Device (Walker, Cane, Wheelchair, Crutches, etc.)? No PATIENT GENDER DATA: Male PATIENT RELEVANT IMPLANT DATA REVIEWED: Yes RADIOLOGY DEPARTMENT: General X-ray: Exam(s) Completed: Lower Extremity X-Ray(s): Ankle, Right and Wt. Bearing PERIPHERAL IV DATA: Not applicable SIGNED BY: RT Johnny(R) October 28, 2022 11:46 AM documented in this encounter [facility] 10-28-2022 History of Presen t illness Narrative This note was created using [employer] software[employer]. Subjective Chava Lester is a 52 year old male. HPI 52-year-old male presents for right ankle pain. Patient states he has been having right ankle pain since October 18 when he stepped wrong. He states that he thinks that he twisted his right ankle when he was walking. He has pain on his anterior ankle. He is still able to ambulate. Has not noticed any swelling. No actual fall. He has not been taking anything acsu-kio-qosqygk. No foot pain. No numbness or tingling in the leg or foot. No other complaints PAST MEDICAL HISTORY Diagnosis Date Chronic back pain GERD (gastroesophageal reflux disease) Obesity (BMI 35.0-39.9 without comorbidity) PTSD (post-traumatic stress disorder) Schizophrenia (HCC) PAST SURGICAL HISTORY Procedure Laterality Date ANKLE LEFT OP SURGERY LAPAROSCOPIC APPENDECTOMY 12/10/2020 ALLERGIES Patient has no known allergies. MEDICATIONS cyclobenzaprine (FLEXERIL) 10 mg tablet Take by mouth three times daily. losartan (COZAAR) 50 mg tablet Take 50 mg by mouth once daily. glipiZIDE (GLUCOTROL) 5 mg tablet Take 5 mg by mouth once daily. acetaminophen (TYLENOL EXTRA STRENGTH) 500 mg tablet Take 1 tablet by mouth every 6 hours as needed for pain. risperiDONE (RISPERDAL) 1 mg tablet Take 1 mg by mouth twice daily. ferrous sulfate (IRON ORAL) Take by mouth. rosuvastatin (CRESTOR) 5 mg tablet Take 5 mg by mouth daily at bedtime. SUMAtriptan (IMITREX) 50 mg tablet take 1 tablet by mouth every day as needed, repeat dose in one hour if headache persist gabapentin (NEURONTIN) 300 mg capsule TAKE 1 CAPSULE BY MOUTH IN THE MORNING, TAKE 2 CAPSULES IN THE EVENING Cholecalciferol, Vitamin D3, 125 mcg (5,000 unit) cap benztropine (COGENTIN) 0.5 mg tablet Take 1 tablet by mouth twice daily. divalproex DR (DEPAKOTE) 500 mg EC tablet Take 1 tablet by mouth once daily. (Patient taking differently: Take 500 mg by mouth twice daily.) therapeutic multivitamin (THERA VITAMIN) tablet Take 1 tablet by mouth once daily. ddsb-ius-byr-pby-ljfx-oldg-pec (FIBER 6) 1,000 mg tab Take 1 tablet by mouth once daily. baclofen (LIORESAL) 10 mg tablet Take 10 mg by mouth once daily as needed. FAMILY HISTORY Problem Relation Age of Onset Cancer Mother Heart Father Social History Tobacco Use Smoking status: Every Day Packs/day: 0.50 Types: Cigars, Cigarettes Smokeless tobacco: Never Vaping Use Vaping Use: Never used Substance Use Topics Alcohol use: No Drug use: No Review of Systems Constitutional: Negative for chills and fever. HENT: Negative for congestion and sore throat. Respiratory: Negative for cough and shortness of breath. Gastrointestinal: Negative for diarrhea and vomiting. Musculoskeletal: Positive for arthralgias (R ankle). Objective BP 122/70 Pulse 78 Temp 36.3 C (97.4 F) Resp 16 Wt 127 kg (280 lb) SpO2 96% BMI 37.97 kg/m Physical Exam Vitals and nursing note reviewed. Constitutional: General: He is not in acute distress. Appearance: Normal appearance. He is not toxic-appearing. Cardiovascular: Rate and Rhythm: Normal rate and regular rhythm. Pulmonary: Effort: Pulmonary effort is normal. Breath sounds: Normal breath sounds. Musculoskeletal: Right ankle: Swelling present. Tenderness present. Normal range of motion. Anterior drawer test negative. Normal pulse. Right Achilles Tendon: Normal. Legs: Comments: Tenderness in the red area as shown above. No foot tenderness. No tenderness over the lateral or medial malleoli. No swelling or obvious deformity. Normal plantarflexion and dorsiflexion. Able to ambulate. Normal sensation right lower extremity. Achilles intact. Cap refill less than 2 seconds. DP and PT pulses 2+ Skin: General: Skin is warm and dry. Neurological: Mental Status: He is alert. Assessment and Plan ASSESSMENT/PLAN: 1. Acute right ankle pain - ICD9: 719.47, 338.19, ICD10: M25.571 - XR ANKLE GENERAL 3V AP/LAT/OBL RIGHT -XR reveals no acute findings. -Recommend rest, ice, elevation, Tylenol/Motrin as needed for pain. -Follow-up with PCP if not improving in 1 week. Diagnosis and treatment plan were discussed and questions were answered to the patient's satisfaction. Pt acknowledged understanding of concepts and follow up plan. Specific signs and symptoms that would indicate the need for higher level of care were discussed in detail warranting prompt ER evaluation. AYLSA Mcclain documented in this encounter [facility] 12-12-2021 Miscellaneous Notes Pt called in went over labs and let him know he was negative for Covid and Influenza A and B. Pt verbalized understanding. documented in this encounter [facility] 12-11-2021 History of Presen t illness Narrative CC: Patient presents with: Head Congestion: drainage, cough, sore throat x this am HPI: Chava Lester is a 51 year old male who presents to the office with complaint of head congestion, cough, nonproductive, sore throat and rhinorrhea since this morning. Symptoms are staying the same. Associated symptoms includes nasal congestion. Denies fever, nausea, vomiting and diarrhea. Treatments tried include nothing so far. with no relief of symptoms. Sick contacts: unknown. History of asthma, frequent episodes of bronchitis, chronic bronchitis, bronchiectasis or COPD: No Smoker: No Seasonal/environmental allergies: No The ROS is otherwise negative. The patient's pmh, medications, allergies, and past visits are reviewed. PHYSICAL EXAM: BP 122/72 Pulse 94 Temp 36.8 C (98.3 F) Resp 16 Wt 125.6 kg (277 lb) SpO2 95% BMI 37.57 kg/m General appearance: alert, cooperative, pleasant, in no acute distress Head: Normocephalic Eyes: EOM's intact, conjunctiva pink and moist, no icterus, sclera white, non-injected Ears: Right ear: External ear/canal- Normal, TM - clear with good landmarks. Left ear: External ear/canal- Normal, TM - clear with good landmarks Oropharynx:moist without lesions, No erythema, exudates or tonsillar hypertrophy. Heart: Negative. RRR without obvious murmur, gallop, or rubs. No ectopy. Lungs: clear to auscultation, without rales or wheeze, good air exchange PAST MEDICAL HISTORY Diagnosis Date Chronic back pain GERD (gastroesophageal reflux disease) Obesity (BMI 35.0-39.9 without comorbidity) PTSD (post-traumatic stress disorder) Schizophrenia (HCC) PAST SURGICAL HISTORY Procedure Laterality Date ANKLE LEFT OP SURGERY LAPAROSCOPIC APPENDECTOMY 12/10/2020 ALLERGIES Patient has no known allergies. MEDICATIONS cyclobenzaprine (FLEXERIL) 10 mg tablet Take by mouth three times daily. losartan (COZAAR) 50 mg tablet Take 50 mg by mouth once daily. glipiZIDE (GLUCOTROL) 5 mg tablet Take 5 mg by mouth once daily. acetaminophen (TYLENOL EXTRA STRENGTH) 500 mg tablet Take 1 tablet by mouth every 6 hours as needed for pain. risperiDONE (RISPERDAL) 1 mg tablet Take 1 mg by mouth twice daily. ferrous sulfate (IRON ORAL) Take by mouth. rosuvastatin (CRESTOR) 5 mg tablet Take 5 mg by mouth daily at bedtime. SUMAtriptan (IMITREX) 50 mg tablet take 1 tablet by mouth every day as needed, repeat dose in one hour if headache persist gabapentin (NEURONTIN) 300 mg capsule TAKE 1 CAPSULE BY MOUTH IN THE MORNING, TAKE 2 CAPSULES IN THE EVENING Cholecalciferol, Vitamin D3, 125 mcg (5,000 unit) cap benztropine (COGENTIN) 0.5 mg tablet Take 1 tablet by mouth twice daily. divalproex DR (DEPAKOTE) 500 mg EC tablet Take 1 tablet by mouth once daily. therapeutic multivitamin (THERA VITAMIN) tablet Take 1 tablet by mouth once daily. ktcx-tsn-xqf-mdk-eood-vdqe-pec (FIBER 6) 1,000 mg tab Take 1 tablet by mouth once daily. FAMILY HISTORY Problem Relation Age of Onset Cancer Mother Heart Father Social History Tobacco Use Smoking status: Current Every Day Smoker Packs/day: 0.50 Types: Cigars Smokeless tobacco: Never Used Vaping Use Vaping Use: Never used Substance Use Topics Alcohol use: No Drug use: No ASSESSMENT/PLAN: 1. Cough - ICD9: 786.2, ICD10: R05.9 - COVID WITH FLUA+B, ROUTINE Use over the counter medication and increase fluids while waiting on test results. Potential red flag symptoms discussed with the patient. Reviewed appropriate action plan to take if red flag symptoms occur. Patient agreeable to treatment plan. Jessica Garza APRN.RENETTA documented in this encounter [facility] 12-28-2020 History of Presen t illness Narrative Radiology Service Progress Note PATIENT NAME: Chava Lester DATE OF SERVICE: December 28, 2020 TIME: 12:45 PM PATIENT IDENTITY VERIFICATION COMPLETED USING TWO (2) IDENTIFIERS: Name and Date of confirmed by patient verbally. FALL SCREENING: Has the patient had 2 falls in the last year or 1 fall with injury or currently using an Ambulatory Assistive Device (Walker, Cane, Wheelchair, Crutches, etc.)? No PATIENT GENDER DATA: Male PATIENT RELEVANT IMPLANT DATA REVIEWED: Yes RADIOLOGY DEPARTMENT: General X-ray: Exam(s) Completed: Spine X-Ray(s): Lumbar AP / LAT / L5-S1 PERIPHERAL IV DATA: Not applicable SIGNED BY: RT Johnny(R) December 28, 2020 12:45 PM documented in this encounter [facility] 06-21-2020 History of Presen t illness Narrative Radiology Service Progress Note PATIENT NAME: Chava Lester DATE OF SERVICE: June 21, 2020 TIME: 12:24 PM PATIENT IDENTITY VERIFICATION COMPLETED USING TWO (2) IDENTIFIERS: Name and Date of confirmed by patient verbally. FALL SCREENING: Has the patient had 2 falls in the last year or 1 fall with injury or currently using an Ambulatory Assistive Device (Walker, Cane, Wheelchair, Crutches, etc.)? No PATIENT GENDER DATA: Male PATIENT RELEVANT IMPLANT DATA REVIEWED: Not Applicable RADIOLOGY DEPARTMENT: General X-ray: Exam(s) Completed: Lower Extremity X-Ray(s): Tibia Fibula, Right: PERIPHERAL IV DATA: Not applicable SIGNED BY: RT Jj June 21, 2020 12:24 PM [facility] Diagnosis Cough- Primary [facility] Diagnosis Acute right ankle pain- Primary [facility] Diagnosis Acute midline low back pain without sciatica- [facility] Diagnosis Acute midline low back pain without sciatica- Primary [facility] Diagnosis Chronic midline low back pain without sciatica- Primary [facility] Diagnosis Lumbar pain- Primary Lumbago [facility] Diagnosis Acute right ankle pain [facility] this [facility] Diagnosis Acute bilateral low back pain without sciatica [facility] Diagnosis Acute pain of right knee [facility]* Diagnosis Lumbar pain- Primary Lumbago [facility] Diagnosis Lumbar pain- Primary Lumbago Lumbar pain Lumbago [facility] Diagnosis Lumbar pain Lumbago documented in this encounter [facility] for referral (narrative)* Diagnostic Procedure Only (Urgent) - Closed Specialty Diagnoses / Procedures Referred By Contac t Referred To Contact XR IMAGING Diagnoses Acute right ankle pain Procedures XR ANKLE GENERAL 3V AP/LAT/OBL RIGHT RADEX ANKLE COMPLETE MINIMUM 3 VIEWS [facility] [address] [phone] Xr Imaging Referral ID Status Reason Start Date Expiration Date V isits Requested Visits Authorized [id number] Closed Auto-Generate d Referral 10/28/2022 11/27/2023 1 1 [facility] for referral (narrative)* Diagnostic Procedure Only (Urgent) - Closed Specialty Diagnoses / Procedures Referred By Contac t Referred To Contact XR IMAGING Diagnoses Acute right ankle pain Procedures XR ANKLE GENERAL 3V AP/LAT/OBL RIGHT RADEX ANKLE COMPLETE MINIMUM 3 VIEWS [facility] [address] [phone] [place] [address] Referral ID Status Reason Start Date Expiration Date V isits Requested Visits Authorized [id number] Closed Auto-Generate d Referral 10/28/2022 11/27/2023 1 1 [facility] for referral (narrative)* Diagnostic Procedure Only (Urgent) - Closed Specialty Diagnoses / Procedures Referred By Contac t Referred To Contact XR IMAGING Diagnoses Lumbar pain Procedures XR LUMBAR GENERAL 3V AP/LAT/L5-S1 RADEX SPINE LUMBOSACRAL 2/3 VIEWS Yomi Mitchell APRN.SPEECH ASSISTANT [address] [place] [address] [place] [address] Referral ID Status Reason Start Date Expiration Date V isits Requested Visits Authorized [id number] Closed Auto-Generate d Referral 05/05/2024 06/04/2025 1 1 [facility] for visit Narrative* Diagnostic Procedure Only (Urgent) - Closed Specialty Diagnoses / Procedures Referred By Contac t Referred To Contact XR IMAGING Diagnoses Acute right ankle pain Procedures XR ANKLE GENERAL 3V AP/LAT/OBL RIGHT RADEX ANKLE COMPLETE MINIMUM 3 VIEWS [facility] [address] [place] [address] [place] [address] Referral ID Status Reason Start Date Expiration Date V isits Requested Visits Authorized [id number] Closed Auto-Generate d Referral 10/28/2022 11/27/2023 1 1 [facility] for visit Narrative* Diagnostic Procedure Only (Urgent) - Closed Specialty Diagnoses / Procedures Referred By Contac t Referred To Contact XR IMAGING Diagnoses Lumbar pain Procedures XR LUMBAR GENERAL 3V AP/LAT/L5-S1 RADEX SPINE LUMBOSACRAL 2/3 VIEWS Yomi Mitchell, KENA.SPEECH ASSISTANT [address] [place] [address] [place] [address] Referral ID Status Reason Start Date Expiration Date V isits Requested Visits Authorized [id number] Closed Auto-Generate d Referral 05/05/2024 06/04/2025 1 1 [facility] Summary Purpose Family History No Family History Records FoundNo Family History Records FoundNo Family History Records Found Advance Directives No Advanced Directives Records FoundDocuments on File Type Date Recorded Patient Manager Engagement Expl anation Advance Directive(s) 09/24/2021 10:11 AM Advance Directive(s) 09/18/2021 5:20 PM Advance Directive(s) 08/13/2021 9:11 AM Advance Directive(s) 07/26/2021 9:27 AM Advance Directive(s) 03/27/2021 2:23 PM Health Concerns Infection Onset Date Last Indicated Resolved Time COVID-19 Rule-Out 12/11/2021 12/11/2021 Infection Onset Date Last Indicated Resolved Time COVID-19 Rule-Out 12/11/2021 12/11/2021 12/12/2021 2:27 AM EDT Reason for Referral Specialty Diagnoses / Procedures Referred By Contac t Referred To Contact [facility] Diagnoses Lumbar pain Procedures [facility] - CONSULT TO PHYSICAL THERAPY OFFICE/OUTPATIENT [facility] 60 MINUTES Yomi Mitchell, HAMPER MAKER.SPEECH ASSISTANT [address] [place] [address] [facility] [place] [address] [place] [address] Referral ID Status Reason Start Date Expiration Date Visits Requested Visits Authorized [id number] Pending Review Auto-Generat ed Referral 05/05/2025 1 1 Specialty Diagnoses / Procedures Referred By Contac t Referred To Contact XR IMAGING Diagnoses Lumbar pain Procedures XR LUMBAR GENERAL 3V AP/LAT/L5-S1 RADEX SPINE LUMBOSACRAL 2/3 VIEWS Yomi Mitchell, HAMPER MAKER.SPEECH ASSISTANT [address] [place] [address] Xr Imaging [facility] Referral ID Status Reason Start Date Expiration Date V isits Requested Visits Authorized [id number] Closed Auto-Generate d Referral 05/05/2024 06/04/2025 1 1 Additional Source Comments (unrecognized sect ion and content) No Status Records FoundNo Status Records FoundNo Status Records Found INFORMATION SOURCE (unrecogn ized section and content) DATE CREATED AUTHOR 03/17/2019 [facility] ([place]) DATE CREATED AUTHOR AUTHOR'S ORGANIZ ATION 09/25/2021 [facility] DATE CREATED AUTHOR AUTHOR'S ORGANIZ ATION 05/08/2024 [facility] Source Comments (unrecognize d section and content) In the event this informatio n is protected by the Federal Confidentiality of Alcohol and Drug Abuse Patient Records regulations: The Federal rules restrict any use of the information to criminally investigate or prosecute any alcohol or drug abuse patient.[facility] the event this information is protected by the Federal Confidentiality of Alcohol and Drug Abuse Patient Records regulations: The Federal rules restrict any use of the information to criminally investigate or prosecute any alcohol or drug abuse patient.[facility] the event this information is protected by the Federal Confidentiality of Alcohol and Drug Abuse Patient Records regulations: The Federal rules restrict any use of the information to criminally investigate or prosecute any alcohol or drug abuse patient.[facility] the event this information is protected by the Federal Confidentiality of Alcohol and Drug Abuse Patient Records regulations: The Federal rules restrict any use of the information to criminally investigate or prosecute any alcohol or drug abuse patient.[facility] the event this information is protected by the Federal Confidentiality of Alcohol and Drug Abuse Patient Records regulations: The Federal rules restrict any use of the information to criminally investigate or prosecute any alcohol or drug abuse patient.[facility] the event this information is protected by the Federal Confidentiality of Alcohol and Drug Abuse Patient Records regulations: The Federal rules restrict any use of the information to criminally investigate or prosecute any alcohol or drug abuse patient.[facility] the event this information is protected by the Federal Confidentiality of Alcohol and Drug Abuse Patient Records regulations: The Federal rules restrict any use of the information to criminally investigate or prosecute any alcohol or drug abuse patient.[facility] the event this information is protected by the Federal Confidentiality of Alcohol and Drug Abuse Patient Records regulations: The Federal rules restrict any use of the information to criminally investigate or prosecute any alcohol or drug abuse patient.[facility] the event this information is protected by the Federal Confidentiality of Alcohol and Drug Abuse Patient Records regulations: The Federal rules restrict any use of the information to criminally investigate or prosecute any alcohol or drug abuse patient.[facility] the event this information is protected by the Federal Confidentiality of Alcohol and Drug Abuse Patient Records regulations: The Federal rules restrict any use of the information to criminally investigate or prosecute any alcohol or drug abuse patient.[facility] the event this information is protected by the Federal Confidentiality of Alcohol and Drug Abuse Patient Records regulations: The Federal rules restrict any use of the information to criminally investigate or prosecute any alcohol or drug abuse patient.[facility] the event this information is protected by the Federal Confidentiality of Alcohol and Drug Abuse Patient Records regulations: The Federal rules restrict any use of the information to criminally investigate or prosecute any alcohol or drug abuse patient.[facility] the event this information is protected by the Federal Confidentiality of Alcohol and Drug Abuse Patient Records regulations: The Federal rules restrict any use of the information to criminally investigate or prosecute any alcohol or drug abuse patient.[facility] Reason for Visit (unrecogniz ed section and content) Reason Comments Head Congestion drainage, cough, sor e throat x this am Reason Comments Results Reason Comments Ankle Pain right, twisted x 8 d ays Reason Comments Back Pain Lower back pain x 1 day Reason Comments Pain, Back Lower back pain x 2 days Reason Comments Back Pain Lower back increased today Reason Comments Back Pain Lower back pain x th is am Reason Comments Back Pain Right side hip to kn ee pain started today Reason Comments Low Back Pain X1 week Care Teams (unrecognized sec tion and content) Program Instructor Relationship Specialty Start Date End Date Sallie Singh (Historical)RODRIGO Referring 01/17/21 Program Instructor Relationship Specialty Start Date End Date Sallie Singh (Historical)RODRIGO Referring 01/17/21 Program Instructor Relationship Specialty Start Date End Date [facility], [facility] [address] [place] [address] PCP - General 10/28/22 Sallie Singh (Historical)RODRIGO Referring 01/17/21 Program Instructor Relationship Specialty Start Date End Date [facility], [facility] [address] [place] [address] PCP - General 10/28/22 Sallie Singh (Historical), SENIOR SSIS DEVELOPER Referring 01/17/21 Program Instructor Relationship Specialty Start Date End Date [facility], [facility] [address] [place] [address] PCP - General 10/28/22 Sallie Singh (Historical), SENIOR SSIS DEVELOPER Referring 01/17/21 Program Instructor Relationship Specialty Start Date End Date Clinic, [facility] PCP - General 10/28/22 Sallie Singh (Historical), SENIOR SSIS DEVELOPER Referring 01/17/21 Program Instructor Relationship Specialty Start Date End Date Clinic, [facility] PCP - General 10/28/22 Sallie Singh (Historical), SENIOR SSIS DEVELOPER Referring 01/17/21 Program Instructor Relationship Specialty Start Date End Date Zonia Beck CNP PCP - General Family Medicine 05/24/20 09/17/21 Program Instructor Relationship Specialty Start Date End Date Zonia Beck CNP PCP - General Family Medicine 05/24/20 09/17/21 Program Instructor Relationship Specialty Start Date End Date Clinic, [facility] PCP - General 10/28/22 Sallie Singh (Historical), SENIOR SSIS DEVELOPER Referring 01/17/21 Program Instructor Relationship Specialty Start Date End Date Clinic, [facility] PCP - General 10/28/22 Sallie Singh (Historical), SENIOR SSIS DEVELOPER Referring 01/17/21 Program Instructor Relationship Specialty Start Date End Date Clinic, [facility] PCP - General 10/28/22 Sallie Singh (Historical), SENIOR SSIS DEVELOPER Referring 01/17/21 FOR RECORDS PERTAINING TO PATIENTS WHO ARE OR HAVE BEEN ENROLLED IN A CHEMICAL DEPENDENCY/SUBSTANCEABUSE PROGRAM, SOME INFORMATION MAY BE OMITTED. This clinical summary was aggregated from multiple sources. Caution should be exercised in using it in the provision of clinical care. This summary normalizes information from multiple sources, and as a consequence, information in this document may materially change the coding, format and clinical context of patient data. In addition, data may be omitted in some cases. CLINICAL DECISIONS SHOULD BE BASED ON THE PRIMARY CLINICAL RECORDS. [email or web address]. provides no warranty or guarantee of the accuracy or completeness of information in this document.
== END | disposition home or self-care (01) ==
LOC: RAD 13:33
PROVIDERS: Referring Provider Anesthesiology Pain Medicine; Visit Provider Anesthesiology Pain Medicine
DX: M25.551 Pain in right hip (principal)
CPT/HCPCS: 73502

== ENCOUNTER 2024-06-15 14:36 | Emergency (ER) | payer MEDICAID, SELFPAY ==
[2024-06-15 14:37] VITALS: BP 145/85; PULSE 83; RESP 18; TEMP 36.9; O2SAT 96; BMI 38.5
--- NOTE | 2024-06-15 15:09 | EX.ED.DYSGE1 ---
HPI History of Present Illness Chief Complaint: Hypoglycemia Informant: patient Narrative Narrative: Brought in by EMS hypoglycemia. Patient reported started feeling shaky blood glucose was 46 he ate some raisins called EMS who started him on oral glucose. Denied nausea denies diaphoresis. He is diabetic on glipizide 5 mg. He took this medication 10 AM 4 hours prior to arrival. He did eat his oatmeal prior to the medication. He states has not eaten lunch table he eats chicken nuggets before work at 4 PM. Denies any strenuous activities prior to symptoms occur. No previous hypoglycemic episodes in the past. Recheck glucose by EMS was 61 while he is on his oral glucose he is clinically feeling better from this. Denies any recent illness. [facility] Medical History Influenza A Hypertension Diabetes Hx of tinnitus Wears glasses Schizophrenia History of posttraumatic stress disorder (PTSD) Anxiety Alcohol use Rash Low iron High cholesterol Back pain Migraine headache Injury of head and neck Gastric reflux Smoker CPAP (continuous positive airway pressure) dependence Hypertension Severe headache Arthritis Hypercholesteremia GERD (gastroesophageal reflux disease) Dyslipidemia Schizophrenia Morbid obesity Left lower lobe CAP Nasal congestion Home Medications ?Medication ?Instructions ?Recorded ?Last Taken ?Type benztropine 2 mg tablet 5 mg PO BID psych med 05/24/17 12/10/20 09:30 History cetirizine 10 mg tablet 10 mg PO DAILY 05/24/17 12/09/20 18:30 History divalproex 500 mg tablet,extended 500 mg PO BID PTSD 05/24/17 12/10/20 09:30 History release 24 hr omeprazole 20 mg capsule,delayed 40 mg PO DAILY GERD 05/24/17 06/28/21 06:00 History release risperidone 0.5 mg disintegrating 1 mg PO BID PTSD 05/24/17 06/28/21 06:00 History tablet sumatriptan succinate 50 mg tablet 50 mg PO PRN PRN Migraine Symptoms 02/17/20 Unknown History Cholecalciferol (Vitamin D3) 1 cap PO/SL DAILY vitamin 10/02/20 12/10/20 09:30 History [Vitamin D3] methylcellulose (laxative) 500 mg 6 tab PO BID 10/02/20 12/10/20 09:30 History tablet multivitamin with minerals 1 tab PO DAILY vitamin 10/02/20 12/10/20 09:30 History baclofen 10 mg tablet 10 mg PO DAILY 06/06/22 Unknown History losartan 50 mg tablet 25 mg PO DAILY 06/06/22 Unknown History glipizide 5 mg tablet 5 mg PO DAILY 06/23/22 Unknown History rosuvastatin 10 mg tablet 10 mg PO QHS 06/23/22 Unknown History ferrous sulfate 325 mg (65 mg 325 mg PO DAILY 06/15/24 Unknown History iron) tablet (Iron (ferrous sulfate)) meclizine 12.5 mg tablet 12.5 mg PO BID PRN PRN dizziness 06/15/24 Unknown History melatonin 10 mg capsule 10 mg PO QHS 06/15/24 Unknown History Allergy/AdvReac Type Severity Reaction Status Date / Time No Known Allergies Allergy Verified 06/15/24 14:37 Family History Mother CVA (cerebral vascular accident) Malignant hyperthermia due to anesthesia Grandmother Cancer Myocardial infarction Surgical History History of appendectomy Hx of appendectomy History of nasal septoplasty Social History Smoking Status: Current every day smoker tobacco type: cigars ROS ROS ED Constitutional Constitutional ED: Denies chills, fever(s) or sweats Eyes Eyes: Denies change in vision ENT ENT ED: Denies dysphagia or sore throat Cardiovascular Cardiovascular: Denies chest pain, leg edema, palpitations or racing heartbeat Respiratory/Chest Respiratory/Chest: Denies cough, dyspnea or dyspnea on exertion Gastrointestinal Gastrointestinal: Denies abdominal pain, diarrhea, nausea or vomiting Genitourinary Genitourinary ED: Denies dysuria, hematuria or urinary frequency Musculoskeletal Musculoskeletal: Denies back pain, extremity pain or neck pain Integumentary Denies rash or wounds Neurologic Neurologic: Reports other Details: Shakiness resolved ; Denies headache(s), paresthesias or weakness EXAM Physical Exam Const Vital Signs: 06/15/24 14:37 06/15/24 14:49 06/15/24 15:37 Temperature 98.4 F Temperature Source Oral Pulse Rate 83 86 Respiratory Rate 18 18 Respiratory Effort Normal Non-Labored Respiratory Pattern Normal Blood Pressure 145/85 H 134/71 H Blood Pressure Mean 105 92 Pulse Ox 96 96 Oxygen Delivery Method Room Air Room Air 06/15/24 16:00 06/15/24 16:15 Temperature Temperature Source Pulse Rate 85 Respiratory Rate 18 Respiratory Effort Respiratory Pattern Blood Pressure 130/69 H 130/69 H Blood Pressure Mean 85 89 Pulse Ox 96 95 Oxygen Delivery Method Positive well nourished and well developed General Appearance ED: well developed and NAD HEENT Reports moist mucous membranes normocephalic and atraumatic Eyes EOMs intact bilaterally and conjunctivae normal General Eye ED: Yes normal appearance of both eyes Neck no lymphadenopathy and supple General: Negative for tenderness Chest Wall Chest: Negative for tenderness Resp normal respiratory effort and normal air movement Effort and Inspection: symmetric chest movement; Negative for respiratory distress Cardio regular rate, regular rhythm and no murmurs Peripheral Pulses: pulses 2+ throughout GI normal to inspection, nondistended, normoactive bowel sounds and non-tender Palpation: Negative for guarding or rebound tenderness present Back/Spine no CVA tenderness and no thoracic nor lumbar tenderness Extremity normal to inspection General Extremety ED: Negative for edema or tenderness General Extremity: Negative for edema Neuro oriented x3 and no sensory deficits noted Sensorium / Orientation: awake and alert Skin no rashes or lesions noted and no wounds MDM MDM MDM Narrative Medical decision making narrative: Interventions / MDM: Differential diagnosis: Hypoglycemic event, history of diabetes Diagnosis considered but do not suspect: No clinical infectious symptoms. My EKG interpretation: N/A Imaging independently reviewed and interpreted by myself: N/A External documents reviewed: N/A Test considered but not ordered:N/A ED course: Vital stable nontoxic. Hypoglycemic event. Patient given carbohydrate diet with turkey sandwich applesauce and juice. Will monitor his glucose. 1500: Glucose checks per nursing was 87 he was starting his p.o. intake meal 1520: Patient finished a sandwich and his orange juice. Clinically stable. Will monitor his glucose. 1535: Glucose 120. 1610: Glucose 123. Clinically stable, sugars are not trending down. Patient be discharged with return precautions. Outpatient follow-up. All questions were answered. Re-evaluation: stable Disposition discussed with patient/family/significant other: Patient Case discussed with consulting clinician: N/A This note was generated with Kout dictation software. It may contain incorrect words, spelling, and punctuation that were not noted in checking the note before signing. Lab Data Attestation: I reviewed the patient's lab results. Labs: Laboratory Results - last 24 hr 06/15/24 06/15/24 06/15/24 14:58 15:38 16:10 POC Glucose 87 120 H 123 H Discharge Plan Triage Chief Complaint: Hypoglycemia ED Provider: Nico Higgins Dx/Rx/DC Orders Clinical Impression: Hypoglycemic event in diabetes, History of diabetes mellitus Instructions: ED Hypoglycemia Oral Diabetic Med Prescriptions: No Action glipizide 5 mg tablet 5 mg PO DAILY Patient Comments: TAKE 1 TABLET BY MOUTH DAILY rosuvastatin 10 mg tablet 10 mg PO QHS Patient Comments: TAKE 1 TABLET BY MOUTH EVERY DAY AT BEDTIME divalproex 500 MG tablet extended release 24 hr 500 mg PO BID risperidone 0.5 MG tablet,disintegrating 1 mg PO BID cetirizine 10 MG tablet 10 mg PO DAILY benztropine 2 MG tablet 5 mg PO BID omeprazole 20 MG capsule,delayed release(DR/EC) 40 mg PO DAILY sumatriptan succinate 50 MG tablet 50 mg PO PRN PRN (Reason: Migraine Symptoms) Cholecalciferol (Vitamin D3) [Vitamin D3] 5,000 UNIT capsule 1 cap PO/SL DAILY multivitamin with minerals 1 EACH tablet 1 tab PO DAILY methylcellulose (laxative) 500 MG tablet 6 tab PO BID losartan 50 mg tablet 25 mg PO DAILY Patient Comments: TAKE 1 TABLET BY MOUTH EVERY DAY baclofen 10 mg tablet 10 mg PO DAILY Patient Comments: TAKE 1 TABLET BY MOUTH ONCE DAILY NEEDED ferrous sulfate [Iron (ferrous sulfate)] 325 mg (65 mg iron) tablet 325 mg PO DAILY meclizine 12.5 mg tablet 12.5 mg PO BID PRN PRN (Reason: dizziness) melatonin 10 mg capsule 10 mg PO QHS Stand Alone Forms: ED Work / School Excuse Primary Care Provider: Giana Perez Referrals: Giana Perez, DO [Primary Care Provider] - 1 Week Activity Restrictions/Additional Instructions: Glucose stable in the ED. Make sure you are eating when you take your glucose medicines. Recurrent symptoms, return to ED for reevaluation. Print Language: Luxembourgish Disposition Disposition: Home, Self Care Discharge Date/Time: 06/15/24 16:28
[2024-06-15 15:16] LABS: Bedside Glucose 87 mg/dL (74-106)
[2024-06-15 15:37] VITALS: BP 134/71; PULSE 86; RESP 18; O2SAT 96
[2024-06-15 15:55] LABS: Bedside Glucose 120 mg/dL (74-106)
[2024-06-15 16:00] VITALS: BP 130/69; O2SAT 96
[2024-06-15 16:15] VITALS: BP 130/69; PULSE 85; RESP 18; O2SAT 95
[2024-06-15 16:27] LABS: Bedside Glucose 123 mg/dL (74-106)
== END 2024-06-15 16:28 | disposition home or self-care (01) ==
PROVIDERS: Emergency Provider Emergency Medicine; PCP Family Medicine; Visit Provider Emergency Medicine
DX: E11.649 Type 2 diabetes mellitus with hypoglycemia without coma (principal); E78.00 Pure hypercholesterolemia, unspecified; I10 Essential (primary) hypertension; Z79.84 Long term (current) use of oral hypoglycemic drugs; K21.9 Gastro-esophageal reflux disease without esophagitis; F17.200 Nicotine dependence, unspecified, uncomplicated
CPT/HCPCS: 82962; 99284

== ENCOUNTER → 2024-06-29 | Outpatient (CLI) | payer MEDICAID, SELFPAY ==
[2024-06-29 12:51] LABS: Absolute Lymphocyte Count 1.44 X10^3/uL (0.83-4.51); Absolute Neutrophil Count 4.4 X10^3/uL (2.0-7.7); Basophil# 0.03 X10^3/uL; Basophil% 0.5 % (0-1); Eosinophil# 0.06 X10^3/uL; Eosinophils% 0.9 % (0-5); Hematocrit 41.6 % (40-54); Lymphocyte # 1.44 X10^3/ul (0.83-4.51); Lymphocyte % 21.8 % (19-41); Mean Corp Hgb Conc 33.7 g/dL (32-36); Mean Corpuscular Hgb 33.1 pg (27.0-32.0); Mean Corpuscular Volume 98.3 fL (80-94); Mean Platelet Vol. 9.6 fl (6.2-12.0); Monocyte# 0.62 X10^3/uL; Monocyte% 9.4 % (0-10); NRBC Flagged by Analyzer 0 % (0-5); Neutrophil # 4.44 X10^3/uL (2.7-7.7); Neutrophil % 67.1 % (47-70); Platelet Count 192 K/mm3 (150-450); RBC Distribution Width CV 11.7 % (11.6-14.6); RBC Distribution Width SD 41.9 fl (35.1-43.9); Red Blood Count 4.23 M/mm3 (4.6-6.2); White Blood Count 6.6 K/mm3 (4.4-11.0)
[2024-06-29 13:29] LABS: Anion Gap 5 (5-15); BUN 9 mg/dL (7-18); BUN/Creat Ratio 10.1 RATIO (10-20); Calcium,Total 9.7 mg/dL (8.5-10.1); Chloride 107 mmol/L (98-107); Creatinine, Serum 0.89 mg/dL (0.70-1.30); EST Glomerular Filtration Rate 95 mL/min (>60); Est Glom Filt Rate - Afr Amer 115 mL/min (>60); Glucose 91 mg/dL (74-106); Potassium 3.9 mmol/L (3.5-5.1); Sodium Level 139 mmol/L (136-145)
== END | disposition home or self-care (01) ==
LOC: VSLAB 12:01
PROVIDERS: PCP Family Medicine
DX: I10 Essential (primary) hypertension (principal)
CPT/HCPCS: 36415; 80048; 85025

== ENCOUNTER → 2024-08-04 | Outpatient (CLI) | payer MEDICAID, SELFPAY ==
[2024-08-04 16:30] LABS: Absolute Lymphocyte Count 1.59 X10^3/uL (0.83-4.51); Absolute Neutrophil Count 3.9 X10^3/uL (2.0-7.7); Basophil# 0.02 X10^3/uL; Basophil% 0.3 % (0-1); Eosinophil# 0.06 X10^3/uL; Hematocrit 40.5 % (40-54); Hemoglobin 13.9 g/dL (13.0-16.5); Lymphocyte # 1.59 X10^3/ul (0.83-4.51); Lymphocyte % 26.6 % (19-41); Mean Corp Hgb Conc 34.3 g/dL (32-36); Mean Corpuscular Hgb 33.8 pg (27.0-32.0); Mean Corpuscular Volume 98.5 fL (80-94); Mean Platelet Vol. 10.6 fl (6.2-12.0); Monocyte# 0.44 X10^3/uL; Monocyte% 7.4 % (0-10); NRBC Flagged by Analyzer 0 % (0-5); Neutrophil # 3.85 X10^3/uL (2.7-7.7); Neutrophil % 64.5 % (47-70); Platelet Count 183 K/mm3 (150-450); RBC Distribution Width CV 11.8 % (11.6-14.6); RBC Distribution Width SD 42.4 fl (35.1-43.9); Red Blood Count 4.11 M/mm3 (4.6-6.2)
[2024-08-04 16:52] LABS: AST(SGOT) 20 U/L (15-37); Alanine Aminotransfer ALT/SGPT 31 U/L (16-61); Albumin, Serum 3.8 g/dL (3.2-5.0); Alkaline Phosphatase 79 U/L (45-117); Anion Gap 7 (5-15); BUN 14 mg/dL (7-18); BUN/Creat Ratio 15.6 RATIO (10-20); Calcium,Total 9.3 mg/dL (8.5-10.1); Chloride 105 mmol/L (98-107); Cholesterol 162 mg/dL (200); EST Glomerular Filtration Rate 94 mL/min (>60); Est Glom Filt Rate - Afr Amer 114 mL/min (>60); Globulin 3.9 g/dL (2.2-4.2); Glucose 108 mg/dL (74-106); High Density Lipoprotein 49 mg/dL; PSA,Total - Annual Screen 0.64 ng/mL (0.00-4.00); Potassium 4.1 mmol/L (3.5-5.1); Protein, Total 7.7 g/dL (6.4-8.2); Sodium Level 139 mmol/L (136-145); Triglycerides 191 mg/dL; Very Low Density Lipoprotein 38 mg/dL (5-40)
[2024-08-04 17:08] LABS: Microalbumin,Random Urine 65.4 mg/L (NO RANGE EST.)
== END | disposition home or self-care (01) ==
LOC: VSLAB 13:25
PROVIDERS: PCP Family Medicine; Visit Provider Nurse Practitioner Family
DX: E78.2 Mixed hyperlipidemia (principal); E11.9 Type 2 diabetes mellitus without complications; Z12.5 Encounter for screening for malignant neoplasm of prostate; I10 Essential (primary) hypertension
CPT/HCPCS: 84153; 36415; 80053; 80061; 82043; 84443; 85025; G0103

== ENCOUNTER → 2024-08-30 | Outpatient (CLI) | payer MEDICAID, SELFPAY ==
--- NOTE | 2024-08-30 14:29 | CT_ITS ---
PROCEDURE: LOW DOSE CT LUNG SCREENING REASON FOR EXAM: Nicotine dependence. 7-8 cigarettes per day for 8 years. TECHNIQUE: Low Dose CT Lung Screening without contrast COMPARISON: None. FINDINGS: PULMONARY NODULES: (Only nodules >6mm are reported) Nodules described below are on series unless otherwise specified. Pulmonary Nodules: No concerning pulmonary nodules. Hardware:None Lymph Nodes:No mediastinal hilar or axillary lymphadenopathy. Heart and Vasculature:Normal heart size. No pericardial effusion.Thoracic aorta and pulmonary arteries have normal contours; noncontrast technique limits evaluation. Coronary Artery Calcifications: Mild. Lungs and Airways: The lungs are normally expanded and clear. Pleura:No pleural effusion. No pneumothorax. Upper Abdomen:Visualized portions of the upper abdominal viscera are unremarkable. Bones:Mild thoracic spine degenerative changes are seen, along with extensive DISH.. CT/Low Dose CT Lung Screening IMPRESSION: 1. BASED ON THE ACR LUNG RADS FOR THE MOST SUSPICIOUS NODULE (IF ANY) DESCRIBE D IN THIS REPORT, THE OVERALL LUNG RADS SCORE IS 1. 1 - NEGATIVE. RECOMMEND 12-MONTH SCREENING LDCT.. 2. SMOKING CESSATION COUNSELING IS RECOMMENDED IF THE PATIENT IS STILL SMOKING . 3. OTHER SIGNIFICANT FINDINGSNone. One or more dose reduction techniques were used (e.g., Automated exposure contr ol, adjustment of the mA and/or kV according to patient size, use of iterative reconstruction technique). The following information is provided for reference:Lung-RADS 2021 Assessment C ategories. Additional information involving Lung-RADS is available at www.acr.org. 0-INCOMPLETE 1-NEGATIVE:No nodules or definitely benign nodules. Complete, central, popcorn , or centric ring calcifications OR fat containing 2-BENIGN APPEARANCE (based on imaging features or indolent behavior). Juxtaple ural nodule: < 10mm AND solid; smooth margins; oval, entiform, or triangular shape Solid nodule: <6mm at baseline or new< 4mm Part solid Nodule: < 6mm total mean diameter at baseline Nonsolid nodule:(GGN) < 30mm OR >=30mm stable or slowly growing Airway nodule, subsegmental at baseline, new, or stable Category 3 nodule stabl e or decreased in size at 6-month follow-up CT or Category 3 or 4A nodules that resolve on follow-up OR category 4B findings prov en to be benign following diagnotic work up. 3 - Probably Benign (Based on imaging features or behavior) Solid Nodule: >= 6 to <8mm at baseline OR new 4 to <6mm Part-solid nodule: >= 6mm toal mean diam. with solid component <6mm at baseline OR new < 6mm total mean diam. Non-solid nodule: GGN >= 30mm at baseline or new Atypical pulmonary cyst: Growing cystic component (mean diam.) of thick-walled cyst Category 4A nodule stable or decreased in size at 3-month follow-up CT (excl.ai rway). 4A - Suspicious Solid nodule: >=8 to < 15mm at baseline OR growing < 8mm OR new 6 to < 8mm Part solid nodule: >= 6mm total mean diam. w/ solid component >=6mm to < 8mm at baseline OR new or growing < 4mm solid component Airway nodule, segmental or more proximal at baseline or new Atypical pulmonary cyst: Thick-walled OR multilocular at baseline OR becomes mu ltilocular 4B - Very Suspicious Airway nodule, segmental or more proximal, and stable or growing Solid nodule: >= 15mm at baseline OR new or growing >= 8mm Part solid nodule: Solid component >= 8mm OR new or growing >= 4mm solid compon ent Atypical pulmonary cyst: Thick-walled with growing wall thickness/nodularity OR Growing multilocular (mean diam.) OR Multilocular with increased loculation or new/increased opacity Slow-growing solid or part solid nodule w/ growth over multiple screening exams 4X - Very Suspicious Category 3 or 4 nodules with additional features that increase the suspicion fo r lung cancer. S - Clinically Significant or potentially significant findings (non-lung cancer ) Reading Location: [address]
== END | disposition home or self-care (01) ==
LOC: CT 14:25
PROVIDERS: PCP Family Medicine; Referring Provider Nurse Practitioner Family; Visit Provider Nurse Practitioner Family
DX: F17.210 Nicotine dependence, cigarettes, uncomplicated (principal)
CPT/HCPCS: 71271

== ENCOUNTER → 2024-10-25 | Outpatient (CLI) | payer MEDICAID, SELFPAY ==
[2024-10-25 13:00] LABS: Absolute Lymphocyte Count 1.77 X10^3/uL (0.83-4.51); Absolute Neutrophil Count 4.7 X10^3/uL (2.0-7.7); Basophil# 0.03 X10^3/uL; Basophil% 0.4 % (0-1); Eosinophil# 0.08 X10^3/uL; Eosinophils% 1.1 % (0-5); Hematocrit 41.3 % (40-54); Lymphocyte # 1.77 X10^3/ul (0.83-4.51); Lymphocyte % 24.7 % (19-41); Mean Corp Hgb Conc 33.9 g/dL (32-36); Mean Corpuscular Hgb 33.3 pg (27.0-32.0); Mean Corpuscular Volume 98.3 fL (80-94); Mean Platelet Vol. 11.1 fl (6.2-12.0); Monocyte# 0.55 X10^3/uL; Monocyte% 7.7 % (0-10); NRBC Flagged by Analyzer 0 % (0-5); Neutrophil # 4.73 X10^3/uL (2.7-7.7); Platelet Count 189 K/mm3 (150-450); RBC Distribution Width CV 11.7 % (11.6-14.6); White Blood Count 7.2 K/mm3 (4.4-11.0)
[2024-10-25 14:08] LABS: ALB/GLOB Ratio 1.4 RATIO (0.9-2.4); AST(SGOT) 26 U/L (<=37); Alanine Aminotransfer ALT/SGPT 31 U/L (<=46); Albumin, Serum 4.3 g/dL (3.5-5.0); Alkaline Phosphatase 71 U/L (40-129); Anion Gap 14 (5-15); BUN 15 mg/dL (4-19); BUN/Creat Ratio 16.2 RATIO (10-20); Calcium,Total 9.4 mg/dL (7.6-11.0); Chloride 103 mmol/L (98-108); Cholesterol 161 mg/dL (<=200); EST Glomerular Filtration Rate 102 (>60); Glucose 105 mg/dL (70-99); High Density Lipoprotein 43 mg/dL; Low Density Lipoprotein Calc. 27 mg/dL; Potassium 3.9 mmol/L (3.3-5.1); Protein, Total 7.4 g/dL (5.9-8.4); Sodium Level 139 mmol/L (133-145); Total Bilirubin 0.37 mg/dL (0.00-1.30); Triglycerides 451 mg/dL; Very Low Density Lipoprotein 90 mg/dL (5-40); cholesterol:hdl ratio screen 3.71
== END | disposition home or self-care (01) ==
LOC: VSLAB 10:31
PROVIDERS: PCP Family Medicine; Visit Provider Nurse Practitioner Family
DX: E11.9 Type 2 diabetes mellitus without complications (principal); E78.2 Mixed hyperlipidemia
CPT/HCPCS: 36415; 80053; 80061; 84443; 85025

== ENCOUNTER 2025-03-15 12:40 | Outpatient (RCR) | payer MEDICAID, SELFPAY ==
--- NOTE | 2025-03-15 14:18 | HP.FCE ---
Task Lift Floor (Occasional 1-33% of Day): 40 Floor (Frequent 34-66% of Day): 20 Floor (Constant 67-100% of Day): 8.4 Floor PDL: Light-Medium Knee (Occasional 1-33% of Day): 40 Knee (Frequent 34-66% of Day): 20 Knee (Constant 67-100% of Day): 8.4 Knee PDL: Light-Medium Waist (Occasional 1-33% of Day): 40 Waist (Frequent 34-66% of Day): 20 Waist (Constant 67-100% of Day): 8.4 Waist PDL: Light-Medium Shoulder (Occasional 1-33% of Day): 40 Shoulder (Frequent 34-66% of Day): 20 Shoulder (Constant 67-100% of Day): 8.4 Shoulder PDL: Light-Medium Overhead (Occasional 1-33% of Day): 30 Overhead (Frequent 34-66% of Day): 15 Overhead (Constant 67-100% of Day): 6.3 Overhead PDL: Light Comments: pt is light medium for floor, knee, waist, shoulder lift and light for overhead lift Work Activity/Posture Bending: Frequent Ability (34-66% of day) Squatting: Frequent Ability (34-66% of day) Kneeling: Occasional Ability (1-33% of day) Reaching out: Constant Ability (67-100% of day) Reaching up: Constant Ability (67-100% of day) Sitting: Constant Ability (67-100% of day) Walking: Frequent Ability (34-66% of day) Standing: Frequent Ability (34-66% of day) Reference Reference: Duration Sedentary Sedentary Light Light Light Medium Medium Medium Heavy Very Heavy Heavy Occasional (0-33% of day) Frequent (34-66% of day) Constant (67-100% of day) 10 # Negligible Negligible 15 # 8 # Negligible 20 # 10# Negli. 35 # 18 # 7 # 50 # 25 # 10 # 75 # 100 # >100 # 38 # 50 # >50 # 15 # 20 # >20 # Patient Information Height: 6 ft Weight:: 113.398 kg Hand Dominance: R Medical History Medical History Including Restrictions: This pt arrives with the dx of spinal stenosis. pt reports has been having back pain for years. Pt sees specialist at [facility]. Per pt he has had 3 injections in back pt states last injection was last year. Pt states he believes the injections have helped. Pt reports he has done PT at [facility] in 2019, 2020 and 2021. Pt has tried aquatic therapy as well. Pt denies pain running down legs. Per pt he also struggles with PTSD as well as schizophrenia impacting his ability to perform work related duties. 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 Pt has 3 steps to enter home with hand rail. Pt is I in ADL tasks as well a IADL tasks. Pt does not drive instead uses cab to get around. Pt bathroom with t/s combo stands for shower no grab bars. commode standard. does not use AD for mobility and does not own any. Physical Examination Physical Examination: baseline sitting for intake 79 bpm and 02 96% ROM: BUE WFL BLE WFL Strength: measured using fet peak force Upper Extremity: L shoulder flexion: 17.6# R shoulder flexion 15.2# L bicep: 33.6# R bicep: 31.3# L tricep: 15.1# R troicep: 15.8# L ER: 23.2# R ER: 22.6# Lower Extremity: R hip flexion: 33.6# L hip flexion: 34# L quad: 20.2# R quad: 26.2# L hamstrin.4# R hamstrin.8# Right [employer] Superintendent Strength Average: 78.33 Right [employer] Superintendent Strength Percentile: 4.0 percentile Left [employer] Superintendent Strength Average: 83.33 Left [employer] Superintendent Strength Percentile: 13.8 percentile Right Lateral Pinch Average: 27.00 Right Lateral Pinch Percentile: >90th percentile Left Lateral Pinch Average: 25.33 Left Lateral Pinch Percentile: >90th percentile Right Tripod Pinch Average: 23.00 Right Tripod Pinch Percentile: 90th percentile Left Tripod Pinch Average: 18.66 Left Tripod Pinch Percentile: 50th percentile Sensation: denies numbness or tingling of hands or feet-- states L hand was tingly once however due to hand randomly cramping up on him unknown cause Fine Motor: denies issue with FMC or dexterity of hands Balance: standing forward reach score 18 score of more than 10 indicates pt is low risk for falls Non Material Handling Activities Bending: bending: trial of 3: 3/3 10x own pace: 04/28 10x fast: 04/28 HR 79 bpm 02 96% back pain 01/26 hold onto desk with unilateral support does loose balance multiple times during task and requires cues to assure safety Squatting: squat: trial of 3: 3/3 10x at own pace: 04/28 10x fast: 04/28 unilateral support of desk during task comes approx 50% of way down for completion HR 90 bpm and 02 93% is able to excelsior picker pace with fast trial Kneeling: Kneel: trial of 3: 3/3 10x at own pace: 04/28 10x fast : uses unilateral support of desk during task HR 89 bpm 02 96% back pain 01/26 Reaching out/up: reaching out: trial of 3: 3/3 10x at own pace: 04/28 10x fast: 04/28 reaching up: trial of 3: 3/3 10x at own pace: 04/28 10x fast: 04/28 HR 97 bpm 02 96% standing no UE support Walking: able to complete x4 laps around therapy gym no AD no LOB 1,544 feet total HR 93 bpm and 02 96% states he can normally make it 2-3 blocks reports back pain as 8.5/10 at end of walk Standing: per pt able to stand for approx 45 min before needing to sit for RB pt is able to stand during FCE assessment approx 30 min before sitting down Sitting: sit for 4+ hours per pt report due to watching movies at home pt does sit for approx 30-35 min during intake of assessment no need to change positioning during sit Climbing Stairs: ascends and descends x2 flights of stairs alternating feet using B hand rail for support no LOB during task Dynamic Occasional Lifting Capacity Floor Lift: floor lift: box (15#)+ 25#= 40# total bends at knee and waist to perform keeps load close to body back pain 7/10 HR 94 bpm 02 97% Knee Lift: knee lift: box (15#)+ 25= 40# total back pain 7/10 bends at waist slightly at knees keeps load close to body Waist Lift: waist lift: box (15#)+ 25= 40# total HR 106 bpm 02 97% back pain 8/10 Shoulder Lift: shoulder lift box (15#)+ 25= 40# total back pain 8/10 HR 91 bpm 02 98% able to control lift up as well as down Overhead Lift: overhead lift: box (15#)+ 15= 30# total HR 94 bpm and 02 96% back pain 8/10 able to control jessenia up and down Carrying: carry ---52 feet box (15#)+ 20#= 35# no LOB smooth mobility alternating feet HR 102 bpm and 02 93% back pain 8.5/10
== END 2025-03-15 19:00 | disposition home or self-care (01) ==
LOC: OT 12:40
PROVIDERS: PCP Family Medicine; Referring Provider Clinical Nurse Specialist Adult Health; Visit Provider Clinical Nurse Specialist Adult Health
DX: M48.062 Spinal stenosis, lumbar region with neurogenic claudication (principal)
CPT/HCPCS: 97750

== ENCOUNTER → 2025-05-04 | Outpatient (CLI) | payer MEDICAID, SELFPAY ==
[2025-05-04 12:19] LABS: Hematocrit 42.8 % (40-54); Hemoglobin 14.8 g/dL (13.0-16.5); Immature Granulocytes Count 0.020 X10^3/uL (0.0-0.0); Mean Corp Hgb Conc 34.6 g/dL (32-36); Mean Corpuscular Volume 97.1 fL (80-94); Mean Platelet Vol. 11.1 fl (6.2-12.0); NRBC Flagged by Analyzer 0 % (0-5); Platelet Count 171 K/mm3 (150-450); RBC Distribution Width CV 11.9 % (11.6-14.6); RBC Distribution Width SD 42.7 fl (35.1-43.9); Red Blood Count 4.41 M/mm3 (4.6-6.2); White Blood Count 7.4 K/mm3 (4.4-11.0)
[2025-05-04 12:23] LABS: Ammonia 41.4 umol/L (16-60)
[2025-05-04 13:05] LABS: Valproic Acid (Depakene) Level 53 ug/mL (50-100)
[2025-05-04 13:45] LABS: AST(SGOT) 27 U/L (<=37); Alanine Aminotransfer ALT/SGPT 32 U/L (<=46); Albumin, Serum 4.5 g/dL (3.5-5.0); Alkaline Phosphatase 67 U/L (40-129); Anion Gap 12 (5-15); BUN 17 mg/dL (4-19); BUN/Creat Ratio 16.0 RATIO (10-20); Calcium,Total 9.3 mg/dL (7.6-11.0); Carbon Dioxide 25.3 mmol/L (21.0-32.0); Chloride 102 mmol/L (98-108); Globulin 2.9 g/dL (2.2-4.2); Glucose 93 mg/dL (70-99); Potassium 4.0 mmol/L (3.3-5.1)
[2025-05-05 04:07] LABS: PROLACTIN 29.0 ng/mL (3.6-25.2)
== END | disposition home or self-care (01) ==
LOC: LAB 11:15
PROVIDERS: PCP Family Medicine; Referring Provider Psychiatry & Neurology Psychiatry; Visit Provider Psychiatry & Neurology Psychiatry
DX: Z79.899 Other long term (current) drug therapy (principal)
CPT/HCPCS: 36415; 80053; 80164; 82140; 84146; 85025